=== PATIENT | female | born 1950 | race Caucasian/White ===

== ENCOUNTER 2021-08-07 15:07 | Inpatient (IN) | payer MEDICARE ==
[2021-08-07 21:17] LABS: Basophils % (A) 0 %; Eosinophils % (A) 0 %; HCT 39.4 % (34.0-46.0); HGB 13.6 gm/dL (11.4-16.0); Lymphocytes # (A) 0.8 k/uL (1.0-4.8); Lymphocytes % (A) 8 %; MCH 33.5 pg (25.0-35.0); MCHC 34.5 g/dL (31.0-37.0); MCV 97.1 fL (80.0-100.0); Mean Platelet Volume 6.8; Monocytes # (A) 0.2 k/uL (0-1.0); Monocytes % (A) 2 %; Neutrophils # (A) 8.3 k/uL (1.3-7.7); Neutrophils % (A) 88 %; Platelet Count 293 k/uL (150-450); RBC 4.06 m/uL (3.80-5.40); RDW 12.7 % (11.5-15.5); WBC 9.5 k/uL (3.8-10.6)
[2021-08-07 21:23] LABS: ALT 25 U/L (4-34); AST 34 U/L (14-36); Acetaminophen <10.0 ug/mL; African American GFR (CKD) >90 (>60 ml/min/1.73 sqM); Albumin 4.6 g/dL (3.5-5.0); Alkaline Phosphatase 99 U/L (38-126); Anion Gap 9 mmol/L; Blood Urea Nitrogen 9 mg/dL (7-17); Calcium 9.7 mg/dL (8.4-10.2); Carbon Dioxide 24 mmol/L (22-30); Chloride 95 mmol/L (98-107); Glucose 121 mg/dL (74-99); Non-African American GFR(CKD) >90 (>60 ml/min/1.73 sqM); Salicylate <1.0 mg/dL; Sodium 128 mmol/L (137-145); Total Bilirubin 1.1 mg/dL (0.2-1.3); Total Protein 7.4 g/dL (6.3-8.2)
[2021-08-07 21:33] LABS: INR 0.9 (<1.2); Partial Thromboplastin Time 24.8 sec (22.0-30.0)
--- NOTE | 2021-08-07 21:43 | CT ---
EXAMINATION TYPE: CT brain wo con DATE OF EXAM: 08/07/2021 COMPARISON: None HISTORY: Confusion, tremors, URBINA CT DLP: 1096.4 mGycm Automated exposure control for dose reduction was used. There is mild cerebral atrophy. There is mild hypodensity in the periventricular white matter. There is no mass effect nor midline shift. There is no sign of intracranial hemorrhage. Calvarium is intact . Skull base is intact. There is normal aeration of the mastoid sinuses. IMPRESSION: Mild atrophy. White matter hypodensity mainly in the frontal lobes consistent with some chronic small vessel ischemia.
--- NOTE | 2021-08-07 21:45 | XR ---
EXAMINATION TYPE: XR chest 2V DATE OF EXAM: 08/07/2021 COMPARISON: NONE HISTORY: Confusion TECHNIQUE: 2 views FINDINGS: Heart and mediastinum are normal. Lungs are clear. Diaphragm is normal. Bony thorax is inta ct. Pulmonary vascularity is normal. IMPRESSION: Normal chest
[2021-08-07 21:48] LABS: Appearance,Urine Cloudy (Clear); Bilirubin,Urine Negative (Negative); Blood,Urine Negative (Negative); Color,Urine Yellow; Glucose,Urine (UA) Negative (Negative); Ketones,Urine 2+ (Negative); Leukocyte Esterase,Urine Large (Negative); Nitrite,Urine Negative (Negative); Protein,Urine Trace (Negative); RBC,Urine 5 /hpf (0-5); Specific Gravity,Urine 1.019 (1.001-1.035); Squamous Epithelial Cell,Urine 4 /hpf (0-4); Urobilinogen,Urine <2.0 mg/dL (<2.0); WBC,Urine 25 /hpf (0-5)
[2021-08-07 21:55] LABS: Amphetamine Screen,Urine Not Detected (NotDetected); Barbiturate Screen,Urine Not Detected (NotDetected); Benzodiazepines Screen,Urine Detected (NotDetected); Cocaine Screen,Urine Not Detected (NotDetected); Methadone Screen, Urine Not Detected (NotDetected); Opiate Screen,Urine Detected (NotDetected); Oxycodone Screen, Urine Not Detected (NotDetected); Phencyclidine Screen,Urine Not Detected (NotDetected); Tricyclic Antidepressant,Urine Not Detected (NotDetected); Urn Cannabinoid Scrn Not Detected (NotDetected)
[2021-08-07] MEDS ORDERED: cefTRIAXone IN SWFI 1,000 MG/10 ML SYRINGE IVP STA (22:45)
[2021-08-07] MEDS ORDERED: VANCOMYCIN IV PER PHARMACY 1 EACH MISC MISCELLANE PRN (23:39)
--- NOTE | 2021-08-07 23:46 | ED ---
Altered Mental Status HPI - General Chief Complaint: Altered Mental Status Stated Complaint: Confusion,offbalance,shaking Time Seen by Provider: 08/07/21 19:35 Source: patient, family Mode of arrival: wheelchair Limitations: no limitations - History of Present Illness Initial Comments: 71-year-old female presents emergency Department accompanied by her daughter with report of altered mental status. The daughter provides majority of the history. States that she talked her mother yesterday around 8 PM and the patient was her normal self. The patient then showed up at her house today. Patient reported that she was having difficulties figuring out how to use the telephone and therefore drove herself over to her daughter's house. Patient had difficulty with her speech and seemed very confused. She was having difficulties with ambulation. The patient denies any recent head injuries. No known fevers. Does admit to a headache. No neck pain. No chest pain or shortness of breath. No abdominal pain. No changes in her bowel or bladder hab its. Upon evaluation in the room the patient is able to provide a complete history. Does admit that she was confused earlier this morning and agrees that that is concerning to her. Patient took Tylenol the waiting room after it was found that she had a fever. She denies any infectious symptoms. No nausea or vomiting. Denies drug use. Does admit to occasional alcohol use. No sick contacts. No other alleviating, precipitating or modifying factors - Related Data Home Medications Medication Instructions Recorded Confirmed HYDROcodone/APAP 7.5-325MG [[place] 1 tab PO Q6H PRN 08/07/21 08/07/21 7.5-325] Losartan Potassium [Cozaar] 25 mg PO DAILY 08/07/21 08/07/21 diazePAM [Valium] 5 mg PO TID PRN 08/07/21 08/07/21 hydroCHLOROthiazide [Hydrodiuril] 25 mg PO DAILY 08/07/21 08/07/21 Allergies Allergy/AdvReac Type Severity Reaction Status Date / Time No Known Allergies Allergy Verified 08/07/21 22:22 Review of Systems ROS Statement: Those systems with pertinent positive or pertinent negative responses have been documented in the HPI. ROS Other: All systems not noted in ROS Statement are negative. Past Medical History Past Medical History: Hypertension Additional Past Medical History / Comment(s): tremors History of Any Multi-Drug Resistant Organisms: None Reported Past Surgical History: Orthopedic Surgery Past Psychological History: No Psychological Hx Reported Smoking Status: Never smoker Past Alcohol Use History: Occasional Past Drug Use History: None Reported - Past Family History Mother Family Medical History: Hypertension General Exam Limitations: no limitations General appearance: alert, in no apparent distress, other (resting tremor ) Head exam: Present: atraumatic, normocephalic, normal inspection Eye exam: Present: normal appearance, PERRL, EOMI. Absent: scleral icterus, conjunctival injection, periorbital swelling ENT exam: Present: normal exam, mucous membranes moist Neck exam: Present: normal inspection. Absent: tenderness, meningismus, lymphadenopathy Respiratory exam: Present: normal lung sounds bilaterally. Absent: respiratory distress, wheezes, rales, rhonchi, stridor Cardiovascular Exam: Present: normal rhythm, tachycardia GI/Abdominal exam: Present: soft, normal bowel sounds. Absent: distended, tenderness, guarding, rebound, rigid Extremities exam: Present: normal inspection, full ROM, normal capillary refill. Absent: tenderness, pedal edema, joint swelling, calf tenderness Neurological exam: Present: alert, oriented X3, CN II-XII intact, other (finger to nose symmetric) Psychiatric exam: Present: flat affect Skin exam: Present: warm, dry, intact, normal color. Absent: rash Course Vital Signs 08/07/21 08/07/21 08/08/21 19:31 23:42 05:00 Temperature 100.4 F H 99.1 F 98.4 F Pulse Rate 111 H 107 H 98 Respiratory 20 18 15 Rate Blood Pressure 165/81 176/83 160/74 O2 Sat by Pulse 93 L 94 L 96 Oximetry 08/08/21 07:00 Temperature 98 F Pulse Rate 90 Respiratory 22 Rate Blood Pressure 156/82 O2 Sat by Pulse 98 Oximetry Medical Decision Making - Medical Decision Making On arrival patient is placed in room 30. A thorough history and physical exam was performed. Patient is able to provide a complete history at this time. Darshan arshad reports that the patient is much improved from earlier today. Laboratory studies are obtained. Sodium 128. Urinalysis demonstrates large leukocyte esterase and 25 white blood cells. Urine positive for opiates and benzos. Patient did not originally disclose that she is on these medications however later on does admit that she takes [place] and Valium when needed. Denies abuse of these medications. CT of the patient's brain demonstrates mild atrophy with white matter hypodensity mainly in the frontal lobes consistent with chronic small vessel ischemia. Chest x-ray demonstrates no acute process. Due to the patient's reported encephalopathy earlier today with fever she is given a dose of Rocephin and Vanco. Patient is refusing lumbar puncture at this time. Understands the risks of refusal - patient states she does not want to even remain hospitalized. Patient agreeable to stay overnight however with persuasion from her daughter. Dr. Courtney will be consult from neurology. Patient remained in stable condition awaiting a bed - Lab Data Result diagrams: 08/08/21 06:15 08/08/21 06:15 Lab Results 08/07/21 08/07/21 08/07/21 Range/Units 21:00 21:04 21:04 WBC 9.5 (3.8-10.6) k/uL RBC 4.06 (3.80-5.40) m/uL Hgb 13.6 (11.4-16.0) gm/dL Hct 39.4 (34.0-46.0) % MCV 97.1 (80.0-100.0) fL MCH 33.5 (25.0-35.0) pg MCHC 34.5 (31.0-37.0) g/dL RDW 12.7 (11.5-15.5) % Plt Count 293 (150-450) k/uL MPV 6.8 Neutrophils % 88 % Lymphocytes % 8 % Monocytes % 2 % Eosinophils % 0 % Basophils % 0 % Neutrophils # 8.3 H (1.3-7.7) k/uL Lymphocytes # 0.8 L (1.0-4.8) k/uL Monocytes # 0.2 (0-1.0) k/uL Eosinophils # 0.0 (0-0.7) k/uL Basophils # 0.0 (0-0.2) k/uL PT 10.0 (9.0-12.0) sec INR 0.9 (<1.2) APTT 24.8 (22.0-30.0) sec Sodium (137-145) mmol/L Potassium (3.5-5.1) mmol/L Chloride (98-107) mmol/L Carbon Dioxide (22-30) mmol/L Anion Gap mmol/L BUN (7-17) mg/dL Creatinine (0.52-1.04) mg/dL Est GFR (CKD-EPI)AfAm (>60 ml/min/1.73 sqM) Est GFR (CKD-EPI)NonAf (>60 ml/min/1.73 sqM) Glucose (74-99) mg/dL Calcium (8.4-10.2) mg/dL Total Bilirubin (0.2-1.3) mg/dL AST (14-36) U/L ALT (4-34) U/L Alkaline Phosphatase (38-126) U/L Ammonia (<30) umol/L Troponin I (0.000-0.034) ng/mL Total Protein (6.3-8.2) g/dL Albumin (3.5-5.0) g/dL TSH (0.465-4.680) mIU/L Urine Color Yellow Urine Appearance Cloudy H (Clear) Urine pH 6.0 (5.0-8.0) Ur Specific [place] 1.019 (1.001-1.035) Urine Protein Trace H (Negative) Urine Glucose (UA) Negative (Negative) Urine Ketones 2+ H (Negative) Urine Blood Negative (Negative) Urine Nitrite Negative (Negative) Urine Bilirubin Negative (Negative) Urine Urobilinogen <2.0 (<2.0) mg/dL Ur Leukocyte Esterase Large H (Negative) Urine RBC 5 (0-5) /hpf Urine WBC 25 H (0-5) /hpf Ur Squamous Epith Cells 4 (0-4) /hpf Salicylates mg/dL Urine Opiates Screen Detected H (NotDetected) Ur Oxycodone Screen Not Detected (NotDetected) Urine Methadone Screen Not Detected (NotDetected) Ur Propoxyphene Screen Not Detected (NotDetected) Acetaminophen ug/mL Ur Barbiturates Screen Not Detected (NotDetected) U Tricyclic Antidepress Not Detected (NotDetected) Ur Phencyclidine Scrn Not Detected (NotDetected) Ur Amphetamines Screen Not Detected (NotDetected) U Methamphetamines Scrn Not Detected (NotDetected) U Benzodiazepines Scrn Detected H (NotDetected) Urine Cocaine Screen Not Detected (NotDetected) U Marijuana (THC) Screen Not Detected (NotDetected) Coronavirus (PCR) (Not Detectd) 08/07/21 08/07/21 08/07/21 Range/Units 21:04 21:04 21:04 WBC (3.8-10.6) k/uL RBC (3.80-5.40) m/uL Hgb (11.4-16.0) gm/dL Hct (34.0-46.0) % MCV (80.0-100.0) fL MCH (25.0-35.0) pg MCHC (31.0-37.0) g/dL RDW (11.5-15.5) % Plt Count (150-450) k/uL MPV Neutrophils % % Lymphocytes % % Monocytes % % Eosinophils % % Basophils % % Neutrophils # (1.3-7.7) k/uL Lymphocytes # (1.0-4.8) k/uL Monocytes # (0-1.0) k/uL Eosinophils # (0-0.7) k/uL Basophils # (0-0.2) k/uL PT (9.0-12.0) sec INR (<1.2) APTT (22.0-30.0) sec Sodium 128 L (137-145) mmol/L Potassium 4.0 (3.5-5.1) mmol/L Chloride 95 L (98-107) mmol/L Carbon Dioxide 24 (22-30) mmol/L Anion Gap 9 mmol/L BUN 9 (7-17) mg/dL Creatinine 0.45 L (0.52-1.04) mg/dL Est GFR (CKD-EPI)AfAm >90 (>60 ml/min/1.73 sqM) Est GFR (CKD-EPI)NonAf >90 (>60 ml/min/1.73 sqM) Glucose 121 H (74-99) mg/dL Calcium 9.7 (8.4-10.2) mg/dL Total Bilirubin 1.1 (0.2-1.3) mg/dL AST 34 (14-36) U/L ALT 25 (4-34) U/L Alkaline Phosphatase 99 (38-126) U/L Ammonia (<30) umol/L Troponin I <0.012 (0.000-0.034) ng/mL Total Protein 7.4 (6.3-8.2) g/dL Albumin 4.6 (3.5-5.0) g/dL TSH 0.532 (0.465-4.680) mIU/L Urine Color Urine Appearance (Clear) Urine pH (5.0-8.0) Ur Specific [place] (1.001-1.035) Urine Protein (Negative) Urine Glucose (UA) (Negative) Urine Ketones (Negative) Urine Blood (Negative) Urine Nitrite (Negative) Urine Bilirubin (Negative) Urine Urobilinogen (<2.0) mg/dL Ur Leukocyte Esterase (Negative) Urine RBC (0-5) /hpf Urine WBC (0-5) /hpf Ur Squamous Epith Cells (0-4) /hpf Salicylates <1.0 mg/dL Urine Opiates Screen (NotDetected) Ur Oxycodone Screen (NotDetected) Urine Methadone Screen (NotDetected) Ur Propoxyphene Screen (NotDetected) Acetaminophen <10.0 ug/mL Ur Barbiturates Screen (NotDetected) U Tricyclic Antidepress (NotDetected) Ur Phencyclidine Scrn (NotDetected) Ur Amphetamines Screen (NotDetected) U Methamphetamines Scrn (NotDetected) U Benzodiazepines Scrn (NotDetected) Urine Cocaine Screen (NotDetected) U Marijuana (THC) Screen (NotDetected) Coronavirus (PCR) Not Detected (Not Detectd) 08/07/21 Range/Units 22:04 WBC (3.8-10.6) k/uL RBC (3.80-5.40) m/uL Hgb (11.4-16.0) gm/dL Hct (34.0-46.0) % MCV (80.0-100.0) fL MCH (25.0-35.0) pg MCHC (31.0-37.0) g/dL RDW (11.5-15.5) % Plt Count (150-450) k/uL MPV Neutrophils % % Lymphocytes % % Monocytes % % Eosinophils % % Basophils % % Neutrophils # (1.3-7.7) k/uL Lymphocytes # (1.0-4.8) k/uL Monocytes # (0-1.0) k/uL Eosinophils # (0-0.7) k/uL Basophils # (0-0.2) k/uL PT (9.0-12.0) sec INR (<1.2) APTT (22.0-30.0) sec Sodium (137-145) mmol/L Potassium (3.5-5.1) mmol/L Chloride (98-107) mmol/L Carbon Dioxide (22-30) mmol/L Anion Gap mmol/L BUN (7-17) mg/dL Creatinine (0.52-1.04) mg/dL Est GFR (CKD-EPI)AfAm (>60 ml/min/1.73 sqM) Est GFR (CKD-EPI)NonAf (>60 ml/min/1.73 sqM) Glucose (74-99) mg/dL Calcium (8.4-10.2) mg/dL Total Bilirubin (0.2-1.3) mg/dL AST (14-36) U/L ALT (4-34) U/L Alkaline Phosphatase (38-126) U/L Ammonia <9 (<30) umol/L Troponin I (0.000-0.034) ng/mL Total Protein (6.3-8.2) g/dL Albumin (3.5-5.0) g/dL TSH (0.465-4.680) mIU/L Urine Color Urine Appearance (Clear) Urine pH (5.0-8.0) Ur Specific [place] (1.001-1.035) Urine Protein (Negative) Urine Glucose (UA) (Negative) Urine Ketones (Negative) Urine Blood (Negative) Urine Nitrite (Negative) Urine Bilirubin (Negative) Urine Urobilinogen (<2.0) mg/dL Ur Leukocyte Esterase (Negative) Urine RBC (0-5) /hpf Urine WBC (0-5) /hpf Ur Squamous Epith Cells (0-4) /hpf Salicylates mg/dL Urine Opiates Screen (NotDetected) Ur Oxycodone Screen (NotDetected) Urine Methadone Screen (NotDetected) Ur Propoxyphene Screen (NotDetected) Acetaminophen ug/mL Ur Barbiturates Screen (NotDetected) U Tricyclic Antidepress (NotDetected) Ur Phencyclidine Scrn (NotDetected) Ur Amphetamines Screen (NotDetected) U Methamphetamines Scrn (NotDetected) U Benzodiazepines Scrn (NotDetected) Urine Cocaine Screen (NotDetected) U Marijuana (THC) Screen (NotDetected) Coronavirus (PCR) (Not Detectd) - EKG Data EKG Comments: EKG demonstrates sinus tachycardia with a ventricular rate of 101. NH interval 136. QRS 78. QTC of 448. No acute ST segment elevations or depressions concerning for ischemic changes Disposition Clinical Impression: Acute encephalopathy, Pyrexia Disposition: ADMITTED IP TO THIS HOSP Condition: Undetermined Is patient prescribed a controlled substance at d/c from ED?: No Decision to Admit Reason: Admit from EC Decision Date: 08/07/21 Decision Time: 23:56
[2021-08-07] MEDS ORDERED: ACETAMINOPHEN TAB 325 MG TAB PO PRN (23:56)
[2021-08-07] MEDS ORDERED: NALOXONE 0.4 MG/ML 1 ML VIAL IV PRN (23:56)
[2021-08-07] MEDS ORDERED: IBUPROFEN 400 MG TAB PO PRN (23:56)
[2021-08-07] MEDS ORDERED: KETOROLAC 30 MG/ML 1 ML VIAL IVP STA (23:57)
[2021-08-08] MEDS ORDERED: SODIUM CHLORIDE 0.9% 1,000 ML IV ONE (00:07)
[2021-08-08] MEDS ORDERED: VANCOMYCIN 1,000 MG in SODIUM CHLORIDE 0.9% 250 ML IVPB ONE (00:30)
--- NOTE | 2021-08-08 02:58 | P.HPIM ---
History of Present Illness H&P Date: 08/08/21 The patient is a 71-year-old female with a PMH of hypertension, essential tremor, and alcohol abuse who was brought to the emergency room by her daughter for confusion and slurred speech. The patient reports that this morning she tried to go into town as per usual but found herself having difficulty using her cell phone to contact her daughter. She then decided to drive to her daughter's house and upon arrival, the patient's daughter noted that she was slurring her words and appeared to be confused brought her to the emergency room. The patient reports having a headache throughout the day but denied neck pain, visual disturbances, fevers. Denied focal weakness, numbness, tingling. The p atient endorsed drinking 6-10 beers daily for the past several decades but notes no history of alcohol withdrawal or having been hospitalized due to her drinking. The patient further denied urinary complaints, abdominal pain, nausea, vomiting, diarrhea, cough, chest pain, shortness of breath. Denied rashes, sick contacts, recent travel. The daughter at the bedside at the time of interview reports that her mother appears almost be back to baseline but still not quite herself. The patient had a temperature in the emergency room with T-max of 100.4F. CT brain revealed chronic small vessel ischemia but no additional abnormalities. EKG revealed sinus tachycardia at 101 beats per minute with T-wave inversion in leads V1 and V2. Chest x-ray was unremarkable. Laboratory evaluation was remarkable for sodium of 128, UA with WBC count 25, large leukocyte esterase, and 2+ ketones with urine toxicology positive for opiates and benzodiazepines. Review of systems: Pertinent positives and negatives as discussed in HPI, a complete review of systems was performed and all other systems are negative. Physical examination: General: non toxic, no distress, appears at stated age, normal weight Derm: no unusual rashes/lesions no unusual ecchymoses, warm, dry Head: atraumatic, normocephalic, symmetric Eyes: EOMI, no lid lag, anicteric sclera, pupils equal round reactive to light ENT: Nose and ears atraumatic, no thrush, no pharyngeal erythema Neck: No thyromegaly, no cervical lymphadenopathy, trachea midline, supple Mouth: no lip lesion, mucus membranes moist Cardiovascular: S1S2 reg, no murmur, positive posterior tibial pulse bilateral, no edema, capillary refill less than 2 seconds Lungs: CTA bilateral, no rhonchi, no rales , no accessory muscle use Abdominal: soft, nontender to palpation, no guarding, no appreciable organomegaly, normal bowel sounds Ext: no gross muscle atrophy, muscle strength 5 out of 5 in all 4 extremities grossly, no contractures, Neuro: CN II-XI grossly intact, light touch intact all 4 extremities, finger to nose within normal limits, mild head and bilateral hand resting tremor noted, no cogwheel rigidity, no nuchal rigidity with Kernig's and Brudzinski's negative Psych: Alert, oriented, appropriate affect Assessment/plan Sepsis secondary to UTI -Continue with ceftriaxone -Follow up cultures -IV fluids Altered mental status, possibly secondary to UTI, unable to rule out stroke vs meningitis/encephalitis vs medication side effect (Valium and [place]) -Neuro checks -Neurology consulted -Monitor for alcohol withdrawal -Patient vehemently refused LP Hyponatremia, may be due to alcohol abuse -IV fluids -Monitor for now -Hold home HCTZ dose DVT prophylaxis -Heparin subcu The patient is admitted with an anticipated greater than 2 midnight stay for evaluation of AMS CODE STATUS: Full Code Discussed with: patient, daughter Anticipated discharge date: 2-[address]: Home Past Medical History Past Medical History: Hypertension Additional Past Medical History / Comment(s): tremors History of Any Multi-Drug Resistant Organisms: None Reported Past Surgical History: Orthopedic Surgery Past Psychological History: No Psychological Hx Reported Smoking Status: Never smoker Past Alcohol Use History: Occasional Past Drug Use History: None Reported - Past Family History Mother Family Medical History: Hypertension Medications and Allergies Home Medications Medication Instructions Recorded Confirmed Type HYDROcodone/APAP 7.5-325MG [[place] 1 tab PO Q6H PRN 08/07/21 08/07/21 History 7.5-325] Losartan Potassium [Cozaar] 25 mg PO DAILY 08/07/21 08/07/21 History diazePAM [Valium] 5 mg PO TID PRN 08/07/21 08/07/21 History hydroCHLOROthiazide [Hydrodiuril] 25 mg PO DAILY 08/07/21 08/07/21 History Allergies Allergy/AdvReac Type Severity Reaction Status Date / Time No Known Allergies Allergy Verified 08/07/21 22:22 Physical Exam Vitals: Vital Signs Temp Pulse Resp BP Pulse Ox 08/07/21 23:42 99.1 F 107 H 18 176/83 94 L 08/07/21 19:31 100.4 F H 111 H 20 165/81 93 L Intake and Output 08/07/21 08/07/21 08/08/21 14:59 22:59 06:59 Other: Weight 54.431 kg Results CBC & Chem 7: 08/07/21 21:04 08/07/21 21:04 Labs: Abnormal Lab Results - Last 24 Hours (Table) 08/07/21 08/07/21 08/07/21 Range/Units 21:00 21:04 21:04 Neutrophils # 8.3 H (1.3-7.7) k/uL Lymphocytes # 0.8 L (1.0-4.8) k/uL Sodium 128 L (137-145) mmol/L Chloride 95 L (98-107) mmol/L Creatinine 0.45 L (0.52-1.04) mg/dL Glucose 121 H (74-99) mg/dL Urine Appearance Cloudy H (Clear) Urine Protein Trace H (Negative) Urine Ketones 2+ H (Negative) Ur Leukocyte Esterase Large H (Negative) Urine WBC 25 H (0-5) /hpf Urine Opiates Screen Detected H (NotDetected) U Benzodiazepines Scrn Detected H (NotDetected)
[2021-08-08] MEDS ORDERED: SODIUM CHLORIDE 0.9% 1,000 ML IV SCH (03:00)
[2021-08-08 06:37] LABS: Basophils % (A) 0 %; Eosinophils % (A) 0 %; HCT 37.4 % (34.0-46.0); HGB 12.8 gm/dL (11.4-16.0); Lymphocytes # (A) 1.4 k/uL (1.0-4.8); Lymphocytes % (A) 16 %; MCH 33.9 pg (25.0-35.0); MCHC 34.1 g/dL (31.0-37.0); MCV 99.4 fL (80.0-100.0); Mean Platelet Volume 7.1; Monocytes # (A) 0.6 k/uL (0-1.0); Monocytes % (A) 7 %; Neutrophils # (A) 6.6 k/uL (1.3-7.7); Neutrophils % (A) 74 %; Platelet Count 256 k/uL (150-450); RBC 3.76 m/uL (3.80-5.40); WBC 8.9 k/uL (3.8-10.6)
[2021-08-08 06:58] LABS: African American GFR (CKD) >90 (>60 ml/min/1.73 sqM); Blood Urea Nitrogen 7 mg/dL (7-17); Carbon Dioxide 23 mmol/L (22-30); Chloride 104 mmol/L (98-107); Non-African American GFR(CKD) >90 (>60 ml/min/1.73 sqM)
[2021-08-08 06:59] LABS: Anion Gap 7 mmol/L; Calcium 9.5 mg/dL (8.4-10.2); Glucose 117 mg/dL (74-99); Potassium 3.9 mmol/L (3.5-5.1); Sodium 134 mmol/L (137-145)
[2021-08-08 07:20] VITALS: BP 156/82; PULSE 90; RESP 22; TEMP 98
[2021-08-08] MEDS ORDERED: HEPARIN SODIUM,PORCINE/PF 5,000 UNIT/0.5 ML SYRINGE SQ SCH (08:00)
[2021-08-08] MEDS ORDERED: hydroCHLOROthiazide 25 MG TAB PO SCH (09:00)
[2021-08-08] MEDS ORDERED: LOSARTAN 25 MG TAB PO SCH (09:00)
--- NOTE | 2021-08-08 10:03 | P.CNNES ---
History of Present Illness Consult date: 08/08/21 Requesting physician: Stephanie Carpio Reason for Consult: acute encephalopathy History of Present Illness: This is a 71-year-old woman with medical history of hypertension, essential tremor, remote history of migraine, alcohol use who presented to the emergency department on 08/07/2021 by her daughter for confusion and word finding difficulty. Some of the history is obtained patient's daughter who is at bedside. She stated that yesterday she was having word finding difficulties and the episode lasted for 6 hours to 8 hours. Associated with that the she noticed that she was having a headache and she's not sure of started before or after was bilateral frontal region was aching she denies any photophobia or photophobia. The headache was 10 over 10 and she felt like lasted the entire day yesterday. She denies any visual disturbance or neck pain. He said the the day prior to yesterday she noticed that she had the brief episode of left hand numbness that resolved as well as left. Orbital numbness. Denied of any focal weakness, any difficulty swallowing, any numbness or tingling yesterday. Patient is not on any home antiplatelets or any statins. Patient feels her word finding difficulties has resolved and she is back to her baseline and the daughter agrees that she is back to her baseline. Regarding her headaches and the patient is stated that that there is a drastic improvement. Ration drinks is 6-8 at cans of beer daily. She was told that she has essential tremor by her primary care doctor and that she's not on any medications for it. She said that sometimes she has left hand tremor at rest but mostly the tremor is exacerbated with movement. She said that alcohol subsides her tremor at. Her mother had history of tremors. Some of the workup in the hospital consisted of: Initial vital signs is 100.4 Fahrenheit oral, blood pressure of 165/81, heart rate of 111, respiratory of 20, pulse ox of 93 L at room air. Patient repeated the temperatures were normal. White blood cell was done twice is 9.5K and 8.9K. Sodium initially was 128 and the repeat was 134. Initial serum glucose was 121. Calcium is 9.7, AST of 34, ALTs of 25, ammonia is less than 9, TSH is 0.532. Urinalysis that urine leukocyte esterase was large, urine white blood cells 25 urine ketones 2 positive. Urine drug screen is positive for opiates as well as benzoyl. Rest are nondetected that. Also notes is less than 1.0, acetaminophen is less than 10. [place] virus PCR was not detected. CT of the head is reported as mild atrophy. White matter hypodensity mainly in the frontal lobe consistent with some chronic small vessel ischemia. Also reviewed the CT of the head and there is no acute or subacute ischemia that was appreciable. There is no interpretable hemorrhage. Review of Systems Review of system: The 12 point system was reviewed and apparent positive and negative per HPI. Past Medical History Past Medical History: Hypertension Additional Past Medical History / Comment(s): tremors History of Any Multi-Drug Resistant Organisms: None Reported Past Surgical History: Orthopedic Surgery Past Psychological History: No Psychological Hx Reported Smoking Status: Never smoker Past Alcohol Use History: Occasional Past Drug Use History: None Reported - Past Family History Mother Family Medical History: Hypertension Medications and Allergies Home Medications Medication Instructions Recorded Confirmed Type HYDROcodone/APAP 7.5-325MG [[place] 1 tab PO Q6H PRN 08/07/21 08/07/21 History 7.5-325] Losartan Potassium [Cozaar] 25 mg PO DAILY 08/07/21 08/07/21 History diazePAM [Valium] 5 mg PO TID PRN 08/07/21 08/07/21 History hydroCHLOROthiazide [Hydrodiuril] 25 mg PO DAILY 08/07/21 08/07/21 History Allergies Allergy/AdvReac Type Severity Reaction Status Date / Time No Known Allergies Allergy Verified 08/07/21 22:22 Physical Examination - Vital Signs Vital Signs: Vital Signs Temp Pulse Resp BP Pulse Ox 08/08/21 07:00 98 F 90 22 156/82 98 08/08/21 05:00 98.4 F 98 15 160/74 96 08/07/21 23:42 99.1 F 107 H 18 176/83 94 L 08/07/21 19:31 100.4 F H 111 H 20 165/81 93 L Intake and Output 08/07/21 08/08/21 08/08/21 22:59 06:59 14:59 Other: Weight 54.431 kg GENERAL: The patient is lying in bed and is not in acute distress. HENT: Supple neck. Has head tremor. CHEST: The heart rate is regular rate rhythm. No murmurs to auscultation. No carotid bruit bilaterally. LUNG: Clear to auscultation bilaterally no wheezing noted throughout. Not labored breathing. ABDOMEN/GI: Bowel sounds present in all 4 quadrants. No tenderness to palpation throughout. NEUROLOGICAL: Higher mental function: The patient is awake, alert, oriented to self, place and time. Is able to identify objects correctly (pen, watch). Patient is following simple commands. No aphasia and no neglect. Good repetition. Cranial nerves: The pupils are round, equal and reactive to light and accommodation. Visual noble are full to confrontation throughout. Extraocular movement is intact no nystagmus is noted. Facial sensation is normal to touch throughout. The facial strength is normal throughout. Hearing is mildly to moderately decreased bilaterally to hand rub. Tongue is midline and moved [id number] without any difficulty. No dysarthria is noted. Shoulder shrug is normal bilaterally. Motor: Gait is deferred. The strength is 5 over 5 throughout. Normal tone and bulk. Has tremor of head and some tremor of left hand/forearm at rest. Cerebellum: Normal finger to nose heel to gill bilaterally. Sensation: Sensation is normal to touch throughout. Reflexes (right/left): 2+ throughout except ankles are 1+ bilaterally. Plantars are downgoing bilaterally. Results - Laboratory Findings CBC and BMP: 08/08/21 06:15 08/08/21 06:15 Abnormal Lab Findings: Abnormal Labs 08/07/21 08/07/21 08/07/21 21:00 21:04 21:04 RBC Neutrophils # 8.3 H Lymphocytes # 0.8 L Sodium 128 L Chloride 95 L Creatinine 0.45 L Glucose 121 H Urine Appearance Cloudy H Urine Protein Trace H Urine Ketones 2+ H Ur Leukocyte Esterase Large H Urine WBC 25 H Urine Opiates Screen Detected H U Benzodiazepines Scrn Detected H 08/08/21 08/08/21 06:15 06:15 RBC 3.76 L Neutrophils # Lymphocytes # Sodium 134 L Chloride Creatinine 0.50 L Glucose 117 H Urine Appearance Urine Protein Urine Ketones Ur Leukocyte Esterase Urine WBC Urine Opiates Screen U Benzodiazepines Scrn Assessment and Plan Assessment: Transient episode of Word finding difficult on 08/07/2021 and transient episode of left hand numbness on 08/06/21: Seems probable of Transient ischemic attack. Cannot rule out not due underlying infection especially (low grade fever and headache). Encephalopathy of unknown of origin at this time. Possible component of underlying infectino (from UTI) and metabolic encephalopathy. Mild hyponatremia (on presentation 128 -->134) Hypertension and on presentation blood pressure was normal Tremor (was notified it was essential) Alcohol use (of 6-8 drinks daily) Plan: I ordered MRI of the brain with and without but patient refused since not sure if she will have any residual payment from work-up. She also refuses any furt her imaging workup or blood workup because of insurance coverage. The nurse notified her that she needs to contact her insurance to find out her coverage. Patient refused lumbar puncture to the primary team. Recommend ASA 81mg daily and Lipitor 10mg qhs for secondary stroke prophylaxis but patient not enthustasic on being on medications. Recommend further work-up for her tremor as outpatient (consider Rula scan as outpatient to differentiate whether truly essential tremor or Parkinson's). Continue neuro checks Patient was counseled on alcohol cessation. We'll defer the rest of the medical management to the primary team The plan is discussed with the patient, her daughter (Nga) who is at bedside and her nurse. There is no further work-up since patient is refusing and recommend patient to follow-up with a neurologist within 1-2 weeks. Thank for the consultation. Vasile Courtney MD Neuro-Hospitalist Time with Patient: Greater than 30
[2021-08-08] MEDS ORDERED: VANCOMYCIN 1,000 MG in SODIUM CHLORIDE 0.9% 250 ML IVPB SCH (14:00)
--- NOTE | 2021-08-08 15:35 | P.DS ---
Providers Date of admission: 08/07/21 23:56 Expected date of discharge: 08/08/21 Attending physician: Leah Evangelista MD Consults: 08/07/21 23:57 Consult Physician Urgent Consulting Provider: Vasile Courtney Consult Reason/Comments: acute encephalopathy Do you want consulting provider notified?: Yes Primary care physician: Stated None Hospital Course: Patient had refused MRI, EEG multiple times, and then decided that she would actually want these tests. Unfortunately due to delay in testing, patient requested to leave against medical advice because she did not want to remain in the hospital due to concerns over payment. I counseled patient on importance of these tests, and she reflected understanding, but opted to leave AMA regardless. Patient Condition at Discharge: Undetermined Plan - Discharge Summary New Discharge Prescriptions: No Action HYDROcodone/APAP 7.5-325MG [[place] 7.5-325] 1 tab PO Q6H PRN PRN Reason: Pain diazePAM [Valium] 5 mg PO TID PRN PRN Reason: Anxiety Losartan Potassium [Cozaar] 25 mg PO DAILY hydroCHLOROthiazide [Hydrodiuril] 25 mg PO DAILY Discharge Medication List HYDROcodone/APAP 7.5-325MG [[place] 7.5-325] 1 tab PO Q6H PRN 08/07/21 [History] Losartan Potassium [Cozaar] 25 mg PO DAILY 08/07/21 [History] diazePAM [Valium] 5 mg PO TID PRN 08/07/21 [History] hydroCHLOROthiazide [Hydrodiuril] 25 mg PO DAILY 08/07/21 [History] Follow up Appointment(s)/Referral(s): None,Stated [Primary Care Provider] - 1-2 days Discharge Disposition: Left Against Medical Advice
== END 2021-08-08 10:57 | disposition left against medical advice (07) | DRG 872 ==
LOC: EC 15:07 → 5NMEDONC 23:56
PROVIDERS: ADMIT Internal Medicine; ATTEND Internal Medicine
DX: A41.9 Sepsis, unspecified organism (principal); G45.9 Transient cerebral ischemic attack, unspecified; E87.1 Hypo-osmolality and hyponatremia; N39.0 Urinary tract infection, site not specified; Z20.822 Contact with and (suspected) exposure to COVID-19; I10 Essential (primary) hypertension; R47.81 Slurred speech; F10.10 Alcohol abuse, uncomplicated; R51.9 Headache, unspecified; G25.0 Essential tremor; Z79.899 Other long term (current) drug therapy; Z82.49 Family history of ischemic heart disease and other diseases of the circulatory system; Z71.41 Alcohol abuse counseling and surveillance of alcoholic
CPT/HCPCS: 36415; 70450; 71046; 80048; 80053; 80143; 80179; 80306; 81001; 82140; 84443; 84484; 85025; 85610; 85730; 87040; 87086; 87635; 93005; 99285

== ENCOUNTER 2024-11-03 20:46 | Inpatient (IN) | payer MEDICARE ==
--- NOTE | 2024-11-03 20:53 | ED ---
Chest Pain HPI - General Source: patient, EMS, RN notes reviewed Mode of arrival: EMS Limitations: no limitations <Evelyn Dinh - Last Filed: 11/03/24 20:52> - General Source: patient, EMS, RN notes reviewed, old records reviewed Mode of arrival: EMS Limitations: no limitations - History of Present Illness MD Complaint: chest pain -: hour(s) Onset: during rest, awoke with symptoms Pain Location: substernal Pain Radiation: back Severity: moderate Severity scale (1-10): 7 Quality: tightness, heaviness Consistency: constant Improves With: nothing Worsens With: nothing Anginal Symptoms: dyspnea Other Symptoms: palpitations Treatments Prior to Arrival: none <Danny Milligan - Last Filed: 11/10/24 15:33> - General Chief Complaint: Chest Pain Stated Complaint: Chest Pain Time Seen by Provider: 11/03/24 20:52 - History of Present Illness Initial Comments: Quick note: 74-year-old female presented to the ER for evaluation of chest pressure that has been going on for the past couple of days. She does report radiation to her back. No shortness of breath out of the norm. (Evelyn Dinh) This is a 74-year-old female to the ER today for evaluation of chest pain. No history of heart disease does have strong family history of heart disease in herself with high blood pressure. Pain is anterior chest wall heaviness with radiation to her back no shortness of breath, patient usually relates her chest pain to reflux symptoms worse when she lays down but this pain began this morning and lingered throughout the day causing her to call EMS and present to the ER today, patient still has chest pain here in the ER heaviness (Danny Milligan) - Related Data Home Medications Medication Instructions Recorded Confirmed HYDROcodone/APAP 7.5-325MG [[place] 1 tab PO QID 08/07/21 11/04/24 7.5-325] Albuterol Sulfate [Albuterol 2 puff INHALATION RT-Q6H PRN 11/04/24 11/04/24 Sulfate Hfa] Losartan [Cozaar] 50 mg PO BID 11/04/24 11/04/24 Allergies Allergy/AdvReac Type Severity Reaction Status Date / Time No Known Allergies Allergy Verified 11/04/24 08:11 Review of Systems ROS Other: All systems not noted in ROS Statement are negative. <JasniteshEvelyn - Last Filed: 11/03/24 20:52> ROS Other: All systems not noted in ROS Statement are negative. <Danny Milligan - Last Filed: 11/10/24 15:33> ROS Statement: Those systems with pertinent positive or pertinent negative responses have been documented in the HPI. EKG Findings - EKG Comments: EKG Findings:: EKG is sinus 71 KS 193 QRS 95 QTc 415 - EKG Results: EKG: interpreted by ERMD <Danny Milligan - Last Filed: 11/10/24 15:33> Past Medical History Past Medical History: Hypertension Additional Past Medical History / Comment(s): tremors History of Any Multi-Drug Resistant Organisms: None Reported Past Surgical History: Orthopedic Surgery Past Psychological History: No Psychological Hx Reported Smoking Status: Never smoker Past Alcohol Use History: Occasional Past Drug Use History: None Reported - Past Family History Mother Family Medical History: Hypertension <JasniteshEvelyn - Last Filed: 11/03/24 20:52> General Exam Limitations: no limitations <Evelyn Dinh - Last Filed: 11/03/24 20:52> General appearance: alert, anxious, in distress Head exam: Present: atraumatic, normocephalic, normal inspection Eye exam: Present: normal appearance, PERRL, EOMI. Absent: scleral icterus, conjunctival injection, periorbital swelling ENT exam: Present: normal exam, mucous membranes moist Neck exam: Present: normal inspection. Absent: tenderness, meningismus, lymphadenopathy Respiratory exam: Present: normal lung sounds bilaterally. Absent: respiratory distress, wheezes, rales, rhonchi, stridor Cardiovascular Exam: Present: regular rate, normal rhythm, normal heart sounds. Absent: systolic murmur, diastolic murmur, rubs, gallop, clicks GI/Abdominal exam: Present: soft, normal bowel sounds. Absent: distended, tenderness, guarding, rebound, rigid Extremities exam: Present: normal inspection, full ROM, normal capillary refill. Absent: tenderness, pedal edema, joint swelling, calf tenderness Back exam: Present: normal inspection Neurological exam: Present: alert, oriented X3, CN II-XII intact Psychiatric exam: Present: normal affect, normal mood Skin exam: Present: warm, dry, intact, normal color. Absent: rash <Danny Milligan - Last Filed: 11/10/24 15:33> - General Exam Comments Initial Comments: Visual Physical Exam Vital signs reviewed General: Well-appearing, nontoxic, no acute distress. Head: Normocephalic, atraumatic Eyes: PERRLA, EOMI ENT: Airway patent Chest: Nonlabored breathing Skin: No visual rash, normal skin tone Neuro: Alert and oriented 3 Musculoskeletal: No gross abnormalities (Evelyn Dinh) Course <Danny Milligan - Last Filed: 11/10/24 15:33> Vital Signs 11/03/24 11/04/24 11/04/24 20:47 00:29 04:47 Temperature 97.8 F Pulse Rate 76 72 78 Respiratory 16 16 Rate Blood Pressure 182/74 174/73 134/66 O2 Sat by Pulse 98 Oximetry 11/04/24 11/04/24 11/04/24 06:38 08:14 12:48 Temperature 97.9 F Pulse Rate 84 85 Respiratory 18 18 18 Rate Blood Pressure 159/87 166/136 O2 Sat by Pulse 94 L 98 Oximetry - Reevaluation(s) Reevaluation #1: 11/03/24 23:10 Medical records reviewed (Danny Milligan) Reevaluation #2: 11/03/24 23:10 Patient is still with chest pain here in the emergency department (Danny Milligan) Reevaluation #3: 11/03/24 23:10 Patient informed of results and questions answered (Danny Milligan) Reevaluation #4: Was pt. sent in by a medical professional or institution (, PA, PARK INTERPRETIVE SPECIALIST, urgent care, hospital, or usp...) When possible be specific @ -no Did you speak to anyone other than the patient for history (EMS, parent, family, police, friend...)? What history was obtained from this source @ -no Did you review nursing and triage notes (agree or disagree)? Why? @ -agree Are old charts reviewed (outside hosp., previous admission, EMS record, old EKG, old radiological studies, urgent care reports/EKG's, usp records)? Rep ort findings @ -yes Differential Diagnosis (chest pain, altered mental status, abdominal pain women, abdominal pain men, vaginal bleeding, weakness, fever, dyspnea, syncope, headache, dizziness, GI bleed, back pain, seizure, CVA, palpatations, mental health, musculoskeletal)? @ -prior EKG interpreted by me (3pts min.). @ -yes X-rays interpreted by me (1pt min.). @ -yes negative for acute disease CT interpreted by me (1pt min.). @ -no U/S interpreted by me (1pt. min.). @ -no What testing was considered but not performed or refused? (CT, X-rays, U/S, labs)? Why? @ -none What meds were considered but not given or refused? Why? @ -none Did you discuss the management of the patient with other professionals (professionals i.e. , PA, PARK INTERPRETIVE SPECIALIST, lab, RT, psych nurse, social media intern, machinery rigger, t eacher, guest services officer, rn case manager)? Give summary @ -no Was smoking cessation discussed for >3mins.? @ -no Was critical care preformed (if so, how long)? @ -yes31 Were there social determinants of health that impacted care today? How? (Homelessness, low income, unemployed, alcoholism, drug addiction, transportation, low edu. Level, literacy, decrease access to med. care, fpc, rehab)? @ -none Was there de-escalation of care discussed even if they declined (Discuss DNR or withdrawal of care, Hospice)? DNR status @ -no What co-morbidities impacted this encounter? (DM, HTN, Smoking, COPD, CAD, Cancer, CVA, ARF, Chemo, Hep., AIDS, mental health diagnosis, sleep apnea, morbid obesity)? @ -none Was patient admitted / discharged? Hospital course, mention meds given and route, prescriptions, significant lab abnormalities, going to OR and other pertinent info. @ - 74 female to the ER for evaluation of chest pain, patient has history of hypertension, will admit as a chest pain observation, elevated troponin non- STEMI ACS Admitted Undiagnosed new problem with uncertain prognosis? @ -no Drug Therapy requiring intensive monitoring for toxicity (Heparin, Nitro, Insulin, Cardizem)? @ -no Were any procedures done? @ -no Diagnosis/symptom? @ -chest pain, CAD, ACS non-STEMI Acute, or Chronic, or Acute on Chronic? @ -Acute Uncomplicated (without systemic symptoms) or Complicated (systemic symptoms)? @ -Complicated Side effects of treatment? @ -no Exacerbation, Progression, or Severe Exacerbation? @ -exacerbation Poses a threat to life or bodily function? How? (Chest pain, [place], [place], pneumonia, PE, COPD, DKA, ARF, appy, cholecystitis, CVA, Diverticulitis, Homicidal, Suicidal, threat to staff... and all critical care pts) @ -yes acute ACS (Danny Milligan) Reevaluation #5: Differential Chest Pain: Stable Angina, Unstable Angina, STEMI, NSTEMI Aortic Dissection, Pneumothorax, Musculoskeletal, Esophageal Spasm GERD, Cholecystitis, Pancreatitis, Zoster, this is not meant to be an all-inclusive list. (Danny Milligan) - Consultations Consultation #1: Spoke with sound who agrees to admit this patient (Danny Milligan) Chest Pain MDM <Evelyn Dinh - Last Filed: 11/03/24 20:52> <Danny Milligan - Last Filed: 11/10/24 15:33> - MDM I performed the quick note portion of this chart. Electronically signed by Evelyn Dinh PA-C (Evelyn Dinh) 74 female to the ER for evaluation of chest pain, patient has history of hypertension, will admit as a chest pain observation, elevated troponin non- STEMI ACS (Danny Milligan) Critical Care Time Critical Care Time: Yes Total Critical Care Time: 31 <Danny Milligan - Last Filed: 11/10/24 15:33> Disposition <Evelyn Dinh - Last Filed: 11/03/24 20:52> Is patient prescribed a controlled substance at d/c from ED?: No Time of Disposition: 23:10 <Danny Milligan - Last Filed: 11/10/24 15:33> Clinical Impression: Chest pain, Acute non-ST elevation myocardial infarction (NSTEMI), ACS (acute coronary syndrome), Elevated troponin Disposition: ADMITTED IP TO THIS HOSP Condition: Serious
[2024-11-03 21:11] LABS: Basophils % (A) 0 %; Eosinophils # (A) 0.1 k/uL (0-0.7); Eosinophils % (A) 1 %; HCT 34.3 % (34.0-46.0); HGB 11.4 gm/dL (11.4-16.0); Lymphocytes # (A) 1.2 k/uL (1.0-4.8); Lymphocytes % (A) 16 %; MCH 31.4 pg (25.0-35.0); MCHC 33.2 g/dL (31.0-37.0); MCV 94.6 fL (80.0-100.0); Mean Platelet Volume 7.3; Monocytes # (A) 0.2 k/uL (0-1.0); Monocytes % (A) 3 %; Neutrophils # (A) 5.7 k/uL (1.3-7.7); Neutrophils % (A) 78 %; Platelet Count 294 k/uL (150-450); RBC 3.63 m/uL (3.80-5.40); RDW 12.7 % (11.5-15.5); WBC 7.3 k/uL (3.8-10.6)
[2024-11-03 21:20] LABS: Partial Thromboplastin Time 23.7 sec (22.0-30.0)
--- NOTE | 2024-11-03 21:25 | XR ---
EXAMINATION TYPE: XR chest 2V DATE OF EXAM: 11/03/2024 9:12 COMPARISON: Chest radiographs from 08/07/2021 CLINICAL INDICATION: Female, 74 years old with history of Chest Pain; [facility] TECHNIQUE: XR chest 2V Frontal and lateral views of the chest. FINDINGS: Lungs/Pleura: There is flattening of the diaphragm with increased lucency of the lungs. No evidence o f pneumothorax, pleural effusion or focal consolidation. Pulmonary vascularity: Unremarkable. Heart/mediastinum: Cardiomediastinal silhouette is unremarkable. Musculoskeletal: No acute osseous pathology. Other findings: None Lines/Tubes: IMPRESSION: 1. No acute cardiopulmonary disease process. 2. COPD changes. [facility], , 11/03/2024 9:22 PM
[2024-11-03 21:48] LABS: ALT 15 U/L (4-34); AST 26 U/L (14-36); African American GFR (CKD) >90 (>60 ml/min/1.73 sqM); Albumin 4.5 g/dL (3.5-5.0); Alkaline Phosphatase 69 U/L (38-126); Anion Gap 9 mmol/L; Blood Urea Nitrogen 8 mg/dL (7-17); Calcium 9.5 mg/dL (8.4-10.2); Carbon Dioxide 25 mmol/L (22-30); Chloride 100 mmol/L (98-107); Glucose 117 mg/dL (74-99); Magnesium 2.2 mg/dL (1.6-2.3); Non-African American GFR(CKD) >90 (>60 ml/min/1.73 sqM); Potassium 3.8 mmol/L (3.5-5.1); Sodium 134 mmol/L (137-145); Total Protein 6.9 g/dL (6.3-8.2)
[2024-11-04] MEDS: ASPIRIN 81 MG PO STA (00:02)
[2024-11-04] MEDS: HEPARIN SODIUM 1,000 UN/ML (10ML VL) IV ONE (00:04)
[2024-11-04] MEDS: HEPARIN SOD,PORK IN 0.45% NACL 25,000 UNIT in 0.45% NACL 1 250ML.BAG IV SCH ×2 (00:05→16:18)
[2024-11-04] MEDS ORDERED: LORazepam 1 MG TAB PO PRN (03:14)
[2024-11-04] MEDS ORDERED: LORazepam 2 MG/ML INJ IV PRN ×2 (03:14)
[2024-11-04 06:21] LABS: Basophils # (A) 0.1 k/uL (0-0.2); Basophils % (A) 1 %; Eosinophils # (A) 0.1 k/uL (0-0.7); Eosinophils % (A) 2 %; HCT 34.3 % (34.0-46.0); HGB 11.5 gm/dL (11.4-16.0); Lymphocytes # (A) 1.8 k/uL (1.0-4.8); Lymphocytes % (A) 29 %; MCH 32.2 pg (25.0-35.0); MCHC 33.4 g/dL (31.0-37.0); MCV 96.2 fL (80.0-100.0); Mean Platelet Volume 7.2; Monocytes # (A) 0.4 k/uL (0-1.0); Monocytes % (A) 7 %; Neutrophils # (A) 3.8 k/uL (1.3-7.7); Neutrophils % (A) 60 %; Platelet Count 282 k/uL (150-450); RBC 3.57 m/uL (3.80-5.40); RDW 12.3 % (11.5-15.5); WBC 6.3 k/uL (3.8-10.6)
[2024-11-04 06:26] LABS: Platelet Count 283 k/uL (150-450)
[2024-11-04] MEDS: ACETAMINOPHEN TAB 325 MG TAB PO PRN (06:47)
[2024-11-04 06:48] LABS: African American GFR (CKD) >90 (>60 ml/min/1.73 sqM); Anion Gap 7 mmol/L; Blood Urea Nitrogen 6 mg/dL (7-17); Calcium 9.7 mg/dL (8.4-10.2); Carbon Dioxide 27 mmol/L (22-30); Chloride 102 mmol/L (98-107); Glucose 102 mg/dL (74-99); Magnesium 2.2 mg/dL (1.6-2.3); Non-African American GFR(CKD) >90 (>60 ml/min/1.73 sqM); Potassium 3.6 mmol/L (3.5-5.1); Sodium 136 mmol/L (137-145)
--- NOTE | 2024-11-04 07:00 | P.HPIM ---
History of Present Illness H&P Date: 11/04/24 Patient is a 74-year-old female with past medical history significant for hypertension, essential tremor, and asthma presents to the emergency department for chest pain that worsened today. She states that she has had chest pain for the last few weeks and just thought it was heartburn as it occurred mostly at night or while laying down. She does state that it woke her up from sleep couple of times over the last few weeks. However today she had increasing chest pain with exertion, relieved by rest. She notes that it is a pressure-like pain that radiates towards her back, lower jaw, and bilateral posterior arms. She rates this pain a 10/10 but notes that it does go away with rest. She denies any nausea/vomiting, diaphoresis, dyspnea, palpitations. She denies a cardiac history. Initial vitals: BP 182/74, [place] 76 bpm, 98% on room air, 97.8 F Initial labs: WBC 7.3, hemoglobin 11.4, platelets 294, sodium 134, potassium 3.8, chloride 100, BUN 8, creatinine 0.56, glucose 117, troponin x 3 0.068, 0.124, 0.17 Initial EKG: Sinus rhythm with ventricular rate 71 bpm, QTc 415 ms, no ST-T segment changes ED documentation reviewed. Given aspirin 324 mg p.o. x 1, heparin bolus x 1, started on heparin GTT 12 units/kg/h Review of Systems Pertinent positives and negatives as discussed in HPI, a complete review of systems was performed and all other systems are negative. Past Medical History Past Medical History: Hypertension Additional Past Medical History / Comment(s): tremors History of Any Multi-Drug Resistant Organisms: None Reported Past Surgical History: Orthopedic Surgery Past Psychological History: No Psychological Hx Reported Smoking Status: Never smoker Past Alcohol Use History: Daily Past Drug Use History: None Reported - Past Family History Mother Family Medical History: Hypertension Medications and Allergies Home Medications Medication Instructions Recorded Confirmed Type HYDROcodone/APAP 7.5-325MG [[place] 1 tab PO Q6H PRN 08/07/21 08/07/21 History 7.5-325] Losartan Potassium [Cozaar] 25 mg PO DAILY 08/07/21 08/07/21 History diazePAM [Valium] 5 mg PO TID PRN 08/07/21 08/07/21 History hydroCHLOROthiazide [Hydrodiuril] 25 mg PO DAILY 08/07/21 08/07/21 History Allergies Allergy/AdvReac Type Severity Reaction Status Date / Time No Known Allergies Allergy Verified 11/03/24 20:49 Physical Exam Vitals: Vital Signs Temp Pulse Resp BP Pulse Ox 11/04/24 00:29 72 16 174/73 11/03/24 20:47 97.8 F 76 16 182/74 98 Intake and Output 11/03/24 11/03/24 11/04/24 14:59 22:59 06:59 Other: Weight 53.524 kg Vital signs reviewed General: Nontoxic, no distress, appears stated age, well-appearing Derm: Warm, dry, intact, no cyanosis Head: Atraumatic, normocephalic, symmetric Eyes: EOMI, anicteric sclera, PERRL Ears: Normal appearing, no external lesions, hearing intact Nose: Normal appearing, no external lesions Mouth: No lip lesion, mucus membranes moist, no tonsilar hypertrophy or exudate Neck: Supple, without lesions, trachea midline Cardiovascular: S1-S2 regular, no murmur, trace pitting edema bilateral feet Lungs: CTA bilateral, no wheezes, no rhonchi, no rales, no accessory muscle use Abdominal: Soft, non-tender to palpation, bowel sounds present Extremities: Muscle strength 5/5 in all extremities, radial pulses 2+ bilateral, posterior tibial pulses 2+ bilateral, essential tremor in upper extremities and head Neuro: Alert, oriented x 4, gross neurological examination did not reveal any focal deficits. Cranial nerves II to XII grossly intact. Psych: Appropriate affect and mood Results CBC & Chem 7: 11/04/24 06:07 11/04/24 06:06 Labs: Abnormal Lab Results - Last 24 Hours (Table) 11/03/24 11/03/24 11/03/24 Range/Units 20:59 20:59 20:59 RBC 3.63 L (3.80-5.40) m/uL Sodium 134 L (137-145) mmol/L Glucose 117 H (74-99) mg/dL Troponin I 0.060 H* (0.000-0.034) ng/mL 11/03/24 Range/Units 23:33 RBC (3.80-5.40) m/uL Sodium (137-145) mmol/L Glucose (74-99) mg/dL Troponin I 0.124 H* (0.000-0.034) ng/mL Thrombosis Risk Factor Assmnt - DVT/VTE Prophylaxis DVT/VTE Prophylaxis: Pharmacologic Prophylaxis ordered - Choose All That Apply Each Factor Represents 1 point: Swollen legs (current) Each Risk Factor Represents 2 Points: Age 61-74 years Thrombosis Risk Factor Assessment Total Risk Factor Score: 3 Thrombosis Risk Factor Assessment Level: Moderate Risk Assessment and Plan Assessment: Patient is a 74-year-old female with past medical history significant for hypertension admitted for NSTEMI. Plan: #. NSTEMI Troponin x 3 0.060, 0.124, 0.17 EKG: No ST segment changes Continue heparin GTT 12 units/kg/h Monitor vital signs Monitor CBC, PTT Continue telemetry monitoring Serial troponin Obtain echo Obtain lipid panel Resume home medicine once confirmed Cardiology consulted Aspirin 81 mg p.o. daily Started on Lipitor 80 mg p.o. daily #. Hyperglycemia Obtain HbA1c Chronic #. Hypertension #. Essential tremor #. Alcohol use disorder Resume home medications once confirmed [facility] protocol initiated DVT prophylaxis: Heparin GTT GI prophylaxis: Protonix 40 mg p.o. daily The patient is admitted with an anticipated less than 2 midnight stay for evaluation of NSTEMI. CODE STATUS: Full code Anticipated discharge place: Home I have seen and evaluated the patient today. I Discussed the case with the resident and agree with the resident's findings I edited the assessment and plan as necessary as documented in the resident's note.
[2024-11-04] MEDS: cloNIDine HCL 0.2 MG TAB PO STA (07:12)
[2024-11-04] MEDS: HEPARIN SODIUM 1,000 UN/ML (10ML VL) IV PRN (07:13)
[2024-11-04] MEDS: FOLIC ACID 1 MG TAB PO SCH (08:36)
[2024-11-04] MEDS: ASPIRIN 81 MG PO SCH (08:36)
[2024-11-04] MEDS: ATORVASTATIN 80 MG TAB PO SCH (08:36)
[2024-11-04] MEDS: LOSARTAN 25 MG TAB PO SCH (08:37)
[2024-11-04] MEDS: METOPROLOL TARTRATE 25 MG TAB PO SCH (08:37)
[2024-11-04] MEDS ORDERED: hydroCHLOROthiazide 25 MG TAB PO SCH (09:00)
[2024-11-04] MEDS ORDERED: ASPIRIN 325 MG TAB PO SCH (09:00)
[2024-11-04] MEDS ORDERED: NITROGLYCERIN SL TABS 0.4 MG TAB SUBLINGUAL PRN (09:31)
[2024-11-04] MEDS: LOSARTAN 50 MG TAB PO SCH (09:40)
[2024-11-04] MEDS: ASPIRIN 325 MG TAB PO STA (09:40)
[2024-11-04] MEDS: ATORVASTATIN 80 MG TAB PO STA (09:41)
[2024-11-04] MEDS: LORazepam 2 MG/ML INJ IV PRN (09:47)
[2024-11-04] MEDS: NITROGLYCERIN OINT 1 INCH/GM PACKET TOPICAL SCH (09:58)
--- NOTE | 2024-11-04 10:40 | P.CRDCN ---
History of Present Illness History of present illness: HISTORY OF PRESENT ILLNESS: This is a 74-year-old female with a past medical history significant for frequent alcohol use, hypertension and anxiety. 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 We have been asked to see the patient in consultation for chest pain. Patient examined at the bedside in the emergency room. Patient states over the past 1 to 2 weeks she has been having chest discomfort. She states the pain has been occurring at night when she lays down. She states that she initially thought it was heartburn. She states the pain starts in the middle of her chest and then radiates into her back and then into the back of her arms. She states the pain will last for about 10 to 15 minutes and is resolved when she sits up on the side of the bed. She does report that yesterday the pain was worse with exertion during the day. She is a non-smoker. She does report dri nking 2-3 beers a day which she states helps with her essential tremors. DIAGNOSTICS: - EKG reveals sinus mechanism with no signs of acute ischemia. - Chest xray negative for acute process. COPD changes.. - Laboratory data: WBC 6.3. Hemoglobin 11.5. Platelet count 283. Sodium 136. Potassium 3.6. BUN 6. Creatinine 0.49. Troponin 0.060. 0.124. 0.170. - Current home cardiac medication list not updated at the time of examination. -No previous echocardiogram, stress test, or cardiac catheterization available in EMR for review REVIEW OF SYSTEMS: At the time of my exam: CONSTITUTIONAL: Denies fever or chills. HEENT: Denies blurred vision, vision changes, or eye pain. Denies hemoptysis CARDIOVASCULAR: Denies chest pain. Denies orthopnea. Denies PND. Denies palpitations RESPIRATORY: Denies shortness of breath. GASTROINTESTINAL: Denies abdominal pain. Denies nausea or vomiting. HEMATOLOGIC: Denies bleeding disorders. GENITOURINARY: Denies any blood in urine. SKIN: Denies pruitis. Denies rash. PHYSICAL EXAM: VITAL SIGNS: Reviewed. GENERAL: Well-developed in no acute distress. HEENT: Head is normocephalic. Pupils are equal, round. Sclerae anicteric. Mucous membranes of the mouth are moist. Neck supple. No JVD or thyromegaly LUNGS: Respirations even and unlabored. Lungs essentially clear to auscultation bilaterally. HEART: Regular rate and rhythm. S1 and S2 heard. ABDOMEN: Soft. Nondistended. Nontender. EXTREMITIES: Normal range of motion. No clubbing or cyanosis. Peripheral pulses intact. No lower extremity edema NEUROLOGIC: Awake and alert. Oriented x 3. ASSESSMENT: Non-STEMI Hypertension Frequent alcohol use, patient reports drinking 2-3 beers per day Anxiety History of essential tremors PLAN: Change 2D echo to assess cardiac structure and function Continue IV heparin Patient has been started on aspirin 81 mg and atorvastatin 80 mg daily Continue losartan and metoprolol And Nitropaste Abstinence from alcohol recommended Patient to undergo cardiac catheterization today with Dr. Lenz Further recommendations pending patient course Nurse practitioner note has been reviewed by physician. Signing provider agrees with the documented findings, assessment, and plan of care documented by POCKET FLAP CREASING MACHINE OPERATOR as a scribe. Past Medical History Past Medical History: Hypertension Additional Past Medical History / Comment(s): tremors History of Any Multi-Drug Resistant Organisms: None Reported Past Surgical History: Orthopedic Surgery Past Psychological History: No Psychological Hx Reported Smoking Status: Never smoker Past Alcohol Use History: Daily Past Drug Use History: None Reported - Past Family History Mother Family Medical History: Hypertension Medications and Allergies Home Medications Medication Instructions Recorded Confirmed Type HYDROcodone/APAP 7.5-325MG [[place] 1 tab PO QID 08/07/21 11/04/24 History 7.5-325] Albuterol Sulfate [Albuterol 2 puff INHALATION RT-Q6H PRN 11/04/24 11/04/24 History Sulfate Hfa] Losartan [Cozaar] 50 mg PO BID 11/04/24 11/04/24 History Allergies Allergy/AdvReac Type Severity Reaction Status Date / Time No Known Allergies Allergy Verified 11/04/24 08:11 Physical Exam Vitals: Vital Signs Temp Pulse Resp BP Pulse Ox 11/04/24 06:38 97.9 F 84 18 159/87 94 L 11/04/24 04:47 78 134/66 11/04/24 00:29 72 16 174/73 11/03/24 20:47 97.8 F 76 16 182/74 98 Intake and Output 11/03/24 11/04/24 11/04/24 22:59 06:59 14:59 Intake Total 44.961 Balance 44.961 Intake: Intake, IV Titration 44.961 Amount Heparin Sod,Pork in 0.45% 44.961 NaCl 25,000 unit In 0.45 % NaCl 1 250ml.bag @ 12 UNITS/KG/HR 6.423 mls/hr IV .Q24H [facility] Rx#: [id number] Other: Weight 53.524 kg Results 11/04/24 06:07 11/04/24 06:06 Cardiac Enzymes 11/03/24 11/03/24 11/03/24 Range/Units 20:59 20:59 23:33 AST 26 (14-36) U/L Troponin I 0.060 H* 0.124 H* (0.000-0.034) ng/mL 11/04/24 Range/Units 02:05 AST (14-36) U/L Troponin I 0.170 H* (0.000-0.034) ng/mL Coagulation 11/03/24 11/03/24 11/04/24 Range/Units 20:59 23:33 06:07 PT 11.0 (10.0-12.5) sec APTT 23.7 23.4 34.3 H (22.0-30.0) sec CBC 11/03/24 11/04/24 11/04/24 Range/Units 20:59 06:06 06:07 WBC 7.3 6.3 (3.8-10.6) k/uL RBC 3.63 L 3.57 L (3.80-5.40) m/uL Hgb 11.4 11.5 (11.4-16.0) gm/dL Hct 34.3 34.3 (34.0-46.0) % Plt Count 294 282 283 (150-450) k/uL Comprehensive Metabolic Panel 11/03/24 11/04/24 Range/Units 20:59 06:06 Sodium 134 L 136 L (137-145) mmol/L Potassium 3.8 3.6 (3.5-5.1) mmol/L Chloride 100 102 (98-107) mmol/L Carbon Dioxide 25 27 (22-30) mmol/L BUN 8 6 L (7-17) mg/dL Creatinine 0.56 0.49 L (0.52-1.04) mg/dL Glucose 117 H 102 H (74-99) mg/dL Calcium 9.5 9.7 (8.4-10.2) mg/dL AST 26 (14-36) U/L ALT 15 (4-34) U/L Alkaline Phosphatase 69 (38-126) U/L Total Protein 6.9 (6.3-8.2) g/dL Albumin 4.5 (3.5-5.0) g/dL Current Medications Generic Name Dose Route Start Last Admin Trade Name Freq PRN Reason Stop Dose Admin Acetaminophen 650 mg 11/04/24 04:39 11/04/24 06:47 Acetaminophen Tab 325 Mg Tab PO 650 mg Q6HR PRN Administration Fever and/ or Pain Aspirin 81 mg 11/04/24 09:00 Aspirin 81 Mg PO DAILY [facility] Atorvastatin Calcium 80 mg 11/04/24 09:00 Atorvastatin 80 Mg Tab PO DAILY [facility] Folic Acid 1 mg 11/04/24 09:00 Folic Acid 1 Mg Tab PO DAILY [facility] Heparin Sodium (Porcine) 0 unit 11/04/24 07:07 11/04/24 07:13 Heparin Sodium 1,000 Un/Ml (10ml Vl) IV 1,388 unit PER PROTOCOL PRN Administration Low PTT Protocol Hydrochlorothiazide 25 mg 11/04/24 09:00 Hydrochlorothiazide 25 Mg Tab PO DAILY [facility] Heparin Sodium/Sodium Chloride 250 mls @ 6.423 mls/hr 11/03/24 23:15 11/04/24 07:05 25,000 unit/ Sodium Chloride IV 14 units/kg/hr .Q24H [facility] 7.493 mls/hr Administration Protocol 12 UNITS/KG/HR Lorazepam 1 mg 11/04/24 03:14 Lorazepam 2 Mg/Ml Inj IV Q1HR PRN CIWA 10 to 15 Lorazepam 1 mg 11/04/24 03:14 Lorazepam 2 Mg/Ml Inj IV Q2HR PRN CIWA 8 or 9 Lorazepam 2 mg 11/04/24 03:14 Lorazepam 2 Mg/Ml Inj IV 11/06/24 03:16 Q10M PRN CIWA 16 or higher Lorazepam 1 mg 11/04/24 03:14 Lorazepam 1 Mg Tab PO Q1HR PRN Alcohol Withdrawal Losartan Potassium 25 mg 11/04/24 09:00 Losartan 25 Mg Tab PO DAILY [facility] Metoprolol Tartrate 25 mg 11/04/24 09:00 Metoprolol Tartrate 25 Mg Tab PO BID [facility] Morphine Sulfate 4 mg 11/03/24 23:07 Morphine Sulfate 4 Mg/Ml Syringe IV Q4HR PRN Chest Pain Nitroglycerin 0.4 mg 11/03/24 23:07 Nitroglycerin Sl Tabs 0.4 Mg Tab SUBLINGUAL Q5M PRN Chest Pain Thiamine HCl 100 mg 11/05/24 09:00 Thiamine 100 Mg Tab PO DAILY [facility] Intake and Output 11/03/24 11/04/24 11/04/24 22:59 06:59 14:59 Intake Total 44.961 Balance 44.961 Intake: Intake, IV Titration 44.961 Amount Heparin Sod,Pork in 0.45% 44.961 NaCl 25,000 unit In 0.45 % NaCl 1 250ml.bag @ 12 UNITS/KG/HR 6.423 mls/hr IV .Q24H [facility] Rx#: [id number] Other: Weight 53.524 kg 11/04/24 06:07 11/04/24 06:06
[2024-11-04 11:23] LABS: Chol/HDL Ratio 2.89 Ratio; LDL Cholesterol,Calculated 116.3 mg/dL (0.0-131.0); VLDL Calculation 13.22 mg/dL (5.00-40.00)
[2024-11-04] MEDS: IV FLUID CONTINUATION 900 ML IV ONE (13:04)
--- NOTE | 2024-11-04 13:21 | CA ---
Transthoracic Echo Report Name: [facility] Age: 74 Gender: F : 1950 Exam Date: 11/04/2024 11:10 Exam Location: [facility] Ht (in): 62 Wt (lb): 118 Ordering Physician: Danny Milligan DO Attending/Referring Phys: [id number], Srini Plant Sprayer Tayla Pena RDCS Procedure CPT: Indications: CP Cardiac Hx: Technical Quality: Good Contrast 1: Total Dose (mL): Contrast 2: Total Dose (mL): MEASUREMENTS (Male / Female) Normal Values 2D ECHO LV Diastolic Diameter PLAX 3.9 cm 4.2 - 5.9 / 3.9 - 5.3 cm LV Systolic Diameter PLAX 3.0 cm IVS Diastolic Thickness 1.3 cm 0.6 - 1.0 / 0.6 - 0.9 cm LVPW Diastolic Thickness 1.2 cm 0.6 - 1.0 / 0.6 - 0.9 cm LV Relative Wall Thickness 0.6 RV Internal Dim ED PLAX 2.6 cm LA Systolic Diameter LX 3.1 cm 3.0 - 4.0 / 2.7 - 3.8 cm LV Diastolic Volume MOD 4C 67.8 cm??? LV Systolic Volume MOD 4C 27.8 cm??? LV Ejection Fraction MOD 4C 58.9 % LV Cardiac Index MOD 4C 2551.2 cm???/min???m??? LV Diastolic Length 4C 7.0 cm LV Systolic Length 4C 5.9 cm LV Diastolic Volume MOD 2C 49.8 cm??? LV Systolic Volume MOD 2C 24.5 cm??? LV Ejection Fraction MOD 2C 50.7 % LV Cardiac Index MOD 2C 1615.6 cm???/min???m??? LV Diastolic Length 2C 7.7 cm LV Systolic Length 2C 6.2 cm LA Volume 41.7 cm??? 18 - 58 / 22 - 52 cm??? LA Volume Index 27.2 cm???/m??? 16 - 28 cm???/m??? M-MODE Aortic Root Diameter MM 3.0 cm DOPPLER AV Peak Velocity 159.4 cm/s AV Peak Gradient 10.2 mmHg MV Area PHT 2.6 cm??? Mitral E Point Velocity 76.1 cm/s Mitral A Point Velocity 99.9 cm/s Mitral E to A Ratio 0.8 MV Deceleration Time 293.1 ms TR Peak Velocity 257.8 cm/s TR Peak Gradient 26.6 mmHg Right Ventricular Systolic Press 31.6 mmHg FINDINGS Left Ventricle Left ventricular ejection fraction is estimated at 55-60 %. Left ventricular cavity size normal. No obvious regional wall motion abnormalities. Moderately increased septal wall thickness. Mildly increased posterior wall thickness. Right Ventricle Normal right ventricular size. Right ventricular systolic pressure within normal limits. Right Atrium Normal right atrial size. No right atrial thrombus or mass seen. Left Atrium Normal left atrial size. No left atrial thrombus or mass present. Mitral Valve Structurally normal mitral valve. Trace mitral regurgitation. Aortic Valve Trileaflet aortic valve. No aortic valve stenosis or regurgitation. Tricuspid Valve Structurally normal tricuspid valve. Mild tricuspid regurgitation. Pulmonic Valve Structurally normal pulmonic valve. No pulmonic regurgitation. Pericardium No pericardial effusion. Aorta Normal size aortic root and proximal ascending aorta. CONCLUSIONS Normal biventricular systolic function Normal pulmonary artery systolic pressure No significant valvular abnormalities noted No pericardial effusion Previewed by: Dr. Shahram Moy MD (Electronically Signed) Final Date: 04 November 2024 13:19
[2024-11-04] MEDS: fentaNYL (PF) 50 MCG/ML 2 ML AMP IVP ONE (13:29)
[2024-11-04] MEDS: LIDOCAINE 1% INJ 10MG/ML (20 ML MDV) SQ ONE (13:30)
[2024-11-04] MEDS: HEPARIN SODIUM 1,000 UN/ML (10ML VL) IVP ONE (13:35)
[2024-11-04] MEDS: MIDAZOLAM 2 MG/2 ML VIAL IVP ONE (13:35)
[2024-11-04] MEDS: IOPAMIDOL-370 100ML BTL INJ ONE (13:47)
[2024-11-04] MEDS: HEPARIN SODIUM,PORCINE 10,000 UNIT in SODIUM CHLORIDE 0.9% 1,000 ML IRRIGATION ONE (13:47)
[2024-11-04] MEDS: HEPARIN SODIUM,PORCINE (1 ML) 2,500 UNIT in SODIUM CHLORIDE 0.9% 250 ML IRRIGATION ONE (13:48)
[2024-11-04] MEDS ORDERED: HEPARIN SODIUM 1,000 UN/ML (10ML VL) IV PRN (14:03)
--- NOTE | 2024-11-04 14:11 | P.CARDCATH ---
Date of Procedure: 11/04/24 Description of Procedure: Cardiac Catheterization: The patient is a 74-year-old female with history of hypertension who presented with symptoms of recurrent chest discomfort and had mild troponin elevation. Recommendations were made regarding cardiac catheterization, the risks and the complications were discussed with the patient who is in full understanding and agreement. Procedure Description: Patient was brought to labor crew supervisor in fasting semi-sedated state after receiving Fentanyl and Benadryl achieiving moderate conscious sedated state. Using Xylocaine Anesthesia and modified Seldinger technique, a 6-Indian sheath was introduced in the right radial artery . Subsequently, selective coronary angiography was performed using a 5-Indian 3.5 bend Matthew catheter. Multiple views of the coronary artery including hemiaxial views were obtained. The 5 Indian pigtail catheter was used to cross the aortic valve and LVEDP was calculated. Following that, catheter and sheath were removed. Hemostasis was obtained with deployment of vascular band . There was no immediate complication. Patient was returned to room in stable condition. Of note, the patient received a total of 3000 units of intravenous heparin as well as intra-arterial verapamil. Findings: Fluoroscopy: Severe calcifications of all the coronary arteries was noted with severe calcification at the ostium of the RCA Left main: This is a short size vessel, bifurcating into LAD and left circumflex, left main has no high-grade stenosis LAD: This is a large size vessel, giving rise to a proximal diagonal branch. The proximal LAD has a 99% stenosis the rest of the vessel has slow flow but no high-grade stenosis the diagonal branch is moderate in size and has a 80% stenosis proximally Left circumflex: This is a large nondominant vessel giving rise to 2 large obtuse marginal branch prior to the bifurcation of the obtuse marginal branch has an eccentric 60% plaque, the rest of the vessel has no high-grade stenosis RCA: This is a large dominant vessel, bifurcating distally to PDA and PLV in the proximal RCA is a 99% stenosis the mid RCA has a 50 to 60% plaque. The PDA and PLV have no evidence of high-grade stenosis Left Ventriculogram: Not performed Hemodynamics: There was no gradient across the aortic valve, LVEDP was 5-10 mmHg Conclusion: 1. Heavily calcified coronary arteries 2. Critical stenosis involving the proximal LAD and RCA 3. Moderate disease in the left circumflex 4. Low LVEDP Recommendations: I have recommended to obtain a surgical opinion in view of the anatomy and the calcifications, the patient will be high risk for any percutaneous revascularization. I discussed the risk findings with the patient and her family, she will be started back on heparin awaiting the surgical decision. The findings and the recommendations were discussed with the patient and the family and they were in full understanding and agreement. Duration of sedation is 17 minutes.
--- NOTE | 2024-11-04 15:47 | P.PN ---
Subjective Progress Note Date: 11/04/24 Hospital Course: Patient is a 74-year-old female with past medical history significant for hype rtension, essential tremor, alcoholism, and asthma presents to the emergency department for chest pain that worsened today. She states that she has had chest pain for the last few weeks and just thought it was heartburn as it occurred mostly at night or while laying down. She does state that it woke her up from sleep couple of times over the last few weeks. However today she had increasing chest pain with exertion, relieved by rest. She notes that it is a pressure-like pain that radiates towards her back, lower jaw, and bilateral posterior arms. She rates this pain a 10/10 but notes that it does go away with rest. She denies any nausea/vomiting, diaphoresis, dyspnea, palpitations. She denies a cardiac history., troponin x 3 0.068, 0.124, 0.17 Initial EKG: Sinus rhythm with ventricular rate 71 bpm, QTc 415 ms, no ST-T segment changes ED documentation reviewed. Given aspirin 324 mg p.o. x 1, heparin bolus x 1, started on heparin GTT 12 units/kg/h. Patient was admitted for further evaluation of chest pain, cardiology consulted, recommended continue losartan metoprolol, added Nitropaste, recommended abstinence from alcohol, TTE ordered. Patient was taken to [facility] on 11/04, showed heavily calcified coronary arteries, critical stenosis LAD and RCA, low LVEDP, patient was started back on heparin, awaiting surgical decision regarding CABG. Patient earlier shared that her mother had CABG at age of 60 and at age of 74. Subjective: Patient's pain resolved, feels anxious, she was seen before [facility] Pertinent positives and negatives as discussed above, a complete review of systems was performed and all other systems are negative. Vitals Signs Reviewed. General: [nontoxic], [no distress], [appears at stated age], tremors present Derm: [warm], [dry] Head: [atraumatic], [normocephalic], [symmetric] Eyes: [EOMI], [no lid lag], [anicteric sclera] Mouth: [no lip lesion], [mucus membranes moist] Cardiovascular: [S1S2 reg], [no murmur] Lungs: [CTA bilateral], [no rhonchi, no rales] , [no accessory muscle use] Abdominal: [soft], [ nontender to palpation], [no guarding], [no appreciable organomegaly] Ext: [no gross muscle atrophy], [no edema], [no contractures] Neuro: [ CN II-XI grossly intact], [no focal neuro deficits] Psych: [Alert], [oriented], [appropriate affect] Data Reviewed Today: Pertinent Labs: Normal CBC, sodium 136, creatinine 0.49, lipid panel showed LDL of 116 Assessment and Plan: 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 Hyperlipidemia Hypertension -Cardiology following, CT surgery consulted for CABG -Continue heparin drip -GI prophylaxis with Protonix 48 oral daily -Continue with aspirin 81 daily, high intensity statin atorvastatin 80 daily, continue losartan 50 twice daily, metoprolol 25 twice daily, Nitropaste Prediabetes: A1c 5.9, needs to follow-up with PCP, prediabetes classes after discharge Alcohol use disorder: Continue multivitamins, CIWA with Ativan, social work [ DVT ppx: Heparin drip Code status: Full code Anticipated discharge place: TBD Anticipated discharge time: TBD Objective - Vital Signs Vital signs: Vital Signs Temp 97.9 F 11/04/24 06:38 Pulse 85 11/04/24 08:14 Resp 18 11/04/24 12:48 BP 166/136 11/04/24 08:14 Pulse Ox 98 11/04/24 08:14 FiO2 Intake & Output 11/03/24 11/04/24 11/04/24 18:59 06:59 18:59 Intake Total 94.961 Balance 94.961 Weight 53.524 kg Intake: IV 50 Intake, IV Titration 44.961 Amount Heparin Sod,Pork in 0.45% 44.961 NaCl 25,000 unit In 0.45 % NaCl 1 250ml.bag @ 12 UNITS/KG/HR 6.423 mls/hr IV .Q24H [facility] Rx#: [id number] - Labs CBC & Chem 7: 11/04/24 06:07 11/04/24 06:06 Labs: Abnormal Lab Results - Last 24 Hours (Table) 11/03/24 11/03/24 11/03/24 Range/Units 20:59 20:59 20:59 RBC 3.63 L (3.80-5.40) m/uL APTT (22.0-30.0) sec Sodium 134 L (137-145) mmol/L BUN (7-17) mg/dL Creatinine (0.52-1.04) mg/dL Glucose 117 H (74-99) mg/dL Troponin I 0.060 H* (0.000-0.034) ng/mL HDL Cholesterol (40.00-60.00) mg/dL 11/03/24 11/04/24 11/04/24 Range/Units 23:33 02:05 06:06 RBC (3.80-5.40) m/uL APTT (22.0-30.0) sec Sodium 136 L (137-145) mmol/L BUN 6 L (7-17) mg/dL Creatinine 0.49 L (0.52-1.04) mg/dL Glucose 102 H (74-99) mg/dL Troponin I 0.124 H* 0.170 H* (0.000-0.034) ng/mL HDL Cholesterol 68.50 H (40.00-60.00) mg/dL 11/04/24 11/04/24 11/04/24 Range/Units 06:06 06:07 11:26 RBC 3.57 L (3.80-5.40) m/uL APTT 34.3 H 61.0 H (22.0-30.0) sec Sodium (137-145) mmol/L BUN (7-17) mg/dL Creatinine (0.52-1.04) mg/dL Glucose (74-99) mg/dL Troponin I (0.000-0.034) ng/mL HDL Cholesterol (40.00-60.00) mg/dL
[2024-11-04] MEDS: SODIUM CHLORIDE 0.9% 1,000 ML in EMPTY BAG 1 BAG IV SCH (16:18)
--- NOTE | 2024-11-04 17:34 | P.GSCN ---
History of Present Illness Consult date: 11/04/24 Reason for Consult: Coronary artery disease, non-ST elevated myocardial infarction this admission, evaluate for myocardial revascularization surgery. Requesting physician: Stella Lenz History of present illness: This is a 74-year-old female patient who follows on an outpatient basis with Dr. Jermaine Justni for her primary care. She has a past medical history significant for hypertension, essential tremor, a family history of premature coronary artery disease with her mother having a three-vessel coronary artery bypass grafting surgery at age 60 and an uncle having coronary artery bypass grafting surgery in his 30s, asthma, daily EtOH use, drinking beer, anxiety, osteoarthritis, remote history of nicotine dependence, quit smoking over 40 years ago and peripheral neuropathy. She presented to the emergency department here at [facility] via EMS on November 03, 2024 with complaints of chest pain, radiating to her back and down her bilateral upper extremities. She denies any complaints of shortness of breath, palpitations, fever, chills, nausea, vomiting, constipation, diarrhea, presyncope or syncope. The patient states she mostly had the chest pain at night when laying down and resolved when she got up. She associated the pain to heartburn and was taking Mylanta and omeprazole without relief. Due to having no relief from the heartburn to treatment she decided to call EMS, as her daughter recommended. In the emergency department a chest x-ray was completed which showed no acute cardiopulmonary disease process and COPD changes. A twelve-lead EKG was completed which showed normal sinus rhythm with no signs of acute ischemia, with a heart rate of 71 bpm. Initial laboratory results showed a WBC count 7.3, hemoglobin 11.4, hematocrit 34.3, platelets 294, PT 11.0, INR 1.0, PTT 23.7, sodium 134, potassium 3.8, chloride 100, BUN 8, creatinine 0.56, glucose 117, calcium 9.5, magnesium 2.2, AST 26, ALT 15, and serial troponins were elevated 0.060, 0.124, and 0.170. Subsequently due to the patient's presenting symptoms and elevated troponins, cardiology was consulted and the patient underwent a transthoracic 2D echocardiogram. The transthoracic 2D echocardiogram showed a left ventricular ejection fraction estimated at 55 to 60%, left ventricular cavity size normal, no obvious regional wall motion abnormalities, moderately increased septal wall thickness, mildly increased posterior wall thickness, trace mitral valve regurgitation, mild tricuspid valve regurgitation, and no pericardial effusion. For further evaluation the patient was recommended to undergo a cardiac catheterization which was completed today by Dr. Lenz. The cardiac catheterization results showed a 99% stenosis to her proximal left anterior descending coronary artery, and 80% stenosis to her proximal diagonal coronary artery, a 60% stenosis to her obtuse marginal coronary artery, and a 99% stenosis to her proximal right coronary artery and a 50 to 60% stenosis to her mid right coronary artery. Due to the findings on the cardiac catheterization, her elevated troponins and her presenting symptoms a consult was placed to Dr. Jonathan Villarreal from cardiothoracic surgery for further evalu ation and treatment recommendations including myocardial vascularization surgery. Review of Systems A review of systems was completed was negative except as mentioned in the HPI. Past Medical History Past Medical History: Asthma, Hypertension, Osteoarthritis (OA) Additional Past Medical History / Comment(s): tremors, peripheral neuropathy History of Any Multi-Drug Resistant Organisms: None Reported Past Surgical History: Orthopedic Surgery (Left knee surgery), Tonsillectomy Additional Past Surgical History / Comment(s): Cataract surgery to both eyes Past Anesthesia/Blood Transfusion Reactions: No Reported Reaction Past Psychological History: Anxiety Smoking Status: Former smoker (Quit smoking about 40 years ago, smoked about 1 pack of cigarettes per day) Past Alcohol Use History: Daily Past Drug Use History: None Reported - Past Family History Mother Family Medical History: Coronary Artery Disease (CAD), Hypertension Additional Family Medical History / Comment(s): Mother had myocardial vascularization surgery at age 60. The patient's uncle also had myocardial vascularization surgery in his 30s. Medications and Allergies Home Medications Medication Instructions Recorded Confirmed Type HYDROcodone/APAP 7.5-325MG [[place] 1 tab PO QID 08/07/21 11/04/24 History 7.5-325] Albuterol Sulfate [Albuterol 2 puff INHALATION RT-Q6H PRN 11/04/24 11/04/24 History Sulfate Hfa] Losartan [Cozaar] 50 mg PO BID 11/04/24 11/04/24 History Allergies Allergy/AdvReac Type Severity Reaction Status Date / Time No Known Allergies Allergy Verified 11/04/24 08:11 Surgical - Exam Vital Signs Temp Pulse Resp BP Pulse Ox 97.8 F 76 16 182/74 98 11/03/24 20:47 11/03/24 20:47 11/03/24 20:47 11/03/24 20:47 11/03/24 20:47 - General well developed, well nourished, no distress, no pain - Eyes PERRL, normal ocular movement, no pale, no icteric - ENT normal pinna, normal nares, normal mucosa, no hearing loss, no congestion - Neck Neck is supple, no lymphadenopathy. no masses, no bruits, trachea midline, no venous distension - Respiratory Lung sounds essentially clear throughout. Respirations are symmetrical and nonlabored. No wheezes, rhonchi or crackles. - Cardiovascular S1 and S2 present, negative for S3, gallop or murmur. Regular rhythm and rate. - Abdomen Abdomen is soft, nontender and nondistended. Active bowel sounds present all 4 abdominal quadrants. No guarding or rigidity. No organomegaly appreciated. - Genitourinary Deferred - Rectum Deferred - Integumentary Skin is warm and dry. No clubbing or cyanosis is present. no rash, no growths, no abnormal pigmentation - Neurologic No focal deficits. Chronic tremors. normal coordination - Musculoskeletal Moves all 4 extremities with equal strength bilateral. normal gait, normal posture - Psychiatric oriented to time, oriented to person, oriented to place, speech is normal, memory intact Results - Labs 11/04/24 06:07 11/04/24 06:06 Abnormal Lab Results - Last 24 Hours (Table) 11/03/24 11/03/24 11/03/24 Range/Units 20:59 20:59 20:59 RBC 3.63 L (3.80-5.40) m/uL APTT (22.0-30.0) sec Sodium 134 L (137-145) mmol/L BUN (7-17) mg/dL Creatinine (0.52-1.04) mg/dL Glucose 117 H (74-99) mg/dL Troponin I 0.060 H* (0.000-0.034) ng/mL HDL Cholesterol (40.00-60.00) mg/dL 11/03/24 11/04/24 11/04/24 Range/Units 23:33 02:05 06:06 RBC (3.80-5.40) m/uL APTT (22.0-30.0) sec Sodium 136 L (137-145) mmol/L BUN 6 L (7-17) mg/dL Creatinine 0.49 L (0.52-1.04) mg/dL Glucose 102 H (74-99) mg/dL Troponin I 0.124 H* 0.170 H* (0.000-0.034) ng/mL HDL Cholesterol 68.50 H (40.00-60.00) mg/dL 11/04/24 11/04/24 11/04/24 Range/Units 06:06 06:07 11:26 RBC 3.57 L (3.80-5.40) m/uL APTT 34.3 H 61.0 H (22.0-30.0) sec Sodium (137-145) mmol/L BUN (7-17) mg/dL Creatinine (0.52-1.04) mg/dL Glucose (74-99) mg/dL Troponin I (0.000-0.034) ng/mL HDL Cholesterol (40.00-60.00) mg/dL Diabetes panel 11/03/24 11/04/24 11/04/24 Range/Units 20:59 06:06 06:07 Sodium 134 L 136 L (137-145) mmol/L Potassium 3.8 3.6 (3.5-5.1) mmol/L Chloride 100 102 (98-107) mmol/L Carbon Dioxide 25 27 (22-30) mmol/L BUN 8 6 L (7-17) mg/dL Creatinine 0.56 0.49 L (0.52-1.04) mg/dL Glucose 117 H 102 H (74-99) mg/dL Hemoglobin A1c 5.9 (<=6.0) % Calcium 9.5 9.7 (8.4-10.2) mg/dL AST 26 (14-36) U/L ALT 15 (4-34) U/L Alkaline Phosphatase 69 (38-126) U/L Total Protein 6.9 (6.3-8.2) g/dL Albumin 4.5 (3.5-5.0) g/dL Triglycerides 66.10 (0.00-149.00) mg/dL HDL Cholesterol 68.50 H (40.00-60.00) mg/dL Calcium panel 11/03/24 11/04/24 Range/Units 20:59 06:06 Calcium 9.5 9.7 (8.4-10.2) mg/dL Albumin 4.5 (3.5-5.0) g/dL Pituitary panel 11/03/24 11/04/24 Range/Units 20:59 06:06 Sodium 134 L 136 L (137-145) mmol/L Potassium 3.8 3.6 (3.5-5.1) mmol/L Chloride 100 102 (98-107) mmol/L Carbon Dioxide 25 27 (22-30) mmol/L BUN 8 6 L (7-17) mg/dL Creatinine 0.56 0.49 L (0.52-1.04) mg/dL Glucose 117 H 102 H (74-99) mg/dL Calcium 9.5 9.7 (8.4-10.2) mg/dL Adrenal panel 11/03/24 11/04/24 Range/Units 20:59 06:06 Sodium 134 L 136 L (137-145) mmol/L Potassium 3.8 3.6 (3.5-5.1) mmol/L Chloride 100 102 (98-107) mmol/L Carbon Dioxide 25 27 (22-30) mmol/L BUN 8 6 L (7-17) mg/dL Creatinine 0.56 0.49 L (0.52-1.04) mg/dL Glucose 117 H 102 H (74-99) mg/dL Calcium 9.5 9.7 (8.4-10.2) mg/dL Total Bilirubin 1.0 (0.2-1.3) mg/dL AST 26 (14-36) U/L ALT 15 (4-34) U/L Alkaline Phosphatase 69 (38-126) U/L Total Protein 6.9 (6.3-8.2) g/dL Albumin 4.5 (3.5-5.0) g/dL - Imaging Chest x-ray: report reviewed, image reviewed EKG: image reviewed Additional studies: Cardiac catheterization films reviewed by Dr. Jonathan Villarreal. Transthoracic 2D echocardiogram results reviewed by Dr. Villarreal. Assessment and Plan Assessment: Multivessel coronary artery disease Non-ST elevated myocardial infarction this admission Hypertension Asthma Family history of early onset coronary artery disease with her mother having a t hree-vessel coronary artery bypass grafting surgery at age 60 and an uncle having surgery in his 30s Anxiety Osteoarthritis Peripheral neuropathy Daily EtOH use, drinks beer Remote history of nicotine dependence, quit smoking 40 years ago Plan: The patient was seen and examined at her bedside on the third floor cardiac stepdown unit in conjunction with Dr. Jonathan Villarreal. The patient's sister and daughter are present at her bedside. Dr. Villarreal reviewed the findings on the cardiac catheterization films with the patient and her family members present at her bedside. The usual course for myocardial vascularization surgery was discussed with the patient, risks and benefits were discussed. The patient's clinical frailty score was calculated equals 3. Preoperative teaching and preoperative testing has been initiated. We will obtain an ultrasound of her liver due to her daily EtOH use. The importance of cessation of alcohol was discussed with the patient. The patient has been started on the CIWA protocol, including folic acid and thiamine. Once the patient's preoperative testing has been obtained more recommendations to follow in regards to myocardial vas cularization surgery. Also once her preoperative testing has been completed and obtained and STS risk or will be calculated and discussed with the patient. Medical management other comorbidities per primary care and cardiology service. Continue to maximize medical management with aspirin, statin, and beta-clover. Heparin drip management recommendations per cardiology. More recommendations to follow based on patient's clinical course. Thank you Dr. Lenz for this consult and will look forward to working with you in the care of this patient. I have personally seen and examined the patient, performed the documentation and the assessment and plan as written. Number of minutes spent on the visit: 30. ANKIT Jones
--- NOTE | 2024-11-04 20:16 | US ---
EXAMINATION TYPE: US vein mapping BILAT DATE OF EXAM: 11/04/2024 7:21 PM COMPARISON: NONE CLINICAL INDICATION: Female, 74 years old with history of PreOp Cardiac Surgery; open heartCardiac Lopez rgery TECHNIQUE: Grayscale and color Doppler imaging of the lower extremity venous system. SIDE PERFORMED: Bilateral FINDINGS: DUPLEX FINDINGS: Greater Saphenous: Color flow seen difficult to follow vein, multiple probes used Measurements in mm: Right Greater Saphenous: Groin: 4 x 5mm High Thigh: 3 x 3mm Mid Thigh: 2 x 3mm Above Knee: 1 x 2mm Knee: 2 x 2mm Below Knee: 1 x 1mm Mid Calf: 2 x 2mm At Ankle: 2 x 2mm Left Greater Saphenous: Groin: 2 x 4mm High Thigh: 3 x 2mm Mid Thigh: 3 x 3mm Above Knee: 2 x 2mm Knee: 2 x 2mm Below Knee: 2 x 2mm Mid Calf: 1 x 2mm At Ankle: 2 x 2mm IMPRESSION: 1. No evidence for occlusion. 2. GSV measurements listed above. 3. Performing surgeon to determine viability as conduit. [facility], , 11/04/2024 8:14 PM
--- NOTE | 2024-11-04 20:16 | US ---
EXAMINATION TYPE: Pre-Operative Non-Invasive Evaluation of the hand for Potential Radial Artery Laverne grover, Measurements only DATE OF EXAM: 11/04/2024 7:21 PM CLINICAL INDICATION: Female, 74 years old with history of Pre-Op Cardiac Surgery; open heartCardiac S urgery TECHNIQUE:Grayscale and color Doppler imaging of the radial artery(s) SIDE PERFORMED: Left FINDINGS: Duplex Findings: Radial Artery: Color flow seen Measurements in mm, transverse view: Left Radial: Proximal: 4 x 4mm Mid: 2 x 3mm Distal: 3 x 3mm IMPRESSION: 1. No evidence for vascular occlusion. 2. Measurements as described above. [facility], , 11/04/2024 8:13 PM
--- NOTE | 2024-11-04 20:18 | US ---
EXAMINATION TYPE: US carotid duplex BILAT DATE OF EXAM: 11/04/2024 COMPARISON: NONE CLINICAL INDICATION: Female, 74 years old with history of Pre-Op Cardiac Surgery; open heart Additional History: .... TECHNIQUE: Grayscale, color Doppler and spectral Doppler evaluation of the bilateral carotid systems and vertebral arteries. Indirect Doppler criteria was utilized. FINDINGS: EXAM MEASUREMENTS: RIGHT: Peak Systolic Velocity (PSV) cm/sec ----- Right CCA: 98.2 ----- Right ICA: 112.8 ----- Right ECA: 120.5 ICA/CCA ratio: 1.1 RIGHT: End Diastole cm/sec ----- Right CCA: 12.5 ----- Right ICA: 19.8 ----- Right ECA: 0.0 LEFT: Peak Systolic Velocity (PSV) cm/sec ----- Left CCA: 90.1 ----- Left ICA: 198.2 ----- Left ECA: 111.7 ICA/CCA ratio: 2.2 LEFT: End Diastole cm/sec ----- Left CCA: 12.2 ----- Left ICA: 38.6 ----- Left ECA: 111.7 VERTEBRALS (direction of flow): Right Vertebral: Antegrade Left Vertebral: Antegrade Rhythm: Normal CONSTRUCTION STONEMASON NOTES: limited due to snoring, moving neck, and high right side bifurcation plaque see n bilaterally. Elevated velocity seen within the left prox ICA. Color Doppler imaging shows patency with blood flow throughout the carotid artery. Spectral waveforms are within normal limits. IMPRESSION: 1. Atheromatous plaquing within the carotid bifurcations. On the left this appears moderate between 5 0 and 69%. On the right this appears mild less than 50%. Criteria for Assigning % of Stenosis / Diameter reduction (Estimation based on the indirect measurements of the internal carotid artery velocities (ICA PSV). 1. Normal (no stenosis)=ICA PSV < 125 cm/s: ratio < 2.0: ICA EDV<40 cm/s. 2. Less than 50% stenosis=ICA PSV < 125 cm/s: ratio < 2.0: ICA EDV<40 cm/s. 3. 50 to 69% stenosis=ICA PSV of 125 to 230 cm/s: ration 2.0 ? 4.0: ICA EDV 40-100 cm/s. 4. Greater than 70% stenosis to near occlusion= ICA PSV > 230 cm/s: ratio > 4.0: ICA EDV > 100 cm/s. 5. Near occlusion= ICA PSV velocities may be low or undetectable: variable ratio and ICA EDV. 6. Total occlusion=unable to detect flow. [facility], , 11/04/2024 8:16 PM
[2024-11-04] MEDS: MUPIROCIN 2% OINT 22 GM TUBE NASAL SCH (20:22)
--- NOTE | 2024-11-04 21:15 | CT ---
EXAMINATION TYPE: CT chest wo con DATE OF EXAM: 11/04/2024 6:29 PM COMPARISON: None. CLINICAL INDICATION: Female, 74 years old with history of Evaluate aorta preoperative myocardial vasc ularize, Evaluate aorta preoperative myocardial vascularize. TECHNIQUE: Axial images were obtained at 5 mm thick sections. Reconstructed images are reviewed on [employer] computer in the coronal plane. Contrast used: mL of , (none if empty) Oral contrast used: (none if empty) CT DLP: 282.2 mGycm, Automated exposure control for dose reduction was used. FINDINGS: Portion of the thyroid visualized is normal. No suspicious lung nodules or focal infiltrates are present. There is a three-vessel arch. Vascular calcification is predominantly within the descending colon. Th ere is calcification present within the ascending thoracic aorta and some within the aortic arch The ascending thoracic aorta at the level of main pulmonary artery is 3.2 cm. Main pulmonary artery the b ifurcation is 2.4 cm. Dense coronary artery calcification is present. No pericardial effusion is evid ent. Lung noble are clear. Limited CT sections are obtained through the upper abdomen. Nonobstructing renal stones. Be present. IMPRESSION: 1. Some vascular calcification within the ascending thoracic aorta. No aneurysmal dilatation is evide nt. [facility], , 11/04/2024 9:12 PM
--- NOTE | 2024-11-04 21:17 | US ---
EXAMINATION TYPE: US arterial LE single level DATE OF EXAM: 11/04/2024 9:08 PM COMPARISONS: None. CLINICAL INDICATION: Female, 74 years old with history of Ankle Brachial Index (FRANCISCO) ; open heart, AB I. patient states left foot pain at rest. right radial approach TECHNIQUE: Systolic pressures were taken of the upper and lower extremity arteries with ankle-brachia l indices and toe brachial indices calculated bilaterally. History of: Smoker: Yes Hypertension: Takes medication Diabetic: No Hyperlipidemia: No TIA/CVA: No Previous Vascular Surgery: No CAD: No WV: No Vascular Ulcers: No Claudication: No Gangrene: No FINDINGS: Doppler Waveforms: Right: Left: Brachial Artery systolic pressure: Right: deferred due to right radial approach Left: 120 Posterior Tibial artery systolic pressure: Right: 138 Left: 143 Dorsalis Pedis artery systolic pressure: Right: 124 Left: 129 Toe artery systolic pressure: Right: CNO Left: CNO Ankle-Brachial Indices: Right: 1.15 Left: 1.19 Toe Brachial Indices: Right: CNO Left: CNO (Normal > 0.6; Mild 0.35 - 0.59, Moderate 0.12 - 0.34, Severe <0.12) IMPRESSION: No suspicious area for stenosis. [facility], , 11/04/2024 9:15 PM
[2024-11-05 00:25] LABS: Appearance,Urine Cloudy (Clear); Bacteria,Urine Rare /hpf; Bilirubin,Urine Negative (Negative); Blood,Urine Negative (Negative); Color,Urine Colorless; Glucose,Urine (UA) Negative (Negative); Ketones,Urine Trace (Negative); Leukocyte Esterase,Urine Moderate (Negative); Mucus,Urine Rare /hpf; Nitrite,Urine Negative (Negative); PH, Urine 6.5 (5.0-8.0); Protein,Urine Negative (Negative); RBC,Urine 2 /hpf (0-5); Specific Gravity,Urine 1.018 (1.001-1.035); Squamous Epithelial Cell,Urine 5 /hpf (0-4); Urobilinogen,Urine <2.0 mg/dL (<2.0); WBC,Urine 5 /hpf (0-5)
[2024-11-05] MEDS: NITROGLYCERIN SL TABS 0.4 MG TAB SUBLINGUAL PRN (01:50)
[2024-11-05 03:53] LABS: Hepatitis A Antibody IgM Nonreactive (Nonreactive); Hepatitis B Core IgM Nonreactive (Nonreactive); Hepatitis B Surface Antigen Nonreactive (Nonreactive); Hepatitis C IgG Antibody Nonreactive (Nonreactive)
[2024-11-05 06:21] LABS: Basophils % (A) 1 %; Eosinophils # (A) 0.1 k/uL (0-0.7); Eosinophils % (A) 1 %; HCT 33.2 % (34.0-46.0); HGB 10.8 gm/dL (11.4-16.0); Lymphocytes % (A) 28 %; MCH 31.8 pg (25.0-35.0); MCHC 32.7 g/dL (31.0-37.0); MCV 97.5 fL (80.0-100.0); Mean Platelet Volume 7.2; Monocytes # (A) 0.4 k/uL (0-1.0); Monocytes % (A) 5 %; Neutrophils # (A) 4.7 k/uL (1.3-7.7); Neutrophils % (A) 63 %; Platelet Count 285 k/uL (150-450); RDW 12.4 % (11.5-15.5); WBC 7.3 k/uL (3.8-10.6)
[2024-11-05 06:36] LABS: Partial Thromboplastin Time 45.8 sec (22.0-30.0); Prothrombin Time 10.9 sec (10.0-12.5)
[2024-11-05 06:53] LABS: African American GFR (CKD) >90 (>60 ml/min/1.73 sqM); Anion Gap 11 mmol/L; Blood Urea Nitrogen 5 mg/dL (7-17); Calcium 9.3 mg/dL (8.4-10.2); Carbon Dioxide 22 mmol/L (22-30); Chloride 103 mmol/L (98-107); Glucose 83 mg/dL (74-99); Non-African American GFR(CKD) >90 (>60 ml/min/1.73 sqM); Sodium 136 mmol/L (137-145)
[2024-11-05] MEDS ORDERED: HEPARIN SODIUM,PORCINE (1 ML) 2,500 UNIT in SODIUM CHLORIDE 0.9% 250 ML IRRIGATION PRN (07:00)
[2024-11-05] MEDS ORDERED: HEPARIN SODIUM,PORCINE 10,000 UNIT in SODIUM CHLORIDE 0.9% 1,000 ML IRRIGATION PRN (07:00)
--- NOTE | 2024-11-05 08:50 | US ---
EXAMINATION TYPE: US liver DATE OF EXAM: 11/05/2024 Exam done portable COMPARISON: NONE CLINICAL INDICATION: Female, 74 years old with history of History of EtOH; TECHNIQUE: Grayscale and color Doppler imaging of the right upper quadrant was performed. FINDINGS: EXAM MEASUREMENTS: Liver Length: 14.7 cm Gallbladder Wall: 0.2 cm CBD: 0.6 cm Right Kidney: 9.1 x 4.4 x 4.5 cm Pancreas: visualized portions wnl, limited by overlying midline bowel gas Liver: course echotexture Gallbladder: wnl Evidence for sonographic Hernández's sign: no CBD: borderline dilated Right Kidney: visualized portions wnl, inferior pole limited by overlying bowel gas IMPRESSION: 1. Unremarkable right upper quadrant ultrasound [facility], , 11/05/2024 8:47 AM
[2024-11-05] MEDS: THIAMINE 100 MG TAB PO SCH (09:08)
--- NOTE | 2024-11-05 09:36 | P.PN ---
Subjective Progress Note Date: 11/05/24 Principal diagnosis: Multivessel coronary artery disease, non-STEMI this admission. History of hypertension, peripheral neuropathy with essential tremors, asthma, daily EtOH use, previous tobacco dependence, and family history of premature coronary artery disease The patient was seen and examined sitting up in bed on the cardiac stepdown unit in no acute distress. She denies any chest pain or shortness of breath currently, however states she did have some chest pain during the night. Remains in sinus rhythm, a bit hypertensive although she does states she is very nervous. Currently on room air with oxygen saturation in the high 90s. The patient was seen by Dr. Villarreal yesterday, will be seen today by Dr. Duenas to discuss surgical plan. Preoperative testing has been completed except bedside spirometry. Objective - Vital Signs Vital signs: Vital Signs Temp 97.7 F 11/05/24 09:15 Pulse 97 11/05/24 09:15 Resp 17 11/05/24 09:15 BP 163/86 11/05/24 09:15 Pulse Ox 98 11/05/24 09:15 FiO2 Intake & Output 11/04/24 11/05/24 11/05/24 18:59 06:59 18:59 Intake Total 94.961 936 Output Total 600 Balance 94.961 336 Weight 53.524 kg 53.3 kg Intake: IV 50 936 Heparin Sod,Pork in 0.45% 36 NaCl 25,000 unit In 0.45 % NaCl 1 250ml.bag @ 12 UNITS/KG/HR 6.423 mls/hr IV .Q24H CARINA Rx#: [id number] Sodium Chloride 0.9% 1, 900 000 ml In Empty Bag 1 bag @ 1 ML/KG/HR 53.524 mls/ hr IV .[id number] CARINA Rx#: [id number] Intake, IV Titration 44.961 Amount Heparin Sod,Pork in 0.45% 44.961 NaCl 25,000 unit In 0.45 % NaCl 1 250ml.bag @ 12 UNITS/KG/HR 6.423 mls/hr IV .Q24H CARINA Rx#: [id number] Output: Urine 600 - Exam CONSTITUTIONAL: Appears comfortable, cooperative, no acute distress RESPIRATORY: Lungs sounds clear bilaterally. Respirations even, nonlabored. Currently on room air with oxygen saturation 98%. Strong cough. CARDIOVASCULAR: S1, S2 present. Regular rate and rhythm, sinus rhythm on telemetry. Palpable peripheral pulses bilaterally. No edema present. No calf pain or tenderness noted GASTROINTESTINAL: Abdomen soft, nontender, nondistended. Active bowel sounds present 4 quadrants. GENITOURINARY: Continues to void INTEGUMENTARY: Skin is warm and dry NEUROLOGIC: Cranial nerves II through XII intact; essential tremors present MUSKULOSKELETAL: Able to move all extremities, strength equal bilaterally, gait normal PSYCHIATRIC: Alert and oriented to person place and time, appropriate affect, intact judgment and insight - Allied health notes Allied health notes reviewed: nursing - Labs CBC & Chem 7: 11/05/24 05:15 11/05/24 05:15 Labs: Abnormal Lab Results - Last 24 Hours (Table) 11/04/24 11/04/24 11/04/24 Range/Units 06:06 11:26 22:22 RBC (3.80-5.40) m/uL Hgb (11.4-16.0) gm/dL Hct (34.0-46.0) % APTT 61.0 H 50.6 H (22.0-30.0) sec Sodium (137-145) mmol/L BUN (7-17) mg/dL HDL Cholesterol 68.50 H (40.00-60.00) mg/dL Urine Appearance (Clear) Urine Ketones (Negative) Ur Leukocyte Esterase (Negative) Ur Squamous Epith Cells (0-4) /hpf Urine Bacteria (None) /hpf Urine Mucus (None) /hpf 11/04/24 11/05/24 11/05/24 Range/Units 23:30 05:15 05:15 RBC 3.40 L (3.80-5.40) m/uL Hgb 10.8 L (11.4-16.0) gm/dL Hct 33.2 L (34.0-46.0) % APTT 45.8 H (22.0-30.0) sec Sodium (137-145) mmol/L BUN (7-17) mg/dL HDL Cholesterol (40.00-60.00) mg/dL Urine Appearance Cloudy H (Clear) Urine Ketones Trace H (Negative) Ur Leukocyte Esterase Moderate H (Negative) Ur Squamous Epith Cells 5 H (0-4) /hpf Urine Bacteria Rare H (None) /hpf Urine Mucus Rare H (None) /hpf 11/05/24 Range/Units 05:15 RBC (3.80-5.40) m/uL Hgb (11.4-16.0) gm/dL Hct (34.0-46.0) % APTT (22.0-30.0) sec Sodium 136 L (137-145) mmol/L BUN 5 L (7-17) mg/dL HDL Cholesterol (40.00-60.00) mg/dL Urine Appearance (Clear) Urine Ketones (Negative) Ur Leukocyte Esterase (Negative) Ur Squamous Epith Cells (0-4) /hpf Urine Bacteria (None) /hpf Urine Mucus (None) /hpf Assessment and Plan Assessment: Multivessel coronary artery disease, non-STEMI this admission Chest pain, secondary to above History of hypertension Peripheral neuropathy with essential tremors Asthma Daily EtOH use, daughter reports multiple beers per day, patient reports down to the 2-3 beers daily Previous tobacco dependence Family history of premature coronary artery disease Plan: Continue to maximize medical therapy with aspirin, statin, beta-clover Await bedside spirometry Continue CIWA protocol Increase activity as tolerated Dr. Duenas will meet with patient today to discuss surgery More recommendations to follow
--- NOTE | 2024-11-05 11:24 | P.PN ---
Subjective HISTORY OF PRESENT ILLNESS: This is a 74-year-old female with a past medical history significant for frequent alcohol use, hypertension and anxiety. 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 We have been asked to see the patient in consultation for chest pain. Patient examined at the bedside in the emergency room. Patient states over the past 1 to 2 weeks she has been having chest discomfort. She states the pain has been occurring at night when she lays down. She states that she initially thought it was heartburn. She states the pain starts in the middle of her chest and then radiates into her back and then into the back of her arms. She states the pain will last for about 10 to 15 minutes and is resolved when she sits up on the side of the bed. She does report that yesterday the pain was worse with exertion during the day. She is a non-smoker. She does report drinking 2-3 beers a day which she states helps with her essential tremors. DIAGNOSTICS: - EKG reveals sinus mechanism with no signs of acute ischemia. - Chest xray negative for acute process. COPD changes.. - Laboratory data: WBC 6.3. Hemoglobin 11.5. Platelet count 283. Sodium 136. Potassium 3.6. BUN 6. Creatinine 0.49. Troponin 0.060. 0.124. 0.170. - Current home cardiac medication list not updated at the time of examination. -No previous echocardiogram, stress test, or cardiac catheterization available in EMR for review 11/05/2024 Patient underwent cardiac catheterization yesterday revealing heavily calcified coronary arteries, critical stenosis involving proximal LAD and RCA and moderate disease of the left circumflex. Consultation was placed to CT surgery for possible CABG. Patient examined this morning the bedside. Patient denies any chest pain or pressure. She denies any shortness of breath. Vital signs are stable. Blood pressure 163/86. Echocardiogram completed revealing ejection fraction 55 to 60%, no significant valvular abnormalities noted, and no pericardial effusion noted. PHYSICAL EXAM: VITAL SIGNS: Reviewed. GENERAL: Well-developed in no acute distress. HEENT: Head is normocephalic. Pupils are equal, round. Sclerae anicteric. Mucous membranes of the mouth are moist. Neck supple. No JVD or thyromegaly LUNGS: Respirations even and unlabored. Lungs essentially clear to auscultation bilaterally. HEART: Regular rate and rhythm. S1 and S2 heard. Systolic murmur noted. ABDOMEN: Soft. Nondistended. Nontender. EXTREMITIES: Normal range of motion. No clubbing or cyanosis. Peripheral pulses intact. No lower extremity edema NEUROLOGIC: Awake and alert. Oriented x 3. ASSESSMENT: Non-STEMI, status post cardiac cath revealing multivessel CAD Hypertension Frequent alcohol use, patient reports drinking 2-3 beers per day Anxiety History of essential tremors PLAN: Continue current cardiac medications Increase metoprolol to 50mg BID Continue IV Heparin Abstinence from alcohol recommended CT surgery consulted. Await final recommendations. Further recommendations pending patient course Nurse practitioner note has been reviewed by physician. Signing provider agrees with the documented findings, assessment, and plan of care documented by STAFF ANESTHETIST as a scribe. Objective - Vital Signs Vital signs: Vital Signs Temp 97.7 F 11/05/24 09:15 Pulse 97 11/05/24 09:15 Resp 17 11/05/24 09:15 BP 163/86 11/05/24 09:15 Pulse Ox 98 11/05/24 09:15 FiO2 Intake & Output 11/04/24 11/05/24 11/05/24 18:59 06:59 18:59 Intake Total 94.961 936 Output Total 600 Balance 94.961 336 Weight 53.524 kg 53.3 kg Intake: IV 50 936 Heparin Sod,Pork in 0.45% 36 NaCl 25,000 unit In 0.45 % NaCl 1 250ml.bag @ 12 UNITS/KG/HR 6.423 mls/hr IV .Q24H [facility] Rx#: [id number] Sodium Chloride 0.9% 1, 900 000 ml In Empty Bag 1 bag @ 1 ML/KG/HR 53.524 mls/ hr IV .[id number] [facility] Rx#: [id number] Intake, IV Titration 44.961 Amount Heparin Sod,Pork in 0.45% 44.961 NaCl 25,000 unit In 0.45 % NaCl 1 250ml.bag @ 12 UNITS/KG/HR 6.423 mls/hr IV .Q24H [facility] Rx#: [id number] Output: Urine 600 - Labs CBC & Chem 7: 11/05/24 05:15 11/05/24 05:15 Labs: Abnormal Lab Results - Last 24 Hours (Table) 11/04/24 11/04/24 11/04/24 Range/Units 06:06 11:26 22:22 RBC (3.80-5.40) m/uL Hgb (11.4-16.0) gm/dL Hct (34.0-46.0) % APTT 61.0 H 50.6 H (22.0-30.0) sec Sodium (137-145) mmol/L BUN (7-17) mg/dL HDL Cholesterol 68.50 H (40.00-60.00) mg/dL Urine Appearance (Clear) Urine Ketones (Negative) Ur Leukocyte Esterase (Negative) Ur Squamous Epith Cells (0-4) /hpf Urine Bacteria (None) /hpf Urine Mucus (None) /hpf 11/04/24 11/05/24 11/05/24 Range/Units 23:30 05:15 05:15 RBC 3.40 L (3.80-5.40) m/uL Hgb 10.8 L (11.4-16.0) gm/dL Hct 33.2 L (34.0-46.0) % APTT 45.8 H (22.0-30.0) sec Sodium (137-145) mmol/L BUN (7-17) mg/dL HDL Cholesterol (40.00-60.00) mg/dL Urine Appearance Cloudy H (Clear) Urine Ketones Trace H (Negative) Ur Leukocyte Esterase Moderate H (Negative) Ur Squamous Epith Cells 5 H (0-4) /hpf Urine Bacteria Rare H (None) /hpf Urine Mucus Rare H (None) /hpf 11/05/24 Range/Units 05:15 RBC (3.80-5.40) m/uL Hgb (11.4-16.0) gm/dL Hct (34.0-46.0) % APTT (22.0-30.0) sec Sodium 136 L (137-145) mmol/L BUN 5 L (7-17) mg/dL HDL Cholesterol (40.00-60.00) mg/dL Urine Appearance (Clear) Urine Ketones (Negative) Ur Leukocyte Esterase (Negative) Ur Squamous Epith Cells (0-4) /hpf Urine Bacteria (None) /hpf Urine Mucus (None) /hpf
--- NOTE | 2024-11-05 13:57 | P.PN ---
Subjective Progress Note Date: 11/05/24 Hospital Course: Patient is a 74-year-old female with past medical history significant for hype rtension, essential tremor, alcoholism, and asthma presents to the emergency department for chest pain that worsened today. She states that she has had chest pain for the last few weeks and just thought it was heartburn as it occurred mostly at night or while laying down. She does state that it woke her up from sleep couple of times over the last few weeks. However today she had increasing chest pain with exertion, relieved by rest. She notes that it is a pressure-like pain that radiates towards her back, lower jaw, and bilateral posterior arms. She rates this pain a 10/10 but notes that it does go away with rest. She denies any nausea/vomiting, diaphoresis, dyspnea, palpitations. She denies a cardiac history., troponin x 3 0.068, 0.124, 0.17 Initial EKG: Sinus rhythm with ventricular rate 71 bpm, QTc 415 ms, no ST-T segment changes ED documentation reviewed. Given aspirin 324 mg p.o. x 1, heparin bolus x 1, started on heparin GTT 12 units/kg/h. Patient was admitted for further evaluation of chest pain, cardiology consulted, recommended continue losartan metoprolol, added Nitropaste, recommended abstinence from alcohol, TTE ordered. Patient was taken to [facility] on 11/04, showed heavily calcified coronary arteries, critical stenosis LAD and RCA, low LVEDP, patient was started back on heparin, awaiting surgical decision regarding CABG. Patient earlier shared that her mother had CABG at age of 60 and at age of 74. CABG workup: Carotid ultrasound showed atheromatous plaquing within the carotid bifurcation, left side moderate between 50 and 69%, right side less than 50%. CT chest showed vascular calcification within the ascending thoracic aorta, no aneurysm. No suspicious lung nodules, Liver ultrasound showed no abnormalities. Subjective: Patient feels anxious about the surgery, denies chest pain or shortness of breath, abdominal pain, dysuria Pertinent positives and negatives as discussed above, a complete review of systems was performed and all other systems are negative. Vitals Signs Reviewed. General: [nontoxic], [no distress], [appears at stated age], tremors present Derm: [warm], [dry] Head: [atraumatic], [normocephalic], [symmetric] Eyes: [EOMI], [no lid lag], [anicteric sclera] Mouth: [no lip lesion], [mucus membranes moist] Cardiovascular: [S1S2 reg], [no murmur] Lungs: [CTA bilateral], [no rhonchi, no rales] , [no accessory muscle use] Abdominal: [soft], [ nontender to palpation], [no guarding], [no appreciable organomegaly] Ext: [no gross muscle atrophy], [no edema], [no contractures] Neuro: [ CN II-XI grossly intact], [no focal neuro deficits] Psych: [Alert], [oriented], [appropriate affect] Data Reviewed Today: Pertinent Labs: Hemoglobin 10.8, no leukocytosis, platelet count normal, sodium stable 136, normal potassium, creatinine 0.5, urinalysis showed cloudy urine with normal WBC count, Assessment and Plan: 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 Hyperlipidemia Hypertension -Cardiology following, CT surgery consulted for CABG -TTE with EF of 55 to 60% with no significant valvular abnormalities or pericardial effusion noted -Continue heparin drip -GI prophylaxis with Protonix 48 oral daily -Continue with aspirin 81 daily, high intensity statin atorvastatin 80 daily, continue losartan 50 twice daily, metoprolol increased to 50 twice daily, Nitropaste Prediabetes: A1c 5.9, needs to followup with PCP, prediabetes classes after discharge Alcohol use disorder: Continue multivitamins, CIWA with Ativan, social work [ DVT ppx: Heparin drip Code status: Full code Anticipated discharge place: TBD Anticipated discharge time: TBD Objective - Vital Signs Vital signs: Vital Signs Temp 97.7 F 11/05/24 09:15 Pulse 97 11/05/24 09:15 Resp 17 11/05/24 09:15 BP 163/86 11/05/24 09:15 Pulse Ox 98 11/05/24 09:15 FiO2 Intake & Output 11/04/24 11/05/24 11/05/24 18:59 06:59 18:59 Intake Total 94.961 936 Output Total 600 Balance 94.961 336 Weight 53.524 kg 53.3 kg Intake: IV 50 936 Heparin Sod,Pork in 0.45% 36 NaCl 25,000 unit In 0.45 % NaCl 1 250ml.bag @ 12 UNITS/KG/HR 6.423 mls/hr IV .Q24H [facility] Rx#: [id number] Sodium Chloride 0.9% 1, 900 000 ml In Empty Bag 1 bag @ 1 ML/KG/HR 53.524 mls/ hr IV .[id number] [facility] Rx#: [id number] Intake, IV Titration 44.961 Amount Heparin Sod,Pork in 0.45% 44.961 NaCl 25,000 unit In 0.45 % NaCl 1 250ml.bag @ 12 UNITS/KG/HR 6.423 mls/hr IV .Q24H [facility] Rx#: [id number] Output: Urine 600 - Labs CBC & Chem 7: 11/05/24 05:15 11/05/24 05:15 Labs: Abnormal Lab Results - Last 24 Hours (Table) 11/04/24 11/04/24 11/05/24 Range/Units 22:22 23:30 05:15 RBC 3.40 L (3.80-5.40) m/uL Hgb 10.8 L (11.4-16.0) gm/dL Hct 33.2 L (34.0-46.0) % APTT 50.6 H (22.0-30.0) sec Sodium (137-145) mmol/L BUN (7-17) mg/dL Urine Appearance Cloudy H (Clear) Urine Ketones Trace H (Negative) Ur Leukocyte Esterase Moderate H (Negative) Ur Squamous Epith Cells 5 H (0-4) /hpf Urine Bacteria Rare H (None) /hpf Urine Mucus Rare H (None) /hpf 11/05/24 11/05/24 Range/Units 05:15 05:15 RBC (3.80-5.40) m/uL Hgb (11.4-16.0) gm/dL Hct (34.0-46.0) % APTT 45.8 H (22.0-30.0) sec Sodium 136 L (137-145) mmol/L BUN 5 L (7-17) mg/dL Urine Appearance (Clear) Urine Ketones (Negative) Ur Leukocyte Esterase (Negative) Ur Squamous Epith Cells (0-4) /hpf Urine Bacteria (None) /hpf Urine Mucus (None) /hpf
[2024-11-05] MEDS: METOPROLOL TARTRATE 50 MG TAB PO SCH (20:02)
[2024-11-06] MEDS: MORPHINE SULFATE 4 MG/ML SYRINGE IV PRN (00:18)
[2024-11-06] MEDS ORDERED: ALBUTEROL NEBULIZED 2.5 MG/3 ML INHALATION PRN (02:26)
--- NOTE | 2024-11-06 02:32 | P.CNPUL ---
History of Present Illness Consult date: 11/06/24 Requesting physician: Joseline Ortiz Reason for consult: other (preoperative CABG clearance) Chief complaint: Chest pain History of present illness: Patient is a 74-year-old female with past medical history significant for hypertension, daily alcohol use, resting tremor, anxiety, mild intermittent asthma. Presented to emergency department back on 11/03/2024 with a chief complaint of chest pain. Diagnosed with non-ST elevation [place]. Taken to the Regional Project Manager on 11/04/2024 which showed multivessel coronary artery disease with critical stenosis involving the proximal LAD and RCA and moderate disease of the left circumflex. Patient was referred to cardiothoracic surgery. Patient is currently undergoing extensive preoperative workup. We are asked to see this patient for preoperative pulmonary clearance. Patient is being seen on the cardiac stepdown floor. Currently on IV heparin protocol. Is reporting some substernal chest pain with radiation to her back. States it is reoccurring at n ighttime. The nurses are putting Nitropaste on. EKG is going to be repeated. She has history of mild intermittent asthma, does have an as needed albuterol rescue inhaler at home, but does not usually require it unless sick. History of tobacco smoking over 40 years ago. No recent URI, pneumonias, pulmonary complaints. Respiratory therapist did a bedside spirometry, FEV1 was reported at 0.91 L or 46% of predicted. CT of the chest does not show any acute parenchymal abnormalities. No suspicious lung nodules or focal infiltrates. Vascular calcification of thoracic aorta. Patient currently resting comfortably on room air oxygen. Her chest pain is subsided. No nausea or vomiting or diap horesis. Denies shortness of breath. She has a severe resting tremor. She states she feels anxious about being on the ventilator. No prior major surgeries or issue with general anesthesia. Incentive spirometer is at bedside. Most recent labs from yesterday including a WBC count of 7.3, hemoglobin 10.8, platelets 285. Effort appears therapeutic based on APTT. CMP: Sodium 136, potassium 4, chloride 103, serum bicarb 22, BUN 5, creatinine 0.52, glucose 83. Previously troponins were elevated at 0.06, 0.124, and 0.17. Echocardiogram showing normal biventricular systolic function, no significant valvular abnormalities. Current vital signs: Temperature 98.2 F, heart rate 95 bpm, blood pressure 160/80 mmHg, nontachypneic, SpO2 is 100% on room air. Review of Systems Constitutional: Denies chills, Denies chronic pain, Denies fatigue, Denies fever, Denies weight gain, Denies weight loss Past Medical History Past Medical History: Asthma, Chest Pain / Angina, Hypertension, Osteoarthritis (OA) Additional Past Medical History / Comment(s): tremors, peripheral neuropathy History of Any Multi-Drug Resistant Organisms: None Reported Past Surgical History: Heart Catheterization, Orthopedic Surgery, Tonsillectomy Additional Past Surgical History / Comment(s): Cataract surgery to both eyes Past Anesthesia/Blood Transfusion Reactions: No Reported Reaction Past Psychological History: Anxiety Smoking Status: Former smoker Past Alcohol Use History: Daily Past Drug Use History: None Reported - Past Family History Mother Family Medical History: Coronary Artery Disease (CAD), Hypertension Additional Family Medical History / Comment(s): Mother had myocardial vascularization surgery at age 60. The patient's uncle also had myocardial vascularization surgery in his 30s. Medications and Allergies Home Medications Medication Instructions Recorded Confirmed Type HYDROcodone/APAP 7.5-325MG [[place] 1 tab PO QID 08/07/21 11/04/24 History 7.5-325] Albuterol Sulfate [Albuterol 2 puff INHALATION RT-Q6H PRN 11/04/24 11/04/24 History Sulfate Hfa] Losartan [Cozaar] 50 mg PO BID 11/04/24 11/04/24 History Allergies Allergy/AdvReac Type Severity Reaction Status Date / Time No Known Allergies Allergy Verified 11/04/24 08:11 Physical Exam Vitals: Vital Signs Temp Pulse Resp BP Pulse Ox 11/06/24 00:00 98.2 F 95 20 160/80 100 11/05/24 20:00 98.1 F 75 16 172/70 98 11/05/24 16:20 97.9 F 71 18 124/64 95 11/05/24 14:00 71 18 11/05/24 11:45 98.5 F 77 17 120/86 98 11/05/24 09:15 97.7 F 97 17 163/86 98 11/05/24 08:00 97 17 11/05/24 03:29 147/69 Intake and Output 11/05/24 11/05/24 11/06/24 14:59 22:59 06:59 Intake Total 480 170.317 Output Total 400 600 800 Balance 80 -429.683 -800 Intake: Intake, IV Titration 170.317 Amount Heparin Sod,Pork in 0.45% 170.317 NaCl 25,000 unit In 0.45 % NaCl 1 250ml.bag @ 12 UNITS/KG/HR 6.423 mls/hr IV .Q24H [facility] Rx#: [id number] Oral 480 Output: Urine 400 600 800 Results - Laboratory Findings CBC and BMP: 11/06/24 05:08 11/06/24 05:08 PT/INR, D-dimer PT 10.9 sec (10.0-12.5) 11/05/24 05:15 INR 1.0 (<1.2) 11/05/24 05:15 Abnormal lab findings: Abnormal Labs 11/03/24 11/03/24 11/03/24 20:59 20:59 20:59 RBC 3.63 L Hgb Hct APTT Sodium 134 L BUN Creatinine Glucose 117 H Troponin I 0.060 H* HDL Cholesterol Urine Appearance Urine Ketones Ur Leukocyte Esterase Ur Squamous Epith Cells Urine Bacteria Urine Mucus 11/03/24 11/04/24 11/04/24 23:33 02:05 06:06 RBC Hgb Hct APTT Sodium 136 L BUN 6 L Creatinine 0.49 L Glucose 102 H Troponin I 0.124 H* 0.170 H* HDL Cholesterol 68.50 H Urine Appearance Urine Ketones Ur Leukocyte Esterase Ur Squamous Epith Cells Urine Bacteria Urine Mucus 11/04/24 11/04/24 11/04/24 06:06 06:07 11:26 RBC 3.57 L Hgb Hct APTT 34.3 H 61.0 H Sodium BUN Creatinine Glucose Troponin I HDL Cholesterol Urine Appearance Urine Ketones Ur Leukocyte Esterase Ur Squamous Epith Cells Urine Bacteria Urine Mucus 11/04/24 11/04/24 11/05/24 22:22 23:30 05:15 RBC 3.40 L Hgb 10.8 L Hct 33.2 L APTT 50.6 H Sodium BUN Creatinine Glucose Troponin I HDL Cholesterol Urine Appearance Cloudy H Urine Ketones Trace H Ur Leukocyte Esterase Moderate H Ur Squamous Epith Cells 5 H Urine Bacteria Rare H Urine Mucus Rare H 11/05/24 11/05/24 11/05/24 05:15 05:15 18:10 RBC Hgb Hct APTT 45.8 H 34.7 H Sodium 136 L BUN 5 L Creatinine Glucose Troponin I HDL Cholesterol Urine Appearance Urine Ketones Ur Leukocyte Esterase Ur Squamous Epith Cells Urine Bacteria Urine Mucus 11/06/24 00:40 RBC Hgb Hct APTT 42.5 H Sodium BUN Creatinine Glucose Troponin I HDL Cholesterol Urine Appearance Urine Ketones Ur Leukocyte Esterase Ur Squamous Epith Cells Urine Bacteria Urine Mucus Assessment and Plan Assessment: Multivessel coronary artery disease, see cardiac catheterization report Acute Non-ST elevation [place] Hypertension History of mild intermittent asthma, inactive Remote history of tobacco use, over 40 years ago Daily alcohol use Peripheral neuropathy Resting tremor Anxiety Plan: Patient is currently undergoing preoperative workup for surgical revascularization Consult was placed for preoperative pulmonary clearance Currently on room air Bedside spirometry with an FEV1 0.91 L or 46% of predicted Asthma is inactive Continue to encourage incentive spirometer while awake No absolute pulmonary contraindications to surgery STS score is being calculated Continues on IV heparin infusion Nitropaste on initiated on beta-clover, losartan, and statin. Monitor for signs/symptoms of alcohol withdrawal Pulmonary will continue to follow This is a joint evaluation that was done along with the nurse practitioner. This evaluation was done and 31 minutes. The patient is being seen for a preoperative pulm evaluation as the patient is scheduled to undergo coronary artery bypass surgery. The patient is a former smoker. She states that she has asthma. Nevertheless, her spirometry shows a severe obstructive airway limitation with an FEV1 of 46% predicted. She is using incentive spirometer, pulling approximately 1500. She is known to have multivessel coronary artery disease with disease involving proximal LAD and RCA and moderate disease involving the circumflex and the patient is currently on IV heparin. CAT scan of the chest was reviewed. No significant abnormalities noted and there is some vascular calcification involving the ascending aorta. Labs were all reviewed. Hemoglobin 10.7, renal function is normal. Electrolytes are normal. UA is negative. Will continue to follow. Will put the patient on DuoNeb treatments [id number]. Will collaborate with the cardiothoracic team regarding postoperative care. Time with Patient: Greater than 30
[2024-11-06 07:29] LABS: HCT 32.8 % (34.0-46.0); HGB 10.7 gm/dL (11.4-16.0); MCH 31.5 pg (25.0-35.0); MCHC 32.8 g/dL (31.0-37.0); MCV 96.1 fL (80.0-100.0); Mean Platelet Volume 7.9; Platelet Count 285 k/uL (150-450); RBC 3.41 m/uL (3.80-5.40); RDW 12.3 % (11.5-15.5); WBC 9.1 k/uL (3.8-10.6)
[2024-11-06 07:48] LABS: African American GFR (CKD) >90 (>60 ml/min/1.73 sqM); Anion Gap 8 mmol/L; Blood Urea Nitrogen 5 mg/dL (7-17); Calcium 9.4 mg/dL (8.4-10.2); Carbon Dioxide 26 mmol/L (22-30); Chloride 102 mmol/L (98-107); Glucose 92 mg/dL (74-99); Non-African American GFR(CKD) >90 (>60 ml/min/1.73 sqM); Potassium 3.6 mmol/L (3.5-5.1); Sodium 136 mmol/L (137-145)
[2024-11-06] MEDS: METOPROLOL TARTRATE 50 MG TAB PO SCH (09:05)
--- NOTE | 2024-11-06 10:00 | P.PN ---
Subjective HISTORY OF PRESENT ILLNESS: This is a 74-year-old female with a past medical history significant for frequent alcohol use, hypertension and anxiety. 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 We have been asked to see the patient in consultation for chest pain. Patient examined at the bedside in the emergency room. Patient states over the past 1 to 2 weeks she has been having chest discomfort. She states the pain has been occurring at night when she lays down. She states that she initially thought it was heartburn. She states the pain starts in the middle of her chest and then radiates into her back and then into the back of her arms. She states the pain will last for about 10 to 15 minutes and is resolved when she sits up on the side of the bed. She does report that yesterday the pain was worse with exertion during the day. She is a non-smoker. She does report drinking 2-3 beers a day which she states helps with her essential tremors. DIAGNOSTICS: - EKG reveals sinus mechanism with no signs of acute ischemia. - Chest xray negative for acute process. COPD changes.. - Laboratory data: WBC 6.3. Hemoglobin 11.5. Platelet count 283. Sodium 136. Potassium 3.6. BUN 6. Creatinine 0.49. Troponin 0.060. 0.124. 0.170. - Current home cardiac medication list not updated at the time of examination. -No previous echocardiogram, stress test, or cardiac catheterization available in EMR for review 11/05/2024 Patient underwent cardiac catheterization yesterday revealing heavily calcified coronary arteries, critical stenosis involving proximal LAD and RCA and moderate disease of the left circumflex. Consultation was placed to CT surgery for possible CABG. Patient examined this morning the bedside. Patient denies any chest pain or pressure. She denies any shortness of breath. Vital signs are stable. Blood pressure 163/86. Echocardiogram completed revealing ejection fraction 55 to 60%, no significant valvular abnormalities noted, and no pericardial effusion noted. 11/06/2024 Patient examined this morning at the bedside. Patient is sitting up in the chair. Patient's family is present. Patient reports having an episode of chest pain yesterday that lasted for about 15 to 20 minutes. She denies any chest pain at the time of examination. She denies any shortness of breath or cough. She remains on IV heparin. She states that she is scheduled for CABG on Saturday. PHYSICAL EXAM: VITAL SIGNS: Reviewed. GENERAL: Well-developed in no acute distress. HEENT: Head is normocephalic. Pupils are equal, round. Sclerae anicteric. Mucous membranes of the mouth are moist. Neck supple. No JVD or thyromegaly LUNGS: Respirations even and unlabored. Lungs essentially clear to auscultation bilaterally. HEART: Regular rate and rhythm. S1 and S2 heard. Systolic murmur noted. ABDOMEN: Soft. Nondistended. Nontender. EXTREMITIES: Normal range of motion. No clubbing or cyanosis. Peripheral pulses intact. No lower extremity edema NEUROLOGIC: Awake and alert. Oriented x 3. ASSESSMENT: Non-STEMI, status post cardiac cath revealing multivessel CAD Hypertension Frequent alcohol use, patient reports drinking 2-3 beers per day Anxiety History of essential tremors PLAN: Continue current cardiac medications Increase metoprolol to 50mg 3 times daily Continue IV Heparin Continue Nitropaste Abstinence from alcohol recommended CT surgery consulted. Reports she is tentatively scheduled for CABG on 11/09/2024 Further recommendations pending patient course Nurse practitioner note has been reviewed by physician. Signing provider agrees with the documented findings, assessment, and plan of care documented by IRON GUARDRAIL INSTALLER as a scribe. Objective - Vital Signs Vital signs: Vital Signs Temp 98.6 F 11/06/24 08:10 Pulse 80 11/06/24 08:10 Resp 18 11/06/24 08:10 BP 173/90 11/06/24 08:10 Pulse Ox 95 11/06/24 08:10 FiO2 Intake & Output 11/05/24 11/06/24 11/06/24 18:59 06:59 18:59 Intake Total 650.317 67.687 Output Total 400 1400 Balance 250.317 -1332.313 Weight 52.5 kg Intake: Intake, IV Titration 170.317 67.687 Amount Heparin Sod,Pork in 0.45% 170.317 67.687 NaCl 25,000 unit In 0.45 % NaCl 1 250ml.bag @ 12 UNITS/KG/HR 6.423 mls/hr IV .Q24H [facility] Rx#: [id number] Oral 480 Output: Urine 400 1400 - Labs CBC & Chem 7: 11/06/24 05:08 11/06/24 05:08 Labs: Abnormal Lab Results - Last 24 Hours (Table) 11/05/24 11/06/24 11/06/24 Range/Units 18:10 00:40 05:08 RBC 3.41 L (3.80-5.40) m/uL Hgb 10.7 L (11.4-16.0) gm/dL Hct 32.8 L (34.0-46.0) % APTT 34.7 H 42.5 H (22.0-30.0) sec Sodium (137-145) mmol/L BUN (7-17) mg/dL 11/06/24 11/06/24 Range/Units 05:08 05:08 RBC (3.80-5.40) m/uL Hgb (11.4-16.0) gm/dL Hct (34.0-46.0) % APTT 47.1 H (22.0-30.0) sec Sodium 136 L (137-145) mmol/L BUN 5 L (7-17) mg/dL
--- NOTE | 2024-11-06 14:29 | P.PN ---
Subjective Progress Note Date: 11/06/24 Principal diagnosis: Multivessel coronary artery disease, non-STEMI this admission. History of hypertension, peripheral neuropathy with essential tremors, asthma, daily EtOH use, previous tobacco dependence, and family history of premature coronary artery disease. The patient was seen and examined in follow-up today November 06, 2024 at her bedside on the third floor cardiac stepdown unit. She is currently laying in bed, is awake, alert, oriented x 3 and is in no acute apparent distress. States she had an episode of chest discomfort throughout the night and was started on nitroglycerin paste, and reports that she has had no further episodes since the nitroglycerin has been placed. She denies any complaints of shortness of breath. She reports she is very nervous with undergoing surgery which she is scheduled for myocardial vascularization surgery with left internal mammary artery, possible left radial artery harvest endoscopically, endoscopic greater saphenous vein harvest, exclusion left atrial appendage and intraoperative transesophageal echocardiogram to be completed by Dr. Philippe Duenas on Saturday,November 09, 1999 and . A 5 m walk test was completed with the patient by cardiac rehab yesterday November 05, 2024 with time 1: 7.10 seconds, time 2: 6.93 seconds, and time 3: 5.61 seconds. The patient tolerated the walk test well, although there is some reports of slight loss of balance during the test. Laboratory results reviewed. Objective - Vital Signs Vital signs: Vital Signs Temp 98.6 F 11/06/24 08:10 Pulse 80 11/06/24 08:10 Resp 18 11/06/24 08:10 BP 173/90 11/06/24 08:10 Pulse Ox 95 11/06/24 08:10 FiO2 Intake & Output 11/05/24 11/06/24 11/06/24 18:59 06:59 18:59 Intake Total 650.317 67.687 Output Total 400 1400 800 Balance 250.317 -1332.313 -800 Weight 52.5 kg Intake: Intake, IV Titration 170.317 67.687 Amount Heparin Sod,Pork in 0.45% 170.317 67.687 NaCl 25,000 unit In 0.45 % NaCl 1 250ml.bag @ 12 UNITS/KG/HR 6.423 mls/hr IV .Q24H [facility] Rx#: [id number] Oral 480 Output: Urine 400 1400 800 - Exam CONSTITUTIONAL: Appears comfortable, cooperative, no acute distress RESPIRATORY: Lungs sounds clear bilaterally. Respirations symmetrical, nonlabored. Currently on room air with oxygen saturation 95%. Strong cough. Achieving 2000 mL on her incentive spirometry with encouragement. CARDIOVASCULAR: S1, S2 present. Regular rate and rhythm, sinus rhythm on telemetry. Palpable peripheral pulses bilaterally. No edema present. No calf pain or tenderness noted GASTROINTESTINAL: Abdomen soft, nontender, nondistended. Active bowel sounds present 4 quadrants. GENITOURINARY: Continues to void INTEGUMENTARY: Skin is warm and dry NEUROLOGIC: Cranial nerves II through XII intact; essential tremors present MUSKULOSKELETAL: Able to move all extremities, strength equal bilaterally, gait normal PSYCHIATRIC: Alert and oriented to person place and time, appropriate affect, intact judgment and insight - Allied health notes Allied health notes reviewed: nursing - Labs CBC & Chem 7: 11/06/24 05:08 11/06/24 05:08 Labs: Abnormal Lab Results - Last 24 Hours (Table) 11/05/24 11/06/24 11/06/24 Range/Units 18:10 00:40 05:08 RBC 3.41 L (3.80-5.40) m/uL Hgb 10.7 L (11.4-16.0) gm/dL Hct 32.8 L (34.0-46.0) % APTT 34.7 H 42.5 H (22.0-30.0) sec Sodium (137-145) mmol/L BUN (7-17) mg/dL 11/06/24 11/06/24 Range/Units 05:08 05:08 RBC (3.80-5.40) m/uL Hgb (11.4-16.0) gm/dL Hct (34.0-46.0) % APTT 47.1 H (22.0-30.0) sec Sodium 136 L (137-145) mmol/L BUN 5 L (7-17) mg/dL Microbiology - Last 24 Hours (Table) 11/04/24 20:18 Nasal Screen MRSA/MSSA - Final Nasal Swab Assessment and Plan Assessment: Multivessel coronary artery disease, non-STEMI this admission Chest pain, secondary to above History of hypertension Peripheral neuropathy with essential tremors Asthma Daily EtOH use, daughter reports multiple beers per day, patient reports down to the 2-3 beers daily Previous tobacco dependence Anxiety Family history of premature coronary artery disease Plan: Continue to maximize medical therapy with aspirin, statin, beta-clover Risk score has been calculated and discussed with the patient by Dr. Philippe Duenas. Continue CIWA protocol. Increase activity as tolerated. Dr. Duenas met with the patient and her family, treatment options discussed including myocardial vascularization surgery. Risks and benefits of surgery including the STS risk or were discussed and knowing and understanding the risks the patient wishes to proceed with the surgical option. She is scheduled for myocardial vascularization surgery off-pump, with left endoscopic radial artery harvest, endoscopic greater saphenous vein harvest, exclusion left atrial appendage and intraoperative transesophageal echocardiogram to be completed by Dr. Philippe Duenas on November 09, 2024. More recommendations to follow based on patient's clinical course. Time with Patient: Greater than 30
[2024-11-06] MEDS: IPRATROPIUM-ALBUTEROL 3 ML NEB INHALATION SCH (16:24)
--- NOTE | 2024-11-06 18:08 | P.PN ---
Subjective Progress Note Date: 11/06/24 Hospital Course: Patient is a 74-year-old female with past medical history significant for hype rtension, essential tremor, alcoholism, and asthma presents to the emergency department for chest pain that worsened today. She states that she has had chest pain for the last few weeks and just thought it was heartburn as it occurred mostly at night or while laying down. She does state that it woke her up from sleep couple of times over the last few weeks. However today she had increasing chest pain with exertion, relieved by rest. She notes that it is a pressure-like pain that radiates towards her back, lower jaw, and bilateral posterior arms. She rates this pain a 10/10 but notes that it does go away with rest. She denies any nausea/vomiting, diaphoresis, dyspnea, palpitations. She denies a cardiac history., troponin x 3 0.068, 0.124, 0.17 Initial EKG: Sinus rhythm with ventricular rate 71 bpm, QTc 415 ms, no ST-T segment changes ED documentation reviewed. Given aspirin 324 mg p.o. x 1, heparin bolus x 1, started on heparin GTT 12 units/kg/h. Patient was admitted for further evaluation of chest pain, cardiology consulted, recommended continue losartan metoprolol, added Nitropaste, recommended abstinence from alcohol, TTE ordered. Patient was taken to [facility] on 11/04, showed heavily calcified coronary arteries, critical stenosis LAD and RCA, low LVEDP, patient was started back on heparin, awaiting surgical decision regarding CABG. Patient earlier shared that her mother had CABG at age of 60 and at age of 73. CABG workup: Carotid ultrasound showed atheromatous plaquing within the carotid bifurcation, left side moderate between 50 and 69%, right side less than 50%. CT chest showed vascular calcification within the ascending thoracic aorta, no aneurysm. No suspicious lung nodules, Liver ultrasound showed no abnormalities. Subjective: Patient feels anxious about the surgery, had another episode of chest pain last night, resolved with nitropatch. Pertinent positives and negatives as discussed above, a complete review of systems was performed and all other systems are negative. Vitals Signs Reviewed. Gen: In NAD, non-toxic HEENT: normocephalic, atraumatic, hearing acuity is intant, mucous membranes moist CVS: perfusing all extremities well, no pitting edema, Respiratory: symmetric chest expansion, no accessory muscle use, GI: soft, NTTP, ND, : no suprapubic tenderness, no CVA tenderness MSK/Derm: no rashes, cyanosis Neuro: CN II-XII intact, no motor weakness, Psych: cooperative, anxious mood, judgment and insight is intact Assessment and Plan: 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 Hyperlipidemia Hypertension -Cardiology following, CT surgery consulted for CABG -TTE with EF of 55 to 60% with no significant valvular abnormalities or pericardial effusion noted -Continue heparin drip -GI prophylaxis with Protonix 40 oral daily -Continue with aspirin 81 daily, high intensity statin atorvastatin 80 daily, continue losartan 50 twice daily, metoprolol increased to 50 twice daily, Nitropaste Prediabetes: A1c 5.9, needs to followup with PCP, prediabetes classes after discharge Alcohol use disorder: Continue multivitamins, CIWA with Ativan, social work [ DVT ppx: Heparin drip Code status: Full code Anticipated discharge place: TBD Anticipated discharge time: TBD Objective - Vital Signs Vital signs: Vital Signs Temp 97.8 F 11/06/24 15:49 Pulse 77 11/06/24 16:35 Resp 17 11/06/24 15:49 BP 124/75 11/06/24 15:49 Pulse Ox 94 L 11/06/24 15:49 FiO2 Intake & Output 11/05/24 11/06/24 11/06/24 18:59 06:59 18:59 Intake Total 650.317 67.687 240 Output Total 400 1400 1300 Balance 250.317 -1332.313 -1060 Weight 52.5 kg Intake: Intake, IV Titration 170.317 67.687 Amount Heparin Sod,Pork in 0.45% 170.317 67.687 NaCl 25,000 unit In 0.45 % NaCl 1 250ml.bag @ 12 UNITS/KG/HR 6.423 mls/hr IV .Q24H [facility] Rx#: [id number] Oral 480 240 Output: Urine 400 1400 1300 Other: # Voids 2 # Bowel Movements 1 - Labs CBC & Chem 7: 11/06/24 05:08 11/06/24 05:08 Labs: Abnormal Lab Results - Last 24 Hours (Table) 11/05/24 11/06/24 11/06/24 Range/Units 18:10 00:40 05:08 RBC 3.41 L (3.80-5.40) m/uL Hgb 10.7 L (11.4-16.0) gm/dL Hct 32.8 L (34.0-46.0) % APTT 34.7 H 42.5 H (22.0-30.0) sec Sodium (137-145) mmol/L BUN (7-17) mg/dL 11/06/24 11/06/24 Range/Units 05:08 05:08 RBC (3.80-5.40) m/uL Hgb (11.4-16.0) gm/dL Hct (34.0-46.0) % APTT 47.1 H (22.0-30.0) sec Sodium 136 L (137-145) mmol/L BUN 5 L (7-17) mg/dL Microbiology - Last 24 Hours (Table) 11/04/24 20:18 Nasal Screen MRSA/MSSA - Final Nasal Swab
[2024-11-07] MEDS: ALPRAZolam 0.25 MG TAB PO PRN (02:50)
[2024-11-07 07:25] LABS: HCT 33.7 % (34.0-46.0); HGB 11.2 gm/dL (11.4-16.0); MCH 31.8 pg (25.0-35.0); MCHC 33.3 g/dL (31.0-37.0); MCV 95.5 fL (80.0-100.0); Mean Platelet Volume 7.5; Platelet Count 280 k/uL (150-450); RBC 3.53 m/uL (3.80-5.40); RDW 12.4 % (11.5-15.5); WBC 7.3 k/uL (3.8-10.6)
[2024-11-07 07:41] LABS: African American GFR (CKD) >90 (>60 ml/min/1.73 sqM); Anion Gap 9 mmol/L; Blood Urea Nitrogen 4 mg/dL (7-17); Calcium 9.5 mg/dL (8.4-10.2); Carbon Dioxide 26 mmol/L (22-30); Chloride 104 mmol/L (98-107); Glucose 100 mg/dL (74-99); Non-African American GFR(CKD) >90 (>60 ml/min/1.73 sqM); Potassium 3.4 mmol/L (3.5-5.1); Sodium 139 mmol/L (137-145)
[2024-11-07] MEDS ORDERED: Potassium Replacement Protocol 1 EACH MISC MISCELLANE PRN (10:09)
--- NOTE | 2024-11-07 10:12 | P.PN ---
Subjective Progress Note Date: 11/07/24 Principal diagnosis: Multivessel coronary artery disease, non-STEMI this admission. History of hypertension, peripheral neuropathy with essential tremors, asthma, daily EtOH use, previous tobacco dependence, and family history of premature coronary artery disease. The patient was seen and examined in follow-up today November 07, 2024 at her bedside on the third floor cardiac stepdown unit. She is currently up ambulating in her room, she is awake, alert, oriented x 3 and is in no acute apparent distress. States she denies any further complaints of chest discomfort and reports that she has had no further episodes since the nitroglycerin has been placed. She denies any complaints of shortness of breath. She reports she is very nervous with undergoing surgery which she is scheduled for myocardial vascularization surgery with left internal mammary artery, endoscopic left radial artery harvest, endoscopic greater saphenous vein harvest, exclusion left atrial appendage and intraoperative transesophageal echocardiogram to be completed by Dr. Philippe Duenas on Saturday,November 09, 2024. She reports due to her nervousness she was given a Xanax last evening which helped. A 5 m walk test was completed with the patient by cardiac rehab on November 05, 2024 with time 1: 7.10 seconds, time 2: 6.93 seconds, and time 3: 5.61 seconds. The patient tolerated the walk test well, although there is some reports of slight loss of balance during the test. Laboratory results reviewed. Hemoglobin is 11.2 today, stool for occult is pending. Objective - Vital Signs Vital signs: Vital Signs Temp 98.1 F 11/07/24 09:00 Pulse 74 11/07/24 09:00 Resp 16 11/07/24 09:00 BP 175/76 11/07/24 09:00 Pulse Ox 97 11/07/24 09:00 FiO2 Intake & Output 11/06/24 11/07/24 11/07/24 18:59 06:59 18:59 Intake Total 240 Output Total 1300 1575 Balance -1060 -1575 Weight 52.4 kg Intake: Oral 240 Output: Urine 1300 1575 Other: # Voids 2 # Bowel Movements 1 - Exam CONSTITUTIONAL: Appears comfortable, cooperative, no acute distress RESPIRATORY: Lungs sounds clear bilaterally. Respirations symmetrical, nonlabored. Currently on room air with oxygen saturation 97%. Strong cough. Achieving 2000 mL on her incentive spirometry with encouragement. CARDIOVASCULAR: S1, S2 present. Regular rate and rhythm, sinus rhythm on telemetry. Palpable peripheral pulses bilaterally. No edema present. No calf pain or tenderness noted GASTROINTESTINAL: Abdomen soft, nontender, nondistended. Active bowel sounds present 4 quadrants. Bowel movement yesterday November 06, 2024. GENITOURINARY: Continues to void. INTEGUMENTARY: Skin is warm and dry. No clubbing or cyanosis present. NEUROLOGIC: Cranial nerves II through XII intact; essential tremors present MUSKULOSKELETAL: Able to move all extremities, strength equal bilaterally, gait normal PSYCHIATRIC: Alert and oriented to person place and time, appropriate affect, intact judgment and insight - Allied health notes Allied health notes reviewed: nursing - Labs CBC & Chem 7: 11/07/24 06:39 11/07/24 06:39 Labs: Abnormal Lab Results - Last 24 Hours (Table) 11/07/24 11/07/24 11/07/24 Range/Units 06:39 06:39 06:39 RBC 3.53 L (3.80-5.40) m/uL Hgb 11.2 L (11.4-16.0) gm/dL Hct 33.7 L (34.0-46.0) % APTT 47.8 H (22.0-30.0) sec Potassium 3.4 L (3.5-5.1) mmol/L BUN 4 L (7-17) mg/dL Creatinine 0.49 L (0.52-1.04) mg/dL Glucose 100 H (74-99) mg/dL Microbiology - Last 24 Hours (Table) 11/04/24 20:18 Nasal Screen MRSA/MSSA - Final Nasal Swab Assessment and Plan Assessment: Multivessel coronary artery disease, non-STEMI this admission Chest pain, secondary to above Anemia, hemoglobin 11.2 today November 07, 2024 History of hypertension Peripheral neuropathy with essential tremors Asthma Daily EtOH use, daughter reports multiple beers per day, patient reports down to the 2-3 beers daily Previous tobacco dependence Anxiety Family history of premature coronary artery disease Plan: Continue to maximize medical therapy with aspirin, statin, and beta-clover. Risk score has been calculated and discussed with the patient by Dr. Philippe Duenas. Continue CIWA protocol. Increase activity as tolerated. Hemoglobin 11.2 today, stool for occult remains pending. Ferric gluconatesucrose 125 mg IV piggyback x 1 now. We will start ferrous sulfate 325 mg p.o. daily with lunch and vitamin C [address] Dueans met with the patient and her family, treatment options discussed including myocardial vascularization surgery. Risks and benefits of surgery including the STS risk or were discussed and knowing and understanding the risks the patient wishes to proceed with the surgical option. She is scheduled for myocardial vascularization surgery off-pump, with left endoscopic radial artery harvest, endoscopic greater saphenous vein harvest, exclusion left atrial appendage and intraoperative transesophageal echocardiogram to be completed by Dr. Philippe Duenas on November 09, 2024. Preoperative teaching has been reinforced with the patient and her family p resent at her bedside. Encourage use of incentive spirometry 10 times every hour while awake. More recommendations to follow based on patient's clinical course. Time with Patient: Greater than 30
[2024-11-07] MEDS: ASCORBIC ACID 500 MG TAB PO SCH (11:25)
[2024-11-07] MEDS: SODIUM FERRIC GLUCONAT-SUCROSE 125 MG in SODIUM CHLORIDE 0.9% 100 ML IVPB ONE (11:26)
[2024-11-07] MEDS: POTASSIUM CHLORIDE ER 20 MEQ TAB.ER PO SCH (11:29)
[2024-11-07] MEDS: ALBUTEROL NEBULIZED 2.5 MG/3 ML INHALATION SCH (12:48)
--- NOTE | 2024-11-07 12:48 | P.PN ---
Subjective HISTORY OF PRESENT ILLNESS: This is a 74-year-old female with a past medical history significant for frequent alcohol use, hypertension and anxiety. 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 We have been asked to see the patient in consultation for chest pain. Patient examined at the bedside in the emergency room. Patient states over the past 1 to 2 weeks she has been having chest discomfort. She states the pain has been occurring at night when she lays down. She states that she initially thought it was heartburn. She states the pain starts in the middle of her chest and then radiates into her back and then into the back of her arms. She states the pain will last for about 10 to 15 minutes and is resolved when she sits up on the side of the bed. She does report that yesterday the pain was worse with exertion during the day. She is a non-smoker. She does report drinking 2-3 beers a day which she states helps with her essential tremors. DIAGNOSTICS: - EKG reveals sinus mechanism with no signs of acute ischemia. - Chest xray negative for acute process. COPD changes.. - Laboratory data: WBC 6.3. Hemoglobin 11.5. Platelet count 283. Sodium 136. Potassium 3.6. BUN 6. Creatinine 0.49. Troponin 0.060. 0.124. 0.170. - Current home cardiac medication list not updated at the time of examination. -No previous echocardiogram, stress test, or cardiac catheterization available in EMR for review 11/05/2024 Patient underwent cardiac catheterization yesterday revealing heavily calcified coronary arteries, critical stenosis involving proximal LAD and RCA and moderate disease of the left circumflex. Consultation was placed to CT surgery for possible CABG. Patient examined this morning the bedside. Patient denies any chest pain or pressure. She denies any shortness of breath. Vital signs are stable. Blood pressure 163/86. Echocardiogram completed revealing ejection fraction 55 to 60%, no significant valvular abnormalities noted, and no pericardial effusion noted. 11/06/2024 Patient examined this morning at the bedside. Patient is sitting up in the chair. Patient's family is present. Patient reports having an episode of chest pain yesterday that lasted for about 15 to 20 minutes. She denies any chest pain at the time of examination. She denies any shortness of breath or cough. She remains on IV heparin. She states that she is scheduled for CABG on Saturday. 11/07/2024 Patient examined this morning at the bedside. Patient is sitting up in the chair. Patient denies any chest pain or pressure. She denies shortness of breath. She remains on IV heparin. Blood pressure elevated this morning with a systolic between [id number]. PHYSICAL EXAM: VITAL SIGNS: Reviewed. GENERAL: Well-developed in no acute distress. HEENT: Head is normocephalic. Pupils are equal, round. Sclerae anicteric. Mucous membranes of the mouth are moist. Neck supple. No JVD or thyromegaly LUNGS: Respirations even and unlabored. Lungs essentially clear to auscultation bilaterally. HEART: Regular rate and rhythm. S1 and S2 heard. Systolic murmur noted. ABDOMEN: Soft. Nondistended. Nontender. EXTREMITIES: Normal range of motion. No clubbing or cyanosis. Peripheral pulses intact. No lower extremity edema NEUROLOGIC: Awake and alert. Oriented x 3. ASSESSMENT: Non-STEMI, status post cardiac cath revealing multivessel CAD Hypertension Frequent alcohol use, patient reports drinking 2-3 beers per day Anxiety History of essential tremors PLAN: Continue current cardiac medications Continue current dose of metoprolol CT surgery requesting discontinuation of losartan in preparation for CABG. Will discontinue losartan and begin hydralazine 50 mg 3 times daily. Continue IV Heparin Continue Nitropaste Abstinence from alcohol recommended CT surgery consulted. Patient is scheduled for CABG on 11/09/2024 Further recommendations pending patient course Nurse practitioner note has been reviewed by physician. Signing provider agrees with the documented findings, assessment, and plan of care documented by TELETYPE CLERK as a scribe. Objective - Vital Signs Vital signs: Vital Signs Temp 98.1 F 11/07/24 09:00 Pulse 59 L 11/07/24 11:13 Resp 16 11/07/24 11:13 BP 135/75 11/07/24 11:13 Pulse Ox 95 11/07/24 11:13 FiO2 Intake & Output 11/06/24 11/07/24 11/07/24 18:59 06:59 18:59 Intake Total 240 238.277 Output Total 1300 1575 300 Balance -7983 -7997 -61.723 Weight 52.4 kg Intake: Intake, IV Titration 238.277 Amount Heparin Sod,Pork in 0.45% 238.277 NaCl 25,000 unit In 0.45 % NaCl 1 250ml.bag @ 12 UNITS/KG/HR 6.423 mls/hr IV .Q24H [facility] Rx#: [id number] Oral 240 Output: Urine 1300 1575 300 Other: # Voids 2 # Bowel Movements 1 - Labs CBC & Chem 7: 11/07/24 06:39 11/07/24 06:39 Labs: Abnormal Lab Results - Last 24 Hours (Table) 11/07/24 11/07/24 11/07/24 Range/Units 06:39 06:39 06:39 RBC 3.53 L (3.80-5.40) m/uL Hgb 11.2 L (11.4-16.0) gm/dL Hct 33.7 L (34.0-46.0) % APTT 47.8 H (22.0-30.0) sec Potassium 3.4 L (3.5-5.1) mmol/L BUN 4 L (7-17) mg/dL Creatinine 0.49 L (0.52-1.04) mg/dL Glucose 100 H (74-99) mg/dL Microbiology - Last 24 Hours (Table) 11/04/24 20:18 Nasal Screen MRSA/MSSA - Final Nasal Swab
--- NOTE | 2024-11-07 14:01 | P.PN ---
Subjective Progress Note Date: 11/07/24 Patient is a 74-year-old female with past medical history significant for hypertension, daily alcohol use, resting tremor, anxiety, mild intermittent asthma. Presented to emergency department back on 11/03/2024 with a chief complaint of chest pain. Diagnosed with non-ST elevation VA. Taken to the [facility] on 11/04/2024 which showed multivessel coronary artery disease with critical stenosis involving the proximal LAD and RCA and moderate disease of the left circumflex. Patient was referred to cardiothoracic surgery. Patient is currently undergoing extensive preoperative workup. We are asked to see this patient for preoperative pulmonary clearance. Patient is being seen on the cardiac stepdown floor. Currently on IV heparin protocol. Is reporting some substernal chest pain with radiation to her back. States it is reoccurring at nighttime. The nurses are putting Nitropaste on. EKG is going to be repeated. She has history of mild intermittent asthma, does have an as needed albuterol rescue inhaler at home, but does not usually require it unless sick. History of tobacco smoking over 40 years ago. No recent URI, pneumonias, pulmonary complaints. Respiratory therapist did a bedside spirometry, FEV1 was reported at 0.91 L or 46% of predicted. CT of the chest does not show any acute parenchymal abnormalities. No suspicious lung nodules or focal infiltrates. Vascular calcification of thoracic aorta. Patient currently resting comfortably on room air oxygen. Her chest pain is subsided. No nausea or vomiting or diaphoresis. Denies shortness of breath. She has a severe resting tremor. She states she feels anxious about being on the ventilator. No prior major surgeries or issue with general anesthesia. Incentive spirometer is at bedside. Most recent labs from yesterday including a WBC count of 7.3, hemoglobin 10.8, platelets 285. Effort appears therapeutic based on APTT. CMP: Sodium 136, potassium 4, chloride 103, serum bicarb 22, BUN 5, creatinine 0.52, glucose 83. Previously troponins were elevated at 0.06, 0.124, and 0.17. Echocardiogram showing normal biventricular systolic function, no significant valvular abnormalities. Current vital signs: Temperature 98.2 F, heart rate 95 bpm, blood pressure 160/80 mmHg, nontachypneic, SpO2 is 100% on room air. On 11/07/2024, the patient is being seen for a follow-up. She is free of any chest pain. She remains on IV heparin. In regards to her COPD, start the patient on DuoNeb updrafts and cause significant tachycardia and tremors. Based on that, the patient was unable to continue updrafts. She continues to be on IV heparin. She is using incentive spirometer. Hemoglobin is 11.2. PTT is 47. Electrolytes are all noted and the patient has a potassium level of 3.4 that is to be replaced. BUN is 4 with a creatinine of 0.49. Calcium level is at 9.5. No cardiac arrhythmias. Objective - Vital Signs Vital signs: Vital Signs Temp 98.1 F 11/07/24 09:00 Pulse 74 11/07/24 09:00 Resp 16 11/07/24 09:00 BP 175/76 11/07/24 09:00 Pulse Ox 97 11/07/24 09:00 FiO2 Intake & Output 11/06/24 11/07/24 11/07/24 18:59 06:59 18:59 Intake Total 240 Output Total 1300 1575 300 Balance -1060 -1575 -300 Weight 52.4 kg Intake: Oral 240 Output: Urine 1300 1575 300 Other: # Voids 2 # Bowel Movements 1 - Exam CONSTITUTIONAL: Appears comfortable, cooperative, no acute distress RESPIRATORY: Lungs sounds clear bilaterally. Respirations symmetrical, nonlabored. Currently on room air with oxygen saturation 97%. Strong cough. Achieving 2000 mL on her incentive spirometry with encouragement. CARDIOVASCULAR: S1, S2 present. Regular rate and rhythm, sinus rhythm on telemetry. Palpable peripheral pulses bilaterally. No edema present. No calf pain or tenderness noted GASTROINTESTINAL: Abdomen soft, nontender, nondistended. Active bowel sounds present 4 quadrants. Bowel movement yesterday November 06, 2024. GENITOURINARY: Continues to void. INTEGUMENTARY: Skin is warm and dry. No clubbing or cyanosis present. NEUROLOGIC: Cranial nerves II through XII intact; essential tremors present MUSKULOSKELETAL: Able to move all extremities, strength equal bilaterally, gait normal PSYCHIATRIC: Alert and oriented to person place and time, appropriate affect, intact judgment and insight - Labs CBC & Chem 7: 11/07/24 06:39 11/07/24 06:39 Labs: Abnormal Lab Results - Last 24 Hours (Table) 11/07/24 11/07/24 11/07/24 Range/Units 06:39 06:39 06:39 RBC 3.53 L (3.80-5.40) m/uL Hgb 11.2 L (11.4-16.0) gm/dL Hct 33.7 L (34.0-46.0) % APTT 47.8 H (22.0-30.0) sec Potassium 3.4 L (3.5-5.1) mmol/L BUN 4 L (7-17) mg/dL Creatinine 0.49 L (0.52-1.04) mg/dL Glucose 100 H (74-99) mg/dL Microbiology - Last 24 Hours (Table) 11/04/24 20:18 Nasal Screen MRSA/MSSA - Final Nasal Swab Assessment and Plan Assessment: Multivessel coronary artery disease, see cardiac catheterization report Acute Non-ST elevation VA Hypertension History of mild intermittent asthma, inactive Remote history of tobacco use, over 40 years ago Daily alcohol use Peripheral neuropathy Resting tremor Anxiety Plan Currently on room air The patient was unable to tolerate DuoNeb of chest due to tremors and tachycardia Will put the patient on Symbicort 160/4.52 puffs twice a day Albuterol HFA 4 times a day Discontinue DuoNeb [facility] Bedside spirometry with an FEV1 0.91 L or 46% of predicted Patient has a component of COPD/asthma and the patient is a former smoker Continue to encourage incentive spirometer while awake No absolute pulmonary contraindications to surgery STS score is being calculated Continues on IV heparin infusion Nitropaste on initiated on beta-clover, losartan, and statin. Monitor for signs/symptoms of alcohol withdrawal Pulmonary will continue to follow Time with Patient: Greater than 30
--- NOTE | 2024-11-07 15:09 | P.PN ---
Subjective Progress Note Date: 11/07/24 Hospital Course: Patient is a 74-year-old female with past medical history significant for hype rtension, essential tremor, alcoholism, and asthma presents to the emergency department for chest pain that worsened today. She states that she has had chest pain for the last few weeks and just thought it was heartburn as it occurred mostly at night or while laying down. She does state that it woke her up from sleep couple of times over the last few weeks. However today she had increasing chest pain with exertion, relieved by rest. She notes that it is a pressure-like pain that radiates towards her back, lower jaw, and bilateral posterior arms. She rates this pain a 10/10 but notes that it does go away with rest. She denies any nausea/vomiting, diaphoresis, dyspnea, palpitations. She denies a cardiac history., troponin x 3 0.068, 0.124, 0.17 Initial EKG: Sinus rhythm with ventricular rate 71 bpm, QTc 415 ms, no ST-T segment changes ED documentation reviewed. Given aspirin 324 mg p.o. x 1, heparin bolus x 1, started on heparin GTT 12 units/kg/h. Patient was admitted for further evaluation of chest pain, cardiology consulted, recommended continue losartan metoprolol, added Nitropaste, recommended abstinence from alcohol, TTE ordered. Patient was taken to Physician Pediatrician on 11/04, showed heavily calcified coronary arteries, critical stenosis LAD and RCA, low LVEDP, patient was started back on heparin, awaiting surgical decision regarding CABG. Patient earlier shared that her mother had CABG at age of 60 and at age of 74. CABG workup: Carotid ultrasound showed atheromatous plaquing within the carotid bifurcation, left side moderate between 50 and 69%, right side less than 50%. CT chest showed vascular calcification within the ascending thoracic aorta, no aneurysm. No suspicious lung nodules, Liver ultrasound showed no abnormalities. Subjective: Patient feels anxious about the surgery, but no further episodes of chest pain. Losartan discontinued, hydralazine started. Pertinent positives and negatives as discussed above, a complete review of systems was performed and all other systems are negative. Vitals Signs Reviewed. Gen: In NAD, non-toxic HEENT: normocephalic, atraumatic, hearing acuity is intant, mucous membranes moist CVS: perfusing all extremities well, no pitting edema, Respiratory: symmetric chest expansion, no accessory muscle use, GI: soft, NTTP, ND, : no suprapubic tenderness, no CVA tenderness MSK/Derm: no rashes, cyanosis Neuro: CN II-XII intact, no motor weakness, Psych: cooperative, anxious mood, judgment and insight is intact Assessment and Plan: 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 Hyperlipidemia Hypertension -Cardiology following, CT surgery consulted for CABG -TTE with EF of 55 to 60% with no significant valvular abnormalities or pericardial effusion noted -Continue heparin drip -GI prophylaxis with Protonix 40 oral daily -Continue with aspirin 81 daily, high intensity statin atorvastatin 80 daily, hydralazine 50mg, metoprolol 50 twice daily, Nitropaste Prediabetes: A1c 5.9, needs to followup with PCP, prediabetes classes after discharge Alcohol use disorder: Continue multivitamins, CIWA with Ativan, social work [ DVT ppx: Heparin drip Code status: Full code Anticipated discharge place: TBD Anticipated discharge time: TBD Objective - Vital Signs Vital signs: Vital Signs Temp 98.1 F 11/07/24 09:00 Pulse 59 L 11/07/24 11:13 Resp 16 11/07/24 11:13 BP 135/75 11/07/24 11:13 Pulse Ox 95 11/07/24 15:07 FiO2 21 11/07/24 15:07 Intake & Output 11/06/24 11/07/24 11/07/24 18:59 06:59 18:59 Intake Total 240 356.277 Output Total 1300 1575 300 Balance -1060 -1575 56.277 Weight 52.4 kg Intake: Intake, IV Titration 238.277 Amount Heparin Sod,Pork in 0.45% 238.277 NaCl 25,000 unit In 0.45 % NaCl 1 250ml.bag @ 12 UNITS/KG/HR 6.423 mls/hr IV .Q24H [facility] Rx#: [id number] Oral 240 118 Output: Urine 1300 1575 300 Other: # Voids 2 # Bowel Movements 1 - Labs CBC & Chem 7: 11/07/24 06:39 11/07/24 06:39 Labs: Abnormal Lab Results - Last 24 Hours (Table) 11/07/24 11/07/24 11/07/24 Range/Units 06:39 06:39 06:39 RBC 3.53 L (3.80-5.40) m/uL Hgb 11.2 L (11.4-16.0) gm/dL Hct 33.7 L (34.0-46.0) % APTT 47.8 H (22.0-30.0) sec Potassium 3.4 L (3.5-5.1) mmol/L BUN 4 L (7-17) mg/dL Creatinine 0.49 L (0.52-1.04) mg/dL Glucose 100 H (74-99) mg/dL Microbiology - Last 24 Hours (Table) 11/04/24 20:18 Nasal Screen MRSA/MSSA - Final Nasal Swab
[2024-11-07] MEDS: hydrALAZINE HCL 50 MG TAB PO SCH (15:25)
[2024-11-07] MEDS: SYMBICORT 160-4.5 MCG INHALER INHALATION SCH (20:44)
[2024-11-08] MEDS: ALPRAZolam 0.5 MG TAB PO PRN (03:43)
[2024-11-08 06:53] LABS: Basophils % (A) 1 %; Eosinophils # (A) 0.1 k/uL (0-0.7); Eosinophils % (A) 2 %; HCT 34.2 % (34.0-46.0); HGB 11.2 gm/dL (11.4-16.0); Lymphocytes # (A) 1.9 k/uL (1.0-4.8); Lymphocytes % (A) 29 %; MCH 31.3 pg (25.0-35.0); MCHC 32.8 g/dL (31.0-37.0); MCV 95.3 fL (80.0-100.0); Mean Platelet Volume 9.6; Monocytes # (A) 0.4 k/uL (0-1.0); Monocytes % (A) 7 %; Neutrophils # (A) 3.8 k/uL (1.3-7.7); Neutrophils % (A) 59 %; Platelet Count 261 k/uL (150-450); RBC 3.59 m/uL (3.80-5.40); WBC 6.4 k/uL (3.8-10.6)
[2024-11-08 07:14] LABS: ALT 39 U/L (4-34); AST 53 U/L (14-36); African American GFR (CKD) >90 (>60 ml/min/1.73 sqM); Albumin 4.4 g/dL (3.5-5.0); Alkaline Phosphatase 56 U/L (38-126); Anion Gap 12 mmol/L; Blood Urea Nitrogen 4 mg/dL (7-17); Calcium 9.8 mg/dL (8.4-10.2); Carbon Dioxide 22 mmol/L (22-30); Chloride 104 mmol/L (98-107); Glucose 94 mg/dL (74-99); Magnesium 1.7 mg/dL (1.6-2.3); Non-African American GFR(CKD) >90 (>60 ml/min/1.73 sqM); Potassium 4.3 mmol/L (3.5-5.1); Sodium 138 mmol/L (137-145); Total Bilirubin 1.2 mg/dL (0.2-1.3); Total Protein 6.8 g/dL (6.3-8.2)
[2024-11-08] MEDS ORDERED: Magnesium Replacement Protocol 1 EACH MISC MISCELLANE PRN (09:27)
--- NOTE | 2024-11-08 10:01 | P.PN ---
Subjective Progress Note Date: 11/08/24 Principal diagnosis: Multivessel coronary artery disease, non-STEMI this admission. History of hypertension, peripheral neuropathy with essential tremors, asthma, daily EtOH use, previous tobacco dependence, and family history of premature coronary artery disease. The patient was seen and examined at her bedside on the third floor cardiac stepdown unit today November 08, 2024. The patient is currently laying in bed, is awake, alert, oriented x 3 and is in no acute apparent distress. Denies any complaints of shortness of breath at this time, and denies any further compl aints of chest pain/pressure. She remains on heparin drip per protocol which will be discontinued at 4 AM on November 09, 2024. She is scheduled for myocardial revascularization surgery tomorrow November 09, 2024 to be completed by Dr. Philippe Duenas with left internal mammary artery, endoscopic left radial artery harvest, endoscopic greater saphenous vein harvest, exclusion left atrial appendage and intraoperative transesophageal echocardiogram. Oxygen saturations are 98% on room air and she is achieving 2500 mL on her incentive spirometry with encouragement. Remote telemetry is showing normal sinus rhythm heart rate 71 bpm. She reports she has been up ambulating in her room and hallway and tolerating well. Preoperative teaching has been reinforced with the patient and her family. She will be n.p.o. after midnight. Laboratory results reviewed. Objective - Vital Signs Vital signs: Vital Signs Temp 98.1 F 11/08/24 03:42 Pulse 71 11/08/24 03:42 Resp 18 11/08/24 03:42 BP 143/73 11/08/24 03:42 Pulse Ox 97 11/08/24 08:49 FiO2 21 11/08/24 08:49 Intake & Output 11/07/24 11/08/24 11/08/24 18:59 06:59 18:59 Intake Total 649.177 Output Total 300 1 Balance 349.177 -1 Weight 53.1 kg Intake: IV 174.9 Heparin Sod,Pork in 0.45% 74.9 NaCl 25,000 unit In 0.45 % NaCl 1 250ml.bag @ 12 UNITS/KG/HR 6.423 mls/hr IV .Q24H [facility] Rx#: [id number] Sodium Ferric Gluconat- 100 Sucrose 125 mg In Sodium Chloride 0.9% 100 ml @ 100 mls/hr IVPB ONCE ONE Rx#:[id number] Intake, IV Titration 238.277 Amount Heparin Sod,Pork in 0.45% 238.277 NaCl 25,000 unit In 0.45 % NaCl 1 250ml.bag @ 12 UNITS/KG/HR 6.423 mls/hr IV .Q24H [facility] Rx#: [id number] Oral 236 Output: Urine 300 1 Other: # Bowel Movements 1 - Exam CONSTITUTIONAL: Appears comfortable, cooperative, no acute distress RESPIRATORY: Lungs sounds clear bilaterally. Respirations symmetrical, nonlabored. Currently on room air with oxygen saturation 98%. Strong cough. Achieving 2500 mL on her incentive spirometry with encouragement. CARDIOVASCULAR: S1, S2 present. Regular rate and rhythm, sinus rhythm on telem etry. Palpable peripheral pulses bilaterally. No edema present. No calf pain or tenderness noted GASTROINTESTINAL: Abdomen soft, nontender, nondistended. Active bowel sounds present 4 quadrants. Bowel movement yesterday November 07, 2024. GENITOURINARY: Continues to void. INTEGUMENTARY: Skin is warm and dry. No clubbing or cyanosis present. NEUROLOGIC: Cranial nerves II through XII intact; essential tremors present MUSKULOSKELETAL: Able to move all extremities, strength equal bilaterally, gait normal PSYCHIATRIC: Alert and oriented to person place and time, appropriate affect, intact judgment and insight - Allied health notes Allied health notes reviewed: nursing - Labs CBC & Chem 7: 11/08/24 05:33 11/08/24 05:33 Labs: Abnormal Lab Results - Last 24 Hours (Table) 11/08/24 11/08/24 11/08/24 Range/Units 05:33 05:33 05:33 RBC 3.59 L (3.80-5.40) m/uL Hgb 11.2 L (11.4-16.0) gm/dL APTT 62.5 H (22.0-30.0) sec BUN 4 L (7-17) mg/dL AST 53 H (14-36) U/L ALT 39 H (4-34) U/L Assessment and Plan Assessment: Multivessel coronary artery disease, non-STEMI this admission Chest pain, secondary to above Anemia, hemoglobin 11.2 today November 08, 2024 History of hypertension Peripheral neuropathy with essential tremors Asthma Daily EtOH use, daughter reports multiple beers per day, patient reports down to the 2-3 beers daily Previous tobacco dependence Anxiety Family history of premature coronary artery disease Plan: Continue to maximize medical therapy with aspirin, statin, and beta-clover. STS Risk score has been calculated and discussed with the patient by Dr. Philippe Duenas. Continue CIWA protocol. Increase activity as tolerated. Hemoglobin 11.2 today, stool for occult negative. Continue ferrous sulfate 325 mg p.o. daily with lunch and vitamin C [address] Duenas as met with the patient and her family, treatment options discussed including myocardial vascularization surgery. Risks and benefits of surgery including the STS risk or were discussed and knowing and understanding the risks the patient wishes to proceed with the surgical option. She is scheduled for myocardial vascularization surgery off-pump, with left endoscopic radial artery harvest, endoscopic greater saphenous vein harvest, exclusion left atrial append age and intraoperative transesophageal echocardiogram to be completed by Dr. Philippe Duenas tomorrow November 09, 2024. Preoperative teaching has been reinforced with the patient and her family present at her bedside. Encourage use of incentive spirometry 10 times every hour while awake. N.p.o. after midnight. Shower this evening and in the morning prior to surgery. Discontinue heparin drip at 4 AM. More recommendations to follow based on patient's clinical course. Time with Patient: Greater than 30
[2024-11-08] MEDS: MAGNESIUM SULFATE-D5W PMX 1 GM in DEXTROSE/WATER 1 100ML.BAG IVPB ONE (10:15)
[2024-11-08] MEDS: LIDOCAINE 4% PATCH TOPICAL SCH (11:23)
[2024-11-08] MEDS: FERROUS SULFATE 325 MG TAB PO SCH (11:23)
--- NOTE | 2024-11-08 12:06 | P.PN ---
Subjective HISTORY OF PRESENT ILLNESS: This is a 74-year-old female with a past medical history significant for frequent alcohol use, hypertension and anxiety. 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 We have been asked to see the patient in consultation for chest pain. Patient examined at the bedside in the emergency room. Patient states over the past 1 to 2 weeks she has been having chest discomfort. She states the pain has been occurring at night when she lays down. She states that she initially thought it was heartburn. She states the pain starts in the middle of her chest and then radiates into her back and then into the back of her arms. She states the pain will last for about 10 to 15 minutes and is resolved when she sits up on the side of the bed. She does report that yesterday the pain was worse with exertion during the day. She is a non-smoker. She does report drinking 2-3 beers a day which she states helps with her essential tremors. DIAGNOSTICS: - EKG reveals sinus mechanism with no signs of acute ischemia. - Chest xray negative for acute process. COPD changes.. - Laboratory data: WBC 6.3. Hemoglobin 11.5. Platelet count 283. Sodium 136. Potassium 3.6. BUN 6. Creatinine 0.49. Troponin 0.060. 0.124. 0.170. - Current home cardiac medication list not updated at the time of examination. -No previous echocardiogram, stress test, or cardiac catheterization available in EMR for review 11/05/2024 Patient underwent cardiac catheterization yesterday revealing heavily calcified coronary arteries, critical stenosis involving proximal LAD and RCA and moderate disease of the left circumflex. Consultation was placed to CT surgery for possible CABG. Patient examined this morning the bedside. Patient denies any chest pain or pressure. She denies any shortness of breath. Vital signs are stable. Blood pressure 163/86. Echocardiogram completed revealing ejection fraction 55 to 60%, no significant valvular abnormalities noted, and no pericardial effusion noted. 11/06/2024 Patient examined this morning at the bedside. Patient is sitting up in the chair. Patient's family is present. Patient reports having an episode of chest pain yesterday that lasted for about 15 to 20 minutes. She denies any chest pain at the time of examination. She denies any shortness of breath or cough. She remains on IV heparin. She states that she is scheduled for CABG on Saturday. 11/07/2024 Patient examined this morning at the bedside. Patient is sitting up in the chair. Patient denies any chest pain or pressure. She denies shortness of breath. She remains on IV heparin. Blood pressure elevated this morning with a systolic between [id number]. 11/08/2024 Patient examined this morning at the bedside. Patient currently denies chest pain or pressure. She denies shortness of breath. She remains on IV heparin. She reports back pain this morning and states it is worse when she is lying in the hospital bed. Vital signs are stable. PHYSICAL EXAM: VITAL SIGNS: Reviewed. GENERAL: Well-developed in no acute distress. HEENT: Head is normocephalic. Pupils are equal, round. Sclerae anicteric. Mucous membranes of the mouth are moist. Neck supple. No JVD or thyromegaly LUNGS: Respirations even and unlabored. Lungs essentially clear to auscultation bilaterally. HEART: Regular rate and rhythm. S1 and S2 heard. Systolic murmur noted. ABDOMEN: Soft. Nondistended. Nontender. EXTREMITIES: Normal range of motion. No clubbing or cyanosis. Peripheral pulses intact. No lower extremity edema NEUROLOGIC: Awake and alert. Oriented x 3. ASSESSMENT: Non-STEMI, status post cardiac cath revealing multivessel CAD Hypertension Frequent alcohol use, patient reports drinking 2-3 beers per day Anxiety History of essential tremors PLAN: Continue current cardiac medications Continue current dose of metoprolol CT surgery requesting discontinuation of losartan in preparation for CABG. losartan discontinued yesterday and hydralazine 50 mg 3 times daily added. Continue IV Heparin Continue Nitropaste Abstinence from alcohol recommended CT surgery consulted. Patient is scheduled for CABG on 11/09/2024 Further recommendations pending patient course Nurse practitioner note has been reviewed by physician. Signing provider agrees with the documented findings, assessment, and plan of care documented by [employer] MA[employer]GER as a scribe. Objective - Vital Signs Vital signs: Vital Signs Temp 97.5 F L 11/08/24 08:00 Pulse 73 11/08/24 11:54 Resp 16 11/08/24 11:54 BP 107/54 11/08/24 11:54 Pulse Ox 94 L 11/08/24 11:54 FiO2 21 11/08/24 08:49 Intake & Output 11/07/24 11/08/24 11/08/24 18:59 06:59 18:59 Intake Total 649.177 717.834 Output Total 300 1 Balance 349.177 -1 717.834 Weight 53.1 kg Intake: IV 174.9 Heparin Sod,Pork in 0.45% 74.9 NaCl 25,000 unit In 0.45 % NaCl 1 250ml.bag @ 12 UNITS/KG/HR 6.423 mls/hr IV .Q24H [facility] Rx#: [id number] Sodium Ferric Gluconat- 100 Sucrose 125 mg In Sodium Chloride 0.9% 100 ml @ 100 mls/hr IVPB ONCE ONE Rx#:[id number] Intake, IV Titration 238.277 177.834 Amount Heparin Sod,Pork in 0.45% 238.277 177.834 NaCl 25,000 unit In 0.45 % NaCl 1 250ml.bag @ 12 UNITS/KG/HR 6.423 mls/hr IV .Q24H [facility] Rx#: [id number] Oral 236 540 Output: Urine 300 1 Other: # Voids 1 # Bowel Movements 1 - Labs CBC & Chem 7: 11/08/24 05:33 11/08/24 05:33 Labs: Abnormal Lab Results - Last 24 Hours (Table) 11/08/24 11/08/24 11/08/24 Range/Units 05:33 05:33 05:33 RBC 3.59 L (3.80-5.40) m/uL Hgb 11.2 L (11.4-16.0) gm/dL APTT 62.5 H (22.0-30.0) sec BUN 4 L (7-17) mg/dL AST 53 H (14-36) U/L ALT 39 H (4-34) U/L
[2024-11-08] MEDS: CALCIUM CARBONATE 500 MG CHEWABLE PO PRN (13:18)
--- NOTE | 2024-11-08 13:20 | P.PN ---
Subjective Progress Note Date: 11/08/24 Hospital Course: Patient is a 74-year-old female with past medical history significant for hype rtension, essential tremor, alcoholism, and asthma presents to the emergency department for chest pain that worsened today. She states that she has had chest pain for the last few weeks and just thought it was heartburn as it occurred mostly at night or while laying down. She does state that it woke her up from sleep couple of times over the last few weeks. However today she had increasing chest pain with exertion, relieved by rest. She notes that it is a pressure-like pain that radiates towards her back, lower jaw, and bilateral posterior arms. She rates this pain a 10/10 but notes that it does go away with rest. She denies any nausea/vomiting, diaphoresis, dyspnea, palpitations. She denies a cardiac history., troponin x 3 0.068, 0.124, 0.17 Initial EKG: Sinus rhythm with ventricular rate 71 bpm, QTc 415 ms, no ST-T segment changes ED documentation reviewed. Given aspirin 324 mg p.o. x 1, heparin bolus x 1, started on heparin GTT 12 units/kg/h. Patient was admitted for further evaluation of chest pain, cardiology consulted, recommended continue losartan metoprolol, added Nitropaste, recommended abstinence from alcohol, TTE ordered. Patient was taken to [facility] on 11/04, showed heavily calcified coronary arteries, critical stenosis LAD and RCA, low LVEDP, patient was started back on heparin, awaiting surgical decision regarding CABG. Patient earlier shared that her mother had CABG at age of 60 and at age of 74. CABG workup: Carotid ultrasound showed atheromatous plaquing within the carotid bifurcation, left side moderate between 50 and 69%, right side less than 50%. CT chest showed vascular calcification within the ascending thoracic aorta, no aneurysm. No suspicious lung nodules, Liver ultrasound showed no abnormalities. Subjective: Patient feels anxious about the surgery, but no further episodes of chest pain. Losartan discontinued, hydralazine started. Pertinent positives and negatives as discussed above, a complete review of systems was performed and all other systems are negative. Vitals Signs Reviewed. Gen: In NAD, non-toxic HEENT: normocephalic, atraumatic, hearing acuity is intant, mucous membranes moist CVS: perfusing all extremities well, no pitting edema, Respiratory: symmetric chest expansion, no accessory muscle use, GI: soft, NTTP, ND, : no suprapubic tenderness, no CVA tenderness MSK/Derm: no rashes, cyanosis Neuro: CN II-XII intact, no motor weakness, Psych: cooperative, anxious mood, judgment and insight is intact Assessment and Plan: 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 Hyperlipidemia Hypertension -Cardiology following, CT surgery consulted for CABG -TTE with EF of 55 to 60% with no significant valvular abnormalities or pericardial effusion noted -Continue heparin drip -GI prophylaxis with Protonix 40 oral daily -Continue with aspirin 81 daily, high intensity statin atorvastatin 80 daily, hydralazine 50mg, metoprolol 50 twice daily, Nitropaste Prediabetes: A1c 5.9, needs to followup with PCP, prediabetes classes after discharge Alcohol use disorder: Continue multivitamins, CIWA with Ativan, social work [ DVT ppx: Heparin drip Code status: Full code Anticipated discharge place: TBD Anticipated discharge time: TBD Objective - Vital Signs Vital signs: Vital Signs Temp 97.5 F L 11/08/24 08:00 Pulse 73 11/08/24 11:54 Resp 16 11/08/24 11:54 BP 107/54 11/08/24 11:54 Pulse Ox 94 L 11/08/24 11:54 FiO2 21 11/08/24 08:49 Intake & Output 11/07/24 11/08/24 11/08/24 18:59 06:59 18:59 Intake Total 649.177 953.834 Output Total 300 1 Balance 349.177 -1 953.834 Weight 53.1 kg Intake: IV 174.9 Heparin Sod,Pork in 0.45% 74.9 NaCl 25,000 unit In 0.45 % NaCl 1 250ml.bag @ 12 UNITS/KG/HR 6.423 mls/hr IV .Q24H [facility] Rx#: [id number] Sodium Ferric Gluconat- 100 Sucrose 125 mg In Sodium Chloride 0.9% 100 ml @ 100 mls/hr IVPB ONCE ONE Rx#:[id number] Intake, IV Titration 238.277 177.834 Amount Heparin Sod,Pork in 0.45% 238.277 177.834 NaCl 25,000 unit In 0.45 % NaCl 1 250ml.bag @ 12 UNITS/KG/HR 6.423 mls/hr IV .Q24H [facility] Rx#: [id number] Oral 236 776 Output: Urine 300 1 Other: # Voids 1 # Bowel Movements 1 - Labs CBC & Chem 7: 11/08/24 05:33 11/08/24 05:33 Labs: Abnormal Lab Results - Last 24 Hours (Table) 11/08/24 11/08/24 11/08/24 Range/Units 05:33 05:33 05:33 RBC 3.59 L (3.80-5.40) m/uL Hgb 11.2 L (11.4-16.0) gm/dL APTT 62.5 H (22.0-30.0) sec BUN 4 L (7-17) mg/dL AST 53 H (14-36) U/L ALT 39 H (4-34) U/L
--- NOTE | 2024-11-08 13:28 | P.PN ---
Subjective Progress Note Date: 11/08/24 Patient is a 74-year-old female with past medical history significant for hypertension, daily alcohol use, resting tremor, anxiety, mild intermittent asthma. Presented to emergency department back on 11/03/2024 with a chief complaint of chest pain. Diagnosed with non-ST elevation MD. Taken to the [facility] on 11/04/2024 which showed multivessel coronary artery disease with critical stenosis involving the proximal LAD and RCA and moderate disease of the left circumflex. Patient was referred to cardiothoracic surgery. Patient is currently undergoing extensive preoperative workup. We are asked to see this patient for preoperative pulmonary clearance. Patient is being seen on the cardiac stepdown floor. Currently on IV heparin protocol. Is reporting some substernal chest pain with radiation to her back. States it is reoccurring at nighttime. The nurses are putting Nitropaste on. EKG is going to be repeated. She has history of mild intermittent asthma, does have an as needed albuterol rescue inhaler at home, but does not usually require it unless sick. History of tobacco smoking over 40 years ago. No recent URI, pneumonias, pulmonary complaints. Respiratory therapist did a bedside spirometry, FEV1 was reported at 0.91 L or 46% of predicted. CT of the chest does not show any acute parenchymal abnormalities. No suspicious lung nodules or focal infiltrates. Vascular calcification of thoracic aorta. Patient currently resting comfortably on room air oxygen. Her chest pain is subsided. No nausea or vomiting or diaphoresis. Denies shortness of breath. She has a severe resting tremor. She states she feels anxious about being on the ventilator. No prior major surgeries or issue with general anesthesia. Incentive spirometer is at bedside. Most recent labs from yesterday including a WBC count of 7.3, hemoglobin 10.8, platelets 285. Effort appears therapeutic based on APTT. CMP: Sodium 136, potassium 4, chloride 103, serum bicarb 22, BUN 5, creatinine 0.52, glucose 83. Previously troponins were elevated at 0.06, 0.124, and 0.17. Echocardiogram showing normal biventricular systolic function, no significant valvular abnormalities. Current vital signs: Temperature 98.2 F, heart rate 95 bpm, blood pressure 160/80 mmHg, nontachypneic, SpO2 is 100% on room air. On 11/07/2024, the patient is being seen for a follow-up. She is free of any chest pain. She remains on IV heparin. In regards to her COPD, start the patient on DuoNeb updrafts and cause significant tachycardia and tremors. Based on that, the patient was unable to continue updrafts. She continues to be on IV heparin. She is using incentive spirometer. Hemoglobin is 11.2. PTT is 47. Electrolytes are all noted and the patient has a potassium level of 3.4 that is to be replaced. BUN is 4 with a creatinine of 0.49. Calcium level is at 9.5. No cardiac arrhythmias. On 11/08/2024, the patient remains on IV heparin. She is free of any chest pain. She has COPD and she was started on Symbicort and albuterol HFA 4 times a day. DuoNeb updrafts have been discontinued because of increased tremors and tachycardia. She is able to tolerate inhalers reasonably well. The plan is to undergo bypass surgery scheduled to be done in the morning. Hemoglobin stable at 11.2, white cell count is 6.4. BUN is at 4 with a creatinine of 0.5 and a sodium levels at 138. Potassium level is at 4.3. Using incentive spirometer. Pulling approximately 1500. Pulse ox is 94% on room air oxygen. Objective - Vital Signs Vital signs: Vital Signs Temp 98.1 F 11/08/24 03:42 Pulse 71 11/08/24 03:42 Resp 18 11/08/24 03:42 BP 143/73 11/08/24 03:42 Pulse Ox 97 11/08/24 08:49 FiO2 21 11/08/24 08:49 Intake & Output 11/07/24 11/08/24 11/08/24 18:59 06:59 18:59 Intake Total 649.177 540 Output Total 300 1 Balance 349.177 -1 540 Weight 53.1 kg Intake: IV 174.9 Heparin Sod,Pork in 0.45% 74.9 NaCl 25,000 unit In 0.45 % NaCl 1 250ml.bag @ 12 UNITS/KG/HR 6.423 mls/hr IV .Q24H [facility] Rx#: [id number] Sodium Ferric Gluconat- 100 Sucrose 125 mg In Sodium Chloride 0.9% 100 ml @ 100 mls/hr IVPB ONCE ONE Rx#:[id number] Intake, IV Titration 238.277 Amount Heparin Sod,Pork in 0.45% 238.277 NaCl 25,000 unit In 0.45 % NaCl 1 250ml.bag @ 12 UNITS/KG/HR 6.423 mls/hr IV .Q24H [facility] Rx#: [id number] Oral 236 540 Output: Urine 300 1 Other: # Voids 1 # Bowel Movements 1 - Exam CONSTITUTIONAL: Appears comfortable, cooperative, no acute distress RESPIRATORY: Lungs sounds clear bilaterally. Respirations symmetrical, nonlabored. Currently on room air with oxygen saturation 97%. Strong cough. Achieving 2000 mL on her incentive spirometry with encouragement. CARDIOVASCULAR: S1, S2 present. Regular rate and rhythm, sinus rhythm on telemetry. Palpable peripheral pulses bilaterally. No edema present. No calf pain or tenderness noted GASTROINTESTINAL: Abdomen soft, nontender, nondistended. Active bowel sounds present 4 quadrants. Bowel movement yesterday November 06, 2024. GENITOURINARY: Continues to void. INTEGUMENTARY: Skin is warm and dry. No clubbing or cyanosis present. NEUROLOGIC: Cranial nerves II through XII intact; essential tremors present MUSKULOSKELETAL: Able to move all extremities, strength equal bilaterally, gait normal PSYCHIATRIC: Alert and oriented to person place and time, appropriate affect, intact judgment and insight - Labs CBC & Chem 7: 11/08/24 05:33 11/08/24 05:33 Labs: Abnormal Lab Results - Last 24 Hours (Table) 11/08/24 11/08/24 11/08/24 Range/Units 05:33 05:33 05:33 RBC 3.59 L (3.80-5.40) m/uL Hgb 11.2 L (11.4-16.0) gm/dL APTT 62.5 H (22.0-30.0) sec BUN 4 L (7-17) mg/dL AST 53 H (14-36) U/L ALT 39 H (4-34) U/L Assessment and Plan Assessment: Multivessel coronary artery disease, see cardiac catheterization report, awaiting coronary bypass surgery, scheduled to be done on 11/09/2024 Acute Non-ST elevation MD Hypertension COPD with a component of asthma, started on Symbicort and albuterol HFA 4 times a day. Unable to tolerate DuoNeb updrafts because of increased tremors as the patient also has some resting tremors. Continues to use incentive spirometer. Pulse ox 94% room air oxygen. Remote history of tobacco use, over 40 years ago Daily alcohol use Peripheral neuropathy Resting tremor Anxiety Plan Currently on room air The patient was unable to tolerate DuoNeb of chest due to tremors and tachycardia Continue Symbicort 160/4.52 puffs twice a day Albuterol HFA 4 times a day Bedside spirometry with an FEV1 0.91 L or 46% of predicted Patient has a component of COPD/asthma and the patient is a former smoker Continue to encourage incentive spirometer while awake No absolute pulmonary contraindications to surgery STS score is being calculated Continues on IV heparin infusion Nitropaste initiated on beta-clover, losartan, and statin. Monitor for signs/symptoms of alcohol withdrawal Pulmonary will continue to follow Time with Patient: Greater than 30
[2024-11-09 04:50] LABS: Glucose,Whole Blood 117 mg/dL (70-110)
[2024-11-09] MEDS ORDERED: NOREPINEPHRINE 4 MG in SODIUM CHLORIDE 0.9% 250 ML IV SCH (05:00)
[2024-11-09] MEDS ORDERED: INSULIN REGULAR 100 UNIT in SODIUM CHLORIDE 0.9% 100 ML IV SCH (05:00)
[2024-11-09] MEDS: METOPROLOL TARTRATE 12.5 MG TAB PO ONE (05:27)
[2024-11-09] MEDS: ATORVASTATIN 10 MG TAB PO ONE (05:27)
[2024-11-09] MEDS: ASPIRIN 81 MG PO ONE (05:27)
[2024-11-09 05:53] LABS: HCT 34.2 % (34.0-46.0); HGB 11.3 gm/dL (11.4-16.0); MCH 31.6 pg (25.0-35.0); MCHC 33.1 g/dL (31.0-37.0); MCV 95.3 fL (80.0-100.0); Mean Platelet Volume 7.6; Platelet Count 248 k/uL (150-450); RBC 3.58 m/uL (3.80-5.40); RDW 13.3 % (11.5-15.5); WBC 6.5 k/uL (3.8-10.6)
[2024-11-09 06:07] LABS: ALT 53 U/L (4-34); AST 62 U/L (14-36); African American GFR (CKD) >90 (>60 ml/min/1.73 sqM); Albumin 4.5 g/dL (3.5-5.0); Alkaline Phosphatase 60 U/L (38-126); Anion Gap 10 mmol/L; Blood Urea Nitrogen 4 mg/dL (7-17); Calcium 9.9 mg/dL (8.4-10.2); Carbon Dioxide 25 mmol/L (22-30); Chloride 101 mmol/L (98-107); Glucose 108 mg/dL (74-99); Magnesium 1.7 mg/dL (1.6-2.3); Non-African American GFR(CKD) >90 (>60 ml/min/1.73 sqM); Potassium 3.9 mmol/L (3.5-5.1); Sodium 136 mmol/L (137-145); Total Bilirubin 0.9 mg/dL (0.2-1.3); Total Protein 6.8 g/dL (6.3-8.2)
[2024-11-09] MEDS: LACTATED RINGERS 1,000 ML IV ONE ×2 (06:25→07:07)
[2024-11-09] MEDS: LACTATED RINGERS 1,000 ML BAG IV STA (06:33)
[2024-11-09 06:36] LABS: Glucose,Whole Blood 104 mg/dL (70-110)
[2024-11-09] MEDS ORDERED: CALCIUM CHLORIDE 100 MG/ML 10 ML SYRINGE ONE (07:55)
[2024-11-09] MEDS ORDERED: PROPOFOL 10 MG/ML 20 ML VIAL IV ONE (07:55)
[2024-11-09] MEDS ORDERED: fentaNYL (PF) 50 MCG/ML 50 ML VIAL ONE (07:55)
[2024-11-09] MEDS ORDERED: PHENYLEPHRINE-0.9% NACL SYG 1,000 MCG/10 ML SYRINGE ONE (07:55)
[2024-11-09] MEDS ORDERED: PROTAMINE SULFATE 10 MG/ML 25 ML VIAL IV ONE (07:55)
[2024-11-09] MEDS ORDERED: VECURONIUM 10 MG VIAL IV ONE (07:55)
[2024-11-09] MEDS ORDERED: MIDAZOLAM HCL 10 MG/10 ML VIAL ONE (07:55)
[2024-11-09] MEDS ORDERED: ALBUMIN HUMAN 5% (25gm) 500 ML VIAL IVPB ONE (07:55)
[2024-11-09] MEDS ORDERED: HEPARIN SODIUM,PORCINE 5,000 UNIT/ML 1 ML VIAL ONE (07:55)
[2024-11-09 08:47] LABS: ABG Base Excess 0.5 mmol/L; ABG Glucose Whole Blood 106 mg/dL (75-99); ABG HCO3 25 mmol/L (21-25); ABG Hematocrit 29 % (34.0-46.0); ABG Lactic Acid Whole Blood 0.6 mmol/L (0.5-1.6); ABG Oxygen Saturation 99.1 % (94-97); ABG PCO2 41 mmHg (35-45); ABG PO2 279 mmHg (83-108); ABG Potassium Whole Blood 3.5 mmol/L (3.4-4.5); ABG Sodium Whole Blood 140 mmol/L (135-146); ABG TCO2 24 mmol/L (19-24)
[2024-11-09] MEDS: SODIUM CHLORIDE 0.9% 500 ML 500 ML with HEPARIN SODIUM,PORCINE (1 ML) 5,000 UNIT IV ONE (09:29)
[2024-11-09] MEDS: ceFAZolin 1,000 MG in SODIUM CHLORIDE 0.9% 1,000 ML IRRIGATION ONE (09:30)
[2024-11-09] MEDS: PAPAVERINE 360 MG in SODIUM CHLORIDE 0.9% 90 ML IV ONE (09:30)
[2024-11-09] MEDS: DILTIAZEM 125 MG in SODIUM CHLORIDE 0.9% 100 ML IV SCH (09:30)
[2024-11-09] MEDS ORDERED: CARDIOPLEGIC SOLN (K+ 16 MEQ/L 1,000 ML with SOD BICARB SYR 8.4% (1 MEQ/ML) 20 ML, LIDO... PERFUSION NR (10:15)
[2024-11-09 10:27] LABS: ABG Base Excess -1.2 mmol/L; ABG Glucose Whole Blood 125 mg/dL (75-99); ABG HCO3 23 mmol/L (21-25); ABG Ionized Calcium 4.6 mg/dL (4.5-5.3); ABG Lactic Acid Whole Blood 0.5 mmol/L (0.5-1.6); ABG Oxygen Saturation >99.4 % (94-97); ABG PCO2 34 mmHg (35-45); ABG PH 7.43 (7.35-7.45); ABG PO2 287 mmHg (83-108); ABG Potassium Whole Blood 3.9 mmol/L (3.4-4.5); ABG Sodium Whole Blood 139 mmol/L (135-146)
[2024-11-09 10:55] LABS: ABG Hematocrit 24 % (34.0-46.0); Allen Test Performed? No
[2024-11-09 10:55] LABS: Allen Test Performed? No
[2024-11-09 11:07] LABS: ABG Base Excess -3.5 mmol/L; ABG Glucose Whole Blood 125 mg/dL (75-99); ABG HCO3 22 mmol/L (21-25); ABG Ionized Calcium 4.6 mg/dL (4.5-5.3); ABG Lactic Acid Whole Blood 0.6 mmol/L (0.5-1.6); ABG Oxygen Saturation 99.2 % (94-97); ABG PCO2 37 mmHg (35-45); ABG PH 7.37 (7.35-7.45); ABG PO2 284 mmHg (83-108); ABG Potassium Whole Blood 3.6 mmol/L (3.4-4.5); ABG Sodium Whole Blood 140 mmol/L (135-146); ABG TCO2 21 mmol/L (19-24); Allen Test Performed? Yes
[2024-11-09 11:31] LABS: ABG Base Excess -3.3 mmol/L; ABG Glucose Whole Blood 128 mg/dL (75-99); ABG HCO3 22 mmol/L (21-25); ABG Ionized Calcium 4.5 mg/dL (4.5-5.3); ABG Lactic Acid Whole Blood 0.5 mmol/L (0.5-1.6); ABG Oxygen Saturation 99.3 % (94-97); ABG PCO2 37 mmHg (35-45); ABG PH 7.38 (7.35-7.45); ABG PO2 301 mmHg (83-108); ABG Potassium Whole Blood 3.5 mmol/L (3.4-4.5); ABG Sodium Whole Blood 139 mmol/L (135-146); ABG TCO2 21 mmol/L (19-24)
[2024-11-09 11:56] LABS: ABG Base Excess -4.2 mmol/L; ABG Glucose Whole Blood 133 mg/dL (75-99); ABG HCO3 21 mmol/L (21-25); ABG Ionized Calcium 4.5 mg/dL (4.5-5.3); ABG Lactic Acid Whole Blood 0.7 mmol/L (0.5-1.6); ABG Oxygen Saturation 99.2 % (94-97); ABG PCO2 37 mmHg (35-45); ABG PH 7.36 (7.35-7.45); ABG PO2 285 mmHg (83-108); ABG Sodium Whole Blood 139 mmol/L (135-146); ABG TCO2 20 mmol/L (19-24); Allen Test Performed? Yes
--- NOTE | 2024-11-09 11:56 | P.PN ---
Progress Note - Text Progress Note Date: 11/09/24 Pt not seen today due to being in surgery, will re-evaluate in the afternoon or tomorrow
--- NOTE | 2024-11-09 12:37 | P.ANPRN ---
Procedure Note - Anesthesia - Invasive Line Right Central Line Time Out Performed: Yes Date of Procedure: 11/09/24 Time of Procedure: 07:48 Location of Patient: PreOp Preparation: Sterile Prep, Sterile Dressing Central Line Location: Internal Jugular Ultrasound Used: No Purpose - Visualization and Identification of Vasculature: No Image Stored and Saved: No Narrative: Invasive line placement per sterile protocol utilized.
--- NOTE | 2024-11-09 12:37 | P.ANPRN ---
Procedure Note - Anesthesia - Invasive Line Right [place] Time Out Performed: Yes Date of Procedure: 11/09/24 Time of Procedure: 07:54 Location of Patient: PreOp Preparation: Sterile Prep, Sterile Dressing Central Line Location: Internal Jugular [place] Line Location: Internal Jugular Ultrasound Used: No Purpose - Visualization and Identification of Vasculature: No Image Stored and Saved: No Narrative: Invasive line placement per sterile protocol utilized.
[2024-11-09 12:40] LABS: ABG Glucose Whole Blood 129 mg/dL (75-99); ABG HCO3 22 mmol/L (21-25); ABG Lactic Acid Whole Blood 0.6 mmol/L (0.5-1.6); ABG PCO2 41 mmHg (35-45); ABG PH 7.33 (7.35-7.45); ABG PO2 269 mmHg (83-108); ABG Sodium Whole Blood 139 mmol/L (135-146); ABG TCO2 21 mmol/L (19-24)
[2024-11-09] MEDS ORDERED: Potassium Replacement Protocol 1 EACH MISC MISCELLANE PRN (12:47)
[2024-11-09] MEDS ORDERED: Phosphorus Replacement Protoco 1 EACH MISC MISCELLANE PRN (12:47)
[2024-11-09] MEDS ORDERED: BENZOCAINE/MENTHOL LOZENG 1 EACH LOZENGE MUCOUS MEM PRN (12:47)
[2024-11-09] MEDS ORDERED: CALCIUM GLUCONATE IN NACL 2 GM in SALINE 1 100ML.BAG IVPB PRN (12:47)
[2024-11-09] MEDS ORDERED: hydrALAZINE HCL 20 MG/ML 1 ML VIAL IVP PRN (12:47)
[2024-11-09] MEDS ORDERED: IPRATROPIUM-ALBUTEROL 3 ML NEB INHALATION PRN (12:47)
[2024-11-09] MEDS ORDERED: Magnesium Replacement Protocol 1 EACH MISC MISCELLANE PRN (12:47)
[2024-11-09] MEDS ORDERED: DEXTROSE 50% SYRINGE 50 ML IVP PRN ×2 (12:47)
[2024-11-09] MEDS ORDERED: ONDANSETRON 4 MG/2 ML VIAL IVP PRN (12:47)
[2024-11-09 12:48] LABS: ABG Hematocrit 24 % (34.0-46.0)
[2024-11-09 12:48] LABS: ABG Hematocrit 23 % (34.0-46.0)
[2024-11-09 12:51] LABS: ABG Hematocrit 22 % (34.0-46.0)
[2024-11-09 12:51] LABS: ABG Hematocrit 22 % (34.0-46.0)
[2024-11-09] MEDS: NITROGLYCERIN-D5W PMX 50 MG in DEXTROSE/WATER 1 250ML.BAG IV SCH (13:30)
[2024-11-09] MEDS: SODIUM CHLORIDE 0.9% 1,000 ML IV SCH (13:30)
--- NOTE | 2024-11-09 13:34 | P.OP ---
Date of Procedure: 11/09/24 Preoperative Diagnosis: Unstable angina, three-vessel coronary artery disease Postoperative Diagnosis: Same Procedure(s) Performed: Off-pump CABG x 3 with AGUILAR to LAD, left radial artery graft to obtuse marginal, saphenous vein graft to right coronary artery, endovascular vein and left radial artery harvest, occlusion of left atrial appendage with 40 mm AtriCure clip, LUIS ANTONIO by anesthesia. Implants: 40 mm AtriCure clip Anesthesia: AILEEN Surgeon: Philippe Duenas Manager Clinical Pharmacy #1: Nghia Johnson Manager Clinical Pharmacy #2: Duarte Rothman Estimated Blood Loss (ml): 500 IV fluids (ml): 2,000 Urine output (ml): 300 Pathology: none sent Condition: stable Disposition: ICU Indications for Procedure: 74-year-old female presented with unstable angina and was found to have three-ve ssel coronary artery disease. She was stabilized medically and scheduled for surgery at the next available elective time slot. Operative Findings: LUIS ANTONIO demonstrated normal ventricular function without any valvular abnormalities. The LAD was intramyocardial and emerged near the apex. We explored proximally but were unable to locate the vessel more proximally. Description of Procedure: Patient was brought to the operating room, placed supine on the operating table, anesthetized and intubated. LUIS ANTONIO probe was placed. LUIS ANTONIO was performed by Dr. Thai morris. The anterior torso bilateral lower extremities and left upper extremity were sterilely prepped and draped. Left greater saphenous vein was harvested by endovascular technique from the knee to the groin. This was of reasonable quality on the small side. The left radial artery was also harvested by endovascular technique. It was also a good quality conduit of relatively small diameter. Midline sternotomy was performed the left hemisternum was retracted upwards and the left internal mammary artery harvested on a vascularized pedicle, left intact on its origin from the subclavian and divided distally. It was good size proximally but relatively small distally. The left pleural space was drained with a 32 [place] chest tube. Standard sternal retractor was placed. The pericardium was opened in the midline. The heart was exposed with pericardial sutures. The patient was systemically heparinized and ACT's were maintained greater than 250 during grafting. We began by placing a 40 mm AtriCure clip across the base of the left atrial appendage, confirming complete closure of the appendage on LUIS ANTONIO. Next we began to explore for the AGUILAR proximally. Unfortunately we could not identify the LAD proximal to its surfacing on the distal third of the left ventricle. The LAD was stabilized where it was visible exiting from the myocardium. It was opened here and blood flow controlled with a 1.5 mm flow-through. It was 1.5 to 1.75 mm vessel of good quality. The AGUILAR was divided fairly distally and prepared and the anastomosis constructed with running 8-0 Prolene suture. On completion of the anastomosis, the flow through was removed effectively probing the proximal and distal portion of the anastomosis. Suture was tied with good resultant hemostasis. Inflow was opened. The DELIA pedicle was tacked surrounding epicardium with 6-0 silk sutures. Next the inferior wall of the heart was exposed. The right coronary artery was opened about chcf between the acute margin and the takeoff of the PDA. There was a 2 mm vessel of good quality. Blood flow was controlled with a 2 mm flow-through. End-to-side anastomosis between the RCA and the saphenous vein was performed with running 7-0 Prolene suture. On completion of the anastomosis the flow through was removed effectively probing the proximal and distal portion of the anastomosis. Suture was tied with good resultant hemostasis. Good backbleeding was noted into the vein graft to the first valve. The heart was lowered in anatomic position. The vein was cut to appropriate length. Heartstring device was deployed in the mid ascending aorta in the midline. Proximal anastomosis was constructed with running 5-0 Prolene suture. On completion of the proximal anastomosis the heartstring device was removed. Suture was tied with good resultant hemostasis. Vein graft was de-aired with needle holes and the inflow open. The graft lay well with no bleeding from the distal anastomosis. Next the lateral wall of the heart was exposed. The first obtuse marginal was stabilized. It was a 1.75 mm vessel. It was opened fairly proximally. Blood flow was controlled with a 1.5 mm flow-through. Anastomosis the radial artery to the obtuse marginal was performed with running 7-0 Prolene suture. On completion of the anastomosis the flow through was removed effectively probing the proximal and distal portion of the anastomosis. Suture was tied with good resultant hemostasis. Good backbleeding was noted into the radial artery controlled with a bulldog clamp. Heart was lowered in anatomic position. Radial artery was cut to appropriate length. Second heartstring device was deployed in the mid ascending aorta to the left of midline. Proximal anastomosis was constructed with running 5-0 Prolene suture. On completion of the proximal anastomosis heartstring device was removed. It was de-aired by backbleeding. Suture was tied with good resultant hemostasis. Inflow was opened. Graft lay well with good length. There was no bleeding at the distal anastomotic site. Heparin was reversed with protamine. Good hemostasis was obtained throughout. The proximal LAD exploration site required some repair sutures in order to obtain good hemostasis. Once that had been accomplished the chest was irrigated with antibiotic solution. The mediastinum was drained with a 36 [place] chest tube. Sternum was closed with 6 Mersilene bands. Fascia was closed with 0 Ethibond. Subcutaneous and subcuticular layers and the leg chest and arm were closed with layers of Vicryl suture. Skin glue and dry sterile dressings were applied. Patient was transferred to the ICU in stable hemodynamic condition on no inotropic support having received no blood products transfusions.
[2024-11-09 13:49] LABS: Glucose,Whole Blood 137 mg/dL (70-110)
[2024-11-09 13:51] LABS: ABG Base Excess -1.3 mmol/L; ABG HCO3 23 mmol/L (21-25); ABG Oxygen Saturation >100.0 % (94-97); ABG PCO2 37 mmHg (35-45); ABG PH 7.41 (7.35-7.45); ABG PO2 224 mmHg (83-108); ABG TCO2 24 mmol/L (19-24)
[2024-11-09 13:55] LABS: Allen Test Performed? no
[2024-11-09 13:55] LABS: HCT 25.6 % (34.0-46.0); MCH 31.1 pg (25.0-35.0); MCHC 32.2 g/dL (31.0-37.0); MCV 96.5 fL (80.0-100.0); Mean Platelet Volume 7.9; Platelet Count 135 k/uL (150-450); RBC 2.66 m/uL (3.80-5.40); RDW 13.3 % (11.5-15.5); WBC 9.4 k/uL (3.8-10.6)
--- NOTE | 2024-11-09 14:07 | XR ---
EXAMINATION TYPE: XR chest 1V portable DATE OF EXAM: 11/09/2024 CLINICAL HISTORY: Postopen cardiac surgery TECHNIQUE: Single AP portable supine view of the chest is obtained. COMPARISON: Chest CT from 5 days earlier FINDINGS: There is new orogastric tube projecting below diaphragm. There is new endotracheal tube te rminating at the aortic knob level approximately 3 to 4 cm above the jason. There is new right inter nal jugular [place]-Yony catheter terminating in right sided outflow tract. Overlying Mediastinal clips and left atrial appendage clip are now seen. There is new Mediastinal drainage catheter and left-avtar ed chest tube. No left-sided pneumothorax. Left-sided subcutaneous emphysema extends into the left upper extremity. There is mild to moderate left midlung linear atelectasis and mild right lower lung linear atelectasi s. Cardiac silhouette size is stable and within normal limits. Osseous structures are intact. IMPRESSION: 1. Tubes and lines are satisfactory in position as detailed above. 2. No left-sided pneumothorax with left-sided chest tube in place. Subcutaneous emphysema is present. There is mild to moderate left midlung linear atelectasis and mild right basilar linear atelectasis noted. [facility], , 11/09/2024 2:05 PM
[2024-11-09 14:08] LABS: Ionized Calcium 4.7 mg/dL (4.5-5.3)
[2024-11-09 14:10] LABS: INR 1.4 (<1.2); Partial Thromboplastin Time 35.5 sec (22.0-30.0)
[2024-11-09] MEDS: AMIODARONE 360 MG in DEXTROSE 5% IN WATER 200 ML IV ONE (14:13)
[2024-11-09 14:15] LABS: HGB 8.3 gm/dL (11.4-16.0)
[2024-11-09 14:18] LABS: ALT 26 U/L (4-34); AST 36 U/L (14-36); African American GFR (CKD) >90 (>60 ml/min/1.73 sqM); Albumin 3.5 g/dL (3.5-5.0); Alkaline Phosphatase 28 U/L (38-126); Anion Gap 7 mmol/L; Blood Urea Nitrogen 3 mg/dL (7-17); Calcium 8.5 mg/dL (8.4-10.2); Carbon Dioxide 23 mmol/L (22-30); Chloride 107 mmol/L (98-107); Glucose 119 mg/dL (74-99); Magnesium 1.4 mg/dL (1.6-2.3); Non-African American GFR(CKD) >90 (>60 ml/min/1.73 sqM); Potassium 3.8 mmol/L (3.5-5.1); Sodium 137 mmol/L (137-145); Total Bilirubin 0.8 mg/dL (0.2-1.3)
[2024-11-09] MEDS: CLEVIDIPINE BUTYRATE 25 MG in EMPTY BAG 1 BAG IV SCH (14:20)
[2024-11-09 14:36] LABS: Glucose,Whole Blood 134 mg/dL (70-110)
[2024-11-09] MEDS: INSULIN REGULAR 100 UNIT in SODIUM CHLORIDE 0.9% 100 ML IV SCH (14:40)
[2024-11-09 14:49] LABS: Band Neutrophils % 3 %; Eosinophils # (M) 0.19 k/uL (0-0.7); Lymphocytes # (M) 1.32 k/uL (1.0-4.8); Monocytes # (M) 0.38 k/uL (0-1.0); Neutrophils % (M) 77 %; Nucleated Red Blood Cells 0 /100 WBC (0-0); Total Cells Counted 100
[2024-11-09] MEDS: POTASSIUM CHLORIDE 10 MEQ in WATER FOR INJECTION 1 100ML.BAG IVPB SCH (15:10)
[2024-11-09 15:26] LABS: Glucose,Whole Blood 137 mg/dL (70-110)
[2024-11-09] MEDS: HEPARIN SODIUM,PORCINE 5,000 UNIT/ML 1 ML VIAL SQ SCH (15:47)
[2024-11-09] MEDS: MAGNESIUM SULFATE-D5W PMX 1 GM in DEXTROSE/WATER 1 100ML.BAG IVPB SCH (15:58)
[2024-11-09 16:26] LABS: Glucose,Whole Blood 172 mg/dL (70-110)
[2024-11-09 16:58] LABS: Basophils % (A) 0 %; Eosinophils % (A) 0 %; HCT 28.2 % (34.0-46.0); HGB 9.2 gm/dL (11.4-16.0); Lymphocytes # (A) 1.5 k/uL (1.0-4.8); Lymphocytes % (A) 14 %; MCHC 32.5 g/dL (31.0-37.0); MCV 95.3 fL (80.0-100.0); Mean Platelet Volume 8.1; Monocytes # (A) 0.7 k/uL (0-1.0); Monocytes % (A) 6 %; Neutrophils # (A) 8.3 k/uL (1.3-7.7); Neutrophils % (A) 78 %; Platelet Count 189 k/uL (150-450); RBC 2.96 m/uL (3.80-5.40); RDW 13.4 % (11.5-15.5); WBC 10.7 k/uL (3.8-10.6)
[2024-11-09] MEDS: DEXMEDETOMIDINE/0.9% NACL(PMX) 400 MCG in EMPTY BAG 1 BAG IV SCH (16:59)
--- NOTE | 2024-11-09 17:01 | P.PN ---
Subjective Progress Note Date: 11/09/24 Principal diagnosis: Multivessel coronary artery disease, status post Off-pump CABG x 3 with AGUILAR to LAD, left radial artery graft to obtuse marginal, saphenous vein graft to right coronary artery, endovascular vein and left radial artery harvest, occlusion of left atrial appendage with 40 mm AtriCure clip, LUIS ANTONIO by anesthesia., Postoperative day #0 Patient is a 74-year-old female with past medical history significant for hypertension, daily alcohol use, resting tremor, anxiety, mild intermittent asthma. Presented to emergency department back on 11/03/2024 with a chief co mplaint of chest pain. Diagnosed with non-ST elevation NH. Taken to the [facility] on 11/04/2024 which showed multivessel coronary artery disease with critical stenosis involving the proximal LAD and RCA and moderate disease of the left circumflex. Patient was referred to cardiothoracic surgery. Patient is currently undergoing extensive preoperative workup. We are asked to see this patient for preoperative pulmonary clearance. Patient is being seen on the cardiac stepdown floor. Currently on IV heparin protocol. Is reporting some substernal chest pain with radiation to her back. States it is reoccurring at nighttime. The nurses are putting Nitropaste on. EKG is going to be repeated. She has history of mild intermittent asthma, does have an as needed albuterol rescue inhaler at home, but does not usually require it unless sick. History of tobacco smoking over 40 years ago. No recent URI, pneumonias, pulmonary complaints. Respiratory therapist did a bedside spirometry, FEV1 was reported at 0.91 L or 46% of predicted. CT of the chest does not show any acute parenchymal abnormalities. No suspicious lung nodules or focal infiltrates. Vascular calcification of thoracic aorta. Patient currently resting comfortably on room air oxygen. Her chest pain is subsided. No nausea or vomiting or diaphoresis. Denies shortness of breath. She has a severe resting tremor. She states she feels anxious about being on the ventilator. No prior major surgeries or issue with general anesthesia. Incentive spirometer is at bedside. Most recent labs from yesterday including a WBC count of 7.3, hemoglobin 10.8, platelets 285. Effort appears therapeutic based on APTT. CMP: Sodium 136, potassium 4, chloride 103, serum bicarb 22, BUN 5, creatinine 0.52, glucose 83. Previously troponins were elevated at 0.06, 0.124, and 0.17. Echocardiogram showing normal biventricular systolic function, no significant valvular abnormalities. Current vital signs: Temperature 98.2 F, heart rate 95 bpm, blood pressure 160/80 mmHg, nontachypneic, SpO2 is 100% on room air. On 11/07/2024, the patient is being seen for a follow-up. She is free of any chest pain. She remains on IV heparin. In regards to her COPD, start the patient on DuoNeb updrafts and cause significant tachycardia and tremors. Based on that, the patient was unable to continue updrafts. She continues to be on IV heparin. She is using incentive spirometer. Hemoglobin is 11.2. PTT is 47. Electrolytes are all noted and the patient has a potassium level of 3.4 that is to be replaced. BUN is 4 with a creatinine of 0.49. Calcium level is at 9.5. No cardiac arrhythmias. On 11/08/2024, the patient remains on IV heparin. She is free of any chest pain. She has COPD and she was started on Symbicort and albuterol HFA 4 times a day. DuoNeb updrafts have been discontinued because of increased tremors and tachyca rdia. She is able to tolerate inhalers reasonably well. The plan is to undergo bypass surgery scheduled to be done in the morning. Hemoglobin stable at 11.2, white cell count is 6.4. BUN is at 4 with a creatinine of 0.5 and a sodium levels at 138. Potassium level is at 4.3. Using incentive spirometer. Pulling approximately 1500. Pulse ox is 94% on room air oxygen. Patient was seen today on 11/05/2024, patient is status post Off-pump CABG x 3 with AGUILAR to LAD, left radial artery graft to obtuse marginal, saphenous vein graft to right coronary artery, endovascular vein and left radial artery harvest, occlusion of left atrial appendage with 40 mm AtriCure clip, LUIS ANTONIO by anesthesia., Patient was admitted to the ICU intubated and mechanically ventilated, she is now on assist-control rate of 16 tidal volume 400 FiO2 40% and PEEP of 5 ABG showed a pO2 of 224 pCO2 37 pH of 7.41 cardiac output is 5.3 cardiac index of 3.5 patient is on multiple drips including propofol at 20 mcg/kg/min, amiodarone at 1 mg/min, nitroglycerin at 5 mcg/min, insulin at 1 unit/h patient is also on Cleviprex at 4 mg/h. Patient is sedated, however she seems to be arousable with deep painful stimuli. Does not seem to be in distress, patient again is intubated and mechanically ventilated and on multiple drips as noted above chest x-ray no evidence of active disease, postoperative changes were noted. All labs from today were reviewed, her ventilator settings were adjusted accordingly. Objective - Vital Signs Vital signs: Vital Signs Temp 96.1 F L 11/09/24 15:15 Pulse 73 11/09/24 16:00 Resp 21 11/09/24 16:00 BP 154/86 11/09/24 06:29 Pulse Ox 98 11/09/24 16:00 FiO2 400 11/09/24 16:00 Intake & Output 11/08/24 11/09/24 11/09/24 18:59 06:59 18:59 Intake Total 1611.834 125.758 620.495 Output Total 1525 Balance 1611.834 125.758 -904.505 Weight 52.6 kg Intake: IV 281 .9NS Cardiac Output 60 .9NS Pressure Bag 27 Sodium Chloride 0.9% 1, 90 000 ml @ 50 mls/hr IV . Q20H [facility] Rx#:[id number] Intake, IV Titration 177.834 125.758 339.495 Amount Clevidipine Butyrate 25 0.900 mg In Empty Bag 1 bag @ 1 MG/HR 2 mls/hr IV .Q24H [facility] Rx#:[id number] Heparin Sod,Pork in 0.45% 177.834 125.758 NaCl 25,000 unit In 0.45 % NaCl 1 250ml.bag @ 12 UNITS/KG/HR 6.423 mls/hr IV .Q24H [facility] Rx#: [id number] Insulin Regular 100 unit 1.801 In Sodium Chloride 0.9% 100 ml @ Per Protocol IV .Q0M [facility] Rx#:[id number] Magnesium Sulfate-D5w Pmx 100 1 gm In Dextrose/Water 1 100ml.bag @ 100 mls/hr IVPB Q1H [facility] Rx#: [id number] Potassium Chloride 10 meq 200 In Water For Injection 1 100ml.bag @ 100 mls/hr IVPB Q1H [facility] Rx#: [id number] propofoL 1,000 mg In 36.794 Empty Bag 1 bag @ Titrate IV .Q0M [facility] Rx#: [id number] Oral 1434 Output: Chest Tube Drainage 200 Left Pleural Chest Tube 120 Mediastinal Chest Tube 80 Urine 825 Estimated Blood Loss 500 Other: Voiding Method Indwelling Catheter # Voids 2 1 ABP, PAP, CO, CI - Last Documented Arterial Blood Pressure 129/44 Pulmonary Artery Pressure 28/14 Cardiac Output 5.3 Cardiac Index 3.5 - Exam CONSTITUTIONAL: Revealed 73-year-old, in no distress intubated and mechanically ventilated Head: Atraumatic normocephalic HEENT: PERRLA, EOMI, nonicteric, orogastric tube and endotracheal tube are intact RESPIRATORY: Good breath sound bilaterally no rhonchi no wheezes CARDIOVASCULAR: S1, S2 present. Regular rate and rhythm, sinus rhythm on telemetry. Positive pericardial rub GASTROINTESTINAL: Abdomen soft, nontender, nondistended. Active bowel sounds present 4 quadrants. Bowel movement yesterday November 06, 2024. INTEGUMENTARY: Skin is warm and dry. No clubbing or cyanosis present. NEUROLOGIC: Cannot fully assess, patient is intubated and mechanically ventila nupur MUSKULOSKELETAL: No evidence of deformities PSYCHIATRIC: Could not fully assess patient is intubated sedated on propofol. - Labs CBC & Chem 7: 11/09/24 13:41 11/09/24 13:41 Labs: Abnormal Lab Results - Last 24 Hours (Table) 11/09/24 11/09/24 11/09/24 Range/Units 04:49 05:28 05:28 RBC (3.80-5.40) m/uL Hgb (11.4-16.0) gm/dL Hct (34.0-46.0) % Plt Count (150-450) k/uL PT (10.0-12.5) sec INR (<1.2) APTT 30.5 H (22.0-30.0) sec ABG pH (7.35-7.45) ABG pCO2 (35-45) mmHg ABG pO2 (83-108) mmHg ABG O2 Saturation (94-97) % ABG Hematocrit (34.0-46.0) % ABG Glucose (75-99) mg/dL Hemoglobin (11.4-16.0) gm/dL Sodium 136 L (137-145) mmol/L BUN 4 L (7-17) mg/dL Creatinine (0.52-1.04) mg/dL Glucose 108 H (74-99) mg/dL POC Glucose (mg/dL) 117 H (70-110) mg/dL Magnesium (1.6-2.3) mg/dL AST 62 H (14-36) U/L ALT 53 H (4-34) U/L Alkaline Phosphatase (38-126) U/L Total Protein (6.3-8.2) g/dL Arterial Blood Glucose (75-99) mg/dL Crossmatch 11/09/24 11/09/24 11/09/24 Range/Units 05:28 06:28 08:49 RBC 3.58 L (3.80-5.40) m/uL Hgb 11.3 L (11.4-16.0) gm/dL Hct (34.0-46.0) % Plt Count (150-450) k/uL PT (10.0-12.5) sec INR (<1.2) APTT (22.0-30.0) sec ABG pH (7.35-7.45) ABG pCO2 (35-45) mmHg ABG pO2 279 H (83-108) mmHg ABG O2 Saturation 99.1 H (94-97) % ABG Hematocrit 29 L (34.0-46.0) % ABG Glucose 106 H (75-99) mg/dL Hemoglobin 9.3 L (11.4-16.0) gm/dL Sodium (137-145) mmol/L BUN (7-17) mg/dL Creatinine (0.52-1.04) mg/dL Glucose (74-99) mg/dL POC Glucose (mg/dL) (70-110) mg/dL Magnesium (1.6-2.3) mg/dL AST (14-36) U/L ALT (4-34) U/L Alkaline Phosphatase (38-126) U/L Total Protein (6.3-8.2) g/dL Arterial Blood Glucose 106 H (75-99) mg/dL Crossmatch See Detail 11/09/24 11/09/24 11/09/24 Range/Units 10:30 11:09 11:34 RBC (3.80-5.40) m/uL Hgb (11.4-16.0) gm/dL Hct (34.0-46.0) % Plt Count (150-450) k/uL PT (10.0-12.5) sec INR (<1.2) APTT (22.0-30.0) sec ABG pH (7.35-7.45) ABG pCO2 34 L (35-45) mmHg ABG pO2 287 H 284 H 301 H (83-108) mmHg ABG O2 Saturation >99.4 H 99.2 H 99.3 H (94-97) % ABG Hematocrit 24 L 24 L 23 L (34.0-46.0) % ABG Glucose 125 H 125 H 128 H (75-99) mg/dL Hemoglobin 7.9 L 7.8 L 7.4 L (11.4-16.0) gm/dL Sodium (137-145) mmol/L BUN (7-17) mg/dL Creatinine (0.52-1.04) mg/dL Glucose (74-99) mg/dL POC Glucose (mg/dL) (70-110) mg/dL Magnesium (1.6-2.3) mg/dL AST (14-36) U/L ALT (4-34) U/L Alkaline Phosphatase (38-126) U/L Total Protein (6.3-8.2) g/dL Arterial Blood Glucose 125 H 125 H 128 H (75-99) mg/dL Crossmatch 11/09/24 11/09/24 11/09/24 Range/Units 11:58 12:42 13:41 RBC 2.66 L (3.80-5.40) m/uL Hgb 8.3 L D (11.4-16.0) gm/dL Hct 25.6 L (34.0-46.0) % Plt Count 135 L (150-450) k/uL PT (10.0-12.5) sec INR (<1.2) APTT (22.0-30.0) sec ABG pH 7.33 L (7.35-7.45) ABG pCO2 (35-45) mmHg ABG pO2 285 H 269 H (83-108) mmHg ABG O2 Saturation 99.2 H 99.0 H (94-97) % ABG Hematocrit 22 L 22 L (34.0-46.0) % ABG Glucose 133 H 129 H (75-99) mg/dL Hemoglobin 7.2 L 7.1 L (11.4-16.0) gm/dL Sodium (137-145) mmol/L BUN (7-17) mg/dL Creatinine (0.52-1.04) mg/dL Glucose (74-99) mg/dL POC Glucose (mg/dL) (70-110) mg/dL Magnesium (1.6-2.3) mg/dL AST (14-36) U/L ALT (4-34) U/L Alkaline Phosphatase (38-126) U/L Total Protein (6.3-8.2) g/dL Arterial Blood Glucose 133 H 129 H (75-99) mg/dL Crossmatch 11/09/24 11/09/24 11/09/24 Range/Units 13:41 13:41 13:44 RBC (3.80-5.40) m/uL Hgb (11.4-16.0) gm/dL Hct (34.0-46.0) % Plt Count (150-450) k/uL PT 15.0 H (10.0-12.5) sec INR 1.4 H (<1.2) APTT 35.5 H (22.0-30.0) sec ABG pH (7.35-7.45) ABG pCO2 (35-45) mmHg ABG pO2 (83-108) mmHg ABG O2 Saturation (94-97) % ABG Hematocrit (34.0-46.0) % ABG Glucose (75-99) mg/dL Hemoglobin (11.4-16.0) gm/dL Sodium (137-145) mmol/L BUN 3 L (7-17) mg/dL Creatinine 0.42 L (0.52-1.04) mg/dL Glucose 119 H (74-99) mg/dL POC Glucose (mg/dL) 137 H (70-110) mg/dL Magnesium 1.4 L (1.6-2.3) mg/dL AST (14-36) U/L ALT (4-34) U/L Alkaline Phosphatase 28 L (38-126) U/L Total Protein 5.0 L (6.3-8.2) g/dL Arterial Blood Glucose (75-99) mg/dL Crossmatch 11/09/24 11/09/24 11/09/24 Range/Units 13:49 14:34 15:24 RBC (3.80-5.40) m/uL Hgb (11.4-16.0) gm/dL Hct (34.0-46.0) % Plt Count (150-450) k/uL PT (10.0-12.5) sec INR (<1.2) APTT (22.0-30.0) sec ABG pH (7.35-7.45) ABG pCO2 (35-45) mmHg ABG pO2 224 H (83-108) mmHg ABG O2 Saturation >100.0 H (94-97) % ABG Hematocrit (34.0-46.0) % ABG Glucose (75-99) mg/dL Hemoglobin 8.2 L (11.4-16.0) gm/dL Sodium (137-145) mmol/L BUN (7-17) mg/dL Creatinine (0.52-1.04) mg/dL Glucose (74-99) mg/dL POC Glucose (mg/dL) 134 H 137 H (70-110) mg/dL Magnesium (1.6-2.3) mg/dL AST (14-36) U/L ALT (4-34) U/L Alkaline Phosphatase (38-126) U/L Total Protein (6.3-8.2) g/dL Arterial Blood Glucose (75-99) mg/dL Crossmatch 11/09/24 Range/Units 16:24 RBC (3.80-5.40) m/uL Hgb (11.4-16.0) gm/dL Hct (34.0-46.0) % Plt Count (150-450) k/uL PT (10.0-12.5) sec INR (<1.2) APTT (22.0-30.0) sec ABG pH (7.35-7.45) ABG pCO2 (35-45) mmHg ABG pO2 (83-108) mmHg ABG O2 Saturation (94-97) % ABG Hematocrit (34.0-46.0) % ABG Glucose (75-99) mg/dL Hemoglobin (11.4-16.0) gm/dL Sodium (137-145) mmol/L BUN (7-17) mg/dL Creatinine (0.52-1.04) mg/dL Glucose (74-99) mg/dL POC Glucose (mg/dL) 172 H (70-110) mg/dL Magnesium (1.6-2.3) mg/dL AST (14-36) U/L ALT (4-34) U/L Alkaline Phosphatase (38-126) U/L Total Protein (6.3-8.2) g/dL Arterial Blood Glucose (75-99) mg/dL Crossmatch Assessment and Plan Assessment: Impression:Off-pump CABG x 3 with AGUILAR to LAD, left radial artery graft to obtuse marginal, saphenous vein graft to right coronary artery, endovascular vein and left radial artery harvest, occlusion of left atrial appendage with 40 mm AtriCure clip, LUIS ANTONIO by anesthesia. Postoperative day #0 Multivessel coronary artery disease noted on recent cardiac catheterization Acute Non-ST elevation NH Hypertension COPD with a component of asthma, started on Symbicort and albuterol HFA 4 times a day. Remote history of tobacco use, over 40 years ago Daily alcohol use Peripheral neuropathy Resting tremor Anxiety recommendation: Continue ventilatory support Continue present drips as noted earlier Continue nitroglycerin and continue Cleviprex. Continue bronchodilators patient has a baseline spirometry with FEV1 of 46% Continue nitroglycerin Chest x-ray was reviewed ABG was reviewed, no changes were made in vent settings Continue GI and DVT prophylaxis Patient is considered critically ill considering she just came out of surgery Will address weaning and possibly extubation later this evening. Will continue to follow. Critical care time is over 30 minutes Time with Patient: Greater than 30
[2024-11-09 17:07] LABS: Glucose,Whole Blood 161 mg/dL (70-110)
[2024-11-09] MEDS: IPRATROPIUM-ALBUTEROL 3 ML NEB INHALATION SCH ×2 (17:07→20:49)
[2024-11-09 17:43] LABS: ABG Base Excess -0.8 mmol/L; ABG HCO3 24 mmol/L (21-25); ABG Oxygen Saturation 99.1 % (94-97); ABG PCO2 37 mmHg (35-45); ABG PH 7.41 (7.35-7.45); ABG PO2 112 mmHg (83-108); ABG TCO2 25 mmol/L (19-24)
[2024-11-09 17:46] LABS: Allen Test Performed? no
[2024-11-09] MEDS: ACETAMINOPHEN IV (For NPO) 1,000 MG in EMPTY BAG 1 BAG IVPB SCH (18:03)
[2024-11-09 18:09] LABS: Glucose,Whole Blood 152 mg/dL (70-110)
[2024-11-09 19:00] LABS: Glucose,Whole Blood 140 mg/dL (70-110)
[2024-11-09 19:28] LABS: Glucose,Whole Blood 158 mg/dL (70-110)
[2024-11-09 19:51] LABS: Basophils % (A) 0 %; Eosinophils % (A) 0 %; HCT 28.2 % (34.0-46.0); HGB 9.3 gm/dL (11.4-16.0); Lymphocytes # (A) 0.5 k/uL (1.0-4.8); Lymphocytes % (A) 5 %; MCH 31.9 pg (25.0-35.0); MCHC 33.1 g/dL (31.0-37.0); MCV 96.3 fL (80.0-100.0); Mean Platelet Volume 7.6; Monocytes # (A) 0.6 k/uL (0-1.0); Monocytes % (A) 6 %; Neutrophils # (A) 8.9 k/uL (1.3-7.7); Neutrophils % (A) 88 %; Platelet Count 180 k/uL (150-450); RBC 2.93 m/uL (3.80-5.40); RDW 12.9 % (11.5-15.5); WBC 10.1 k/uL (3.8-10.6)
[2024-11-09] MEDS: AMIODARONE 450 MG in DEXTROSE 5% IN WATER 250 ML IV SCH (20:01)
[2024-11-09] MEDS: ALBUMIN HUMAN 5% 250 ML in EMPTY BAG 1 BAG IVPB PRN (20:36)
[2024-11-09 21:25] LABS: Glucose,Whole Blood 114 mg/dL (70-110)
[2024-11-09 22:10] LABS: Glucose,Whole Blood 111 mg/dL (70-110)
[2024-11-09 23:18] LABS: Glucose,Whole Blood 126 mg/dL (70-110)
[2024-11-10 02:28] LABS: Glucose,Whole Blood 116 mg/dL (70-110)
[2024-11-10 03:47] LABS: Glucose,Whole Blood 119 mg/dL (70-110)
[2024-11-10 04:32] LABS: Glucose,Whole Blood 123 mg/dL (70-110)
[2024-11-10 04:56] LABS: Basophils % (A) 0 %; Eosinophils % (A) 0 %; HCT 26.6 % (34.0-46.0); HGB 8.4 gm/dL (11.4-16.0); Lymphocytes # (A) 1.1 k/uL (1.0-4.8); Lymphocytes % (A) 12 %; MCH 30.5 pg (25.0-35.0); MCHC 31.6 g/dL (31.0-37.0); MCV 96.4 fL (80.0-100.0); Monocytes # (A) 0.7 k/uL (0-1.0); Monocytes % (A) 7 %; Neutrophils # (A) 7.2 k/uL (1.3-7.7); Neutrophils % (A) 79 %; Platelet Count 166 k/uL (150-450); RBC 2.76 m/uL (3.80-5.40); RDW 13.5 % (11.5-15.5); WBC 9.2 k/uL (3.8-10.6)
[2024-11-10 05:48] LABS: ALT 26 U/L (4-34); AST 39 U/L (14-36); African American GFR (CKD) >90 (>60 ml/min/1.73 sqM); Albumin 3.5 g/dL (3.5-5.0); Alkaline Phosphatase 27 U/L (38-126); Anion Gap 11 mmol/L; Blood Urea Nitrogen 4 mg/dL (7-17); Calcium 8.8 mg/dL (8.4-10.2); Carbon Dioxide 21 mmol/L (22-30); Chloride 100 mmol/L (98-107); Glucose 111 mg/dL (74-99); Magnesium 1.8 mg/dL (1.6-2.3); Non-African American GFR(CKD) >90 (>60 ml/min/1.73 sqM); Potassium 3.5 mmol/L (3.5-5.1); Sodium 132 mmol/L (137-145); Total Bilirubin 1.1 mg/dL (0.2-1.3)
[2024-11-10] MEDS ORDERED: Magnesium Replacement Protocol 1 EACH MISC MISCELLANE PRN (06:06)
--- NOTE | 2024-11-10 06:18 | XR ---
EXAMINATION TYPE: XR chest 1V portable DATE OF EXAM: 11/10/2024 CLINICAL HISTORY: Postoperative cardiac surgery. TECHNIQUE: Single AP portable upright view of the chest is obtained. COMPARISON: Chest x-ray from one day earlier FINDINGS: Interval extubation with removal of endotracheal and orogastric tubes. Stable right commercial intern al jugular [place] catheter along with mediastinal drainage catheter and left-sided chest tube. Ov erlying Mediastinal clips and left atrial appendage clip are redemonstrated. No left-sided pneumothorax. Left-sided subcutaneous emphysema redemonstrated but improved. There is i ncreasing right lower lung opacity and stable mild right lower lung linear atelectasis. Mild cardiome pardeep now present. Osseous structures are intact. IMPRESSION: 1. Improving subcutaneous emphysema noted. There is worsening left lower lung acute infiltrate and/or atelectasis. [facility] Margarita Perdomo, , 11/10/2024 6:16 AM
[2024-11-10] MEDS: POTASSIUM CHLORIDE 10 MEQ in WATER FOR INJECTION 1 100ML.BAG IVPB SCH (06:21)
[2024-11-10] MEDS: METOCLOPRAMIDE 5 MG/ML 2 ML VIAL IVP PRN (06:26)
[2024-11-10] MEDS: MAGNESIUM SULFATE-D5W PMX 1 GM in DEXTROSE/WATER 1 100ML.BAG IVPB ONE (06:26)
[2024-11-10 06:47] LABS: Ionized Calcium 4.8 mg/dL (4.5-5.3)
[2024-11-10 07:03] LABS: Glucose,Whole Blood 138 mg/dL (70-110)
[2024-11-10 08:13] LABS: Glucose,Whole Blood 141 mg/dL (70-110)
[2024-11-10] MEDS: ATORVASTATIN 40 MG TAB PO SCH (08:55)
[2024-11-10] MEDS: PANTOPRAZOLE 40 MG/10 ML VIAL IVP SCH (08:56)
[2024-11-10] MEDS: ASPIRIN 325 MG TAB PO SCH (08:56)
[2024-11-10] MEDS: CLOPIDOGREL 75 MG TAB PO SCH (08:56)
[2024-11-10] MEDS: METOPROLOL TARTRATE 12.5 MG TAB PO SCH (08:56)
[2024-11-10] MEDS ORDERED: bisacodyL 10 MG SUPP RECTAL PRN (09:00)
[2024-11-10] MEDS: AMIODARONE 200 MG TAB PO SCH (09:12)
[2024-11-10] MEDS: KETOROLAC 15 MG/ML 1 ML VIAL IVP SCH (09:12)
--- NOTE | 2024-11-10 09:14 | P.PN ---
Subjective Progress Note Date: 11/10/24 Principal diagnosis: Multivessel coronary artery disease, non-STEMI this admission. History of hypertension, peripheral neuropathy with essential tremors, asthma, daily EtOH use, previous tobacco dependence, and family history of premature coronary artery disease. POD #1 Off-pump CABG x 3 with AGUILAR to LAD, left radial artery graft to obtuse marginal, saphenous vein graft to right coronary artery, endovascular vein and left radial artery harvest, occlusion of left atrial appendage with 40 mm AtriCure clip, LUIS ANTONIO by anesthesia. Postoperative acute blood loss anemia, likely secondary to hemodilution and her history of preoperative anemia. The patient was seen and examined in follow-up today November 10, 2024 at her bedside in the intensive care unit. She was successfully extubated at 5:53 PM yesterday November 09, 2024, she is currently sitting up to the bedside chair, is awake, alert, oriented x 3 and is in no acute apparent distress. She denies any complaints of shortness of breath at this time, although was complaining of some surgical type pain to her left chest tube insertion site, currently rating her pain 6 out of 10 on the pain scale. The patient does report her current pain medication regimen is keeping her pain under control. Oxygen saturations a re 94% on 2 L nasal cannula and she is achieving 1000 mL on her incentive spirometry with encouragement. Bedside telemetry is showing normal sinus rhythm heart rate 87 bpm. Right IJ cordis and Raiford-Yony catheter remain in place with current hemodynamic showing a cardiac output of 5.6, cardiac index 3.7, PA pressures 29/10, CVP 9 mmHg and SVR 1000. She remains on amiodarone drip at 0.5 mg/min for atrial fibrillation prophylaxis and is on nitroglycerin 5 mcg/min. Mediastinal and left pleural chest tubes remain in place to low continuous wall suction -20 cm H2O. No airleak is present. Draining thin serosanguineous drainage with her mediastinal chest tube draining 180 mL output in the last 8 hours and 400 mL since surgery. Left pleural chest tube draining thin serosanguineous drainage with 180 mL output in the last 8 hours and 520 mL output since surgery. Chest x-ray and laboratory results were reviewed. Objective - Vital Signs Vital signs: Vital Signs Temp 99.5 F 11/10/24 04:00 Pulse 87 11/10/24 07:00 Resp 15 11/10/24 07:00 BP 118/56 11/10/24 07:00 Pulse Ox 96 11/10/24 07:40 FiO2 40 11/09/24 17:44 Intake & Output 11/09/24 11/10/24 11/10/24 18:59 06:59 18:59 Intake Total 322.169 5175.492 80.094 Output Total 1965 1465 55 Balance -974.364 -376.508 25.094 Weight 52.1 kg Intake: IV 519 1059 79 .9NS Cardiac Output 80 160 20 .9NS Pressure Bag 45 99 9 ACETAMINOPHEN IV (For NPO 100 200 ) 1,000 mg In Empty Bag 1 bag @ 400 mls/hr IVPB Q6HR [facility] Rx#:[id number] Sodium Chloride 0.9% 1, 190 600 50 000 ml @ 50 mls/hr IV . Q20H [facility] Rx#:[id number] Intake, IV Titration 471.636 29.492 1.094 Amount Clevidipine Butyrate 25 25.067 19.4 mg In Empty Bag 1 bag @ 1 MG/HR 2 mls/hr IV .Q24H [facility] Rx#:[id number] Dexmedetomidine/0.9% NaCl 3.113 (Pmx) 400 mcg In Empty Bag 1 bag @ Titrate IV . Q0M [facility] Rx#:[id number] Insulin Regular 100 unit 6.136 10.092 1.094 In Sodium Chloride 0.9% 100 ml @ Per Protocol IV .Q0M [facility] Rx#:[id number] Magnesium Sulfate-D5w Pmx 200 1 gm In Dextrose/Water 1 100ml.bag @ 100 mls/hr IVPB Q1H [facility] Rx#: [id number] Potassium Chloride 10 meq 200 In Water For Injection 1 100ml.bag @ 100 mls/hr IVPB Q1H [facility] Rx#: [id number] propofoL 1,000 mg In 37.320 Empty Bag 1 bag @ Titrate IV .Q0M [facility] Rx#: [id number] Output: Chest Tube Drainage 320 560 20 Left Pleural Chest Tube 210 290 10 Mediastinal Chest Tube 110 270 10 Drainage 20 10 Left Arm 20 10 Urine 1125 895 35 Estimated Blood Loss 500 Other: Voiding Method Indwelling Catheter Indwelling Catheter ABP, PAP, CO, CI - Last Documented Arterial Blood Pressure 103/43 Pulmonary Artery Pressure 21/6 Cardiac Output 5.6 Cardiac Index 3.7 - Exam CONSTITUTIONAL: Sitting up to the bedside chair in the intensive care unit, a ppears comfortable, cooperative, no apparent acute distress. HEENT: Neck is supple, no JVD, no lymphadenopathy. Right IJ Cordis and Raiford- Yony catheter in place and functioning. RESPIRATORY: Lungs sounds essentially clear throughout, diminished to her bilateral bases. Respirations are symmetrical and nonlabored. Currently on 2 L nasal cannula with oxygen saturations 94%. Able to achieve 1000 mL on her incentive spirometry. Strong cough. CARDIOVASCULAR: Regular rhythm and rate. S1 and S2 present, negative for S3, gallop or murmur. Bedside telemetry showing normal sinus rhythm. Sternum is stable. Palpable peripheral pulses bilaterally, no edema to her bilateral lower extremities. No calf pain or tenderness noted. Heart hugger in place with patient demonstrating appropriate use. Knee-high ALEJA hose and sequential compression devices in place to her bilateral lower extremities. GASTROINTESTINAL: Abdomen soft, nontender, nondistended. Hypoactive bowel sounds present 4 quadrants. Tolerating clear liquid diet. Passing flatus. No guarding or rigidity. GENITOURINARY: Garcia present draining clear, yellow urine. Urine output 480 mL in the last 8 hours. Left INTEGUMENTARY: Skin is warm and dry with no evidence of clubbing or cyanosis. Midline sternal incision clean dry and well approximated, covered with dry intact dressing. Left lower extremity EVH sites well approximated without redness or drainage. Left arm radial artery harvest sites clean, dry and approximated. No drainage or redness is present. NEUROLOGIC: Cranial nerves II through XII intact. No focal deficits. MUSKULOSKELETAL: Able to move all extremities, strength equal bilaterally, generalized weakness. PSYCHIATRIC: Alert and oriented to person place and time, appropriate affect, intact judgment and insight. INVASIVE LINES AND TUBES: Mediastinal/left pleural chest tubes present and connected to low continuous wall suction, no air leaks present. Mediastinal tube with 180 mL of thin serosanguineous drainage overnight, 400 mL output in the last 24 hours. Left pleural chest tube with 180 mL of thin serosanguineous drainage overnight, 520 mL output in the last 24 hours. Right internal jugular Raiford/Cordis, right radial arterial line present. Last CO 5.6, CI 3.7, PA 29/10, SVR 1000 and CVP 9 mmHg. Left arm VLAD drain in place with scant thin serosanguineous drainage, 10 mL output in the last 8 hours. - Allied health notes Allied health notes reviewed: nursing - Labs CBC & Chem 7: 11/10/24 04:30 11/10/24 04:30 Labs: Abnormal Lab Results - Last 24 Hours (Table) 11/09/24 11/09/24 11/09/24 Range/Units 06:28 08:49 10:30 WBC (3.8-10.6) k/uL RBC (3.80-5.40) m/uL Hgb (11.4-16.0) gm/dL Hct (34.0-46.0) % Plt Count (150-450) k/uL Neutrophils # (1.3-7.7) k/uL Lymphocytes # (1.0-4.8) k/uL PT (10.0-12.5) sec INR (<1.2) APTT (22.0-30.0) sec ABG pH (7.35-7.45) ABG pCO2 34 L (35-45) mmHg ABG pO2 279 H 287 H (83-108) mmHg ABG Total CO2 (19-24) mmol/L ABG O2 Saturation 99.1 H >99.4 H (94-97) % ABG Hematocrit 29 L 24 L (34.0-46.0) % ABG Glucose 106 H 125 H (75-99) mg/dL Hemoglobin 9.3 L 7.9 L (11.4-16.0) gm/dL Sodium (137-145) mmol/L Carbon Dioxide (22-30) mmol/L BUN (7-17) mg/dL Creatinine (0.52-1.04) mg/dL Glucose (74-99) mg/dL POC Glucose (mg/dL) (70-110) mg/dL Magnesium (1.6-2.3) mg/dL AST (14-36) U/L Alkaline Phosphatase (38-126) U/L Total Protein (6.3-8.2) g/dL Arterial Blood Glucose 106 H 125 H (75-99) mg/dL Crossmatch See Detail 11/09/24 11/09/24 11/09/24 Range/Units 11:09 11:34 11:58 WBC (3.8-10.6) k/uL RBC (3.80-5.40) m/uL Hgb (11.4-16.0) gm/dL Hct (34.0-46.0) % Plt Count (150-450) k/uL Neutrophils # (1.3-7.7) k/uL Lymphocytes # (1.0-4.8) k/uL PT (10.0-12.5) sec INR (<1.2) APTT (22.0-30.0) sec ABG pH (7.35-7.45) ABG pCO2 (35-45) mmHg ABG pO2 284 H 301 H 285 H (83-108) mmHg ABG Total CO2 (19-24) mmol/L ABG O2 Saturation 99.2 H 99.3 H 99.2 H (94-97) % ABG Hematocrit 24 L 23 L 22 L (34.0-46.0) % ABG Glucose 125 H 128 H 133 H (75-99) mg/dL Hemoglobin 7.8 L 7.4 L 7.2 L (11.4-16.0) gm/dL Sodium (137-145) mmol/L Carbon Dioxide (22-30) mmol/L BUN (7-17) mg/dL Creatinine (0.52-1.04) mg/dL Glucose (74-99) mg/dL POC Glucose (mg/dL) (70-110) mg/dL Magnesium (1.6-2.3) mg/dL AST (14-36) U/L Alkaline Phosphatase (38-126) U/L Total Protein (6.3-8.2) g/dL Arterial Blood Glucose 125 H 128 H 133 H (75-99) mg/dL Crossmatch 11/09/24 11/09/24 11/09/24 Range/Units 12:42 13:41 13:41 WBC (3.8-10.6) k/uL RBC 2.66 L (3.80-5.40) m/uL Hgb 8.3 L D (11.4-16.0) gm/dL Hct 25.6 L (34.0-46.0) % Plt Count 135 L (150-450) k/uL Neutrophils # (1.3-7.7) k/uL Lymphocytes # (1.0-4.8) k/uL PT 15.0 H (10.0-12.5) sec INR 1.4 H (<1.2) APTT 35.5 H (22.0-30.0) sec ABG pH 7.33 L (7.35-7.45) ABG pCO2 (35-45) mmHg ABG pO2 269 H (83-108) mmHg ABG Total CO2 (19-24) mmol/L ABG O2 Saturation 99.0 H (94-97) % ABG Hematocrit 22 L (34.0-46.0) % ABG Glucose 129 H (75-99) mg/dL Hemoglobin 7.1 L (11.4-16.0) gm/dL Sodium (137-145) mmol/L Carbon Dioxide (22-30) mmol/L BUN (7-17) mg/dL Creatinine (0.52-1.04) mg/dL Glucose (74-99) mg/dL POC Glucose (mg/dL) (70-110) mg/dL Magnesium (1.6-2.3) mg/dL AST (14-36) U/L Alkaline Phosphatase (38-126) U/L Total Protein (6.3-8.2) g/dL Arterial Blood Glucose 129 H (75-99) mg/dL Crossmatch 11/09/24 11/09/24 11/09/24 Range/Units 13:41 13:44 13:49 WBC (3.8-10.6) k/uL RBC (3.80-5.40) m/uL Hgb (11.4-16.0) gm/dL Hct (34.0-46.0) % Plt Count (150-450) k/uL Neutrophils # (1.3-7.7) k/uL Lymphocytes # (1.0-4.8) k/uL PT (10.0-12.5) sec INR (<1.2) APTT (22.0-30.0) sec ABG pH (7.35-7.45) ABG pCO2 (35-45) mmHg ABG pO2 224 H (83-108) mmHg ABG Total CO2 (19-24) mmol/L ABG O2 Saturation >100.0 H (94-97) % ABG Hematocrit (34.0-46.0) % ABG Glucose (75-99) mg/dL Hemoglobin 8.2 L (11.4-16.0) gm/dL Sodium (137-145) mmol/L Carbon Dioxide (22-30) mmol/L BUN 3 L (7-17) mg/dL Creatinine 0.42 L (0.52-1.04) mg/dL Glucose 119 H (74-99) mg/dL POC Glucose (mg/dL) 137 H (70-110) mg/dL Magnesium 1.4 L (1.6-2.3) mg/dL AST (14-36) U/L Alkaline Phosphatase 28 L (38-126) U/L Total Protein 5.0 L (6.3-8.2) g/dL Arterial Blood Glucose (75-99) mg/dL Crossmatch 11/09/24 11/09/24 11/09/24 Range/Units 14:34 15:24 15:34 WBC 10.7 H (3.8-10.6) k/uL RBC 2.96 L (3.80-5.40) m/uL Hgb 9.2 L (11.4-16.0) gm/dL Hct 28.2 L (34.0-46.0) % Plt Count (150-450) k/uL Neutrophils # 8.3 H (1.3-7.7) k/uL Lymphocytes # (1.0-4.8) k/uL PT (10.0-12.5) sec INR (<1.2) APTT (22.0-30.0) sec ABG pH (7.35-7.45) ABG pCO2 (35-45) mmHg ABG pO2 (83-108) mmHg ABG Total CO2 (19-24) mmol/L ABG O2 Saturation (94-97) % ABG Hematocrit (34.0-46.0) % ABG Glucose (75-99) mg/dL Hemoglobin (11.4-16.0) gm/dL Sodium (137-145) mmol/L Carbon Dioxide (22-30) mmol/L BUN (7-17) mg/dL Creatinine (0.52-1.04) mg/dL Glucose (74-99) mg/dL POC Glucose (mg/dL) 134 H 137 H (70-110) mg/dL Magnesium (1.6-2.3) mg/dL AST (14-36) U/L Alkaline Phosphatase (38-126) U/L Total Protein (6.3-8.2) g/dL Arterial Blood Glucose (75-99) mg/dL Crossmatch 11/09/24 11/09/24 11/09/24 Range/Units 16:24 17:05 17:41 WBC (3.8-10.6) k/uL RBC (3.80-5.40) m/uL Hgb (11.4-16.0) gm/dL Hct (34.0-46.0) % Plt Count (150-450) k/uL Neutrophils # (1.3-7.7) k/uL Lymphocytes # (1.0-4.8) k/uL PT (10.0-12.5) sec INR (<1.2) APTT (22.0-30.0) sec ABG pH (7.35-7.45) ABG pCO2 (35-45) mmHg ABG pO2 112 H (83-108) mmHg ABG Total CO2 25 H (19-24) mmol/L ABG O2 Saturation 99.1 H (94-97) % ABG Hematocrit (34.0-46.0) % ABG Glucose (75-99) mg/dL Hemoglobin 8.9 L (11.4-16.0) gm/dL Sodium (137-145) mmol/L Carbon Dioxide (22-30) mmol/L BUN (7-17) mg/dL Creatinine (0.52-1.04) mg/dL Glucose (74-99) mg/dL POC Glucose (mg/dL) 172 H 161 H (70-110) mg/dL Magnesium (1.6-2.3) mg/dL AST (14-36) U/L Alkaline Phosphatase (38-126) U/L Total Protein (6.3-8.2) g/dL Arterial Blood Glucose (75-99) mg/dL Crossmatch 11/09/24 11/09/24 11/09/24 Range/Units 18:08 18:34 18:57 WBC (3.8-10.6) k/uL RBC 2.93 L (3.80-5.40) m/uL Hgb 9.3 L (11.4-16.0) gm/dL Hct 28.2 L (34.0-46.0) % Plt Count (150-450) k/uL Neutrophils # 8.9 H (1.3-7.7) k/uL Lymphocytes # 0.5 L (1.0-4.8) k/uL PT (10.0-12.5) sec INR (<1.2) APTT (22.0-30.0) sec ABG pH (7.35-7.45) ABG pCO2 (35-45) mmHg ABG pO2 (83-108) mmHg ABG Total CO2 (19-24) mmol/L ABG O2 Saturation (94-97) % ABG Hematocrit (34.0-46.0) % ABG Glucose (75-99) mg/dL Hemoglobin (11.4-16.0) gm/dL Sodium (137-145) mmol/L Carbon Dioxide (22-30) mmol/L BUN (7-17) mg/dL Creatinine (0.52-1.04) mg/dL Glucose (74-99) mg/dL POC Glucose (mg/dL) 152 H 140 H (70-110) mg/dL Magnesium (1.6-2.3) mg/dL AST (14-36) U/L Alkaline Phosphatase (38-126) U/L Total Protein (6.3-8.2) g/dL Arterial Blood Glucose (75-99) mg/dL Crossmatch 11/09/24 11/09/24 11/09/24 Range/Units 19:26 21:24 22:07 WBC (3.8-10.6) k/uL RBC (3.80-5.40) m/uL Hgb (11.4-16.0) gm/dL Hct (34.0-46.0) % Plt Count (150-450) k/uL Neutrophils # (1.3-7.7) k/uL Lymphocytes # (1.0-4.8) k/uL PT (10.0-12.5) sec INR (<1.2) APTT (22.0-30.0) sec ABG pH (7.35-7.45) ABG pCO2 (35-45) mmHg ABG pO2 (83-108) mmHg ABG Total CO2 (19-24) mmol/L ABG O2 Saturation (94-97) % ABG Hematocrit (34.0-46.0) % ABG Glucose (75-99) mg/dL Hemoglobin (11.4-16.0) gm/dL Sodium (137-145) mmol/L Carbon Dioxide (22-30) mmol/L BUN (7-17) mg/dL Creatinine (0.52-1.04) mg/dL Glucose (74-99) mg/dL POC Glucose (mg/dL) 158 H 114 H 111 H (70-110) mg/dL Magnesium (1.6-2.3) mg/dL AST (14-36) U/L Alkaline Phosphatase (38-126) U/L Total Protein (6.3-8.2) g/dL Arterial Blood Glucose (75-99) mg/dL Crossmatch 11/09/24 11/10/24 11/10/24 Range/Units 23:17 02:27 03:42 WBC (3.8-10.6) k/uL RBC (3.80-5.40) m/uL Hgb (11.4-16.0) gm/dL Hct (34.0-46.0) % Plt Count (150-450) k/uL Neutrophils # (1.3-7.7) k/uL Lymphocytes # (1.0-4.8) k/uL PT (10.0-12.5) sec INR (<1.2) APTT (22.0-30.0) sec ABG pH (7.35-7.45) ABG pCO2 (35-45) mmHg ABG pO2 (83-108) mmHg ABG Total CO2 (19-24) mmol/L ABG O2 Saturation (94-97) % ABG Hematocrit (34.0-46.0) % ABG Glucose (75-99) mg/dL Hemoglobin (11.4-16.0) gm/dL Sodium (137-145) mmol/L Carbon Dioxide (22-30) mmol/L BUN (7-17) mg/dL Creatinine (0.52-1.04) mg/dL Glucose (74-99) mg/dL POC Glucose (mg/dL) 126 H 116 H 119 H (70-110) mg/dL Magnesium (1.6-2.3) mg/dL AST (14-36) U/L Alkaline Phosphatase (38-126) U/L Total Protein (6.3-8.2) g/dL Arterial Blood Glucose (75-99) mg/dL Crossmatch 11/10/24 11/10/24 11/10/24 Range/Units 04:30 04:30 04:30 WBC (3.8-10.6) k/uL RBC 2.76 L (3.80-5.40) m/uL Hgb 8.4 L (11.4-16.0) gm/dL Hct 26.6 L (34.0-46.0) % Plt Count (150-450) k/uL Neutrophils # (1.3-7.7) k/uL Lymphocytes # (1.0-4.8) k/uL PT (10.0-12.5) sec INR (<1.2) APTT (22.0-30.0) sec ABG pH (7.35-7.45) ABG pCO2 (35-45) mmHg ABG pO2 (83-108) mmHg ABG Total CO2 (19-24) mmol/L ABG O2 Saturation (94-97) % ABG Hematocrit (34.0-46.0) % ABG Glucose (75-99) mg/dL Hemoglobin (11.4-16.0) gm/dL Sodium 132 L (137-145) mmol/L Carbon Dioxide 21 L (22-30) mmol/L BUN 4 L (7-17) mg/dL Creatinine 0.49 L (0.52-1.04) mg/dL Glucose 111 H (74-99) mg/dL POC Glucose (mg/dL) 123 H (70-110) mg/dL Magnesium (1.6-2.3) mg/dL AST 39 H (14-36) U/L Alkaline Phosphatase 27 L (38-126) U/L Total Protein 5.0 L (6.3-8.2) g/dL Arterial Blood Glucose (75-99) mg/dL Crossmatch 11/10/24 11/10/24 Range/Units 07:02 08:11 WBC (3.8-10.6) k/uL RBC (3.80-5.40) m/uL Hgb (11.4-16.0) gm/dL Hct (34.0-46.0) % Plt Count (150-450) k/uL Neutrophils # (1.3-7.7) k/uL Lymphocytes # (1.0-4.8) k/uL PT (10.0-12.5) sec INR (<1.2) APTT (22.0-30.0) sec ABG pH (7.35-7.45) ABG pCO2 (35-45) mmHg ABG pO2 (83-108) mmHg ABG Total CO2 (19-24) mmol/L ABG O2 Saturation (94-97) % ABG Hematocrit (34.0-46.0) % ABG Glucose (75-99) mg/dL Hemoglobin (11.4-16.0) gm/dL Sodium (137-145) mmol/L Carbon Dioxide (22-30) mmol/L BUN (7-17) mg/dL Creatinine (0.52-1.04) mg/dL Glucose (74-99) mg/dL POC Glucose (mg/dL) 138 H 141 H (70-110) mg/dL Magnesium (1.6-2.3) mg/dL AST (14-36) U/L Alkaline Phosphatase (38-126) U/L Total Protein (6.3-8.2) g/dL Arterial Blood Glucose (75-99) mg/dL Crossmatch - Imaging and Cardiology Chest x-ray: report reviewed, image reviewed Assessment and Plan Assessment: Multivessel coronary artery disease, non-STEMI this admission, status post three-vessel off-pump coronary artery bypass grafting surgery Chest pain, secondary to above Anemia, occult stool negative Postoperative acute blood loss anemia, expected given hemodilution and her preoperative history of anemia History of hypertension Peripheral neuropathy with essential tremors Asthma Daily EtOH use, daughter reports multiple beers per day, patient reports down to the 2-3 beers daily Previous tobacco dependence Anxiety Family history of premature coronary artery disease Plan: Continue to maximize medical therapy with aspirin, statin, Plavix, and beta- clover. Will increase metoprolol tartrate as tolerated. Will start oral Norvasc 2.5 mg p.o. daily with hold parameters for radial artery spasm prophylaxis, discontinue nitroglycerin drip. Amiodarone 400 mg p.o. twice daily initiated for atrial fibrillation prophylaxis, no atrial fibrillation has been reported. Continue amiodarone drip until initial amiodarone IV protocol is finished. Wean O2 as tolerated. Encourage incentive spirometry use 10 times every hour while awake. Bronchodilators per pulmonology. Increase activity, ambulate as tolerated. PT/OT/cardiac rehab consulted. Will monitor daily labs and chest x-rays. Electrolyte replacement per protocol. GI/DVT prophylaxis. Pain control per current medication regimen. Toradol added. Insulin management per internal medicine. Patient is not diabetic, hemoglobin A1c 5.9%. Should remain on continuous IV insulin for 48 hours, then may transit ion to subcutaneous per protocol. Remove right IJ Raiford-Yony catheter, keep right IJ cordis in place with continuous CVP monitoring. Discontinue left arm VLAD drain. Continue chest tubes for another 24 hours, monitor and record output. Continue Garcia catheter for another 24 hours. Continue to monitor record strict accurate intake and output. Will give IV Reglan for large gastric bubble. More recommendations to follow based on patient's progress Time with Patient: Greater than 30
[2024-11-10 09:22] LABS: Glucose,Whole Blood 129 mg/dL (70-110)
[2024-11-10 09:36] LABS: Glucose,Whole Blood 114 mg/dL (70-110)
[2024-11-10 09:36] LABS: Glucose,Whole Blood 124 mg/dL (70-110)
[2024-11-10] MEDS: amLODIPine 2.5 MG TAB PO SCH (10:08)
[2024-11-10 10:22] LABS: Glucose,Whole Blood 111 mg/dL (70-110)
--- NOTE | 2024-11-10 10:22 | P.PN ---
Subjective Progress Note Date: 11/10/24 Hospital Course: Patient is a 74-year-old female with past medical history significant for hype rtension, essential tremor, alcoholism, and asthma presents to the emergency department for chest pain that worsened today. She states that she has had chest pain for the last few weeks and just thought it was heartburn as it occurred mostly at night or while laying down. She does state that it woke her up from sleep couple of times over the last few weeks. However today she had increasing chest pain with exertion, relieved by rest. She notes that it is a pressure-like pain that radiates towards her back, lower jaw, and bilateral posterior arms. She rates this pain a 10/10 but notes that it does go away with rest. She denies any nausea/vomiting, diaphoresis, dyspnea, palpitations. She denies a cardiac history., troponin x 3 0.068, 0.124, 0.17 Initial EKG: Sinus rhythm with ventricular rate 71 bpm, QTc 415 ms, no ST-T segment changes ED documentation reviewed. Given aspirin 324 mg p.o. x 1, heparin bolus x 1, started on heparin GTT 12 units/kg/h. Patient was admitted for further evaluation of chest pain, cardiology consulted, recommended continue losartan metoprolol, added Nitropaste, recommended abstinence from alcohol, TTE ordered. Patient was taken to [facility] on 11/04, showed heavily calcified coronary arteries, critical stenosis LAD and RCA, low LVEDP, patient was started back on heparin, awaiting surgical decision regarding CABG. Patient earlier shared that her mother had CABG at age of 60 and at age of 74. CABG workup: Carotid ultrasound showed atheromatous plaquing within the carotid bifurcation, left side moderate between 50 and 69%, right side less than 50%. CT chest showed vascular calcification within the ascending thoracic aorta, no aneurysm. No suspicious lung nodules, Liver ultrasound showed no abnormalities. Subjective: Pt is doing well post op day 1. C/o pain, but is HDS. Sugars are controlled Pertinent positives and negatives as discussed above, a complete review of systems was performed and all other systems are negative. Vitals Signs Reviewed. Gen: In NAD, non-toxic HEENT: normocephalic, atraumatic, hearing acuity is intant, mucous membranes moist CVS: perfusing all extremities well, no pitting edema, Respiratory: symmetric chest expansion, no accessory muscle use, GI: soft, NTTP, ND, : no suprapubic tenderness, no CVA tenderness MSK/Derm: no rashes, cyanosis Neuro: CN II-XII intact, no motor weakness, Psych: cooperative, anxious mood, judgment and insight is intact Assessment and Plan: 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 Hyperlipidemia Hypertension -Cardiology following, CT surgery consulted for CABG, pt is POD #1 -TTE with EF of 55 to 60% with no significant valvular abnormalities or pericardial effusion noted -GI prophylaxis with Protonix 40 oral daily -Continue with cardiac medications per CT surgery and cardiology Prediabetes: A1c 5.9, needs to followup with PCP, prediabetes classes after discharge -insulin gtt PRN --> SQ insulin vs monitoring for target CBG 100-180. Alcohol use disorder: Continue multivitamins, CIWA with Ativan, social work [ DVT ppx: Heparin SQ TID Code status: Full code Anticipated discharge place: TBD Anticipated discharge time: TBD Objective - Vital Signs Vital signs: Vital Signs Temp 99.5 F 11/10/24 04:00 Pulse 85 11/10/24 09:00 Resp 18 11/10/24 09:00 BP 110/99 11/10/24 09:00 Pulse Ox 96 11/10/24 09:00 FiO2 40 11/09/24 17:44 Intake & Output 11/09/24 11/10/24 11/10/24 18:59 06:59 18:59 Intake Total 456.053 2779.492 439.733 Output Total 1965 1465 110 Balance -974.364 -376.508 329.733 Weight 52.1 kg 52.1 kg Intake: IV 519 1059 408 .9NS Cardiac Output 80 160 40 .9NS Pressure Bag 45 99 18 ACETAMINOPHEN IV (For NPO 100 200 ) 1,000 mg In Empty Bag 1 bag @ 400 mls/hr IVPB Q6HR [facility] Rx#:[id number] Albumin Human 5% 250 ml 250 In Empty Bag 1 bag @ 250 mls/hr IVPB Q1HR PRN Rx#: [id number] Sodium Chloride 0.9% 1, 190 600 100 000 ml @ 50 mls/hr IV . Q20H [facility] Rx#:[id number] Intake, IV Titration 471.636 29.492 31.733 Amount Clevidipine Butyrate 25 25.067 19.4 mg In Empty Bag 1 bag @ 1 MG/HR 2 mls/hr IV .Q24H [facility] Rx#:[id number] Dexmedetomidine/0.9% NaCl 3.113 (Pmx) 400 mcg In Empty Bag 1 bag @ Titrate IV . Q0M [facility] Rx#:[id number] Insulin Regular 100 unit 6.136 10.092 2.533 In Sodium Chloride 0.9% 100 ml @ Per Protocol IV .Q0M [facility] Rx#:[id number] Magnesium Sulfate-D5w Pmx 200 1 gm In Dextrose/Water 1 100ml.bag @ 100 mls/hr IVPB Q1H [facility] Rx#: [id number] Nitroglycerin-D5w Pmx 50 29.2 mg In Dextrose/Water 1 250ml.bag @ 5 MCG/MIN 1.5 mls/hr IV .Q24H [facility] Rx#: [id number] Potassium Chloride 10 meq 200 In Water For Injection 1 100ml.bag @ 100 mls/hr IVPB Q1H [facility] Rx#: [id number] propofoL 1,000 mg In 37.320 Empty Bag 1 bag @ Titrate IV .Q0M [facility] Rx#: [id number] Output: Chest Tube Drainage 320 560 40 Left Pleural Chest Tube 210 290 20 Mediastinal Chest Tube 110 270 20 Drainage 20 10 Left Arm 20 10 Urine 1125 895 70 Estimated Blood Loss 500 Other: Voiding Method Indwelling Catheter Indwelling Catheter ABP, PAP, CO, CI - Last Documented Arterial Blood Pressure 145/39 Pulmonary Artery Pressure 21/6 Cardiac Output 4.9 Cardiac Index 3.2 - Labs CBC & Chem 7: 11/10/24 04:30 11/10/24 04:30 Labs: Abnormal Lab Results - Last 24 Hours (Table) 11/09/24 11/09/24 11/09/24 Range/Units 06:28 08:49 10:30 WBC (3.8-10.6) k/uL RBC (3.80-5.40) m/uL Hgb (11.4-16.0) gm/dL Hct (34.0-46.0) % Plt Count (150-450) k/uL Neutrophils # (1.3-7.7) k/uL Lymphocytes # (1.0-4.8) k/uL PT (10.0-12.5) sec INR (<1.2) APTT (22.0-30.0) sec ABG pH (7.35-7.45) ABG pCO2 34 L (35-45) mmHg ABG pO2 279 H 287 H (83-108) mmHg ABG Total CO2 (19-24) mmol/L ABG O2 Saturation 99.1 H >99.4 H (94-97) % ABG Hematocrit 29 L 24 L (34.0-46.0) % ABG Glucose 106 H 125 H (75-99) mg/dL Hemoglobin 9.3 L 7.9 L (11.4-16.0) gm/dL Sodium (137-145) mmol/L Carbon Dioxide (22-30) mmol/L BUN (7-17) mg/dL Creatinine (0.52-1.04) mg/dL Glucose (74-99) mg/dL POC Glucose (mg/dL) (70-110) mg/dL Magnesium (1.6-2.3) mg/dL AST (14-36) U/L Alkaline Phosphatase (38-126) U/L Total Protein (6.3-8.2) g/dL Arterial Blood Glucose 106 H 125 H (75-99) mg/dL Crossmatch See Detail 11/09/24 11/09/24 11/09/24 Range/Units 11:09 11:34 11:58 WBC (3.8-10.6) k/uL RBC (3.80-5.40) m/uL Hgb (11.4-16.0) gm/dL Hct (34.0-46.0) % Plt Count (150-450) k/uL Neutrophils # (1.3-7.7) k/uL Lymphocytes # (1.0-4.8) k/uL PT (10.0-12.5) sec INR (<1.2) APTT (22.0-30.0) sec ABG pH (7.35-7.45) ABG pCO2 (35-45) mmHg ABG pO2 284 H 301 H 285 H (83-108) mmHg ABG Total CO2 (19-24) mmol/L ABG O2 Saturation 99.2 H 99.3 H 99.2 H (94-97) % ABG Hematocrit 24 L 23 L 22 L (34.0-46.0) % ABG Glucose 125 H 128 H 133 H (75-99) mg/dL Hemoglobin 7.8 L 7.4 L 7.2 L (11.4-16.0) gm/dL Sodium (137-145) mmol/L Carbon Dioxide (22-30) mmol/L BUN (7-17) mg/dL Creatinine (0.52-1.04) mg/dL Glucose (74-99) mg/dL POC Glucose (mg/dL) (70-110) mg/dL Magnesium (1.6-2.3) mg/dL AST (14-36) U/L Alkaline Phosphatase (38-126) U/L Total Protein (6.3-8.2) g/dL Arterial Blood Glucose 125 H 128 H 133 H (75-99) mg/dL Crossmatch 11/09/24 11/09/24 11/09/24 Range/Units 12:42 13:41 13:41 WBC (3.8-10.6) k/uL RBC 2.66 L (3.80-5.40) m/uL Hgb 8.3 L D (11.4-16.0) gm/dL Hct 25.6 L (34.0-46.0) % Plt Count 135 L (150-450) k/uL Neutrophils # (1.3-7.7) k/uL Lymphocytes # (1.0-4.8) k/uL PT 15.0 H (10.0-12.5) sec INR 1.4 H (<1.2) APTT 35.5 H (22.0-30.0) sec ABG pH 7.33 L (7.35-7.45) ABG pCO2 (35-45) mmHg ABG pO2 269 H (83-108) mmHg ABG Total CO2 (19-24) mmol/L ABG O2 Saturation 99.0 H (94-97) % ABG Hematocrit 22 L (34.0-46.0) % ABG Glucose 129 H (75-99) mg/dL Hemoglobin 7.1 L (11.4-16.0) gm/dL Sodium (137-145) mmol/L Carbon Dioxide (22-30) mmol/L BUN (7-17) mg/dL Creatinine (0.52-1.04) mg/dL Glucose (74-99) mg/dL POC Glucose (mg/dL) (70-110) mg/dL Magnesium (1.6-2.3) mg/dL AST (14-36) U/L Alkaline Phosphatase (38-126) U/L Total Protein (6.3-8.2) g/dL Arterial Blood Glucose 129 H (75-99) mg/dL Crossmatch 11/09/24 11/09/24 11/09/24 Range/Units 13:41 13:44 13:49 WBC (3.8-10.6) k/uL RBC (3.80-5.40) m/uL Hgb (11.4-16.0) gm/dL Hct (34.0-46.0) % Plt Count (150-450) k/uL Neutrophils # (1.3-7.7) k/uL Lymphocytes # (1.0-4.8) k/uL PT (10.0-12.5) sec INR (<1.2) APTT (22.0-30.0) sec ABG pH (7.35-7.45) ABG pCO2 (35-45) mmHg ABG pO2 224 H (83-108) mmHg ABG Total CO2 (19-24) mmol/L ABG O2 Saturation >100.0 H (94-97) % ABG Hematocrit (34.0-46.0) % ABG Glucose (75-99) mg/dL Hemoglobin 8.2 L (11.4-16.0) gm/dL Sodium (137-145) mmol/L Carbon Dioxide (22-30) mmol/L BUN 3 L (7-17) mg/dL Creatinine 0.42 L (0.52-1.04) mg/dL Glucose 119 H (74-99) mg/dL POC Glucose (mg/dL) 137 H (70-110) mg/dL Magnesium 1.4 L (1.6-2.3) mg/dL AST (14-36) U/L Alkaline Phosphatase 28 L (38-126) U/L Total Protein 5.0 L (6.3-8.2) g/dL Arterial Blood Glucose (75-99) mg/dL Crossmatch 11/09/24 11/09/24 11/09/24 Range/Units 14:34 15:24 15:34 WBC 10.7 H (3.8-10.6) k/uL RBC 2.96 L (3.80-5.40) m/uL Hgb 9.2 L (11.4-16.0) gm/dL Hct 28.2 L (34.0-46.0) % Plt Count (150-450) k/uL Neutrophils # 8.3 H (1.3-7.7) k/uL Lymphocytes # (1.0-4.8) k/uL PT (10.0-12.5) sec INR (<1.2) APTT (22.0-30.0) sec ABG pH (7.35-7.45) ABG pCO2 (35-45) mmHg ABG pO2 (83-108) mmHg ABG Total CO2 (19-24) mmol/L ABG O2 Saturation (94-97) % ABG Hematocrit (34.0-46.0) % ABG Glucose (75-99) mg/dL Hemoglobin (11.4-16.0) gm/dL Sodium (137-145) mmol/L Carbon Dioxide (22-30) mmol/L BUN (7-17) mg/dL Creatinine (0.52-1.04) mg/dL Glucose (74-99) mg/dL POC Glucose (mg/dL) 134 H 137 H (70-110) mg/dL Magnesium (1.6-2.3) mg/dL AST (14-36) U/L Alkaline Phosphatase (38-126) U/L Total Protein (6.3-8.2) g/dL Arterial Blood Glucose (75-99) mg/dL Crossmatch 11/09/24 11/09/24 11/09/24 Range/Units 16:24 17:05 17:41 WBC (3.8-10.6) k/uL RBC (3.80-5.40) m/uL Hgb (11.4-16.0) gm/dL Hct (34.0-46.0) % Plt Count (150-450) k/uL Neutrophils # (1.3-7.7) k/uL Lymphocytes # (1.0-4.8) k/uL PT (10.0-12.5) sec INR (<1.2) APTT (22.0-30.0) sec ABG pH (7.35-7.45) ABG pCO2 (35-45) mmHg ABG pO2 112 H (83-108) mmHg ABG Total CO2 25 H (19-24) mmol/L ABG O2 Saturation 99.1 H (94-97) % ABG Hematocrit (34.0-46.0) % ABG Glucose (75-99) mg/dL Hemoglobin 8.9 L (11.4-16.0) gm/dL Sodium (137-145) mmol/L Carbon Dioxide (22-30) mmol/L BUN (7-17) mg/dL Creatinine (0.52-1.04) mg/dL Glucose (74-99) mg/dL POC Glucose (mg/dL) 172 H 161 H (70-110) mg/dL Magnesium (1.6-2.3) mg/dL AST (14-36) U/L Alkaline Phosphatase (38-126) U/L Total Protein (6.3-8.2) g/dL Arterial Blood Glucose (75-99) mg/dL Crossmatch 11/09/24 11/09/24 11/09/24 Range/Units 18:08 18:34 18:57 WBC (3.8-10.6) k/uL RBC 2.93 L (3.80-5.40) m/uL Hgb 9.3 L (11.4-16.0) gm/dL Hct 28.2 L (34.0-46.0) % Plt Count (150-450) k/uL Neutrophils # 8.9 H (1.3-7.7) k/uL Lymphocytes # 0.5 L (1.0-4.8) k/uL PT (10.0-12.5) sec INR (<1.2) APTT (22.0-30.0) sec ABG pH (7.35-7.45) ABG pCO2 (35-45) mmHg ABG pO2 (83-108) mmHg ABG Total CO2 (19-24) mmol/L ABG O2 Saturation (94-97) % ABG Hematocrit (34.0-46.0) % ABG Glucose (75-99) mg/dL Hemoglobin (11.4-16.0) gm/dL Sodium (137-145) mmol/L Carbon Dioxide (22-30) mmol/L BUN (7-17) mg/dL Creatinine (0.52-1.04) mg/dL Glucose (74-99) mg/dL POC Glucose (mg/dL) 152 H 140 H (70-110) mg/dL Magnesium (1.6-2.3) mg/dL AST (14-36) U/L Alkaline Phosphatase (38-126) U/L Total Protein (6.3-8.2) g/dL Arterial Blood Glucose (75-99) mg/dL Crossmatch 11/09/24 11/09/24 11/09/24 Range/Units 19:26 21:24 22:07 WBC (3.8-10.6) k/uL RBC (3.80-5.40) m/uL Hgb (11.4-16.0) gm/dL Hct (34.0-46.0) % Plt Count (150-450) k/uL Neutrophils # (1.3-7.7) k/uL Lymphocytes # (1.0-4.8) k/uL PT (10.0-12.5) sec INR (<1.2) APTT (22.0-30.0) sec ABG pH (7.35-7.45) ABG pCO2 (35-45) mmHg ABG pO2 (83-108) mmHg ABG Total CO2 (19-24) mmol/L ABG O2 Saturation (94-97) % ABG Hematocrit (34.0-46.0) % ABG Glucose (75-99) mg/dL Hemoglobin (11.4-16.0) gm/dL Sodium (137-145) mmol/L Carbon Dioxide (22-30) mmol/L BUN (7-17) mg/dL Creatinine (0.52-1.04) mg/dL Glucose (74-99) mg/dL POC Glucose (mg/dL) 158 H 114 H 111 H (70-110) mg/dL Magnesium (1.6-2.3) mg/dL AST (14-36) U/L Alkaline Phosphatase (38-126) U/L Total Protein (6.3-8.2) g/dL Arterial Blood Glucose (75-99) mg/dL Crossmatch 11/09/24 11/10/24 11/10/24 Range/Units 23:17 00:13 01:00 WBC (3.8-10.6) k/uL RBC (3.80-5.40) m/uL Hgb (11.4-16.0) gm/dL Hct (34.0-46.0) % Plt Count (150-450) k/uL Neutrophils # (1.3-7.7) k/uL Lymphocytes # (1.0-4.8) k/uL PT (10.0-12.5) sec INR (<1.2) APTT (22.0-30.0) sec ABG pH (7.35-7.45) ABG pCO2 (35-45) mmHg ABG pO2 (83-108) mmHg ABG Total CO2 (19-24) mmol/L ABG O2 Saturation (94-97) % ABG Hematocrit (34.0-46.0) % ABG Glucose (75-99) mg/dL Hemoglobin (11.4-16.0) gm/dL Sodium (137-145) mmol/L Carbon Dioxide (22-30) mmol/L BUN (7-17) mg/dL Creatinine (0.52-1.04) mg/dL Glucose (74-99) mg/dL POC Glucose (mg/dL) 126 H 124 H 114 H (70-110) mg/dL Magnesium (1.6-2.3) mg/dL AST (14-36) U/L Alkaline Phosphatase (38-126) U/L Total Protein (6.3-8.2) g/dL Arterial Blood Glucose (75-99) mg/dL Crossmatch 11/10/24 11/10/24 11/10/24 Range/Units 02:27 03:42 04:30 WBC (3.8-10.6) k/uL RBC 2.76 L (3.80-5.40) m/uL Hgb 8.4 L (11.4-16.0) gm/dL Hct 26.6 L (34.0-46.0) % Plt Count (150-450) k/uL Neutrophils # (1.3-7.7) k/uL Lymphocytes # (1.0-4.8) k/uL PT (10.0-12.5) sec INR (<1.2) APTT (22.0-30.0) sec ABG pH (7.35-7.45) ABG pCO2 (35-45) mmHg ABG pO2 (83-108) mmHg ABG Total CO2 (19-24) mmol/L ABG O2 Saturation (94-97) % ABG Hematocrit (34.0-46.0) % ABG Glucose (75-99) mg/dL Hemoglobin (11.4-16.0) gm/dL Sodium (137-145) mmol/L Carbon Dioxide (22-30) mmol/L BUN (7-17) mg/dL Creatinine (0.52-1.04) mg/dL Glucose (74-99) mg/dL POC Glucose (mg/dL) 116 H 119 H (70-110) mg/dL Magnesium (1.6-2.3) mg/dL AST (14-36) U/L Alkaline Phosphatase (38-126) U/L Total Protein (6.3-8.2) g/dL Arterial Blood Glucose (75-99) mg/dL Crossmatch 11/10/24 11/10/24 11/10/24 Range/Units 04:30 04:30 07:02 WBC (3.8-10.6) k/uL RBC (3.80-5.40) m/uL Hgb (11.4-16.0) gm/dL Hct (34.0-46.0) % Plt Count (150-450) k/uL Neutrophils # (1.3-7.7) k/uL Lymphocytes # (1.0-4.8) k/uL PT (10.0-12.5) sec INR (<1.2) APTT (22.0-30.0) sec ABG pH (7.35-7.45) ABG pCO2 (35-45) mmHg ABG pO2 (83-108) mmHg ABG Total CO2 (19-24) mmol/L ABG O2 Saturation (94-97) % ABG Hematocrit (34.0-46.0) % ABG Glucose (75-99) mg/dL Hemoglobin (11.4-16.0) gm/dL Sodium 132 L (137-145) mmol/L Carbon Dioxide 21 L (22-30) mmol/L BUN 4 L (7-17) mg/dL Creatinine 0.49 L (0.52-1.04) mg/dL Glucose 111 H (74-99) mg/dL POC Glucose (mg/dL) 123 H 138 H (70-110) mg/dL Magnesium (1.6-2.3) mg/dL AST 39 H (14-36) U/L Alkaline Phosphatase 27 L (38-126) U/L Total Protein 5.0 L (6.3-8.2) g/dL Arterial Blood Glucose (75-99) mg/dL Crossmatch 11/10/24 11/10/24 Range/Units 08:11 09:21 WBC (3.8-10.6) k/uL RBC (3.80-5.40) m/uL Hgb (11.4-16.0) gm/dL Hct (34.0-46.0) % Plt Count (150-450) k/uL Neutrophils # (1.3-7.7) k/uL Lymphocytes # (1.0-4.8) k/uL PT (10.0-12.5) sec INR (<1.2) APTT (22.0-30.0) sec ABG pH (7.35-7.45) ABG pCO2 (35-45) mmHg ABG pO2 (83-108) mmHg ABG Total CO2 (19-24) mmol/L ABG O2 Saturation (94-97) % ABG Hematocrit (34.0-46.0) % ABG Glucose (75-99) mg/dL Hemoglobin (11.4-16.0) gm/dL Sodium (137-145) mmol/L Carbon Dioxide (22-30) mmol/L BUN (7-17) mg/dL Creatinine (0.52-1.04) mg/dL Glucose (74-99) mg/dL POC Glucose (mg/dL) 141 H 129 H (70-110) mg/dL Magnesium (1.6-2.3) mg/dL AST (14-36) U/L Alkaline Phosphatase (38-126) U/L Total Protein (6.3-8.2) g/dL Arterial Blood Glucose (75-99) mg/dL Crossmatch
[2024-11-10 12:00] LABS: Glucose,Whole Blood 132 mg/dL (70-110)
[2024-11-10 13:12] LABS: Glucose,Whole Blood 266 mg/dL (70-110)
[2024-11-10 14:08] LABS: Glucose,Whole Blood 189 mg/dL (70-110)
--- NOTE | 2024-11-10 14:09 | P.PN ---
Subjective Progress Note Date: 11/10/24 Principal diagnosis: Multivessel coronary artery disease, status post Off-pump CABG x 3 with AGUILAR to LAD, left radial artery graft to obtuse marginal, saphenous vein graft to right coronary artery, endovascular vein and left radial artery harvest, occlusion of left atrial appendage with 40 mm AtriCure clip, LUIS ANTONIO by anesthesia., Postoperative day #1 Patient is a 74-year-old female with past medical history significant for hypertension, daily alcohol use, resting tremor, anxiety, mild intermittent asthma. Presented to emergency department back on 11/03/2024 with a chief co mplaint of chest pain. Diagnosed with non-ST elevation IA. Taken to the [facility] on 11/04/2024 which showed multivessel coronary artery disease with critical stenosis involving the proximal LAD and RCA and moderate disease of the left circumflex. Patient was referred to cardiothoracic surgery. Patient is currently undergoing extensive preoperative workup. We are asked to see this patient for preoperative pulmonary clearance. Patient is being seen on the cardiac stepdown floor. Currently on IV heparin protocol. Is reporting some substernal chest pain with radiation to her back. States it is reoccurring at nighttime. The nurses are putting Nitropaste on. EKG is going to be repeated. She has history of mild intermittent asthma, does have an as needed albuterol rescue inhaler at home, but does not usually require it unless sick. History of tobacco smoking over 40 years ago. No recent URI, pneumonias, pulmonary complaints. Respiratory therapist did a bedside spirometry, FEV1 was reported at 0.91 L or 46% of predicted. CT of the chest does not show any acute parenchymal abnormalities. No suspicious lung nodules or focal infiltrates. Vascular calcification of thoracic aorta. Patient currently resting comfortably on room air oxygen. Her chest pain is subsided. No nausea or vomiting or diaphoresis. Denies shortness of breath. She has a severe resting tremor. She states she feels anxious about being on the ventilator. No prior major surgeries or issue with general anesthesia. Incentive spirometer is at bedside. Most recent labs from yesterday including a WBC count of 7.3, hemoglobin 10.8, platelets 285. Effort appears therapeutic based on APTT. CMP: Sodium 136, potassium 4, chloride 103, serum bicarb 22, BUN 5, creatinine 0.52, glucose 83. Previously troponins were elevated at 0.06, 0.124, and 0.17. Echocardiogram showing normal biventricular systolic function, no significant valvular abnormalities. Current vital signs: Temperature 98.2 F, heart rate 95 bpm, blood pressure 160/80 mmHg, nontachypneic, SpO2 is 100% on room air. On 11/07/2024, the patient is being seen for a follow-up. She is free of any chest pain. She remains on IV heparin. In regards to her COPD, start the patient on DuoNeb updrafts and cause significant tachycardia and tremors. Based on that, the patient was unable to continue updrafts. She continues to be on IV heparin. She is using incentive spirometer. Hemoglobin is 11.2. PTT is 47. Electrolytes are all noted and the patient has a potassium level of 3.4 that is to be replaced. BUN is 4 with a creatinine of 0.49. Calcium level is at 9.5. No cardiac arrhythmias. On 11/08/2024, the patient remains on IV heparin. She is free of any chest pain. She has COPD and she was started on Symbicort and albuterol HFA 4 times a day. DuoNeb updrafts have been discontinued because of increased tremors and tachyca rdia. She is able to tolerate inhalers reasonably well. The plan is to undergo bypass surgery scheduled to be done in the morning. Hemoglobin stable at 11.2, white cell count is 6.4. BUN is at 4 with a creatinine of 0.5 and a sodium levels at 138. Potassium level is at 4.3. Using incentive spirometer. Pulling approximately 1500. Pulse ox is 94% on room air oxygen. Patient was seen today on 11/09/2024, patient is status post Off-pump CABG x 3 with AGUILAR to LAD, left radial artery graft to obtuse marginal, saphenous vein graft to right coronary artery, endovascular vein and left radial artery harvest, occlusion of left atrial appendage with 40 mm AtriCure clip, LUIS ANTONIO by anesthesia., Patient was admitted to the ICU intubated and mechanically ventilated, she is now on assist-control rate of 16 tidal volume 400 FiO2 40% and PEEP of 5 ABG showed a pO2 of 224 pCO2 37 pH of 7.41 cardiac output is 5.3 cardiac index of 3.5 patient is on multiple drips including propofol at 20 mcg/kg/min, amiodarone at 1 mg/min, nitroglycerin at 5 mcg/min, insulin at 1 unit/h patient is also on Cleviprex at 4 mg/h. Patient is sedated, however she seems to be arousable with deep painful stimuli. Does not seem to be in distress, patient again is intubated and mechanically ventilated and on multiple drips as noted above chest x-ray no evidence of active disease, postoperative changes were noted. All labs from today were reviewed, her ventilator settings were adjusted accordingly. Patient was seen today on 11/10/2024, POD #1 Off-pump CABG x 3 with AGUILAR to LAD, left radial artery graft to obtuse marginal, saphenous vein graft to right coronary artery, endovascular vein and left radial artery harvest, occlusion of left atrial appendage with 40 mm AtriCure clip, LUIS ANTONIO by anesthesia. Patient was extubated last night at 5:53 PM, she was extubated successfully, tolerated the extubation well. Today the patient is on nasal cannula, 2 L/min, achieving 1000 mL on her incentive spirometry patient is in sinus rhythm, receiving amiodarone prophylactically, continues to have right IJ cordis and Milmay-Yony catheter in place, her cardiac output is 5.6 cardiac index is 3.7 PA pressure 29/10 CVP is 9 patient is on amiodarone at 0.5 mg/min, she is also on nitroglycerin 5 mcg/min. Her mediastinal and left-sided chest tubes remain in place connected to Pleur- evac, no airleak is noted, chest x-ray showed no evidence of pneumothorax, minimal basilar atelectasis noted. WBC count is 9.2 hemoglobin is 8.4, basic metabolic profile is normal renal profile is normal Objective - Vital Signs Vital signs: Vital Signs Temp 98.4 F 11/10/24 12:00 Pulse 82 11/10/24 13:00 Resp 16 11/10/24 13:00 BP 101/45 11/10/24 13:00 Pulse Ox 92 L 11/10/24 13:00 FiO2 40 11/09/24 17:44 Intake & Output 11/09/24 11/10/24 11/10/24 18:59 06:59 18:59 Intake Total 690.185 9448.492 1331.290 Output Total 1965 1465 400 Balance -974.364 -376.508 931.290 Weight 52.1 kg 52.1 kg Intake: IV 519 1059 838 .9NS Cardiac Output 80 160 40 .9NS Pressure Bag 45 99 48 ACETAMINOPHEN IV (For NPO 100 200 100 ) 1,000 mg In Empty Bag 1 bag @ 400 mls/hr IVPB Q6HR [facility] Rx#:[id number] Albumin Human 5% 250 ml 250 In Empty Bag 1 bag @ 250 mls/hr IVPB Q1HR PRN Rx#: [id number] Potassium Chloride 10 meq 100 In Water For Injection 1 100ml.bag @ 100 mls/hr IVPB Q1H [facility] Rx#: [id number] Sodium Chloride 0.9% 1, 190 600 250 000 ml @ 20 mls/hr IV . Q24H [facility] Rx#:[id number] ceFAZolin 2 gm In Sodium 50 Chloride 0.9% 50 ml @ 100 mls/hr IVPB ONCE ONE Rx# :[id number] Intake, IV Titration 471.636 29.492 33.290 Amount Clevidipine Butyrate 25 25.067 19.4 mg In Empty Bag 1 bag @ 1 MG/HR 2 mls/hr IV .Q24H [facility] Rx#:[id number] Dexmedetomidine/0.9% NaCl 3.113 (Pmx) 400 mcg In Empty Bag 1 bag @ Titrate IV . Q0M [facility] Rx#:[id number] Insulin Regular 100 unit 6.136 10.092 4.090 In Sodium Chloride 0.9% 100 ml @ Per Protocol IV .Q0M [facility] Rx#:[id number] Magnesium Sulfate-D5w Pmx 200 1 gm In Dextrose/Water 1 100ml.bag @ 100 mls/hr IVPB Q1H [facility] Rx#: [id number] Nitroglycerin-D5w Pmx 50 29.2 mg In Dextrose/Water 1 250ml.bag @ 5 MCG/MIN 1.5 mls/hr IV .Q24H [facility] Rx#: [id number] Potassium Chloride 10 meq 200 In Water For Injection 1 100ml.bag @ 100 mls/hr IVPB Q1H [facility] Rx#: [id number] propofoL 1,000 mg In 37.320 Empty Bag 1 bag @ Titrate IV .Q0M [facility] Rx#: [id number] Oral 460 Output: Chest Tube Drainage 320 560 140 Left Pleural Chest Tube 210 290 80 Mediastinal Chest Tube 110 270 60 Drainage 20 10 Left Arm 20 10 Urine 1125 895 260 Estimated Blood Loss 500 Other: Voiding Method Indwelling Catheter Indwelling Catheter Indwelling Catheter ABP, PAP, CO, CI - Last Documented Arterial Blood Pressure 131/35 Pulmonary Artery Pressure 21/6 Cardiac Output 4.9 Cardiac Index 3.2 - Exam CONSTITUTIONAL: Revealed 73-year-old, in no distress on 2 L nasal cannula, sitting at the bedside chair, Head: Atraumatic normocephalic HEENT: PERRLA, EOMI, nonicteric RESPIRATORY: Good breath sound bilaterally no rhonchi no wheezes CARDIOVASCULAR: S1, S2 present. Regular rate and rhythm, sinus rhythm on telemetry. Positive pericardial rub GASTROINTESTINAL: Abdomen soft, nontender, nondistended. Active bowel sounds present 4 quadrants. INTEGUMENTARY: Skin is warm and dry. No clubbing or cyanosis present. NEUROLOGIC: Alert oriented x 3 no gross focal deficit MUSKULOSKELETAL: No evidence of deformities, no limitation of range of motion PSYCHIATRIC: Normal mood affect and normal mental status examination - Labs CBC & Chem 7: 11/10/24 04:30 11/10/24 04:30 Labs: Abnormal Lab Results - Last 24 Hours (Table) 11/09/24 11/09/24 11/09/24 Range/Units 06:28 13:41 13:41 WBC (3.8-10.6) k/uL RBC 2.66 L (3.80-5.40) m/uL Hgb 8.3 L D (11.4-16.0) gm/dL Hct 25.6 L (34.0-46.0) % Plt Count 135 L (150-450) k/uL Neutrophils # (1.3-7.7) k/uL Lymphocytes # (1.0-4.8) k/uL PT 15.0 H (10.0-12.5) sec INR 1.4 H (<1.2) APTT 35.5 H (22.0-30.0) sec ABG pO2 (83-108) mmHg ABG Total CO2 (19-24) mmol/L ABG O2 Saturation (94-97) % Hemoglobin (11.4-16.0) gm/dL Sodium (137-145) mmol/L Carbon Dioxide (22-30) mmol/L BUN (7-17) mg/dL Creatinine (0.52-1.04) mg/dL Glucose (74-99) mg/dL POC Glucose (mg/dL) (70-110) mg/dL Magnesium (1.6-2.3) mg/dL AST (14-36) U/L Alkaline Phosphatase (38-126) U/L Total Protein (6.3-8.2) g/dL Crossmatch See Detail 11/09/24 11/09/24 11/09/24 Range/Units 13:41 14:34 15:24 WBC (3.8-10.6) k/uL RBC (3.80-5.40) m/uL Hgb (11.4-16.0) gm/dL Hct (34.0-46.0) % Plt Count (150-450) k/uL Neutrophils # (1.3-7.7) k/uL Lymphocytes # (1.0-4.8) k/uL PT (10.0-12.5) sec INR (<1.2) APTT (22.0-30.0) sec ABG pO2 (83-108) mmHg ABG Total CO2 (19-24) mmol/L ABG O2 Saturation (94-97) % Hemoglobin (11.4-16.0) gm/dL Sodium (137-145) mmol/L Carbon Dioxide (22-30) mmol/L BUN 3 L (7-17) mg/dL Creatinine 0.42 L (0.52-1.04) mg/dL Glucose 119 H (74-99) mg/dL POC Glucose (mg/dL) 134 H 137 H (70-110) mg/dL Magnesium 1.4 L (1.6-2.3) mg/dL AST (14-36) U/L Alkaline Phosphatase 28 L (38-126) U/L Total Protein 5.0 L (6.3-8.2) g/dL Crossmatch 11/09/24 11/09/24 11/09/24 Range/Units 15:34 16:24 17:05 WBC 10.7 H (3.8-10.6) k/uL RBC 2.96 L (3.80-5.40) m/uL Hgb 9.2 L (11.4-16.0) gm/dL Hct 28.2 L (34.0-46.0) % Plt Count (150-450) k/uL Neutrophils # 8.3 H (1.3-7.7) k/uL Lymphocytes # (1.0-4.8) k/uL PT (10.0-12.5) sec INR (<1.2) APTT (22.0-30.0) sec ABG pO2 (83-108) mmHg ABG Total CO2 (19-24) mmol/L ABG O2 Saturation (94-97) % Hemoglobin (11.4-16.0) gm/dL Sodium (137-145) mmol/L Carbon Dioxide (22-30) mmol/L BUN (7-17) mg/dL Creatinine (0.52-1.04) mg/dL Glucose (74-99) mg/dL POC Glucose (mg/dL) 172 H 161 H (70-110) mg/dL Magnesium (1.6-2.3) mg/dL AST (14-36) U/L Alkaline Phosphatase (38-126) U/L Total Protein (6.3-8.2) g/dL Crossmatch 11/09/24 11/09/24 11/09/24 Range/Units 17:41 18:08 18:34 WBC (3.8-10.6) k/uL RBC 2.93 L (3.80-5.40) m/uL Hgb 9.3 L (11.4-16.0) gm/dL Hct 28.2 L (34.0-46.0) % Plt Count (150-450) k/uL Neutrophils # 8.9 H (1.3-7.7) k/uL Lymphocytes # 0.5 L (1.0-4.8) k/uL PT (10.0-12.5) sec INR (<1.2) APTT (22.0-30.0) sec ABG pO2 112 H (83-108) mmHg ABG Total CO2 25 H (19-24) mmol/L ABG O2 Saturation 99.1 H (94-97) % Hemoglobin 8.9 L (11.4-16.0) gm/dL Sodium (137-145) mmol/L Carbon Dioxide (22-30) mmol/L BUN (7-17) mg/dL Creatinine (0.52-1.04) mg/dL Glucose (74-99) mg/dL POC Glucose (mg/dL) 152 H (70-110) mg/dL Magnesium (1.6-2.3) mg/dL AST (14-36) U/L Alkaline Phosphatase (38-126) U/L Total Protein (6.3-8.2) g/dL Crossmatch 11/09/24 11/09/24 11/09/24 Range/Units 18:57 19:26 21:24 WBC (3.8-10.6) k/uL RBC (3.80-5.40) m/uL Hgb (11.4-16.0) gm/dL Hct (34.0-46.0) % Plt Count (150-450) k/uL Neutrophils # (1.3-7.7) k/uL Lymphocytes # (1.0-4.8) k/uL PT (10.0-12.5) sec INR (<1.2) APTT (22.0-30.0) sec ABG pO2 (83-108) mmHg ABG Total CO2 (19-24) mmol/L ABG O2 Saturation (94-97) % Hemoglobin (11.4-16.0) gm/dL Sodium (137-145) mmol/L Carbon Dioxide (22-30) mmol/L BUN (7-17) mg/dL Creatinine (0.52-1.04) mg/dL Glucose (74-99) mg/dL POC Glucose (mg/dL) 140 H 158 H 114 H (70-110) mg/dL Magnesium (1.6-2.3) mg/dL AST (14-36) U/L Alkaline Phosphatase (38-126) U/L Total Protein (6.3-8.2) g/dL Crossmatch 11/09/24 11/09/24 11/10/24 Range/Units 22:07 23:17 00:13 WBC (3.8-10.6) k/uL RBC (3.80-5.40) m/uL Hgb (11.4-16.0) gm/dL Hct (34.0-46.0) % Plt Count (150-450) k/uL Neutrophils # (1.3-7.7) k/uL Lymphocytes # (1.0-4.8) k/uL PT (10.0-12.5) sec INR (<1.2) APTT (22.0-30.0) sec ABG pO2 (83-108) mmHg ABG Total CO2 (19-24) mmol/L ABG O2 Saturation (94-97) % Hemoglobin (11.4-16.0) gm/dL Sodium (137-145) mmol/L Carbon Dioxide (22-30) mmol/L BUN (7-17) mg/dL Creatinine (0.52-1.04) mg/dL Glucose (74-99) mg/dL POC Glucose (mg/dL) 111 H 126 H 124 H (70-110) mg/dL Magnesium (1.6-2.3) mg/dL AST (14-36) U/L Alkaline Phosphatase (38-126) U/L Total Protein (6.3-8.2) g/dL Crossmatch 11/10/24 11/10/24 11/10/24 Range/Units 01:00 02:27 03:42 WBC (3.8-10.6) k/uL RBC (3.80-5.40) m/uL Hgb (11.4-16.0) gm/dL Hct (34.0-46.0) % Plt Count (150-450) k/uL Neutrophils # (1.3-7.7) k/uL Lymphocytes # (1.0-4.8) k/uL PT (10.0-12.5) sec INR (<1.2) APTT (22.0-30.0) sec ABG pO2 (83-108) mmHg ABG Total CO2 (19-24) mmol/L ABG O2 Saturation (94-97) % Hemoglobin (11.4-16.0) gm/dL Sodium (137-145) mmol/L Carbon Dioxide (22-30) mmol/L BUN (7-17) mg/dL Creatinine (0.52-1.04) mg/dL Glucose (74-99) mg/dL POC Glucose (mg/dL) 114 H 116 H 119 H (70-110) mg/dL Magnesium (1.6-2.3) mg/dL AST (14-36) U/L Alkaline Phosphatase (38-126) U/L Total Protein (6.3-8.2) g/dL Crossmatch 11/10/24 11/10/24 11/10/24 Range/Units 04:30 04:30 04:30 WBC (3.8-10.6) k/uL RBC 2.76 L (3.80-5.40) m/uL Hgb 8.4 L (11.4-16.0) gm/dL Hct 26.6 L (34.0-46.0) % Plt Count (150-450) k/uL Neutrophils # (1.3-7.7) k/uL Lymphocytes # (1.0-4.8) k/uL PT (10.0-12.5) sec INR (<1.2) APTT (22.0-30.0) sec ABG pO2 (83-108) mmHg ABG Total CO2 (19-24) mmol/L ABG O2 Saturation (94-97) % Hemoglobin (11.4-16.0) gm/dL Sodium 132 L (137-145) mmol/L Carbon Dioxide 21 L (22-30) mmol/L BUN 4 L (7-17) mg/dL Creatinine 0.49 L (0.52-1.04) mg/dL Glucose 111 H (74-99) mg/dL POC Glucose (mg/dL) 123 H (70-110) mg/dL Magnesium (1.6-2.3) mg/dL AST 39 H (14-36) U/L Alkaline Phosphatase 27 L (38-126) U/L Total Protein 5.0 L (6.3-8.2) g/dL Crossmatch 11/10/24 11/10/24 11/10/24 Range/Units 07:02 08:11 09:21 WBC (3.8-10.6) k/uL RBC (3.80-5.40) m/uL Hgb (11.4-16.0) gm/dL Hct (34.0-46.0) % Plt Count (150-450) k/uL Neutrophils # (1.3-7.7) k/uL Lymphocytes # (1.0-4.8) k/uL PT (10.0-12.5) sec INR (<1.2) APTT (22.0-30.0) sec ABG pO2 (83-108) mmHg ABG Total CO2 (19-24) mmol/L ABG O2 Saturation (94-97) % Hemoglobin (11.4-16.0) gm/dL Sodium (137-145) mmol/L Carbon Dioxide (22-30) mmol/L BUN (7-17) mg/dL Creatinine (0.52-1.04) mg/dL Glucose (74-99) mg/dL POC Glucose (mg/dL) 138 H 141 H 129 H (70-110) mg/dL Magnesium (1.6-2.3) mg/dL AST (14-36) U/L Alkaline Phosphatase (38-126) U/L Total Protein (6.3-8.2) g/dL Crossmatch 11/10/24 11/10/24 11/10/24 Range/Units 10:21 11:58 13:11 WBC (3.8-10.6) k/uL RBC (3.80-5.40) m/uL Hgb (11.4-16.0) gm/dL Hct (34.0-46.0) % Plt Count (150-450) k/uL Neutrophils # (1.3-7.7) k/uL Lymphocytes # (1.0-4.8) k/uL PT (10.0-12.5) sec INR (<1.2) APTT (22.0-30.0) sec ABG pO2 (83-108) mmHg ABG Total CO2 (19-24) mmol/L ABG O2 Saturation (94-97) % Hemoglobin (11.4-16.0) gm/dL Sodium (137-145) mmol/L Carbon Dioxide (22-30) mmol/L BUN (7-17) mg/dL Creatinine (0.52-1.04) mg/dL Glucose (74-99) mg/dL POC Glucose (mg/dL) 111 H 132 H 266 H (70-110) mg/dL Magnesium (1.6-2.3) mg/dL AST (14-36) U/L Alkaline Phosphatase (38-126) U/L Total Protein (6.3-8.2) g/dL Crossmatch Assessment and Plan Assessment: Impression:Off-pump CABG x 3 with AGUILRA to LAD, left radial artery graft to obtuse marginal, saphenous vein graft to right coronary artery, endovascular vein and left radial artery harvest, occlusion of left atrial appendage with 40 mm AtriCure clip, LUIS ANTONIO by anesthesia. Postoperative day #1 Multivessel coronary artery disease noted on recent cardiac catheterization Acute Non-ST elevation IA Hypertension COPD with a component of asthma, started on Symbicort and albuterol HFA 4 times a day. Remote history of tobacco use, over 40 years ago Daily alcohol use Peripheral neuropathy Resting tremor Anxiety recommendation: Continue maximal medical therapy, Plavix beta-blockers aspirin and statin Continue present drips including amiodarone and nitroglycerin Continue bronchodilators patient has a baseline spirometry with FEV1 of 46% Chest x-ray was reviewed, mostly postoperative changes no acute processes noted Continue insulin and monitor blood sugars closely. Continue GI and DVT prophylaxis Continue to monitor in the ICU for the next 24 hours Will continue to follow. Time with Patient: Less than 30
[2024-11-10 15:03] LABS: Glucose,Whole Blood 128 mg/dL (70-110)
--- NOTE | 2024-11-10 15:26 | P.PN ---
Subjective HISTORY OF PRESENT ILLNESS: This is a 74-year-old female with a past medical history significant for frequent alcohol use, hypertension and anxiety. Patient does not follow with a hypnotherapist. We have been asked to see the patient in consultation for chest pain. Patient examined at the bedside in the emergency room. Patient states over the past 1 to 2 weeks she has been having chest discomfort. She states the pain has been occurring at night when she lays down. She states that she initially thought it was heartburn. She states the pain starts in the middle of her chest and then radiates into her back and then into the back of her arms. She states the pain will last for about 10 to 15 minutes and is resolved when she sits up on the side of the bed. She does report that yesterday the pain was worse with exertion during the day. She is a non-smoker. She does report drinking 2-3 beers a day which she states helps with her essential tremors. DIAGNOSTICS: - EKG reveals sinus mechanism with no signs of acute ischemia. - Chest xray negative for acute process. COPD changes.. - Laboratory data: WBC 6.3. Hemoglobin 11.5. Platelet count 283. Sodium 136. Potassium 3.6. BUN 6. Creatinine 0.49. Troponin 0.060. 0.124. 0.170. - Current home cardiac medication list not updated at the time of examination. -No previous echocardiogram, stress test, or cardiac catheterization available in EMR for review 11/05/2024 Patient underwent cardiac catheterization yesterday revealing heavily calcified coronary arteries, critical stenosis involving proximal LAD and RCA and moderate disease of the left circumflex. Consultation was placed to CT surgery for possible CABG. Patient examined this morning the bedside. Patient denies any chest pain or pressure. She denies any shortness of breath. Vital signs are stable. Blood pressure 163/86. Echocardiogram completed revealing ejection fraction 55 to 60%, no significant valvular abnormalities noted, and no pericardial effusion noted. 11/06/2024 Patient examined this morning at the bedside. Patient is sitting up in the chair. Patient's family is present. Patient reports having an episode of chest pain yesterday that lasted for about 15 to 20 minutes. She denies any chest pain at the time of examination. She denies any shortness of breath or cough. She remains on IV heparin. She states that she is scheduled for CABG on Saturday. 11/07/2024 Patient examined this morning at the bedside. Patient is sitting up in the chair. Patient denies any chest pain or pressure. She denies shortness of breath. She remains on IV heparin. Blood pressure elevated this morning with a systolic between [id number]. 11/08/2024 Patient examined this morning at the bedside. Patient currently denies chest pain or pressure. She denies shortness of breath. She remains on IV heparin. She reports back pain this morning and states it is worse when she is lying in the hospital bed. Vital signs are stable. 11/10 Patient seen and examined. Patient underwent off-pump CABG x 3 with AGUILAR to LAD, left radial to OM, SVG to RCA with a left atrial appendage closure 11/05/2024. She denies any significant shortness of breath. She is complaining of some chest pain around her incision site however no other chest pain. She was extubated and currently on 2 L nasal cannula. Her cardiac output has been 5.6 with a cardiac index of 3.7. CVP of 9. She has been on amiodarone drip and maintaining normal sinus rhythm. PHYSICAL EXAM: VITAL SIGNS: Reviewed. GENERAL: Well-developed in no acute distress. HEENT: Head is normocephalic. Pupils are equal, round. Sclerae anicteric. Mucous membranes of the mouth are moist. Neck supple. No JVD or thyromegaly LUNGS: Respirations even and unlabored. Lungs essentially clear to auscultation bilaterally. HEART: Regular rate and rhythm. S1 and S2 heard. Systolic murmur noted. ABDOMEN: Soft. Nondistended. Nontender. EXTREMITIES: Normal range of motion. No clubbing or cyanosis. Peripheral pulses intact. No lower extremity edema NEUROLOGIC: Awake and alert. Oriented x 3. ASSESSMENT: Non-STEMI, status post cardiac cath revealing multivessel CAD CAD s/p CABG x 3 11/09/24 Hypertension Frequent alcohol use, patient reports drinking 2-3 beers per day Anxiety History of essential tremors PLAN: Continue aspirin and Plavix Continue metoprolol Continue amlodipine for radial artery spasm Continue amiodarone twice a day. Monitor outputs, urine output Further recommendations to follow Objective - Vital Signs Vital signs: Vital Signs Temp 98.4 F 11/10/24 12:00 Pulse 81 11/10/24 15:00 Resp 18 11/10/24 15:00 BP 109/49 11/10/24 15:00 Pulse Ox 93 L 11/10/24 15:00 FiO2 40 11/09/24 17:44 Intake & Output 11/09/24 11/10/24 11/10/24 18:59 06:59 18:59 Intake Total 409.917 1095.492 1411.126 Output Total 1965 1465 510 Balance -974.364 -376.508 901.126 Weight 52.1 kg 52.1 kg Intake: IV 519 1059 910 .9NS Cardiac Output 80 160 40 .9NS Pressure Bag 45 99 60 ACETAMINOPHEN IV (For NPO 100 200 100 ) 1,000 mg In Empty Bag 1 bag @ 400 mls/hr IVPB Q6HR [facility] Rx#:[id number] Albumin Human 5% 250 ml 250 In Empty Bag 1 bag @ 250 mls/hr IVPB Q1HR [facility] Rx#: [id number] Potassium Chloride 10 meq 100 In Water For Injection 1 100ml.bag @ 100 mls/hr IVPB Q1H [facility] Rx#: [id number] Sodium Chloride 0.9% 1, 190 600 310 000 ml @ 20 mls/hr IV . Q24H [facility] Rx#:[id number] ceFAZolin 2 gm In Sodium 50 Chloride 0.9% 50 ml @ 100 mls/hr IVPB ONCE ONE Rx# :[id number] Intake, IV Titration 471.636 29.492 41.126 Amount Clevidipine Butyrate 25 25.067 19.4 mg In Empty Bag 1 bag @ 1 MG/HR 2 mls/hr IV .Q24H [facility] Rx#:[id number] Dexmedetomidine/0.9% NaCl 3.113 (Pmx) 400 mcg In Empty Bag 1 bag @ Titrate IV . Q0M [facility] Rx#:[id number] Insulin Regular 100 unit 6.136 10.092 11.926 In Sodium Chloride 0.9% 100 ml @ Per Protocol IV .Q0M [facility] Rx#:[id number] Magnesium Sulfate-D5w Pmx 200 1 gm In Dextrose/Water 1 100ml.bag @ 100 mls/hr IVPB Q1H [facility] Rx#: [id number] Nitroglycerin-D5w Pmx 50 29.2 mg In Dextrose/Water 1 250ml.bag @ 5 MCG/MIN 1.5 mls/hr IV .Q24H [facility] Rx#: [id number] Potassium Chloride 10 meq 200 In Water For Injection 1 100ml.bag @ 100 mls/hr IVPB Q1H [facility] Rx#: [id number] propofoL 1,000 mg In 37.320 Empty Bag 1 bag @ Titrate IV .Q0M [facility] Rx#: [id number] Oral 460 Output: Chest Tube Drainage 320 560 190 Left Pleural Chest Tube 210 290 120 Mediastinal Chest Tube 110 270 70 Drainage 20 10 Left Arm 20 10 Urine 1125 895 320 Estimated Blood Loss 500 Other: Voiding Method Indwelling Catheter Indwelling Catheter Indwelling Catheter ABP, PAP, CO, CI - Last Documented Arterial Blood Pressure 102/32 Pulmonary Artery Pressure 21/6 Cardiac Output 4.9 Cardiac Index 3.2 - Labs CBC & Chem 7: 11/10/24 04:30 11/10/24 04:30 Labs: Abnormal Lab Results - Last 24 Hours (Table) 11/09/24 11/09/24 11/09/24 Range/Units 06:28 15:24 15:34 WBC 10.7 H (3.8-10.6) k/uL RBC 2.96 L (3.80-5.40) m/uL Hgb 9.2 L (11.4-16.0) gm/dL Hct 28.2 L (34.0-46.0) % Neutrophils # 8.3 H (1.3-7.7) k/uL Lymphocytes # (1.0-4.8) k/uL ABG pO2 (83-108) mmHg ABG Total CO2 (19-24) mmol/L ABG O2 Saturation (94-97) % Hemoglobin (11.4-16.0) gm/dL Sodium (137-145) mmol/L Carbon Dioxide (22-30) mmol/L BUN (7-17) mg/dL Creatinine (0.52-1.04) mg/dL Glucose (74-99) mg/dL POC Glucose (mg/dL) 137 H (70-110) mg/dL AST (14-36) U/L Alkaline Phosphatase (38-126) U/L Total Protein (6.3-8.2) g/dL Crossmatch See Detail 11/09/24 11/09/24 11/09/24 Range/Units 16:24 17:05 17:41 WBC (3.8-10.6) k/uL RBC (3.80-5.40) m/uL Hgb (11.4-16.0) gm/dL Hct (34.0-46.0) % Neutrophils # (1.3-7.7) k/uL Lymphocytes # (1.0-4.8) k/uL ABG pO2 112 H (83-108) mmHg ABG Total CO2 25 H (19-24) mmol/L ABG O2 Saturation 99.1 H (94-97) % Hemoglobin 8.9 L (11.4-16.0) gm/dL Sodium (137-145) mmol/L Carbon Dioxide (22-30) mmol/L BUN (7-17) mg/dL Creatinine (0.52-1.04) mg/dL Glucose (74-99) mg/dL POC Glucose (mg/dL) 172 H 161 H (70-110) mg/dL AST (14-36) U/L Alkaline Phosphatase (38-126) U/L Total Protein (6.3-8.2) g/dL Crossmatch 11/09/24 11/09/24 11/09/24 Range/Units 18:08 18:34 18:57 WBC (3.8-10.6) k/uL RBC 2.93 L (3.80-5.40) m/uL Hgb 9.3 L (11.4-16.0) gm/dL Hct 28.2 L (34.0-46.0) % Neutrophils # 8.9 H (1.3-7.7) k/uL Lymphocytes # 0.5 L (1.0-4.8) k/uL ABG pO2 (83-108) mmHg ABG Total CO2 (19-24) mmol/L ABG O2 Saturation (94-97) % Hemoglobin (11.4-16.0) gm/dL Sodium (137-145) mmol/L Carbon Dioxide (22-30) mmol/L BUN (7-17) mg/dL Creatinine (0.52-1.04) mg/dL Glucose (74-99) mg/dL POC Glucose (mg/dL) 152 H 140 H (70-110) mg/dL AST (14-36) U/L Alkaline Phosphatase (38-126) U/L Total Protein (6.3-8.2) g/dL Crossmatch 11/09/24 11/09/24 11/09/24 Range/Units 19:26 21:24 22:07 WBC (3.8-10.6) k/uL RBC (3.80-5.40) m/uL Hgb (11.4-16.0) gm/dL Hct (34.0-46.0) % Neutrophils # (1.3-7.7) k/uL Lymphocytes # (1.0-4.8) k/uL ABG pO2 (83-108) mmHg ABG Total CO2 (19-24) mmol/L ABG O2 Saturation (94-97) % Hemoglobin (11.4-16.0) gm/dL Sodium (137-145) mmol/L Carbon Dioxide (22-30) mmol/L BUN (7-17) mg/dL Creatinine (0.52-1.04) mg/dL Glucose (74-99) mg/dL POC Glucose (mg/dL) 158 H 114 H 111 H (70-110) mg/dL AST (14-36) U/L Alkaline Phosphatase (38-126) U/L Total Protein (6.3-8.2) g/dL Crossmatch 11/09/24 11/10/24 11/10/24 Range/Units 23:17 00:13 01:00 WBC (3.8-10.6) k/uL RBC (3.80-5.40) m/uL Hgb (11.4-16.0) gm/dL Hct (34.0-46.0) % Neutrophils # (1.3-7.7) k/uL Lymphocytes # (1.0-4.8) k/uL ABG pO2 (83-108) mmHg ABG Total CO2 (19-24) mmol/L ABG O2 Saturation (94-97) % Hemoglobin (11.4-16.0) gm/dL Sodium (137-145) mmol/L Carbon Dioxide (22-30) mmol/L BUN (7-17) mg/dL Creatinine (0.52-1.04) mg/dL Glucose (74-99) mg/dL POC Glucose (mg/dL) 126 H 124 H 114 H (70-110) mg/dL AST (14-36) U/L Alkaline Phosphatase (38-126) U/L Total Protein (6.3-8.2) g/dL Crossmatch 11/10/24 11/10/24 11/10/24 Range/Units 02:27 03:42 04:30 WBC (3.8-10.6) k/uL RBC 2.76 L (3.80-5.40) m/uL Hgb 8.4 L (11.4-16.0) gm/dL Hct 26.6 L (34.0-46.0) % Neutrophils # (1.3-7.7) k/uL Lymphocytes # (1.0-4.8) k/uL ABG pO2 (83-108) mmHg ABG Total CO2 (19-24) mmol/L ABG O2 Saturation (94-97) % Hemoglobin (11.4-16.0) gm/dL Sodium (137-145) mmol/L Carbon Dioxide (22-30) mmol/L BUN (7-17) mg/dL Creatinine (0.52-1.04) mg/dL Glucose (74-99) mg/dL POC Glucose (mg/dL) 116 H 119 H (70-110) mg/dL AST (14-36) U/L Alkaline Phosphatase (38-126) U/L Total Protein (6.3-8.2) g/dL Crossmatch 11/10/24 11/10/24 11/10/24 Range/Units 04:30 04:30 07:02 WBC (3.8-10.6) k/uL RBC (3.80-5.40) m/uL Hgb (11.4-16.0) gm/dL Hct (34.0-46.0) % Neutrophils # (1.3-7.7) k/uL Lymphocytes # (1.0-4.8) k/uL ABG pO2 (83-108) mmHg ABG Total CO2 (19-24) mmol/L ABG O2 Saturation (94-97) % Hemoglobin (11.4-16.0) gm/dL Sodium 132 L (137-145) mmol/L Carbon Dioxide 21 L (22-30) mmol/L BUN 4 L (7-17) mg/dL Creatinine 0.49 L (0.52-1.04) mg/dL Glucose 111 H (74-99) mg/dL POC Glucose (mg/dL) 123 H 138 H (70-110) mg/dL AST 39 H (14-36) U/L Alkaline Phosphatase 27 L (38-126) U/L Total Protein 5.0 L (6.3-8.2) g/dL Crossmatch 11/10/24 11/10/24 11/10/24 Range/Units 08:11 09:21 10:21 WBC (3.8-10.6) k/uL RBC (3.80-5.40) m/uL Hgb (11.4-16.0) gm/dL Hct (34.0-46.0) % Neutrophils # (1.3-7.7) k/uL Lymphocytes # (1.0-4.8) k/uL ABG pO2 (83-108) mmHg ABG Total CO2 (19-24) mmol/L ABG O2 Saturation (94-97) % Hemoglobin (11.4-16.0) gm/dL Sodium (137-145) mmol/L Carbon Dioxide (22-30) mmol/L BUN (7-17) mg/dL Creatinine (0.52-1.04) mg/dL Glucose (74-99) mg/dL POC Glucose (mg/dL) 141 H 129 H 111 H (70-110) mg/dL AST (14-36) U/L Alkaline Phosphatase (38-126) U/L Total Protein (6.3-8.2) g/dL Crossmatch 11/10/24 11/10/24 11/10/24 Range/Units 11:58 13:11 14:06 WBC (3.8-10.6) k/uL RBC (3.80-5.40) m/uL Hgb (11.4-16.0) gm/dL Hct (34.0-46.0) % Neutrophils # (1.3-7.7) k/uL Lymphocytes # (1.0-4.8) k/uL ABG pO2 (83-108) mmHg ABG Total CO2 (19-24) mmol/L ABG O2 Saturation (94-97) % Hemoglobin (11.4-16.0) gm/dL Sodium (137-145) mmol/L Carbon Dioxide (22-30) mmol/L BUN (7-17) mg/dL Creatinine (0.52-1.04) mg/dL Glucose (74-99) mg/dL POC Glucose (mg/dL) 132 H 266 H 189 H (70-110) mg/dL AST (14-36) U/L Alkaline Phosphatase (38-126) U/L Total Protein (6.3-8.2) g/dL Crossmatch 11/10/24 Range/Units 15:02 WBC (3.8-10.6) k/uL RBC (3.80-5.40) m/uL Hgb (11.4-16.0) gm/dL Hct (34.0-46.0) % Neutrophils # (1.3-7.7) k/uL Lymphocytes # (1.0-4.8) k/uL ABG pO2 (83-108) mmHg ABG Total CO2 (19-24) mmol/L ABG O2 Saturation (94-97) % Hemoglobin (11.4-16.0) gm/dL Sodium (137-145) mmol/L Carbon Dioxide (22-30) mmol/L BUN (7-17) mg/dL Creatinine (0.52-1.04) mg/dL Glucose (74-99) mg/dL POC Glucose (mg/dL) 128 H (70-110) mg/dL AST (14-36) U/L Alkaline Phosphatase (38-126) U/L Total Protein (6.3-8.2) g/dL Crossmatch
[2024-11-10 16:21] LABS: Glucose,Whole Blood 107 mg/dL (70-110)
[2024-11-10 17:25] LABS: Glucose,Whole Blood 96 mg/dL (70-110)
[2024-11-10 17:56] LABS: Glucose,Whole Blood 121 mg/dL (70-110)
[2024-11-10] MEDS ORDERED: ACETAMINOPHEN TAB 500 MG TAB PO PRN (18:00)
[2024-11-10 19:14] LABS: Glucose,Whole Blood 139 mg/dL (70-110)
[2024-11-10 20:12] LABS: Glucose,Whole Blood 147 mg/dL (70-110)
[2024-11-10] MEDS: SENNOSIDES-DOCUSATE SODIUM 1 EACH TAB PO SCH (20:32)
[2024-11-10 21:29] LABS: Glucose,Whole Blood 136 mg/dL (70-110)
[2024-11-10 22:33] LABS: Glucose,Whole Blood 129 mg/dL (70-110)
[2024-11-10 23:35] LABS: Glucose,Whole Blood 129 mg/dL (70-110)
[2024-11-11 00:38] LABS: Glucose,Whole Blood 129 mg/dL (70-110)
[2024-11-11 02:02] LABS: Glucose,Whole Blood 129 mg/dL (70-110)
[2024-11-11 04:22] LABS: Glucose,Whole Blood 127 mg/dL (70-110)
[2024-11-11 04:52] LABS: Basophils % (A) 0 %; Eosinophils % (A) 0 %; HCT 24.2 % (34.0-46.0); HGB 7.8 gm/dL (11.4-16.0); Lymphocytes # (A) 1.1 k/uL (1.0-4.8); Lymphocytes % (A) 9 %; MCH 31.3 pg (25.0-35.0); MCHC 32.3 g/dL (31.0-37.0); MCV 96.8 fL (80.0-100.0); Mean Platelet Volume 8.1; Monocytes # (A) 0.8 k/uL (0-1.0); Monocytes % (A) 7 %; Neutrophils # (A) 9.3 k/uL (1.3-7.7); Neutrophils % (A) 82 %; Platelet Count 157 k/uL (150-450); RDW 13.7 % (11.5-15.5); WBC 11.4 k/uL (3.8-10.6)
[2024-11-11 05:09] LABS: ALT 17 U/L (4-34); AST 32 U/L (14-36); African American GFR (CKD) >90 (>60 ml/min/1.73 sqM); Albumin 3.1 g/dL (3.5-5.0); Alkaline Phosphatase 39 U/L (38-126); Anion Gap 7 mmol/L; Blood Urea Nitrogen 7 mg/dL (7-17); Calcium 8.7 mg/dL (8.4-10.2); Carbon Dioxide 21 mmol/L (22-30); Chloride 101 mmol/L (98-107); Glucose 108 mg/dL (74-99); Non-African American GFR(CKD) >90 (>60 ml/min/1.73 sqM); Potassium 3.8 mmol/L (3.5-5.1); Sodium 129 mmol/L (137-145); Total Bilirubin 1.6 mg/dL (0.2-1.3); Total Protein 4.7 g/dL (6.3-8.2)
--- NOTE | 2024-11-11 06:16 | XR ---
EXAMINATION TYPE: XR chest 1V portable DATE OF EXAM: 11/11/2024 CLINICAL HISTORY: Postoperative cardiac surgery progress study. TECHNIQUE: Single AP portable semiupright view of the chest is obtained. COMPARISON: Chest x-ray from one day earlier and older studies. FINDINGS: Interval removal of the right internal jugular [place]-Yony catheter with Cordis sheath now p resent. Stable mediastinal drainage catheter and left-sided chest tube. Overlying Mediastinal clips and left atrial appendage clip are redemonstrated. No left-sided pneumothorax. Left-sided subcutaneous emphysema has resolved. There is improved aeratio n in the right lower lung. Persistent left mid to lower lung increased opacity. Stable mild cardiomeg liz. Osseous structures are intact. IMPRESSION: 1. Persistent cardiomegaly with left lower lung acute infiltrate and/or atelectasis. No left-sided pn eumothorax with chest tube in place. [facility], , 11/11/2024 6:13 AM
[2024-11-11 06:33] LABS: Glucose,Whole Blood 135 mg/dL (70-110)
[2024-11-11] MEDS: PANTOPRAZOLE 40 MG TABLET PO SCH (06:56)
--- NOTE | 2024-11-11 08:10 | P.PN ---
Subjective Progress Note Date: 11/11/24 Principal diagnosis: Multivessel coronary artery disease, non-STEMI this admission. History of hypertension, peripheral neuropathy with essential tremors, asthma, daily EtOH use, previous tobacco dependence, and family history of premature coronary artery disease POD #2 Off-pump CABG x 3 with AGUILAR to LAD, left radial artery graft to obtuse marginal, saphenous vein graft to right coronary artery, endovascular vein and left radial artery harvest, occlusion of left atrial appendage with 40 mm AtriCure clip, LUIS ANTONIO by anesthesia. Postoperative acute blood loss anemia, likely secondary to hemodilution and history of preoperative anemia. The patient was seen and examined sitting up in a recliner in the intensive care unit in no acute distress. States expected postsurgical pain mostly controlled on current medication regimen, denies shortness of breath. Currently in sinus rhythm with heart rate in the 80s to 90s, hemodynamically stable. Remains on room air with oxygen saturation in the mid 90s, able to achieve 1500 mL on her incentive spirometry this morning. Patient has been ambulatory in the hallway with assist. Right internal jugular cordis, right radial arterial line, mediastinal/left pleural chest tubes all remain. No other new concerns. Objective - Vital Signs Vital signs: Vital Signs Temp 98.2 F 11/11/24 00:00 Pulse 88 11/11/24 07:00 Resp 26 H 11/11/24 07:00 BP 134/68 11/11/24 07:00 Pulse Ox 93 L 11/11/24 07:00 FiO2 40 11/09/24 17:44 Intake & Output 11/10/24 11/11/24 11/11/24 18:59 06:59 18:59 Intake Total 1519.783 432.648 36 Output Total 685 615 75 Balance 834.783 -182.352 -39 Weight 52.1 kg 57.1 kg Intake: IV 1018 432 36 .9NS Cardiac Output 40 .9NS Pressure Bag 78 72 6 ACETAMINOPHEN IV (For NPO 100 ) 1,000 mg In Empty Bag 1 bag @ 400 mls/hr IVPB Q6HR [facility] Rx#:[id number] Albumin Human 5% 250 ml 250 In Empty Bag 1 bag @ 250 mls/hr IVPB Q1HR [facility] Rx#: [id number] Potassium Chloride 10 meq 100 In Water For Injection 1 100ml.bag @ 100 mls/hr IVPB Q1H [facility] Rx#: [id number] Sodium Chloride 0.9% 1, 400 360 30 000 ml @ 20 mls/hr IV . Q24H [facility] Rx#:[id number] ceFAZolin 2 gm In Sodium 50 Chloride 0.9% 50 ml @ 100 mls/hr IVPB ONCE ONE Rx# :[id number] Intake, IV Titration 41.783 0.648 Amount Insulin Regular 100 unit 12.583 0.648 In Sodium Chloride 0.9% 100 ml @ Per Protocol IV .Q0M [facility] Rx#:[id number] Nitroglycerin-D5w Pmx 50 29.2 mg In Dextrose/Water 1 250ml.bag @ 5 MCG/MIN 1.5 mls/hr IV .Q24H [facility] Rx#: [id number] Oral 460 Output: Chest Tube Drainage 230 150 0 Left Pleural Chest Tube 150 90 0 Mediastinal Chest Tube 80 60 0 Urine 455 465 75 Other: Voiding Method Indwelling Catheter Indwelling Catheter ABP, PAP, CO, CI - Last Documented Arterial Blood Pressure 154/44 Pulmonary Artery Pressure 21/6 Cardiac Output 4.9 Cardiac Index 3.2 - Exam CONSTITUTIONAL: Appears comfortable, cooperative, no acute distress RESPIRATORY: Lungs sounds diminished in the bases bilaterally. Respirations even, nonlabored. Currently on room air with oxygen saturation 95%. Able to achieve 1500 mL on incentive spirometry. Strong cough. CARDIOVASCULAR: S1, S2 present. Regular rate and rhythm, sinus rhythm on telemetry. Sternum stable. Palpable peripheral pulses bilaterally. No edema present. No calf pain or tenderness noted. Heart hugger in place with patient demonstrating appropriate use. Antiembolism stockings, SCDs present. GASTROINTESTINAL: Abdomen soft, nontender, nondistended. Active bowel sounds present 4 quadrants. Tolerating diet. Positive flatus GENITOURINARY: Garcia present draining clear, yellow urine. Output overnight 30-50 mL per hour, 920 mL in the last 24 hours INTEGUMENTARY: Skin is warm and dry with evidence of good perfusion. Anterior chest incision well approximated and covered with dry intact dressing. Left lower extremity EVH site as well as left radial artery harvest site well approximated without redness or drainage. NEUROLOGIC: Cranial nerves II through XII intact MUSKULOSKELETAL: Able to move all extremities, strength equal bilaterally, gait normal PSYCHIATRIC: Alert and oriented to person place and time, appropriate affect, intact judgment and insight INVASIVE LINES AND TUBES: Mediastinal/left pleural chest tubes present and connected to wall suction, no air leak present in the mediastinal chest tube, tiny airleak present with forceful coughing in the left pleural chest tube. Mediastinal tube with 20 mL serosanguineous drainage overnight, 150 mL in the last 24 hours. Left pleural chest tube with 20 mL serosanguineous drainage overnight, 200 mL in the last 24 hours. Right internal jugular cordis, right radial arterial line present. Last CVP 4. - Allied health notes Allied health notes reviewed: nursing - Labs CBC & Chem 7: 11/11/24 04:26 11/11/24 04:26 Labs: Abnormal Lab Results - Last 24 Hours (Table) 11/09/24 11/10/24 11/10/24 Range/Units 06:28 00:13 01:00 WBC (3.8-10.6) k/uL RBC (3.80-5.40) m/uL Hgb (11.4-16.0) gm/dL Hct (34.0-46.0) % Neutrophils # (1.3-7.7) k/uL Sodium (137-145) mmol/L Carbon Dioxide (22-30) mmol/L Glucose (74-99) mg/dL POC Glucose (mg/dL) 124 H 114 H (70-110) mg/dL Total Bilirubin (0.2-1.3) mg/dL Total Protein (6.3-8.2) g/dL Albumin (3.5-5.0) g/dL Crossmatch See Detail 11/10/24 11/10/24 11/10/24 Range/Units 08:11 09:21 10:21 WBC (3.8-10.6) k/uL RBC (3.80-5.40) m/uL Hgb (11.4-16.0) gm/dL Hct (34.0-46.0) % Neutrophils # (1.3-7.7) k/uL Sodium (137-145) mmol/L Carbon Dioxide (22-30) mmol/L Glucose (74-99) mg/dL POC Glucose (mg/dL) 141 H 129 H 111 H (70-110) mg/dL Total Bilirubin (0.2-1.3) mg/dL Total Protein (6.3-8.2) g/dL Albumin (3.5-5.0) g/dL Crossmatch 11/10/24 11/10/24 11/10/24 Range/Units 11:58 13:11 14:06 WBC (3.8-10.6) k/uL RBC (3.80-5.40) m/uL Hgb (11.4-16.0) gm/dL Hct (34.0-46.0) % Neutrophils # (1.3-7.7) k/uL Sodium (137-145) mmol/L Carbon Dioxide (22-30) mmol/L Glucose (74-99) mg/dL POC Glucose (mg/dL) 132 H 266 H 189 H (70-110) mg/dL Total Bilirubin (0.2-1.3) mg/dL Total Protein (6.3-8.2) g/dL Albumin (3.5-5.0) g/dL Crossmatch 11/10/24 11/10/24 11/10/24 Range/Units 15:02 17:54 19:11 WBC (3.8-10.6) k/uL RBC (3.80-5.40) m/uL Hgb (11.4-16.0) gm/dL Hct (34.0-46.0) % Neutrophils # (1.3-7.7) k/uL Sodium (137-145) mmol/L Carbon Dioxide (22-30) mmol/L Glucose (74-99) mg/dL POC Glucose (mg/dL) 128 H 121 H 139 H (70-110) mg/dL Total Bilirubin (0.2-1.3) mg/dL Total Protein (6.3-8.2) g/dL Albumin (3.5-5.0) g/dL Crossmatch 11/10/24 11/10/24 11/10/24 Range/Units 20:10 21:28 22:32 WBC (3.8-10.6) k/uL RBC (3.80-5.40) m/uL Hgb (11.4-16.0) gm/dL Hct (34.0-46.0) % Neutrophils # (1.3-7.7) k/uL Sodium (137-145) mmol/L Carbon Dioxide (22-30) mmol/L Glucose (74-99) mg/dL POC Glucose (mg/dL) 147 H 136 H 129 H (70-110) mg/dL Total Bilirubin (0.2-1.3) mg/dL Total Protein (6.3-8.2) g/dL Albumin (3.5-5.0) g/dL Crossmatch 11/10/24 11/11/24 11/11/24 Range/Units 23:34 00:37 02:01 WBC (3.8-10.6) k/uL RBC (3.80-5.40) m/uL Hgb (11.4-16.0) gm/dL Hct (34.0-46.0) % Neutrophils # (1.3-7.7) k/uL Sodium (137-145) mmol/L Carbon Dioxide (22-30) mmol/L Glucose (74-99) mg/dL POC Glucose (mg/dL) 129 H 129 H 129 H (70-110) mg/dL Total Bilirubin (0.2-1.3) mg/dL Total Protein (6.3-8.2) g/dL Albumin (3.5-5.0) g/dL Crossmatch 11/11/24 11/11/24 11/11/24 Range/Units 04:20 04:26 04:26 WBC 11.4 H (3.8-10.6) k/uL RBC 2.50 L (3.80-5.40) m/uL Hgb 7.8 L (11.4-16.0) gm/dL Hct 24.2 L (34.0-46.0) % Neutrophils # 9.3 H (1.3-7.7) k/uL Sodium 129 L (137-145) mmol/L Carbon Dioxide 21 L (22-30) mmol/L Glucose 108 H (74-99) mg/dL POC Glucose (mg/dL) 127 H (70-110) mg/dL Total Bilirubin 1.6 H (0.2-1.3) mg/dL Total Protein 4.7 L (6.3-8.2) g/dL Albumin 3.1 L (3.5-5.0) g/dL Crossmatch 11/11/24 Range/Units 06:31 WBC (3.8-10.6) k/uL RBC (3.80-5.40) m/uL Hgb (11.4-16.0) gm/dL Hct (34.0-46.0) % Neutrophils # (1.3-7.7) k/uL Sodium (137-145) mmol/L Carbon Dioxide (22-30) mmol/L Glucose (74-99) mg/dL POC Glucose (mg/dL) 135 H (70-110) mg/dL Total Bilirubin (0.2-1.3) mg/dL Total Protein (6.3-8.2) g/dL Albumin (3.5-5.0) g/dL Crossmatch - Imaging and Cardiology Chest x-ray: report reviewed, image reviewed Assessment and Plan Assessment: Multivessel coronary artery disease, non-STEMI this admission, status post t hree-vessel off-pump CABG Chest pain, secondary to above Anemia, occult stool negative Postoperative acute blood loss anemia, expected given hemodilution and her preoperative history of anemia History of hypertension Peripheral neuropathy with essential tremors Asthma Daily EtOH use, daughter reports multiple beers per day, patient reports down to the 2-3 beers daily Previous tobacco dependence Family history of premature coronary artery disease Plan: Continue to maximize medical therapy with aspirin, statin, Plavix, and beta- clover. Will increase metoprolol tartrate as tolerated, increased to 25 mg twice daily today Continue Norvasc with hold parameters for radial artery spasm prophylaxis, increased to 5 mg daily today Amiodarone 400 mg p.o. twice daily initiated for atrial fibrillation prophylaxis, no atrial fibrillation has been reported Encourage incentive spirometry use 10 times every hour while awake. Bronchodilators per pulmonology. Increase activity, ambulate as tolerated. PT/OT/cardiac rehab consulted. Will monitor daily labs and chest x-rays. Electrolyte replacement per protocol. GI/DVT prophylaxis. Continue thiamine, folic acid. Continue to monitor for alcohol withdrawal Pain control per current medication regimen Insulin management per internal medicine. Patient is not diabetic, hemoglobin A1c 5.9% Discontinue cordis, arterial line Likely will discontinue chest tubes Discontinue Garcia catheter. May bladder scan and straight cath for greater than 300 mL residual Continue to monitor record strict accurate intake and output. Likely will place transfer orders for 3 S. cardiac stepdown unit this afternoon, may transfer when bed available More recommendations to follow based on patient's progress
[2024-11-11 08:11] LABS: Glucose,Whole Blood 210 mg/dL (70-110)
[2024-11-11 08:16] LABS: Glucose,Whole Blood 217 mg/dL (70-110)
[2024-11-11] MEDS: POTASSIUM CHLORIDE ER 20 MEQ TAB.ER PO SCH (08:57)
[2024-11-11] MEDS: METOPROLOL TARTRATE 25 MG TAB PO SCH (08:58)
[2024-11-11 09:04] LABS: Glucose,Whole Blood 224 mg/dL (70-110)
[2024-11-11 10:17] LABS: Glucose,Whole Blood 132 mg/dL (70-110)
[2024-11-11 11:49] LABS: Glucose,Whole Blood 83 mg/dL (70-110)
[2024-11-11] MEDS ORDERED: DEXTROSE 50% SYRINGE 50 ML IVP PRN ×2 (11:51)
[2024-11-11] MEDS: HYDROcodone/APAP 7.5-325MG 1 EACH TAB PO PRN (12:42)
[2024-11-11] MEDS: amLODIPine 5 MG TAB PO SCH (12:46)
[2024-11-11] MEDS: INSULIN LISPRO (HumaLOG) 100 UNIT/ML 10 mL VL SQ SCH (13:07)
--- NOTE | 2024-11-11 14:12 | P.PN ---
Subjective Progress Note Date: 11/11/24 Hospital Course: Patient is a 74-year-old female with past medical history significant for hype rtension, essential tremor, alcoholism, and asthma presents to the emergency department for chest pain that worsened today. She states that she has had chest pain for the last few weeks and just thought it was heartburn as it occurred mostly at night or while laying down. She does state that it woke her up from sleep couple of times over the last few weeks. However today she had increasing chest pain with exertion, relieved by rest. She notes that it is a pressure-like pain that radiates towards her back, lower jaw, and bilateral posterior arms. She rates this pain a 10/10 but notes that it does go away with rest. She denies any nausea/vomiting, diaphoresis, dyspnea, palpitations. She denies a cardiac history., troponin x 3 0.068, 0.124, 0.17 Initial EKG: Sinus rhythm with ventricular rate 71 bpm, QTc 415 ms, no ST-T segment changes ED documentation reviewed. Given aspirin 324 mg p.o. x 1, heparin bolus x 1, started on heparin GTT 12 units/kg/h. Patient was admitted for further evaluation of chest pain, cardiology consulted, recommended continue losartan metoprolol, added Nitropaste, recommended abstinence from alcohol, TTE ordered. Patient was taken to Publication Director on 11/04, showed heavily calcified coronary arteries, critical stenosis LAD and RCA, low LVEDP, patient was started back on heparin, awaiting surgical decision regarding CABG. Patient earlier shared that her mother had CABG at age of 60 and at age of 74. CABG workup: Carotid ultrasound showed atheromatous plaquing within the carotid bifurcation, left side moderate between 50 and 69%, right side less than 50%. CT chest showed vascular calcification within the ascending thoracic aorta, no aneurysm. No suspicious lung nodules, Liver ultrasound showed no abnormalities. CABG was performed on 11/09/2024, patient was transferred to ICU. Patient was started on amiodarone 40 mg twice daily for atrial fibrillation prophylaxis, continued on DAPT, statins, beta-blockers, Norvasc increased to 5 mg daily. Insulin drip discontinued after 48 hours, transition to subcu insulin with SSI, Accu-Cheks. Subjective: Seen and examined at bedside, patient's son present during the exam. Patient feels significantly better today, denies shortness of breath, chest pain, her postop pain is well-controlled, she was able to ambulate in the hallway, Garcia is out, patient is urinating. Pertinent positives and negatives as discussed above, a complete review of systems was performed and all other systems are negative. Vitals Signs Reviewed. 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 Alcohol use disorder: Continue multivitamins, CIWA with Ativan, social work [ DVT ppx: Heparin SQ TID Code status: Full code Anticipated discharge place: TBD Anticipated discharge time: TBD Objective - Vital Signs Vital signs: Vital Signs Temp 98.2 F 11/11/24 08:00 Pulse 86 11/11/24 13:00 Resp 15 11/11/24 13:00 BP 123/63 11/11/24 13:00 Pulse Ox 95 11/11/24 12:00 FiO2 40 11/09/24 17:44 Intake & Output 11/10/24 11/11/24 11/11/24 18:59 06:59 18:59 Intake Total 1519.783 432.648 202.145 Output Total 685 615 185 Balance 834.783 -182.352 17.145 Weight 52.1 kg 57.1 kg Intake: IV 1018 432 193 .9NS Cardiac Output 40 .9NS Pressure Bag 78 72 33 ACETAMINOPHEN IV (For NPO 100 ) 1,000 mg In Empty Bag 1 bag @ 400 mls/hr IVPB Q6HR [facility] Rx#:[id number] Albumin Human 5% 250 ml 250 In Empty Bag 1 bag @ 250 mls/hr IVPB Q1HR [facility]N Rx#: [id number] Potassium Chloride 10 meq 100 In Water For Injection 1 100ml.bag @ 100 mls/hr IVPB Q1H [facility] Rx#: [id number] Sodium Chloride 0.9% 1, 400 360 160 000 ml @ 20 mls/hr IV . Q24H [facility] Rx#:[id number] ceFAZolin 2 gm In Sodium 50 Chloride 0.9% 50 ml @ 100 mls/hr IVPB ONCE ONE Rx# :[id number] Intake, IV Titration 41.783 0.648 9.145 Amount Insulin Regular 100 unit 12.583 0.648 9.145 In Sodium Chloride 0.9% 100 ml @ Per Protocol IV .Q0M [facility] Rx#:[id number] Nitroglycerin-D5w Pmx 50 29.2 mg In Dextrose/Water 1 250ml.bag @ 5 MCG/MIN 1.5 mls/hr IV .Q24H [facility] Rx#: [id number] Oral 460 Output: Chest Tube Drainage 230 150 10 Left Pleural Chest Tube 150 90 10 Mediastinal Chest Tube 80 60 0 Urine 455 465 175 Other: Voiding Method Indwelling Catheter Indwelling Catheter Indwelling Catheter ABP, PAP, CO, CI - Last Documented Arterial Blood Pressure 154/44 Pulmonary Artery Pressure 21/6 Cardiac Output 4.9 Cardiac Index 3.2 - Labs CBC & Chem 7: 11/11/24 04:26 11/11/24 04:26 Labs: Abnormal Lab Results - Last 24 Hours (Table) 11/09/24 11/10/24 11/10/24 Range/Units 06:28 15:02 17:54 WBC (3.8-10.6) k/uL RBC (3.80-5.40) m/uL Hgb (11.4-16.0) gm/dL Hct (34.0-46.0) % Neutrophils # (1.3-7.7) k/uL Sodium (137-145) mmol/L Carbon Dioxide (22-30) mmol/L Glucose (74-99) mg/dL POC Glucose (mg/dL) 128 H 121 H (70-110) mg/dL Total Bilirubin (0.2-1.3) mg/dL Total Protein (6.3-8.2) g/dL Albumin (3.5-5.0) g/dL Crossmatch See Detail 11/10/24 11/10/24 11/10/24 Range/Units 19:11 20:10 21:28 WBC (3.8-10.6) k/uL RBC (3.80-5.40) m/uL Hgb (11.4-16.0) gm/dL Hct (34.0-46.0) % Neutrophils # (1.3-7.7) k/uL Sodium (137-145) mmol/L Carbon Dioxide (22-30) mmol/L Glucose (74-99) mg/dL POC Glucose (mg/dL) 139 H 147 H 136 H (70-110) mg/dL Total Bilirubin (0.2-1.3) mg/dL Total Protein (6.3-8.2) g/dL Albumin (3.5-5.0) g/dL Crossmatch 11/10/24 11/10/24 11/11/24 Range/Units 22:32 23:34 00:37 WBC (3.8-10.6) k/uL RBC (3.80-5.40) m/uL Hgb (11.4-16.0) gm/dL Hct (34.0-46.0) % Neutrophils # (1.3-7.7) k/uL Sodium (137-145) mmol/L Carbon Dioxide (22-30) mmol/L Glucose (74-99) mg/dL POC Glucose (mg/dL) 129 H 129 H 129 H (70-110) mg/dL Total Bilirubin (0.2-1.3) mg/dL Total Protein (6.3-8.2) g/dL Albumin (3.5-5.0) g/dL Crossmatch 11/11/24 11/11/24 11/11/24 Range/Units 02:01 04:20 04:26 WBC (3.8-10.6) k/uL RBC (3.80-5.40) m/uL Hgb (11.4-16.0) gm/dL Hct (34.0-46.0) % Neutrophils # (1.3-7.7) k/uL Sodium 129 L (137-145) mmol/L Carbon Dioxide 21 L (22-30) mmol/L Glucose 108 H (74-99) mg/dL POC Glucose (mg/dL) 129 H 127 H (70-110) mg/dL Total Bilirubin 1.6 H (0.2-1.3) mg/dL Total Protein 4.7 L (6.3-8.2) g/dL Albumin 3.1 L (3.5-5.0) g/dL Crossmatch 11/11/24 11/11/24 11/11/24 Range/Units 04:26 06:31 08:10 WBC 11.4 H (3.8-10.6) k/uL RBC 2.50 L (3.80-5.40) m/uL Hgb 7.8 L (11.4-16.0) gm/dL Hct 24.2 L (34.0-46.0) % Neutrophils # 9.3 H (1.3-7.7) k/uL Sodium (137-145) mmol/L Carbon Dioxide (22-30) mmol/L Glucose (74-99) mg/dL POC Glucose (mg/dL) 135 H 210 H (70-110) mg/dL Total Bilirubin (0.2-1.3) mg/dL Total Protein (6.3-8.2) g/dL Albumin (3.5-5.0) g/dL Crossmatch 11/11/24 11/11/24 11/11/24 Range/Units 08:14 09:02 10:15 WBC (3.8-10.6) k/uL RBC (3.80-5.40) m/uL Hgb (11.4-16.0) gm/dL Hct (34.0-46.0) % Neutrophils # (1.3-7.7) k/uL Sodium (137-145) mmol/L Carbon Dioxide (22-30) mmol/L Glucose (74-99) mg/dL POC Glucose (mg/dL) 217 H 224 H 132 H (70-110) mg/dL Total Bilirubin (0.2-1.3) mg/dL Total Protein (6.3-8.2) g/dL Albumin (3.5-5.0) g/dL Crossmatch
--- NOTE | 2024-11-11 15:31 | P.PN ---
Subjective HISTORY OF PRESENT ILLNESS: This is a 74-year-old female with a past medical history significant for frequent alcohol use, hypertension and anxiety. 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 We have been asked to see the patient in consultation for chest pain. Patient examined at the bedside in the emergency room. Patient states over the past 1 to 2 weeks she has been having chest discomfort. She states the pain has been occurring at night when she lays down. She states that she initially thought it was heartburn. She states the pain starts in the middle of her chest and then radiates into her back and then into the back of her arms. She states the pain will last for about 10 to 15 minutes and is resolved when she sits up on the side of the bed. She does report that yesterday the pain was worse with exertion during the day. She is a non-smoker. She does report drinking 2-3 beers a day which she states helps with her essential tremors. DIAGNOSTICS: - EKG reveals sinus mechanism with no signs of acute ischemia. - Chest xray negative for acute process. COPD changes.. - Laboratory data: WBC 6.3. Hemoglobin 11.5. Platelet count 283. Sodium 136. Potassium 3.6. BUN 6. Creatinine 0.49. Troponin 0.060. 0.124. 0.170. - Current home cardiac medication list not updated at the time of examination. -No previous echocardiogram, stress test, or cardiac catheterization available in EMR for review 11/05/2024 Patient underwent cardiac catheterization yesterday revealing heavily calcified coronary arteries, critical stenosis involving proximal LAD and RCA and moderate disease of the left circumflex. Consultation was placed to CT surgery for possible CABG. Patient examined this morning the bedside. Patient denies any chest pain or pressure. She denies any shortness of breath. Vital signs are stable. Blood pressure 163/86. Echocardiogram completed revealing ejection fraction 55 to 60%, no significant valvular abnormalities noted, and no pericardial effusion noted. 11/06/2024 Patient examined this morning at the bedside. Patient is sitting up in the chair. Patient's family is present. Patient reports having an episode of chest pain yesterday that lasted for about 15 to 20 minutes. She denies any chest pain at the time of examination. She denies any shortness of breath or cough. She remains on IV heparin. She states that she is scheduled for CABG on Saturday. 11/07/2024 Patient examined this morning at the bedside. Patient is sitting up in the chair. Patient denies any chest pain or pressure. She denies shortness of breath. She remains on IV heparin. Blood pressure elevated this morning with a systolic between [id number]. 11/08/2024 Patient examined this morning at the bedside. Patient currently denies chest pain or pressure. She denies shortness of breath. She remains on IV heparin. She reports back pain this morning and states it is worse when she is lying in the hospital bed. Vital signs are stable. 11/10 Patient seen and examined. Patient underwent off-pump CABG x 3 with AGUILAR to LAD, left radial to OM, SVG to RCA with a left atrial appendage closure 11/05/2024. She denies any significant shortness of breath. She is complaining of some chest pain around her incision site however no other chest pain. She was extubated and currently on 2 L nasal cannula. Her cardiac output has been 5.6 with a cardiac index of 3.7. CVP of 9. She has been on amiodarone drip and maintaining normal sinus rhythm. 11/11 Patient seen and examined. Patient denies any chest pain or pressure. No lightheadedness or dizziness. States she is feeling better. Chest tubes were removed. Creatinine 0.5, hemoglobin 7.8. PHYSICAL EXAM: VITAL SIGNS: Reviewed. GENERAL: Well-developed in no acute distress. HEENT: Head is normocephalic. Pupils are equal, round. Sclerae anicteric. Mucous membranes of the mouth are moist. Neck supple. No JVD or thyromegaly LUNGS: Respirations even and unlabored. Lungs essentially clear to auscultation bilaterally. HEART: Regular rate and rhythm. S1 and S2 heard. Systolic murmur noted. ABDOMEN: Soft. Nondistended. Nontender. EXTREMITIES: Normal range of motion. No clubbing or cyanosis. Peripheral pulses intact. No lower extremity edema NEUROLOGIC: Awake and alert. Oriented x 3. ASSESSMENT: Non-STEMI, status post cardiac cath revealing multivessel CAD CAD s/p CABG x 3 11/09/24 Hypertension Frequent alcohol use, patient reports drinking 2-3 beers per day Anxiety History of essential tremors Anemia PLAN: Continue aspirin and Plavix Continue metoprolol Continue amlodipine for radial artery spasm Continue amiodarone twice a day. Appears to be slowly improving. Continue with current regimen. Objective - Vital Signs Vital signs: Vital Signs Temp 98.2 F 11/11/24 08:00 Pulse 86 11/11/24 13:00 Resp 15 11/11/24 13:00 BP 123/63 11/11/24 13:00 Pulse Ox 95 11/11/24 12:00 FiO2 40 11/09/24 17:44 Intake & Output 11/10/24 11/11/24 11/11/24 18:59 06:59 18:59 Intake Total 1519.783 432.648 202.145 Output Total 685 615 185 Balance 834.783 -182.352 17.145 Weight 52.1 kg 57.1 kg Intake: IV 1018 432 193 .9NS Cardiac Output 40 .9NS Pressure Bag 78 72 33 ACETAMINOPHEN IV (For NPO 100 ) 1,000 mg In Empty Bag 1 bag @ 400 mls/hr IVPB Q6HR [facility] Rx#:[id number] Albumin Human 5% 250 ml 250 In Empty Bag 1 bag @ 250 mls/hr IVPB Q1HR [facility] Rx#: [id number] Potassium Chloride 10 meq 100 In Water For Injection 1 100ml.bag @ 100 mls/hr IVPB Q1H [facility] Rx#: [id number] Sodium Chloride 0.9% 1, 400 360 160 000 ml @ 20 mls/hr IV . Q24H [facility] Rx#:[id number] ceFAZolin 2 gm In Sodium 50 Chloride 0.9% 50 ml @ 100 mls/hr IVPB ONCE ONE Rx# :[id number] Intake, IV Titration 41.783 0.648 9.145 Amount Insulin Regular 100 unit 12.583 0.648 9.145 In Sodium Chloride 0.9% 100 ml @ Per Protocol IV .Q0M [facility] Rx#:[id number] Nitroglycerin-D5w Pmx 50 29.2 mg In Dextrose/Water 1 250ml.bag @ 5 MCG/MIN 1.5 mls/hr IV .Q24H [facility] Rx#: [id number] Oral 460 Output: Chest Tube Drainage 230 150 10 Left Pleural Chest Tube 150 90 10 Mediastinal Chest Tube 80 60 0 Urine 455 465 175 Other: Voiding Method Indwelling Catheter Indwelling Catheter Indwelling Catheter ABP, PAP, CO, CI - Last Documented Arterial Blood Pressure 154/44 Pulmonary Artery Pressure 21/6 Cardiac Output 4.9 Cardiac Index 3.2 - Labs CBC & Chem 7: 11/11/24 04:26 11/11/24 04:26 Labs: Abnormal Lab Results - Last 24 Hours (Table) 11/09/24 11/10/24 11/10/24 Range/Units 06:28 17:54 19:11 WBC (3.8-10.6) k/uL RBC (3.80-5.40) m/uL Hgb (11.4-16.0) gm/dL Hct (34.0-46.0) % Neutrophils # (1.3-7.7) k/uL Sodium (137-145) mmol/L Carbon Dioxide (22-30) mmol/L Glucose (74-99) mg/dL POC Glucose (mg/dL) 121 H 139 H (70-110) mg/dL Total Bilirubin (0.2-1.3) mg/dL Total Protein (6.3-8.2) g/dL Albumin (3.5-5.0) g/dL Crossmatch See Detail 11/10/24 11/10/24 11/10/24 Range/Units 20:10 21:28 22:32 WBC (3.8-10.6) k/uL RBC (3.80-5.40) m/uL Hgb (11.4-16.0) gm/dL Hct (34.0-46.0) % Neutrophils # (1.3-7.7) k/uL Sodium (137-145) mmol/L Carbon Dioxide (22-30) mmol/L Glucose (74-99) mg/dL POC Glucose (mg/dL) 147 H 136 H 129 H (70-110) mg/dL Total Bilirubin (0.2-1.3) mg/dL Total Protein (6.3-8.2) g/dL Albumin (3.5-5.0) g/dL Crossmatch 11/10/24 11/11/24 11/11/24 Range/Units 23:34 00:37 02:01 WBC (3.8-10.6) k/uL RBC (3.80-5.40) m/uL Hgb (11.4-16.0) gm/dL Hct (34.0-46.0) % Neutrophils # (1.3-7.7) k/uL Sodium (137-145) mmol/L Carbon Dioxide (22-30) mmol/L Glucose (74-99) mg/dL POC Glucose (mg/dL) 129 H 129 H 129 H (70-110) mg/dL Total Bilirubin (0.2-1.3) mg/dL Total Protein (6.3-8.2) g/dL Albumin (3.5-5.0) g/dL Crossmatch 11/11/24 11/11/24 11/11/24 Range/Units 04:20 04:26 04:26 WBC 11.4 H (3.8-10.6) k/uL RBC 2.50 L (3.80-5.40) m/uL Hgb 7.8 L (11.4-16.0) gm/dL Hct 24.2 L (34.0-46.0) % Neutrophils # 9.3 H (1.3-7.7) k/uL Sodium 129 L (137-145) mmol/L Carbon Dioxide 21 L (22-30) mmol/L Glucose 108 H (74-99) mg/dL POC Glucose (mg/dL) 127 H (70-110) mg/dL Total Bilirubin 1.6 H (0.2-1.3) mg/dL Total Protein 4.7 L (6.3-8.2) g/dL Albumin 3.1 L (3.5-5.0) g/dL Crossmatch 11/11/24 11/11/24 11/11/24 Range/Units 06:31 08:10 08:14 WBC (3.8-10.6) k/uL RBC (3.80-5.40) m/uL Hgb (11.4-16.0) gm/dL Hct (34.0-46.0) % Neutrophils # (1.3-7.7) k/uL Sodium (137-145) mmol/L Carbon Dioxide (22-30) mmol/L Glucose (74-99) mg/dL POC Glucose (mg/dL) 135 H 210 H 217 H (70-110) mg/dL Total Bilirubin (0.2-1.3) mg/dL Total Protein (6.3-8.2) g/dL Albumin (3.5-5.0) g/dL Crossmatch 11/11/24 11/11/24 Range/Units 09:02 10:15 WBC (3.8-10.6) k/uL RBC (3.80-5.40) m/uL Hgb (11.4-16.0) gm/dL Hct (34.0-46.0) % Neutrophils # (1.3-7.7) k/uL Sodium (137-145) mmol/L Carbon Dioxide (22-30) mmol/L Glucose (74-99) mg/dL POC Glucose (mg/dL) 224 H 132 H (70-110) mg/dL Total Bilirubin (0.2-1.3) mg/dL Total Protein (6.3-8.2) g/dL Albumin (3.5-5.0) g/dL Crossmatch
--- NOTE | 2024-11-11 15:43 | P.PN ---
Subjective Progress Note Date: 11/11/24 Principal diagnosis: Multivessel coronary artery disease, status post Off-pump CABG x 3 with AGUILAR to LAD, left radial artery graft to obtuse marginal, saphenous vein graft to right coronary artery, endovascular vein and left radial artery harvest, occlusion of left atrial appendage with 40 mm AtriCure clip, LUIS ANTONIO by anesthesia., Postoperative day #2 Patient is a 74-year-old female with past medical history significant for hypertension, daily alcohol use, resting tremor, anxiety, mild intermittent asthma. Presented to emergency department back on 11/03/2024 with a chief co mplaint of chest pain. Diagnosed with non-ST elevation UT. Taken to the [facility] on 11/04/2024 which showed multivessel coronary artery disease with critical stenosis involving the proximal LAD and RCA and moderate disease of the left circumflex. Patient was referred to cardiothoracic surgery. Patient is currently undergoing extensive preoperative workup. We are asked to see this patient for preoperative pulmonary clearance. Patient is being seen on the cardiac stepdown floor. Currently on IV heparin protocol. Is reporting some substernal chest pain with radiation to her back. States it is reoccurring at nighttime. The nurses are putting Nitropaste on. EKG is going to be repeated. She has history of mild intermittent asthma, does have an as needed albuterol rescue inhaler at home, but does not usually require it unless sick. History of tobacco smoking over 40 years ago. No recent URI, pneumonias, pulmonary complaints. Respiratory therapist did a bedside spirometry, FEV1 was reported at 0.91 L or 46% of predicted. CT of the chest does not show any acute parenchymal abnormalities. No suspicious lung nodules or focal infiltrates. Vascular calcification of thoracic aorta. Patient currently resting comfortably on room air oxygen. Her chest pain is subsided. No nausea or vomiting or diaphoresis. Denies shortness of breath. She has a severe resting tremor. She states she feels anxious about being on the ventilator. No prior major surgeries or issue with general anesthesia. Incentive spirometer is at bedside. Most recent labs from yesterday including a WBC count of 7.3, hemoglobin 10.8, platelets 285. Effort appears therapeutic based on APTT. CMP: Sodium 136, potassium 4, chloride 103, serum bicarb 22, BUN 5, creatinine 0.52, glucose 83. Previously troponins were elevated at 0.06, 0.124, and 0.17. Echocardiogram showing normal biventricular systolic function, no significant valvular abnormalities. Current vital signs: Temperature 98.2 F, heart rate 95 bpm, blood pressure 160/80 mmHg, nontachypneic, SpO2 is 100% on room air. On 11/07/2024, the patient is being seen for a follow-up. She is free of any chest pain. She remains on IV heparin. In regards to her COPD, start the patient on DuoNeb updrafts and cause significant tachycardia and tremors. Based on that, the patient was unable to continue updrafts. She continues to be on IV heparin. She is using incentive spirometer. Hemoglobin is 11.2. PTT is 47. Electrolytes are all noted and the patient has a potassium level of 3.4 that is to be replaced. BUN is 4 with a creatinine of 0.49. Calcium level is at 9.5. No cardiac arrhythmias. On 11/08/2024, the patient remains on IV heparin. She is free of any chest pain. She has COPD and she was started on Symbicort and albuterol HFA 4 times a day. DuoNeb updrafts have been discontinued because of increased tremors and tachyca rdia. She is able to tolerate inhalers reasonably well. The plan is to undergo bypass surgery scheduled to be done in the morning. Hemoglobin stable at 11.2, white cell count is 6.4. BUN is at 4 with a creatinine of 0.5 and a sodium levels at 138. Potassium level is at 4.3. Using incentive spirometer. Pulling approximately 1500. Pulse ox is 94% on room air oxygen. Patient was seen today on 11/09/2024, patient is status post Off-pump CABG x 3 with AGUILAR to LAD, left radial artery graft to obtuse marginal, saphenous vein graft to right coronary artery, endovascular vein and left radial artery harvest, occlusion of left atrial appendage with 40 mm AtriCure clip, LUIS ANTONIO by anesthesia., Patient was admitted to the ICU intubated and mechanically ventilated, she is now on assist-control rate of 16 tidal volume 400 FiO2 40% and PEEP of 5 ABG showed a pO2 of 224 pCO2 37 pH of 7.41 cardiac output is 5.3 cardiac index of 3.5 patient is on multiple drips including propofol at 20 mcg/kg/min, amiodarone at 1 mg/min, nitroglycerin at 5 mcg/min, insulin at 1 unit/h patient is also on Cleviprex at 4 mg/h. Patient is sedated, however she seems to be arousable with deep painful stimuli. Does not seem to be in distress, patient again is intubated and mechanically ventilated and on multiple drips as noted above chest x-ray no evidence of active disease, postoperative changes were noted. All labs from today were reviewed, her ventilator settings were adjusted accordingly. Patient was seen today on 11/10/2024, POD #1 Off-pump CABG x 3 with AGUILAR to LAD, left radial artery graft to obtuse marginal, saphenous vein graft to right coronary artery, endovascular vein and left radial artery harvest, occlusion of left atrial appendage with 40 mm AtriCure clip, LUIS ANTONIO by anesthesia. Patient was extubated last night at 5:53 PM, she was extubated successfully, tolerated the extubation well. Today the patient is on nasal cannula, 2 L/min, achieving 1000 mL on her incentive spirometry patient is in sinus rhythm, receiving amiodarone prophylactically, continues to have right IJ cordis and [place] catheter in place, her cardiac output is 5.6 cardiac index is 3.7 PA pressure 29/10 CVP is 9 patient is on amiodarone at 0.5 mg/min, she is also on nitroglycerin 5 mcg/min. Her mediastinal and left-sided chest tubes remain in place connected to Pleur- evac, no airleak is noted, chest x-ray showed no evidence of pneumothorax, minimal basilar atelectasis noted. WBC count is 9.2 hemoglobin is 8.4, basic metabolic profile is normal renal profile is normal Patient was seen today on 11/11/2024, postoperative day #2 Off-pump CABG x 3 with AGUILAR to LAD, left radial artery graft to obtuse marginal, saphenous vein graft to right coronary artery, endovascular vein and left radial artery harvest, occlusion of left atrial appendage with 40 mm AtriCure clip, LUIS ANTONIO by anesthesia. Patient is doing well today, relatively asymptomatic on room air, she is not requiring any drips except insulin drip at 1.5 units/h. Chest tube has been removed, patient is achieving over 1500 cc on her incentive spirometry, chest x- ray is reassuring labs are reassuring patient is already ambulating in the hallway with assistance. Objective - Vital Signs Vital signs: Vital Signs Temp 98.2 F 11/11/24 08:00 Pulse 86 11/11/24 13:00 Resp 15 11/11/24 13:00 BP 123/63 11/11/24 13:00 Pulse Ox 95 11/11/24 12:00 FiO2 40 11/09/24 17:44 Intake & Output 11/10/24 11/11/24 11/11/24 18:59 06:59 18:59 Intake Total 1519.783 432.648 202.145 Output Total 685 615 185 Balance 834.783 -182.352 17.145 Weight 52.1 kg 57.1 kg Intake: IV 1018 432 193 .9NS Cardiac Output 40 .9NS Pressure Bag 78 72 33 ACETAMINOPHEN IV (For NPO 100 ) 1,000 mg In Empty Bag 1 bag @ 400 mls/hr IVPB Q6HR [facility] Rx#:[id number] Albumin Human 5% 250 ml 250 In Empty Bag 1 bag @ 250 mls/hr IVPB Q1HR PRN Rx#: [id number] Potassium Chloride 10 meq 100 In Water For Injection 1 100ml.bag @ 100 mls/hr IVPB Q1H [facility] Rx#: [id number] Sodium Chloride 0.9% 1, 400 360 160 000 ml @ 20 mls/hr IV . Q24H [facility] Rx#:[id number] ceFAZolin 2 gm In Sodium 50 Chloride 0.9% 50 ml @ 100 mls/hr IVPB ONCE ONE Rx# :[id number] Intake, IV Titration 41.783 0.648 9.145 Amount Insulin Regular 100 unit 12.583 0.648 9.145 In Sodium Chloride 0.9% 100 ml @ Per Protocol IV .Q0M [facility] Rx#:[id number] Nitroglycerin-D5w Pmx 50 29.2 mg In Dextrose/Water 1 250ml.bag @ 5 MCG/MIN 1.5 mls/hr IV .Q24H [facility] Rx#: [id number] Oral 460 Output: Chest Tube Drainage 230 150 10 Left Pleural Chest Tube 150 90 10 Mediastinal Chest Tube 80 60 0 Urine 455 465 175 Other: Voiding Method Indwelling Catheter Indwelling Catheter Indwelling Catheter ABP, PAP, CO, CI - Last Documented Arterial Blood Pressure 154/44 Pulmonary Artery Pressure 21/6 Cardiac Output 4.9 Cardiac Index 3.2 - Exam CONSTITUTIONAL: Revealed 73-year-old, in no distress on room air Head: Atraumatic normocephalic HEENT: PERRLA, EOMI, nonicteric RESPIRATORY: Good breath sound bilaterally no rhonchi no wheezes CARDIOVASCULAR: S1, S2 present. Regular rate and rhythm, sinus rhythm on telemetry. Positive pericardial rub GASTROINTESTINAL: Abdomen soft, nontender, nondistended. Active bowel sounds present 4 quadrants. INTEGUMENTARY: Skin is warm and dry. No clubbing or cyanosis present. NEUROLOGIC: Alert oriented x 3 no gross focal deficit MUSKULOSKELETAL: No evidence of deformities, no limitation of range of motion PSYCHIATRIC: Normal mood affect and normal mental status examination - Labs CBC & Chem 7: 11/11/24 04:26 11/11/24 04:26 Labs: Abnormal Lab Results - Last 24 Hours (Table) 11/09/24 11/10/24 11/10/24 Range/Units 06:28 17:54 19:11 WBC (3.8-10.6) k/uL RBC (3.80-5.40) m/uL Hgb (11.4-16.0) gm/dL Hct (34.0-46.0) % Neutrophils # (1.3-7.7) k/uL Sodium (137-145) mmol/L Carbon Dioxide (22-30) mmol/L Glucose (74-99) mg/dL POC Glucose (mg/dL) 121 H 139 H (70-110) mg/dL Total Bilirubin (0.2-1.3) mg/dL Total Protein (6.3-8.2) g/dL Albumin (3.5-5.0) g/dL Crossmatch See Detail 11/10/24 11/10/24 11/10/24 Range/Units 20:10 21:28 22:32 WBC (3.8-10.6) k/uL RBC (3.80-5.40) m/uL Hgb (11.4-16.0) gm/dL Hct (34.0-46.0) % Neutrophils # (1.3-7.7) k/uL Sodium (137-145) mmol/L Carbon Dioxide (22-30) mmol/L Glucose (74-99) mg/dL POC Glucose (mg/dL) 147 H 136 H 129 H (70-110) mg/dL Total Bilirubin (0.2-1.3) mg/dL Total Protein (6.3-8.2) g/dL Albumin (3.5-5.0) g/dL Crossmatch 11/10/24 11/11/24 11/11/24 Range/Units 23:34 00:37 02:01 WBC (3.8-10.6) k/uL RBC (3.80-5.40) m/uL Hgb (11.4-16.0) gm/dL Hct (34.0-46.0) % Neutrophils # (1.3-7.7) k/uL Sodium (137-145) mmol/L Carbon Dioxide (22-30) mmol/L Glucose (74-99) mg/dL POC Glucose (mg/dL) 129 H 129 H 129 H (70-110) mg/dL Total Bilirubin (0.2-1.3) mg/dL Total Protein (6.3-8.2) g/dL Albumin (3.5-5.0) g/dL Crossmatch 11/11/24 11/11/24 11/11/24 Range/Units 04:20 04:26 04:26 WBC 11.4 H (3.8-10.6) k/uL RBC 2.50 L (3.80-5.40) m/uL Hgb 7.8 L (11.4-16.0) gm/dL Hct 24.2 L (34.0-46.0) % Neutrophils # 9.3 H (1.3-7.7) k/uL Sodium 129 L (137-145) mmol/L Carbon Dioxide 21 L (22-30) mmol/L Glucose 108 H (74-99) mg/dL POC Glucose (mg/dL) 127 H (70-110) mg/dL Total Bilirubin 1.6 H (0.2-1.3) mg/dL Total Protein 4.7 L (6.3-8.2) g/dL Albumin 3.1 L (3.5-5.0) g/dL Crossmatch 11/11/24 11/11/24 11/11/24 Range/Units 06:31 08:10 08:14 WBC (3.8-10.6) k/uL RBC (3.80-5.40) m/uL Hgb (11.4-16.0) gm/dL Hct (34.0-46.0) % Neutrophils # (1.3-7.7) k/uL Sodium (137-145) mmol/L Carbon Dioxide (22-30) mmol/L Glucose (74-99) mg/dL POC Glucose (mg/dL) 135 H 210 H 217 H (70-110) mg/dL Total Bilirubin (0.2-1.3) mg/dL Total Protein (6.3-8.2) g/dL Albumin (3.5-5.0) g/dL Crossmatch 11/11/24 11/11/24 Range/Units 09:02 10:15 WBC (3.8-10.6) k/uL RBC (3.80-5.40) m/uL Hgb (11.4-16.0) gm/dL Hct (34.0-46.0) % Neutrophils # (1.3-7.7) k/uL Sodium (137-145) mmol/L Carbon Dioxide (22-30) mmol/L Glucose (74-99) mg/dL POC Glucose (mg/dL) 224 H 132 H (70-110) mg/dL Total Bilirubin (0.2-1.3) mg/dL Total Protein (6.3-8.2) g/dL Albumin (3.5-5.0) g/dL Crossmatch Assessment and Plan Assessment: Impression:Off-pump CABG x 3 with AGUILAR to LAD, left radial artery graft to obtuse marginal, saphenous vein graft to right coronary artery, endovascular vein and left radial artery harvest, occlusion of left atrial appendage with 40 mm AtriCure clip, LUIS ANTONIO by anesthesia. Postoperative day #2 Multivessel coronary artery disease noted on recent cardiac catheterization Acute Non-ST elevation UT Hypertension COPD with a component of asthma, started on Symbicort and albuterol HFA 4 times a day. Remote history of tobacco use, over 40 years ago Daily alcohol use Peripheral neuropathy Resting tremor Anxiety recommendation: Continue maximal medical therapy, Plavix beta-blockers aspirin and statin Continue bronchodilators patient has a baseline spirometry with FEV1 of 46% Continue ambulation Continue insulin and monitor blood sugars closely. Continue GI and DVT prophylaxis Transfer out of the ICU once a bed is available on the cardiac floor Will continue to follow Time with Patient: Less than 30
[2024-11-11 17:17] LABS: Glucose,Whole Blood 143 mg/dL (70-110)
[2024-11-11 20:12] LABS: Glucose,Whole Blood 183 mg/dL (70-110)
[2024-11-12 05:36] LABS: Glucose,Whole Blood 122 mg/dL (70-110)
--- NOTE | 2024-11-12 06:43 | XR ---
EXAMINATION TYPE: XR chest 2V DATE OF EXAM: 11/12/2024 6:37 AM COMPARISON: Chest x-ray from one day earlier and older studies CLINICAL INDICATION: Female, 74 years old with history of post open heart, TECHNIQUE: Frontal and lateral views of the chest are obtained. FINDINGS: Interval removal of the right internal jugular Cordis sheath. Interval removal of mediasti nal drainage catheter and left-sided chest tube. No visualized left-sided pneumothorax. Overlying Me diastinal clips and left atrial appendage clip are redemonstrated. Persistent left lower lung increased opacity. Stable cardiomegaly. Tiny bilateral pleural effusions o n lateral view. Osseous structures are intact. IMPRESSION: 1. Persistent cardiomegaly with left lower lung acute infiltrate and/or atelectasis and tiny bilatera l pleural effusions. No left-sided pneumothorax after left-sided chest tube removal. [facility], , 11/12/2024 6:41 AM
[2024-11-12 07:24] LABS: Basophils % (A) 0 %; Eosinophils # (A) 0.1 k/uL (0-0.7); Eosinophils % (A) 1 %; HGB 8.4 gm/dL (11.4-16.0); Hypochromasia Slight; Lymphocytes # (A) 1.3 k/uL (1.0-4.8); Lymphocytes % (A) 11 %; MCH 32.2 pg (25.0-35.0); MCHC 32.4 g/dL (31.0-37.0); MCV 99.6 fL (80.0-100.0); Mean Platelet Volume 8.4; Monocytes % (A) 8 %; Neutrophils # (A) 9.5 k/uL (1.3-7.7); Neutrophils % (A) 78 %; Platelet Count 181 k/uL (150-450); RBC 2.61 m/uL (3.80-5.40); RDW 13.2 % (11.5-15.5); WBC 12.1 k/uL (3.8-10.6)
[2024-11-12 07:44] LABS: ALT 18 U/L (4-34); AST 34 U/L (14-36); African American GFR (CKD) >90 (>60 ml/min/1.73 sqM); Albumin 3.3 g/dL (3.5-5.0); Alkaline Phosphatase 47 U/L (38-126); Anion Gap 6 mmol/L; Blood Urea Nitrogen 12 mg/dL (7-17); Carbon Dioxide 24 mmol/L (22-30); Chloride 100 mmol/L (98-107); Glucose 108 mg/dL (74-99); Non-African American GFR(CKD) 89 (>60 ml/min/1.73 sqM); Potassium 4.2 mmol/L (3.5-5.1); Sodium 130 mmol/L (137-145); Total Bilirubin 1.8 mg/dL (0.2-1.3); Total Protein 5.3 g/dL (6.3-8.2)
[2024-11-12] MEDS: MAGNESIUM HYDROXIDE 2,400 MG/30 ML CUP PO PRN (08:03)
--- NOTE | 2024-11-12 10:03 | P.PN ---
Subjective Progress Note Date: 11/12/24 Principal diagnosis: Multivessel coronary artery disease, non-STEMI this admission. History of hypertension, peripheral neuropathy with essential tremors, asthma, daily EtOH use, previous tobacco dependence, and family history of premature coronary artery disease POD #3 Off-pump CABG x 3 with AGUILAR to LAD, left radial artery graft to obtuse marginal, saphenous vein graft to right coronary artery, endovascular vein and left radial artery harvest, occlusion of left atrial appendage with 40 mm AtriCure clip, LUIS ANTONIO by anesthesia. Postoperative acute blood loss anemia, likely secondary to hemodilution and history of preoperative anemia. The patient was seen and examined sitting up in a recliner on the cardiac stepdown unit in no acute distress. States expected postsurgical pain mostly controlled on current medication regimen, denies shortness of breath. Currently in sinus rhythm with heart rate in the 80s, hemodynamically stable. Remains on room air with oxygen saturation in the mid 90s, able to achieve 1500 mL on her incentive spirometry this morning. Patient has been ambulatory in the hallway with assist. Anticipates first postoperative shower today. No other new concerns. Objective - Vital Signs Vital signs: Vital Signs Temp 98.5 F 11/12/24 04:00 Pulse 81 11/12/24 04:00 Resp 17 11/12/24 04:00 BP 113/57 11/12/24 04:00 Pulse Ox 94 L 11/12/24 04:00 FiO2 40 11/09/24 17:44 Intake & Output 11/11/24 11/12/24 11/12/24 18:59 06:59 18:59 Intake Total 202.145 530 Output Total 385 720 Balance -182.855 -190 Weight 58.7 kg Intake: IV 193 10 .9NS Pressure Bag 33 Invasive Line 2 10 Sodium Chloride 0.9% 1, 160 000 ml @ 20 mls/hr IV . Q24H [facility] Rx#:[id number] Intake, IV Titration 9.145 Amount Insulin Regular 100 unit 9.145 In Sodium Chloride 0.9% 100 ml @ Per Protocol IV .Q0M [facility] Rx#:[id number] Oral 520 Output: Chest Tube Drainage 10 Left Pleural Chest Tube 10 Mediastinal Chest Tube 0 Urine 375 720 Other: Voiding Method Indwelling Catheter Toilet # Voids 1 ABP, PAP, CO, CI - Last Documented Arterial Blood Pressure 154/44 Pulmonary Artery Pressure 21/6 Cardiac Output 4.9 Cardiac Index 3.2 - Exam CONSTITUTIONAL: Appears comfortable, cooperative, no acute distress RESPIRATORY: Lungs sounds diminished in the bases bilaterally. Respirations even, nonlabored. Currently on room air with oxygen saturation 95%. Able to achieve 1500 mL on incentive spirometry. Strong cough. CARDIOVASCULAR: S1, S2 present. Regular rate and rhythm, sinus rhythm on telemetry. Sternum stable. Palpable peripheral pulses bilaterally. No edema present. No calf pain or tenderness noted. Heart hugger in place with patient demonstrating appropriate use. Antiembolism stockings, SCDs present. GASTROINTESTINAL: Abdomen soft, nontender, nondistended. Active bowel sounds present 4 quadrants. Tolerating diet. Positive flatus GENITOURINARY: Garcia discontinued yesterday, urine output 1095 mL in the last 24 hours INTEGUMENTARY: Skin is warm and dry with evidence of good perfusion. Anterior chest incision well approximated and covered with dry intact dressing. Left lower extremity EVH site as well as left radial artery harvest site well approximated without redness or drainage. NEUROLOGIC: Cranial nerves II through XII intact MUSKULOSKELETAL: Able to move all extremities, strength equal bilaterally, gait normal PSYCHIATRIC: Alert and oriented to person place and time, appropriate affect, intact judgment and insight - Allied health notes Allied health notes reviewed: nursing - Labs CBC & Chem 7: 11/12/24 06:23 11/12/24 06:23 Labs: Abnormal Lab Results - Last 24 Hours (Table) 11/11/24 11/11/24 11/11/24 Range/Units 10:15 17:15 20:10 WBC (3.8-10.6) k/uL RBC (3.80-5.40) m/uL Hgb (11.4-16.0) gm/dL Hct (34.0-46.0) % Neutrophils # (1.3-7.7) k/uL Sodium (137-145) mmol/L Glucose (74-99) mg/dL POC Glucose (mg/dL) 132 H 143 H 183 H (70-110) mg/dL Total Bilirubin (0.2-1.3) mg/dL Total Protein (6.3-8.2) g/dL Albumin (3.5-5.0) g/dL 02/27/25 02/27/25 02/27/25 Range/Units 05:34 06:23 06:23 WBC 12.1 H (3.8-10.6) k/uL RBC 2.61 L (3.80-5.40) m/uL Hgb 8.4 L (11.4-16.0) gm/dL Hct 26.0 L (34.0-46.0) % Neutrophils # 9.5 H (1.3-7.7) k/uL Sodium 130 L (137-145) mmol/L Glucose 108 H (74-99) mg/dL POC Glucose (mg/dL) 122 H (70-110) mg/dL Total Bilirubin 1.8 H (0.2-1.3) mg/dL Total Protein 5.3 L (6.3-8.2) g/dL Albumin 3.3 L (3.5-5.0) g/dL - Imaging and Cardiology Chest x-ray: report reviewed, image reviewed Assessment and Plan Assessment: Multivessel coronary artery disease, non-STEMI this admission, status post three-vessel off-pump CABG Chest pain, secondary to above Anemia, occult stool negative Postoperative acute blood loss anemia, expected given hemodilution and her preoperative history of anemia History of hypertension Peripheral neuropathy with essential tremors Asthma Daily EtOH use, daughter reports multiple beers per day, patient reports down to the 2-3 beers daily Previous tobacco dependence Family history of premature coronary artery disease Plan: Continue to maximize medical therapy with aspirin, statin, Plavix, and beta- clover. Will increase metoprolol tartrate as tolerated Continue Norvasc with hold parameters for radial artery spasm prophylaxis Amiodarone 400 mg p.o. twice daily initiated for atrial fibrillation prophylaxis, no atrial fibrillation has been reported Encourage incentive spirometry use 10 times every hour while awake. Bronchodilators per pulmonology. Increase activity, ambulate as tolerated. PT/OT/cardiac rehab consulted. Will monitor daily labs and chest x-rays. Electrolyte replacement per protocol. GI/DVT prophylaxis. Continue thiamine, folic acid. Continue to monitor for alcohol withdrawal Pain control per current medication regimen Insulin management per internal medicine. Patient is not diabetic, hemoglobin A1c 5.9% Continue to monitor record strict accurate intake and output. Discharge planning in progress, anticipate discharge to home with home care in the next 24 to 48 hours More recommendations to follow based on patient's progress
[2024-11-12 11:33] LABS: Glucose,Whole Blood 140 mg/dL (70-110)
--- NOTE | 2024-11-12 14:16 | P.PN ---
Subjective Progress Note Date: 11/12/24 HISTORY OF PRESENT ILLNESS: This is a 74-year-old female with a past medical history significant for fr equent alcohol use, hypertension and anxiety. 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 We have been asked to see the patient in consultation for chest pain. Patient examined at the bedside in the emergency room. Patient states over the past 1 to 2 weeks she has been having chest discomfort. She states the pain has been occurring at night when she lays down. She states that she initially thought it was heartburn. She states the pain starts in the middle of her chest and then radiates into her back and then into the back of her arms. She states the pain will last for about 10 to 15 minutes and is resolved when she sits up on the side of the bed. She does report that yesterday the pain was worse with exertion during the day. She is a non-smoker. She does report drinking 2-3 beers a day which she states helps with her essential tremors. DIAGNOSTICS: - EKG reveals sinus mechanism with no signs of acute ischemia. - Chest xray negative for acute process. COPD changes.. - Laboratory data: WBC 6.3. Hemoglobin 11.5. Platelet count 283. Sodium 136. Potassium 3.6. BUN 6. Creatinine 0.49. Troponin 0.060. 0.124. 0.170. - Current home cardiac medication list not updated at the time of examination. -No previous echocardiogram, stress test, or cardiac catheterization available in EMR for review 11/05/2024 Patient underwent cardiac catheterization yesterday revealing heavily calcified coronary arteries, critical stenosis involving proximal LAD and RCA and moderate disease of the left circumflex. Consultation was placed to CT surgery for possible CABG. Patient examined this morning the bedside. Patient denies any chest pain or pressure. She denies any shortness of breath. Vital signs are stable. Blood pressure 163/86. Echocardiogram completed revealing ejection fraction 55 to 60%, no significant valvular abnormalities noted, and no pericardial effusion noted. 11/06/2024 Patient examined this morning at the bedside. Patient is sitting up in the chair. Patient's family is present. Patient reports having an episode of chest pain yesterday that lasted for about 15 to 20 minutes. She denies any chest pain at the time of examination. She denies any shortness of breath or cough. She remains on IV heparin. She states that she is scheduled for CABG on Saturday. 11/07/2024 Patient examined this morning at the bedside. Patient is sitting up in the janis r. Patient denies any chest pain or pressure. She denies shortness of breath. She remains on IV heparin. Blood pressure elevated this morning with a systolic between [id number]. 11/08/2024 Patient examined this morning at the bedside. Patient currently denies chest pain or pressure. She denies shortness of breath. She remains on IV heparin. She reports back pain this morning and states it is worse when she is lying in the hospital bed. Vital signs are stable. 11/10 Patient seen and examined. Patient underwent off-pump CABG x 3 with AGUILAR to LAD, left radial to OM, SVG to RCA with a left atrial appendage closure 11/05/2024. She denies any significant shortness of breath. She is complaining of some chest pain around her incision site however no other chest pain. She was extubated and currently on 2 L nasal cannula. Her cardiac output has been 5.6 with a cardiac index of 3.7. CVP of 9. She has been on amiodarone drip and maintaining normal sinus rhythm. 11/11 Patient seen and examined. Patient denies any chest pain or pressure. No lightheadedness or dizziness. States she is feeling better. Chest tubes were removed. Creatinine 0.5, hemoglobin 7.8. 11/12 Patient is seen and examined on the cardiac stepdown unit. She has been transferred out of the intensive care unit. Blood pressure 120/70, heart rate 73, pulse ox 97% on room air. Telemetry is sinus rhythm in the 80s. Repeat blood work reveals hemoglobin 8.4, WBC 12.1. Sodium 130, potassium 4.2, creatinine 0.64. Chest x-ray reveals persistent cardiomegaly with left lower lobe acute infiltrate and/or atelectasis and tiny bilateral pleural effusions. No left-sided pneumothorax after chest tube removal. PHYSICAL EXAM: VITAL SIGNS: Reviewed. GENERAL: Well-developed in no acute distress. HEENT: Head is normocephalic. Pupils are equal, round. Sclerae anicteric. Mucous membranes of the mouth are moist. Neck supple. No JVD or thyromegaly LUNGS: Respirations even and unlabored. Lungs essentially clear to auscultation bilaterally. HEART: Regular rate and rhythm. S1 and S2 heard. Systolic murmur noted. ABDOMEN: Soft. Nondistended. Nontender. EXTREMITIES: No clubbing or cyanosis. Peripheral pulses intact. No lower extremity edema NEUROLOGIC: Awake and alert. Oriented x 3. ASSESSMENT: Non-STEMI, status post cardiac cath revealing multivessel CAD CAD s/p CABG x 3 11/09/24 Hypertension Frequent alcohol use, patient reports drinking 2-3 beers per day Anxiety History of essential tremors Anemia PLAN: Continue aspirin and Plavix Continue metoprolol Continue amlodipine for radial artery spasm Continue amiodarone twice a day. Continue with current regimen. Appears to be slowly improving Nurse practitioner note has been reviewed, I agree with documented findings and plan of care. Patient was seen and examined. Objective - Vital Signs Vital signs: Vital Signs Temp 98 F 11/12/24 08:00 Pulse 73 11/12/24 12:00 Resp 16 11/12/24 12:00 BP 120/70 11/12/24 12:00 Pulse Ox 97 11/12/24 12:00 FiO2 40 11/09/24 17:44 Intake & Output 11/11/24 11/12/24 11/12/24 18:59 06:59 18:59 Intake Total 202.145 530 780 Output Total 385 720 100 Balance -182.855 -190 680 Weight 58.7 kg Intake: IV 193 10 .9NS Pressure Bag 33 Invasive Line 2 10 Sodium Chloride 0.9% 1, 160 000 ml @ 20 mls/hr IV . Q24H [facility] Rx#:[id number] Intake, IV Titration 9.145 Amount Insulin Regular 100 unit 9.145 In Sodium Chloride 0.9% 100 ml @ Per Protocol IV .Q0M [facility] Rx#:[id number] Oral 520 780 Output: Chest Tube Drainage 10 Left Pleural Chest Tube 10 Mediastinal Chest Tube 0 Urine 375 720 100 Other: Voiding Method Indwelling Catheter Toilet Toilet # Voids 1 1 ABP, PAP, CO, CI - Last Documented Arterial Blood Pressure 154/44 Pulmonary Artery Pressure 21/6 Cardiac Output 4.9 Cardiac Index 3.2 - Labs CBC & Chem 7: 11/12/24 06:23 11/12/24 06:23 Labs: Abnormal Lab Results - Last 24 Hours (Table) 11/11/24 11/11/24 11/12/24 Range/Units 17:15 20:10 05:34 WBC (3.8-10.6) k/uL RBC (3.80-5.40) m/uL Hgb (11.4-16.0) gm/dL Hct (34.0-46.0) % Neutrophils # (1.3-7.7) k/uL Sodium (137-145) mmol/L Glucose (74-99) mg/dL POC Glucose (mg/dL) 143 H 183 H 122 H (70-110) mg/dL Total Bilirubin (0.2-1.3) mg/dL Total Protein (6.3-8.2) g/dL Albumin (3.5-5.0) g/dL 11/12/24 11/12/24 11/12/24 Range/Units 06:23 06:23 11:30 WBC 12.1 H (3.8-10.6) k/uL RBC 2.61 L (3.80-5.40) m/uL Hgb 8.4 L (11.4-16.0) gm/dL Hct 26.0 L (34.0-46.0) % Neutrophils # 9.5 H (1.3-7.7) k/uL Sodium 130 L (137-145) mmol/L Glucose 108 H (74-99) mg/dL POC Glucose (mg/dL) 140 H (70-110) mg/dL Total Bilirubin 1.8 H (0.2-1.3) mg/dL Total Protein 5.3 L (6.3-8.2) g/dL Albumin 3.3 L (3.5-5.0) g/dL
--- NOTE | 2024-11-12 14:46 | P.PN ---
Subjective Progress Note Date: 11/12/24 Principal diagnosis: Multivessel coronary artery disease, status post Off-pump CABG x 3 with AGUILAR to LAD, left radial artery graft to obtuse marginal, saphenous vein graft to right coronary artery, endovascular vein and left radial artery harvest, occlusion of left atrial appendage with 40 mm AtriCure clip, LUIS ANTONIO by anesthesia., Postoperative day #3 Patient is a 74-year-old female with past medical history significant for hypertension, daily alcohol use, resting tremor, anxiety, mild intermittent asthma. Presented to emergency department back on 11/03/2024 with a chief co mplaint of chest pain. Diagnosed with non-ST elevation ID. Taken to the [facility] [employer] on 11/04/2024 which showed multivessel coronary artery disease with critical stenosis involving the proximal LAD and RCA and moderate disease of the left circumflex. Patient was referred to cardiothoracic surgery. Patient is currently undergoing extensive preoperative workup. We are asked to see this patient for preoperative pulmonary clearance. Patient is being seen on the cardiac stepdown floor. Currently on IV heparin protocol. Is reporting some substernal chest pain with radiation to her back. States it is reoccurring at nighttime. The nurses are putting Nitropaste on. EKG is going to be repeated. She has history of mild intermittent asthma, does have an as needed albuterol rescue inhaler at home, but does not usually require it unless sick. History of tobacco smoking over 40 years ago. No recent URI, pneumonias, pulmonary complaints. Respiratory therapist did a bedside spirometry, FEV1 was reported at 0.91 L or 46% of predicted. CT of the chest does not show any acute parenchymal abnormalities. No suspicious lung nodules or focal infiltrates. Vascular calcification of thoracic aorta. Patient currently resting comfortably on room air oxygen. Her chest pain is subsided. No nausea or vomiting or diaphoresis. Denies shortness of breath. She has a severe resting tremor. She states she feels anxious about being on the ventilator. No prior major surgeries or issue with general anesthesia. Incentive spirometer is at bedside. Most recent labs from yesterday including a WBC count of 7.3, hemoglobin 10.8, platelets 285. Effort appears therapeutic based on APTT. CMP: Sodium 136, potassium 4, chloride 103, serum bicarb 22, BUN 5, creatinine 0.52, glucose 83. Previously troponins were elevated at 0.06, 0.124, and 0.17. Echocardiogram showing normal biventricular systolic function, no significant valvular abnormalities. Current vital signs: Temperature 98.2 F, heart rate 95 bpm, blood pressure 160/80 mmHg, nontachypneic, SpO2 is 100% on room air. On 11/07/2024, the patient is being seen for a follow-up. She is free of any chest pain. She remains on IV heparin. In regards to her COPD, start the patient on DuoNeb updrafts and cause significant tachycardia and tremors. Based on that, the patient was unable to continue updrafts. She continues to be on IV heparin. She is using incentive spirometer. Hemoglobin is 11.2. PTT is 47. Electrolytes are all noted and the patient has a potassium level of 3.4 that is to be replaced. BUN is 4 with a creatinine of 0.49. Calcium level is at 9.5. No cardiac arrhythmias. On 11/08/2024, the patient remains on IV heparin. She is free of any chest pain. She has COPD and she was started on Symbicort and albuterol HFA 4 times a day. DuoNeb updrafts have been discontinued because of increased tremors and tachyca rdia. She is able to tolerate inhalers reasonably well. The plan is to undergo bypass surgery scheduled to be done in the morning. Hemoglobin stable at 11.2, white cell count is 6.4. BUN is at 4 with a creatinine of 0.5 and a sodium levels at 138. Potassium level is at 4.3. Using incentive spirometer. Pulling approximately 1500. Pulse ox is 94% on room air oxygen. Patient was seen today on 11/09/2024, patient is status post Off-pump CABG x 3 with AGUILAR to LAD, left radial artery graft to obtuse marginal, saphenous vein graft to right coronary artery, endovascular vein and left radial artery harvest, occlusion of left atrial appendage with 40 mm AtriCure clip, LUIS ANTONIO by anesthesia., Patient was admitted to the ICU intubated and mechanically ventilated, she is now on assist-control rate of 16 tidal volume 400 FiO2 40% and PEEP of 5 ABG showed a pO2 of 224 pCO2 37 pH of 7.41 cardiac output is 5.3 cardiac index of 3.5 patient is on multiple drips including propofol at 20 mcg/kg/min, amiodarone at 1 mg/min, nitroglycerin at 5 mcg/min, insulin at 1 unit/h patient is also on Cleviprex at 4 mg/h. Patient is sedated, however she seems to be arousable with deep painful stimuli. Does not seem to be in distress, patient again is intubated and mechanically ventilated and on multiple drips as noted above chest x-ray no evidence of active disease, postoperative changes were noted. All labs from today were reviewed, her ventilator settings were adjusted accordingly. Patient was seen today on 11/10/2024, POD #1 Off-pump CABG x 3 with AGUILAR to LAD, left radial artery graft to obtuse marginal, saphenous vein graft to right coronary artery, endovascular vein and left radial artery harvest, occlusion of left atrial appendage with 40 mm AtriCure clip, LUIS ANTONIO by anesthesia. Patient was extubated last night at 5:53 PM, she was extubated successfully, tolerated the extubation well. Today the patient is on nasal cannula, 2 L/min, achieving 1000 mL on her incentive spirometry patient is in sinus rhythm, receiving amiodarone prophylactically, continues to have right IJ cordis and [place] catheter in place, her cardiac output is 5.6 cardiac index is 3.7 PA pressure 29/10 CVP is 9 patient is on amiodarone at 0.5 mg/min, she is also on nitroglycerin 5 mcg/min. Her mediastinal and left-sided chest tubes remain in place connected to Pleur- evac, no airleak is noted, chest x-ray showed no evidence of pneumothorax, minimal basilar atelectasis noted. WBC count is 9.2 hemoglobin is 8.4, basic metabolic profile is normal renal profile is normal Patient was seen today on 11/11/2024, postoperative day #2 Off-pump CABG x 3 with AGUILAR to LAD, left radial artery graft to obtuse marginal, saphenous vein graft to right coronary artery, endovascular vein and left radial artery harvest, occlusion of left atrial appendage with 40 mm AtriCure clip, LUIS ANTONIO by anesthesia. Patient is doing well today, relatively asymptomatic on room air, she is not requiring any drips except insulin drip at 1.5 units/h. Chest tube has been removed, patient is achieving over 1500 cc on her incentive spirometry, chest x- ray is reassuring labs are reassuring patient is already ambulating in the hallway with assistance. Seen today on 11/12/2024, patient is now postoperative day #3, doing well, does not seem to be in any distress, on room air, hemodynamically stable, able to achieve 1500 cc on incentive spirometry. Patient is ambulating in the hallway with assistance. Labs noted to be unremarkable. Chest x-ray showed minimal atelectasis, expected. Objective - Vital Signs Vital signs: Vital Signs Temp 98 F 11/12/24 08:00 Pulse 73 11/12/24 12:00 Resp 16 11/12/24 12:00 BP 120/70 11/12/24 12:00 Pulse Ox 97 11/12/24 12:00 FiO2 40 11/09/24 17:44 Intake & Output 11/11/24 11/12/24 11/12/24 18:59 06:59 18:59 Intake Total 202.145 530 780 Output Total 385 720 100 Balance -182.855 -190 680 Weight 58.7 kg Intake: IV 193 10 .9NS Pressure Bag 33 Invasive Line 2 10 Sodium Chloride 0.9% 1, 160 000 ml @ 20 mls/hr IV . Q24H [facility] Rx#:[id number] Intake, IV Titration 9.145 Amount Insulin Regular 100 unit 9.145 In Sodium Chloride 0.9% 100 ml @ Per Protocol IV .Q0M [facility] Rx#:[id number] Oral 520 780 Output: Chest Tube Drainage 10 Left Pleural Chest Tube 10 Mediastinal Chest Tube 0 Urine 375 720 100 Other: Voiding Method Indwelling Catheter Toilet Toilet # Voids 1 1 ABP, PAP, CO, CI - Last Documented Arterial Blood Pressure 154/44 Pulmonary Artery Pressure 21/6 Cardiac Output 4.9 Cardiac Index 3.2 - Exam CONSTITUTIONAL: Revealed 73-year-old, in no distress on room air Head: Atraumatic normocephalic HEENT: PERRLA, EOMI, nonicteric RESPIRATORY: Good breath sound bilaterally no rhonchi no wheezes CARDIOVASCULAR: S1, S2 present. Regular rate and rhythm, sinus rhythm GASTROINTESTINAL: Abdomen soft, nontender, nondistended. Active bowel sounds present 4 quadrants. INTEGUMENTARY: Skin is warm and dry. No clubbing or cyanosis present. NEUROLOGIC: Alert oriented x 3 no gross focal deficit MUSKULOSKELETAL: No evidence of deformities, no limitation of range of motion PSYCHIATRIC: Normal mood affect and normal mental status examination - Labs CBC & Chem 7: 11/12/24 06:23 11/12/24 06:23 Labs: Abnormal Lab Results - Last 24 Hours (Table) 11/11/24 11/11/24 11/12/24 Range/Units 17:15 20:10 05:34 WBC (3.8-10.6) k/uL RBC (3.80-5.40) m/uL Hgb (11.4-16.0) gm/dL Hct (34.0-46.0) % Neutrophils # (1.3-7.7) k/uL Sodium (137-145) mmol/L Glucose (74-99) mg/dL POC Glucose (mg/dL) 143 H 183 H 122 H (70-110) mg/dL Total Bilirubin (0.2-1.3) mg/dL Total Protein (6.3-8.2) g/dL Albumin (3.5-5.0) g/dL 11/12/24 11/12/24 11/12/24 Range/Units 06:23 06:23 11:30 WBC 12.1 H (3.8-10.6) k/uL RBC 2.61 L (3.80-5.40) m/uL Hgb 8.4 L (11.4-16.0) gm/dL Hct 26.0 L (34.0-46.0) % Neutrophils # 9.5 H (1.3-7.7) k/uL Sodium 130 L (137-145) mmol/L Glucose 108 H (74-99) mg/dL POC Glucose (mg/dL) 140 H (70-110) mg/dL Total Bilirubin 1.8 H (0.2-1.3) mg/dL Total Protein 5.3 L (6.3-8.2) g/dL Albumin 3.3 L (3.5-5.0) g/dL Assessment and Plan Assessment: Impression:Off-pump CABG x 3 with AGUILAR to LAD, left radial artery graft to obtuse marginal, saphenous vein graft to right coronary artery, endovascular vein and left radial artery harvest, occlusion of left atrial appendage with 40 mm AtriCure clip, LUIS ANTONIO by anesthesia. Postoperative day #3 Multivessel coronary artery disease noted on recent cardiac catheterization Acute Non-ST elevation ID Hypertension COPD with a component of asthma, started on Symbicort and albuterol HFA 4 times a day. Remote history of tobacco use, over 40 years ago Daily alcohol use Peripheral neuropathy Resting tremor Anxiety recommendation: Continue maximal medical therapy, Plavix beta-blockers aspirin and statin Continue bronchodilators patient has a baseline spirometry with FEV1 of 46% Continue to ambulate Discontinue any unnecessary catheters or lines Continue GI and DVT prophylaxis Will continue to follow Time with Patient: Less than 30
--- NOTE | 2024-11-12 15:19 | P.PN ---
Subjective Progress Note Date: 11/12/24 Hospital Course: Patient is a 74-year-old female with past medical history significant for hype rtension, essential tremor, alcoholism, and asthma presents to the emergency department for chest pain that worsened today. She states that she has had chest pain for the last few weeks and just thought it was heartburn as it occurred mostly at night or while laying down. She does state that it woke her up from sleep couple of times over the last few weeks. However today she had increasing chest pain with exertion, relieved by rest. She notes that it is a pressure-like pain that radiates towards her back, lower jaw, and bilateral posterior arms. She rates this pain a 10/10 but notes that it does go away with rest. She denies any nausea/vomiting, diaphoresis, dyspnea, palpitations. She denies a cardiac history., troponin x 3 0.068, 0.124, 0.17 Initial EKG: Sinus rhythm with ventricular rate 71 bpm, QTc 415 ms, no ST-T segment changes ED documentation reviewed. Given aspirin 324 mg p.o. x 1, heparin bolus x 1, started on heparin GTT 12 units/kg/h. Patient was admitted for further evaluation of chest pain, cardiology consulted, recommended continue losartan metoprolol, added Nitropaste, recommended abstinence from alcohol, TTE ordered. Patient was taken to Director Data on 11/04, showed heavily calcified coronary arteries, critical stenosis LAD and RCA, low LVEDP, patient was started back on heparin, awaiting surgical decision regarding CABG. Patient earlier shared that her mother had CABG at age of 60 and at age of 74. CABG workup: Carotid ultrasound showed atheromatous plaquing within the carotid bifurcation, left side moderate between 50 and 69%, right side less than 50%. CT chest showed vascular calcification within the ascending thoracic aorta, no aneurysm. No suspicious lung nodules, Liver ultrasound showed no abnormalities. CABG was performed on 11/09/2024, patient was transferred to ICU. Patient was started on amiodarone 40 mg twice daily for atrial fibrillation prophylaxis, continued on DAPT, statins, beta-blockers, Norvasc increased to 5 mg daily. Insulin drip discontinued after 48 hours, transition to subcu insulin with SSI, Accu-Cheks. Subjective: Seen and examined at bedside, feeling fairly good, eager to go home, able to ambulate in the hallway, pain is controlled Pertinent positives and negatives as discussed above, a complete review of systems was performed and all other systems are negative. Vitals Signs Reviewed. Gen: In NAD, non-toxic HEENT: normocephalic, atraumatic, hearing acuity is intant, mucous membranes moist CVS: perfusing all extremities well, no pitting edema, Respiratory: symmetric chest expansion, no accessory muscle use, GI: soft, NTTP, ND, : no suprapubic tenderness, no CVA tenderness MSK/Derm: no rashes, cyanosis, postop dressing clean and dry Neuro: CN II-XII intact, no motor weakness, Psych: cooperative,judgment and insight is intact Assessment and Plan: 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 s/p CABG 11/09/2024 Hyperlipidemia Hypertension -Cardiology following, CT surgery consulted for CABG, chest tubes discontinued, Garcia discontinued -TTE with EF of 55 to 60% with no significant valvular abnormalities or pericardial effusion noted -GI prophylaxis with Protonix 40 oral daily -Continue with cardiac medications per CT surgery and cardiology -Patient downgraded to 3 S., waiting for bed -TRT following Prediabetes: A1c 5.9, needs to followup with PCP, prediabetes classes after discharge -insulin gtt discontinued, started on SSI, Accu-Cheks. Acute blood loss anemia, postop -Hemoglobin stabilized, continue to monitor Hyponatremia likely due to postop SIADH: Sodium level stabilized, continue to monitor Alcohol use disorder: Continue multivitamins, CIWA with Ativan, social work [ DVT ppx: Heparin SQ TID Code status: Full code Anticipated discharge place: [facility] Anticipated discharge time: TBD Objective - Vital Signs Vital signs: Vital Signs Temp 98 F 11/12/24 08:00 Pulse 73 11/12/24 12:00 Resp 16 11/12/24 12:00 BP 120/70 11/12/24 12:00 Pulse Ox 97 11/12/24 12:00 FiO2 40 11/09/24 17:44 Intake & Output 11/11/24 11/12/24 11/12/24 18:59 06:59 18:59 Intake Total 202.951 174 0083 Output Total 385 720 300 Balance -182.855 -190 720 Weight 58.7 kg Intake: IV 193 10 .9NS Pressure Bag 33 Invasive Line 2 10 Sodium Chloride 0.9% 1, 160 000 ml @ 20 mls/hr IV . Q24H [facility] Rx#:[id number] Intake, IV Titration 9.145 Amount Insulin Regular 100 unit 9.145 In Sodium Chloride 0.9% 100 ml @ Per Protocol IV .Q0M [facility] Rx#:[id number] Oral 520 1020 Output: Chest Tube Drainage 10 Left Pleural Chest Tube 10 Mediastinal Chest Tube 0 Urine 375 720 300 Other: Voiding Method Indwelling Catheter Toilet Toilet # Voids 1 1 # Bowel Movements 1 ABP, PAP, CO, CI - Last Documented Arterial Blood Pressure 154/44 Pulmonary Artery Pressure 21/6 Cardiac Output 4.9 Cardiac Index 3.2 - Labs CBC & Chem 7: 11/12/24 06:23 11/12/24 06:23 Labs: Abnormal Lab Results - Last 24 Hours (Table) 11/11/24 11/11/24 11/12/24 Range/Units 17:15 20:10 05:34 WBC (3.8-10.6) k/uL RBC (3.80-5.40) m/uL Hgb (11.4-16.0) gm/dL Hct (34.0-46.0) % Neutrophils # (1.3-7.7) k/uL Sodium (137-145) mmol/L Glucose (74-99) mg/dL POC Glucose (mg/dL) 143 H 183 H 122 H (70-110) mg/dL Total Bilirubin (0.2-1.3) mg/dL Total Protein (6.3-8.2) g/dL Albumin (3.5-5.0) g/dL 11/12/24 11/12/24 11/12/24 Range/Units 06:23 06:23 11:30 WBC 12.1 H (3.8-10.6) k/uL RBC 2.61 L (3.80-5.40) m/uL Hgb 8.4 L (11.4-16.0) gm/dL Hct 26.0 L (34.0-46.0) % Neutrophils # 9.5 H (1.3-7.7) k/uL Sodium 130 L (137-145) mmol/L Glucose 108 H (74-99) mg/dL POC Glucose (mg/dL) 140 H (70-110) mg/dL Total Bilirubin 1.8 H (0.2-1.3) mg/dL Total Protein 5.3 L (6.3-8.2) g/dL Albumin 3.3 L (3.5-5.0) g/dL
[2024-11-12 16:42] LABS: Glucose,Whole Blood 126 mg/dL (70-110)
[2024-11-12 19:50] LABS: Glucose,Whole Blood 137 mg/dL (70-110)
[2024-11-13 06:29] LABS: Glucose,Whole Blood 104 mg/dL (70-110)
--- NOTE | 2024-11-13 06:48 | XR ---
EXAMINATION TYPE: XR chest 2V DATE OF EXAM: 11/13/2024 6:38 AM COMPARISON: Chest x-ray from one day earlier and older studies. CLINICAL INDICATION: Female, 74 years old with history of post open heart, TECHNIQUE: Frontal and lateral views of the chest are obtained. FINDINGS: Overlying Mediastinal clips and left atrial appendage clip are redemonstrated. Persistent left lower lung increased opacity. No pneumothorax seen. Stable cardiomegaly. Tiny bilater al pleural effusions on lateral view are redemonstrated. Osseous structures are intact. IMPRESSION: 1. Persistent cardiomegaly with left lower lung acute infiltrate and/or atelectasis and tiny bilatera l pleural effusions. No left-sided pneumothorax . No significant change from one day earlier. [facility], , 11/13/2024 6:46 AM
[2024-11-13 08:36] LABS: HCT 24.5 % (34.0-46.0); HGB 7.6 gm/dL (11.4-16.0); MCH 30.7 pg (25.0-35.0); MCHC 31.1 g/dL (31.0-37.0); MCV 98.8 fL (80.0-100.0); Mean Platelet Volume 9.7; Platelet Count 289 k/uL (150-450); RBC 2.48 m/uL (3.80-5.40); RDW 13.7 % (11.5-15.5); WBC 8.5 k/uL (3.8-10.6)
--- NOTE | 2024-11-13 08:50 | P.PN ---
Subjective Progress Note Date: 11/13/24 Principal diagnosis: Multivessel coronary artery disease, non-STEMI this admission. History of hypertension, peripheral neuropathy with essential tremors, asthma, daily EtOH use, previous tobacco dependence, and family history of premature coronary artery disease POD #4 Off-pump CABG x 3 with AGUILAR to LAD, left radial artery graft to obtuse marginal, saphenous vein graft to right coronary artery, endovascular vein and left radial artery harvest, occlusion of left atrial appendage with 40 mm AtriCure clip, LUIS ANTONIO by anesthesia. Postoperative acute blood loss anemia, likely secondary to hemodilution and history of preoperative anemia. The patient was seen and examined sitting up in a recliner on the cardiac stepdown unit in no acute distress. States expected postsurgical pain mostly controlled on current medication regimen, denies shortness of breath. Currently in sinus rhythm with heart rate in the 80s, hemodynamically stable. Remains on room air with oxygen saturation in the mid 90s, able to achieve 1500 mL on her incentive spirometry this morning. Patient has been ambulatory in the hallway with assist, received first postoperative shower yesterday. States she feels ready to go home today. No other new concerns. Objective - Vital Signs Vital signs: Vital Signs Temp 98.1 F 11/13/24 04:00 Pulse 76 11/13/24 04:00 Resp 19 11/13/24 04:00 BP 104/50 11/13/24 04:00 Pulse Ox 91 L 11/13/24 04:00 FiO2 40 11/09/24 17:44 Intake & Output 11/12/24 11/13/24 11/13/24 18:59 06:59 18:59 Intake Total 1740 500 Output Total 400 1440 Balance 1340 -940 Weight 58.4 kg Intake: IV 20 Invasive Line 6 20 Oral 1740 480 Output: Urine 400 1440 Other: Voiding Method Toilet Toilet # Voids 1 3 # Bowel Movements 1 ABP, PAP, CO, CI - Last Documented Arterial Blood Pressure 154/44 Pulmonary Artery Pressure 21/6 Cardiac Output 4.9 Cardiac Index 3.2 - Exam CONSTITUTIONAL: Appears comfortable, cooperative, no acute distress RESPIRATORY: Lungs sounds diminished in the bases bilaterally. Respirations even, nonlabored. Currently on room air with oxygen saturation 93%. Able to achieve 1500 mL on incentive spirometry. Strong nonproductive cough. CARDIOVASCULAR: S1, S2 present. Regular rate and rhythm, sinus rhythm on telemetry. Sternum stable. Palpable peripheral pulses bilaterally. No edema present. No calf pain or tenderness noted. Heart hugger in place with patient demonstrating appropriate use. Antiembolism stockings, SCDs present. GASTROINTESTINAL: Abdomen soft, nontender, nondistended. Active bowel sounds present 4 quadrants. Tolerating diet. Positive bowel movement 11/12 GENITOURINARY: Continues to void, urine output 1840 mL in the last 24 hours INTEGUMENTARY: Skin is warm and dry with evidence of good perfusion. Anterior chest incision well approximated. Left lower extremity EVH site as well as left radial artery harvest site well approximated without redness or drainage. NEUROLOGIC: Cranial nerves II through XII intact MUSKULOSKELETAL: Able to move all extremities, strength equal bilaterally, gait normal PSYCHIATRIC: Alert and oriented to person place and time, appropriate affect, intact judgment and insight - Allied health notes Allied health notes reviewed: nursing - Labs CBC & Chem 7: 11/12/24 06:23 11/12/24 06:23 Labs: Abnormal Lab Results - Last 24 Hours (Table) 11/12/24 11/12/24 11/12/24 Range/Units 11:30 16:39 19:49 POC Glucose (mg/dL) 140 H 126 H 137 H (70-110) mg/dL - Imaging and Cardiology Chest x-ray: report reviewed, image reviewed Assessment and Plan Assessment: Multivessel coronary artery disease, non-STEMI this admission, status post three-vessel off-pump CABG Chest pain, secondary to above Anemia, occult stool negative Postoperative acute blood loss anemia, expected given hemodilution and her preoperative history of anemia History of hypertension Peripheral neuropathy with essential tremors Asthma Daily EtOH use, daughter reports multiple beers per day, patient reports down to the 2-3 beers daily Previous tobacco dependence Family history of premature coronary artery disease Plan: Continue to maximize medical therapy with aspirin, statin, Plavix, and beta- clover Continue Norvasc with hold parameters for radial artery spasm prophylaxis Continue amiodarone per protocol for atrial fibrillation prophylaxis, no atrial fibrillation has been reported Encourage incentive spirometry use 10 times every hour while awake. Bron chodilators per pulmonology. Increase activity, ambulate as tolerated. PT/OT/cardiac rehab consulted. Will monitor daily labs and chest x-rays. Electrolyte replacement per protocol. GI/DVT prophylaxis. Continue thiamine, folic acid. Continue to monitor for alcohol withdrawal Pain control per current medication regimen Insulin management per internal medicine. Patient is not diabetic, hemoglobin A1c 5.9% Continue to monitor record strict accurate intake and output. Discharge planning in progress, anticipate discharge to home with home care this afternoon More recommendations to follow based on patient's progress
[2024-11-13 09:10] LABS: African American GFR (CKD) >90 (>60 ml/min/1.73 sqM); Anion Gap 7 mmol/L; Blood Urea Nitrogen 9 mg/dL (7-17); Calcium 8.7 mg/dL (8.4-10.2); Carbon Dioxide 25 mmol/L (22-30); Chloride 98 mmol/L (98-107); Glucose 94 mg/dL (74-99); Non-African American GFR(CKD) >90 (>60 ml/min/1.73 sqM); Potassium 4.3 mmol/L (3.5-5.1); Sodium 130 mmol/L (137-145)
[2024-11-13] MEDS: DEXTROSE 5% IN WATER 100 ML with AMIODARONE 150 MG IV PRN (09:56)
[2024-11-13 12:00] LABS: Glucose,Whole Blood 132 mg/dL (70-110)
--- NOTE | 2024-11-13 13:54 | P.PN ---
Subjective Progress Note Date: 11/13/24 Principal diagnosis: Hospital Course: Patient is a 74-year-old female with past medical history significant for hypertension, essential tremor, alcoholism, and asthma presents to the emergency department for chest pain that worsened today. She states that she has had chest pain for the last few weeks and just thought it was heartburn as it occurred mostly at night or while laying down. She does state that it woke her up from sleep couple of times over the last few weeks. However today she had increasing chest pain with exertion, relieved by rest. She notes that it is a pressure-like pain that radiates towards her back, lower jaw, and bilateral posterior arms. She rates this pain a 10/10 but notes that it does go away with rest. She denies any nausea/vomiting, diaphoresis, dyspnea, palpitations. She denies a cardiac history., troponin x 3 0.068, 0.124, 0.17 Initial EKG: Sinus rhythm with ventricular rate 71 bpm, QTc 415 ms, no ST-T segment changes ED documentation reviewed. Given aspirin 324 mg p.o. x 1, heparin bolus x 1, started on heparin GTT 12 units/kg/h. Patient was admitted for further evaluation of chest pain, cardiology consulted, recommended continue losartan metoprolol, added Nitropaste, recommended abstinence from alcohol, TTE ordered. Patient was taken to [facility] on 11/04, showed heavily calcified coronary arteries, critical stenosis LAD and RCA, low LVEDP, patient was started back on heparin, awaiting surgical decision regarding CABG. Patient earlier shared that her mother had CABG at age of 60 and at age of 74. CABG workup: Carotid ultrasound showed atheromatous plaquing within the carotid bifurcation, left side moderate between 50 and 69%, right side less than 50%. CT chest showed vascular calcification within the ascending thoracic aorta, no aneurysm. No suspicious lung nodules, Liver ultrasound showed no abnormalities. CABG was performed on 11/09/2024, patient was transferred to ICU. Patient was started on amiodarone 40 mg twice daily for atrial fibrillation prophylaxis, continued on DAPT, statins, beta-blockers, Norvasc increased to 5 mg daily. Insulin drip discontinued after 48 hours, transition to subcu insulin with SSI, Accu-Cheks. 11/13 patient went to A-fib with heart rate in 110s 120s, bolus of amiodarone given, patient is currently in sinus rhythm Subjective: Seen and examined at bedside, feeling fairly good, eager to go home, able to ambulate in the hallway, pain is controlled Pertinent positives and negatives as discussed above, a complete review of systems was performed and all other systems are negative. Vitals Signs Reviewed. Gen: In NAD, non-toxic HEENT: normocephalic, atraumatic, hearing acuity is intant, mucous membranes moist CVS: perfusing all extremities well, no pitting edema, Respiratory: symmetric chest expansion, no accessory muscle use, GI: soft, NTTP, ND, : no suprapubic tenderness, no CVA tenderness MSK/Derm: no rashes, cyanosis, postop dressing clean and dry Neuro: CN II-XII intact, no motor weakness, Psych: cooperative,judgment and insight is intact Lab work reviewed, no leukocytosis, hemoglobin 7.6, normal platelet count, sodium low 130, normal potassium and creatinine, glucose controlled Assessment and Plan: 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 Acute blood loss anemia, postop -Hemoglobin stabilized, continue to monitor Hyponatremia likely due to postop SIADH: Sodium level stabilized, continue to monitor Alcohol use disorder: Continue multivitamins, CIWA with Ativan, social work [ DVT ppx: Heparin SQ TID Code status: Full code Anticipated discharge place: [facility] Anticipated discharge time: TBD Objective - Vital Signs Vital signs: Vital Signs Temp 98.1 F 11/13/24 04:00 Pulse 63 11/13/24 11:07 Resp 19 11/13/24 11:07 BP 115/56 11/13/24 11:07 Pulse Ox 93 L 11/13/24 11:07 FiO2 40 11/09/24 17:44 Intake & Output 11/12/24 11/13/24 11/13/24 18:59 06:59 18:59 Intake Total 1740 500 250 Output Total 400 1440 Balance 1340 -940 250 Weight 58.4 kg Intake: IV 20 10 Invasive Line 6 20 10 Oral 1740 480 240 Output: Urine 400 1440 Other: Voiding Method Toilet Toilet Toilet # Voids 1 3 # Bowel Movements 1 ABP, PAP, CO, CI - Last Documented Arterial Blood Pressure 154/44 Pulmonary Artery Pressure 21/6 Cardiac Output 4.9 Cardiac Index 3.2 - Labs CBC & Chem 7: 11/13/24 07:08 11/13/24 07:08 Labs: Abnormal Lab Results - Last 24 Hours (Table) 11/12/24 11/12/24 11/13/24 Range/Units 16:39 19:49 07:08 RBC 2.48 L (3.80-5.40) m/uL Hgb 7.6 L (11.4-16.0) gm/dL Hct 24.5 L (34.0-46.0) % Sodium (137-145) mmol/L POC Glucose (mg/dL) 126 H 137 H (70-110) mg/dL 11/13/24 11/13/24 Range/Units 07:08 11:58 RBC (3.80-5.40) m/uL Hgb (11.4-16.0) gm/dL Hct (34.0-46.0) % Sodium 130 L (137-145) mmol/L POC Glucose (mg/dL) 132 H (70-110) mg/dL
--- NOTE | 2024-11-13 14:35 | P.PN ---
Subjective Progress Note Date: 11/13/24 HISTORY OF PRESENT ILLNESS: This is a 74-year-old female with a past medical history significant for fr equent alcohol use, hypertension and anxiety. Patient does not follow with a bargain table clerk. We have been asked to see the patient in consultation for chest pain. Patient examined at the bedside in the emergency room. Patient states over the past 1 to 2 weeks she has been having chest discomfort. She states the pain has been occurring at night when she lays down. She states that she initially thought it was heartburn. She states the pain starts in the middle of her chest and then radiates into her back and then into the back of her arms. She states the pain will last for about 10 to 15 minutes and is resolved when she sits up on the side of the bed. She does report that yesterday the pain was worse with exertion during the day. She is a non-smoker. She does report drinking 2-3 beers a day which she states helps with her essential tremors. DIAGNOSTICS: - EKG reveals sinus mechanism with no signs of acute ischemia. - Chest xray negative for acute process. COPD changes.. - Laboratory data: WBC 6.3. Hemoglobin 11.5. Platelet count 283. Sodium 136. Potassium 3.6. BUN 6. Creatinine 0.49. Troponin 0.060. 0.124. 0.170. - Current home cardiac medication list not updated at the time of examination. -No previous echocardiogram, stress test, or cardiac catheterization available in EMR for review 11/05/2024 Patient underwent cardiac catheterization yesterday revealing heavily calcified coronary arteries, critical stenosis involving proximal LAD and RCA and moderate disease of the left circumflex. Consultation was placed to CT surgery for possible CABG. Patient examined this morning the bedside. Patient denies any chest pain or pressure. She denies any shortness of breath. Vital signs are stable. Blood pressure 163/86. Echocardiogram completed revealing ejection fraction 55 to 60%, no significant valvular abnormalities noted, and no pericardial effusion noted. 11/06/2024 Patient examined this morning at the bedside. Patient is sitting up in the chair. Patient's family is present. Patient reports having an episode of chest pain yesterday that lasted for about 15 to 20 minutes. She denies any chest pain at the time of examination. She denies any shortness of breath or cough. She remains on IV heparin. She states that she is scheduled for CABG on Saturday. 11/07/2024 Patient examined this morning at the bedside. Patient is sitting up in the janis r. Patient denies any chest pain or pressure. She denies shortness of breath. She remains on IV heparin. Blood pressure elevated this morning with a systolic between [id number]. 11/08/2024 Patient examined this morning at the bedside. Patient currently denies chest pain or pressure. She denies shortness of breath. She remains on IV heparin. She reports back pain this morning and states it is worse when she is lying in the hospital bed. Vital signs are stable. 11/10 Patient seen and examined. Patient underwent off-pump CABG x 3 with AGUILAR to LAD, left radial to OM, SVG to RCA with a left atrial appendage closure 11/05/2024. She denies any significant shortness of breath. She is complaining of some chest pain around her incision site however no other chest pain. She was extubated and currently on 2 L nasal cannula. Her cardiac output has been 5.6 with a cardiac index of 3.7. CVP of 9. She has been on amiodarone drip and maintaining normal sinus rhythm. 11/11 Patient seen and examined. Patient denies any chest pain or pressure. No lightheadedness or dizziness. States she is feeling better. Chest tubes were removed. Creatinine 0.5, hemoglobin 7.8. 11/12 Patient is seen and examined on the cardiac stepdown unit. She has been transferred out of the intensive care unit. Blood pressure 120/70, heart rate 73, pulse ox 97% on room air. Telemetry is sinus rhythm in the 80s. Repeat blood work reveals hemoglobin 8.4, WBC 12.1. Sodium 130, potassium 4.2, creatinine 0.64. Chest x-ray reveals persistent cardiomegaly with left lower lobe acute infiltrate and/or atelectasis and tiny bilateral pleural effusions. No left-sided pneumothorax after chest tube removal. 11/13 Patient seen and examined. Patient states that she went into afib today after she came back from a walk she noticed increased shortness. She states she was also coughing a lot at the time. She feels fine now and really wants to go home today. Blood pressure 115/56, heart rate 63, pulse ox 93% on room air. Repeat blood work reveals hemoglobin 7.6, sodium 130, potassium 4.3, BUN 90 creatinine 0.55. PHYSICAL EXAM: VITAL SIGNS: Reviewed. GENERAL: Well-developed in no acute distress. HEENT: Head is normocephalic. Pupils are equal, round. Sclerae anicteric. Mucous membranes of the mouth are moist. Neck supple. No JVD or thyromegaly LUNGS: Respirations even and unlabored. Lungs essentially clear to auscultation bilaterally. HEART: Regular rate and rhythm. S1 and S2 heard. Systolic murmur noted. ABDOMEN: Soft. Nondistended. Nontender. EXTREMITIES: No clubbing or cyanosis. Peripheral pulses intact. No lower extremity edema NEUROLOGIC: Awake and alert. Oriented x 3. ASSESSMENT: Non-STEMI, status post cardiac cath revealing multivessel CAD CAD s/p CABG x 3 11/09/24 Hypertension Frequent alcohol use, patient reports drinking 2-3 beers per day Anxiety History of essential tremors Anemia PLAN: Continue aspirin and Plavix Continue metoprolol Continue amlodipine for radial artery spasm Continue amiodarone twice a day. Continue with current regimen. Nurse practitioner note has been reviewed, I agree with documented findings and plan of care. Patient was seen and examined. Objective - Vital Signs Vital signs: Vital Signs Temp 98.1 F 11/13/24 04:00 Pulse 63 11/13/24 11:07 Resp 19 11/13/24 11:07 BP 115/56 11/13/24 11:07 Pulse Ox 93 L 11/13/24 11:07 FiO2 40 11/09/24 17:44 Intake & Output 11/12/24 11/13/24 11/13/24 18:59 06:59 18:59 Intake Total 1740 500 250 Output Total 400 1440 Balance 1340 -940 250 Weight 58.4 kg Intake: IV 20 10 Invasive Line 6 20 10 Oral 1740 480 240 Output: Urine 400 1440 Other: Voiding Method Toilet Toilet Toilet # Voids 1 3 # Bowel Movements 1 ABP, PAP, CO, CI - Last Documented Arterial Blood Pressure 154/44 Pulmonary Artery Pressure 21/6 Cardiac Output 4.9 Cardiac Index 3.2 - Labs CBC & Chem 7: 11/13/24 07:08 11/13/24 07:08 Labs: Abnormal Lab Results - Last 24 Hours (Table) 11/12/24 11/12/24 11/13/24 Range/Units 16:39 19:49 07:08 RBC 2.48 L (3.80-5.40) m/uL Hgb 7.6 L (11.4-16.0) gm/dL Hct 24.5 L (34.0-46.0) % Sodium (137-145) mmol/L POC Glucose (mg/dL) 126 H 137 H (70-110) mg/dL 11/13/24 11/13/24 Range/Units 07:08 11:58 RBC (3.80-5.40) m/uL Hgb (11.4-16.0) gm/dL Hct (34.0-46.0) % Sodium 130 L (137-145) mmol/L POC Glucose (mg/dL) 132 H (70-110) mg/dL
[2024-11-13] MEDS: ALBUMIN HUMAN 5% 500 ML in EMPTY BAG 1 BAG IVPB ONE ×5 (15:10→15:12)
[2024-11-13] MEDS: ALBUMIN HUMAN 25% 50 ML in EMPTY BAG 1 BAG IVPB ONE (15:11)
[2024-11-13] MEDS: CALCIUM CHLORIDE 100 MG/ML 10 ML SYRINGE IVP ONE (15:11)
[2024-11-13] MEDS: ceFAZolin 1,000 MG in SODIUM CHLORIDE 0.9% IRRIGATIO 1,000 ML IRRIGATION ONE (15:12)
[2024-11-13] MEDS: NITROGLYCERIN-D5W PMX 25 MG/250 ML BTL IV ONE (15:13)
[2024-11-13] MEDS: MANNITOL 25% 12.5 GM/50 ML VIAL IV ONE ×2 (15:13→15:14)
[2024-11-13] MEDS: HEPARIN SODIUM 1,000 UN/ML (10ML VL) IV ONE (15:13)
[2024-11-13] MEDS: HEPARIN SODIUM,PORCINE (1 ML) 5,000 UNIT in SODIUM CHLORIDE 0.9% 500 ML 500 ML IV ONE (15:13)
[2024-11-13] MEDS: CLEVIDIPINE BUTYRATE 25 MG in EMPTY BAG 1 BAG IV SCH (15:13)
[2024-11-13] MEDS: CHLORHEXIDINE GLUCONATE 15 ML CUP MUCOUS MEM ONE (15:13)
[2024-11-13] MEDS: NITROGLYCERIN-D5W PMX 50 MG in DEXTROSE/WATER 1 250ML.BAG IV SCH (15:14)
[2024-11-13] MEDS: PAPAVERINE 360 MG in SODIUM CHLORIDE 0.9% 90 ML IV ONE (15:14)
[2024-11-13] MEDS: MAGNESIUM SULFATE 16.24 MEQ in EMPTY SYRINGE 1 SYR IV ONE (15:14)
[2024-11-13] MEDS: PHENYLEPHRINE 40 MG in SODIUM CHLORIDE 0.9% 250 ML IV ONE (15:15)
[2024-11-13] MEDS: PROTAMINE SULFATE 10 MG/ML 25 ML VIAL IV ONE (15:15)
[2024-11-13] MEDS: SODIUM BICARB 8.4% 50 ML SYR (1 MEQ/ML) IV ONE (15:15)
[2024-11-13] MEDS: PHENYLEPHRINE 10 MG/ML VIAL IV ONE (15:15)
[2024-11-13] MEDS: TRANEXAMIC ACID 2,000 MG in SODIUM CHLORIDE 0.9% 80 ML IV ONE (15:15)
[2024-11-13] MEDS: PROTAMINE SULFATE 250 MG in EMPTY BAG 1 BAG IV ONE (15:15)
[2024-11-13] MEDS: MD COMMUNICATION TO PHARMACY 1 EACH MISC PO ONE ×4 (15:17)
--- NOTE | 2024-11-13 16:21 | P.PN ---
Subjective Progress Note Date: 11/13/24 Patient is a 74-year-old female with past medical history significant for hypertension, daily alcohol use, resting tremor, anxiety, mild intermittent asthma. Presented to emergency department back on 11/03/2024 with a chief complaint of chest pain. Diagnosed with non-ST elevation SD. Taken to the [facility] Dermatology on 11/04/2024 which showed multivessel coronary artery disease with critical stenosis involving the proximal LAD and RCA and moderate disease of the left circumflex. Patient was referred to cardiothoracic surgery. Patient is currently undergoing extensive preoperative workup. We are asked to see this patient for preoperative pulmonary clearance. Patient is being seen on the cardiac stepdown floor. Currently on IV heparin protocol. Is reporting some substernal chest pain with radiation to her back. States it is reoccurring at nighttime. The nurses are putting Nitropaste on. EKG is going to be repeated. She has history of mild intermittent asthma, does have an as needed albuterol r escue inhaler at home, but does not usually require it unless sick. History of tobacco smoking over 40 years ago. No recent URI, pneumonias, pulmonary complaints. Respiratory therapist did a bedside spirometry, FEV1 was reported at 0.91 L or 46% of predicted. CT of the chest does not show any acute parenchymal abnormalities. No suspicious lung nodules or focal infiltrates. Vascular calcification of thoracic aorta. Patient currently resting comfortably on room air oxygen. Her chest pain is subsided. No nausea or vomiting or diaphoresis. Denies shortness of breath. She has a severe resting tremor. She states she feels anxious about being on the ventilator. No prior major surgeries or issue with general anesthesia. Incentive spirometer is at bedside. Most recent labs from yesterday including a WBC count of 7.3, hemoglobin 10.8, platelets 285. Effort appears therapeutic based on APTT. CMP: Sodium 136, potassium 4, chloride 103, serum bicarb 22, BUN 5, creatinine 0.52, glucose 83. Previously troponins were elevated at 0.06, 0.124, and 0.17. Echocardiogram showing normal biventricular systolic function, no significant valvular abnormalities. Current vital signs: Temperature 98.2 F, heart rate 95 bpm, blood pressure 160/80 mmHg, nontachypneic, SpO2 is 100% on room air. On 11/07/2024, the patient is being seen for a follow-up. She is free of any chest pain. She remains on IV heparin. In regards to her COPD, start the patient on DuoNeb updrafts and cause significant tachycardia and tremors. Based on that, the patient was unable to continue updrafts. She continues to be on IV heparin. She is using incentive spirometer. Hemoglobin is 11.2. PTT is 47. Electrolytes are all noted and the patient has a potassium level of 3.4 that is to be replaced. BUN is 4 with a creatinine of 0.49. Calcium level is at 9.5. No cardiac arrhythmias. On 11/08/2024, the patient remains on IV heparin. She is free of any chest pain. She has COPD and she was started on Symbicort and albuterol HFA 4 times a day. DuoNeb updrafts have been discontinued because of increased tremors and tachycardia. She is able to tolerate inhalers reasonably well. The plan is to undergo bypass surgery scheduled to be done in the morning. Hemoglobin stable at 11.2, white cell count is 6.4. BUN is at 4 with a creatinine of 0.5 and a sodium levels at 138. Potassium level is at 4.3. Using incentive spirometer. Pulling approximately 1500. Pulse ox is 94% on room air oxygen. Patient was seen today on 11/09/2024, patient is status post Off-pump CABG x 3 with AGUILAR to LAD, left radial artery graft to obtuse marginal, saphenous vein graft to right coronary artery, endovascular vein and left radial artery harvest, occlusion of left atrial appendage with 40 mm AtriCure clip, LUIS ANTONIO by anesthesia., Patient was admitted to the ICU intubated and mechanically ventilated, she is now on assist-control rate of 16 tidal volume 400 FiO2 40% and PEEP of 5 ABG showed a pO2 of 224 pCO2 37 pH of 7.41 cardiac output is 5.3 cardiac index of 3.5 patient is on multiple drips including propofol at 20 mcg/kg/min, amiodarone at 1 mg/min, nitroglycerin at 5 mcg/min, insulin at 1 unit/h patient is also on Cleviprex at 4 mg/h. Patient is sedated, however she seems to be arousable with deep painful stimuli. Does not seem to be in distress, patient again is intubated and mechanically ventilated and on multiple drips as noted above chest x-ray no evidence of active disease, postoperative ch anges were noted. All labs from today were reviewed, her ventilator settings were adjusted accordingly. Patient was seen today on 11/10/2024, POD #1 Off-pump CABG x 3 with AGUILAR to LAD, left radial artery graft to obtuse marginal, saphenous vein graft to right coronary artery, endovascular vein and left radial artery harvest, occlusion of left atrial appendage with 40 mm AtriCure clip, LUIS ANTONIO by anesthesia. Patient was extubated last night at 5:53 PM, she was extubated successfully, tolerated the extubation well. Today the patient is on nasal cannula, 2 L/min, achieving 1000 mL on her incentive spirometry patient is in sinus rhythm, receiving amiodarone prophylactically, continues to have right IJ cordis and [place] catheter in place, her cardiac output is 5.6 cardiac index is 3.7 PA pressure 29/10 CVP is 9 patient is on amiodarone at 0.5 mg/min, she is also on nitroglycerin 5 mcg/min. Her mediastinal and left-sided chest tubes remain in place connected to Pleur- evac, no airleak is noted, chest x-ray showed no evidence of pneumothorax, minimal basilar atelectasis noted. WBC count is 9.2 hemoglobin is 8.4, basic metabolic profile is normal renal profile is normal Patient was seen today on 11/11/2024, postoperative day #2 Off-pump CABG x 3 with AGUILAR to LAD, left radial artery graft to obtuse marginal, saphenous vein graft to right coronary artery, endovascular vein and left radial artery harvest, occlusion of left atrial appendage with 40 mm AtriCure clip, LUIS ANTONIO by anesthesia. Patient is doing well today, relatively asymptomatic on room air, she is not requiring any drips except insulin drip at 1.5 units/h. Chest tube has been removed, patient is achieving over 1500 cc on her incentive spirometry, chest x- ray is reassuring labs are reassuring patient is already ambulating in the hallway with assistance. Seen today on 11/12/2024, patient is now postoperative day #3, doing well, does not seem to be in any distress, on room air, hemodynamically stable, able to achieve 1500 cc on incentive spirometry. Patient is ambulating in the hallway with assistance. Labs noted to be unremarkable. Chest x-ray showed minimal atelectasis, expected. The patient is seen today November 13, 2024 in follow-up on the selective care unit. Postoperative day #4. She is doing very well. She is sitting up in a chair at the bedside. She is maintaining good O2 saturations in the 90s on room air. She did have an episode of atrial fibrillation this a.m. She received amiodarone. Currently in sinus rhythm. Denies any worsening shortness of breath cough or congestion. Chest x-ray reveals persistent cardiomegaly with left lower lobe infiltrate/atelectasis and tiny pleural effusions. No pneumothorax. She is working well with the incentive spirometer. White count 8.5. Hemoglobin 7.6. Platelets 289. Sodium 130. Potassium 4.3. Bicarb 25. BUN 9. Creatinine 0.55. Glucose 94. She is continued on bronchodilators. Heparin for DVT prophylaxis. Objective - Vital Signs Vital signs: Vital Signs Temp 98.1 F 11/13/24 04:00 Pulse 63 11/13/24 15:02 Resp 19 11/13/24 15:02 BP 115/56 11/13/24 11:07 Pulse Ox 93 L 11/13/24 11:07 FiO2 40 11/09/24 17:44 Intake & Output 11/12/24 11/13/24 11/13/24 18:59 06:59 18:59 Intake Total 1740 500 490 Output Total 400 1440 Balance 1340 -940 490 Weight 58.4 kg Intake: IV 20 10 Invasive Line 6 20 10 Oral 1740 480 480 Output: Urine 400 1440 Other: Voiding Method Toilet Toilet Toilet # Voids 1 3 # Bowel Movements 1 ABP, PAP, CO, CI - Last Documented Arterial Blood Pressure 154/44 Pulmonary Artery Pressure 21/6 Cardiac Output 4.9 Cardiac Index 3.2 - Exam GENERAL EXAM: Alert, does not 74-year-old female, up in a chair, on room air, fairly comfortable in no apparent distress. HEAD: Normocephalic. EYES: Normal reaction of pupils, equal size. NOSE: Clear with pink turbinates. THROAT: No erythema or exudates. NECK: No masses, no JVD. CHEST: Sternal dressing dry and intact. Heart hugger in place. LUNGS: Equal air entry with crackles in the left lung base. CVS: S1 and S2 normal with no audible murmur, regular rhythm. ABDOMEN: No hepatosplenomegaly, normal bowel sounds, no guarding or rigidity. SPINE: No scoliosis or deformity SKIN: No rashes CENTRAL NERVOUS SYSTEM: No focal deficits, tone is normal in all 4 extremities. EXTREMITIES: There is no peripheral edema. No clubbing, no cyanosis. Peripheral pulses are intact. - Labs CBC & Chem 7: 11/13/24 07:08 11/13/24 07:08 Labs: Abnormal Lab Results - Last 24 Hours (Table) 11/12/24 11/12/24 11/13/24 Range/Units 16:39 19:49 07:08 RBC 2.48 L (3.80-5.40) m/uL Hgb 7.6 L (11.4-16.0) gm/dL Hct 24.5 L (34.0-46.0) % Sodium (137-145) mmol/L POC Glucose (mg/dL) 126 H 137 H (70-110) mg/dL 11/13/24 11/13/24 Range/Units 07:08 11:58 RBC (3.80-5.40) m/uL Hgb (11.4-16.0) gm/dL Hct (34.0-46.0) % Sodium 130 L (137-145) mmol/L POC Glucose (mg/dL) 132 H (70-110) mg/dL Assessment and Plan Assessment: Off-pump CABG x 3 with AGUILAR to LAD, left radial artery graft to obtuse marginal, saphenous vein graft to right coronary artery, endovascular vein and left radial artery harvest, occlusion of left atrial appendage with 40 mm AtriCure clip, LUIS ANTONIO by anesthesia. Postoperative day #4 Multivessel coronary artery disease noted on recent cardiac catheterization Acute Non-ST elevation SD Hypertension COPD with a component of asthma, started on Symbicort and albuterol HFA 4 times a day. Remote history of tobacco use, over 40 years ago Daily alcohol use Peripheral neuropathy Resting tremor Anxiety Hand: The patient was seen and evaluated Chest x-ray, labs and medications reviewed Episode of atrial fibrillation this a.m. Currently stable and on room air Continue bronchodilators Continue the incentive spirometer Heparin for DVT prophylaxis Home once cleared by CT service I have personally seen and examined the patient, performed the documentation and the assessment and plan as written. Number of minutes spent on the visit: 10 Dictation was produced using Mod[employer] dictation software. Please excuse any grammatical, word or spelling errors.
[2024-11-13 16:24] VITALS: BMI 23.5
[2024-11-13 16:27] LABS: Glucose,Whole Blood 113 mg/dL (70-110)
[2024-11-13] MEDS: KETOROLAC 15 MG/ML 1 ML VIAL IVP SCH (16:52)
[2024-11-13 20:22] LABS: Glucose,Whole Blood 139 mg/dL (70-110)
[2024-11-14 04:50] VITALS: RESP 17
[2024-11-14 06:10] LABS: Glucose,Whole Blood 115 mg/dL (70-110)
[2024-11-14 08:01] VITALS: BP 110/75; PULSE 89; TEMP 97.3
--- NOTE | 2024-11-14 08:56 | P.DS ---
Providers Date of admission: 11/04/24 12:04 Expected date of discharge: 11/14/24 Attending physician: Hortencia Alarcon MD Consults: 11/03/24 23:07 Consult Physician Urgent Consulting Provider: Stella Lenz Consult Reason/Comments: cp Do you want consulting provider notified?: Yes 11/04/24 14:03 Consult Physician Routine Consulting Provider: Jonathan Villarreal Consult Reason/Comments: cabg Do you want consulting provider notified?: Yes 11/05/24 13:49 Consult Physician Routine Consulting Provider: Artem Martinez Consult Reason/Comments: preop cabg clearance Do you want consulting provider notified?: Already Contacted 11/07/24 10:12 Consult to Anesthesia Routine Consulting Provider: Anesthesia,Services Consult Reason/Comments: Cardiac Surgery Pre-Op 11/09/24 12:47 Consult Physician Routine Consulting Provider: Ramandeep Jerome Consult Reason/Comments: Blood sugar management Do you want consulting provider notified?: Already Contacted Primary care physician: Jermaine Justin Hospital Course: FINAL DIAGNOSIS: Multivessel coronary artery disease, non-STEMI this admission, status post three-vessel off-pump CABG Chest pain, secondary to above Anemia, occult stool negative Postoperative acute blood loss anemia, expected given hemodilution and her preoperative history of anemia Brief paroxysmal atrial fibrillation, known common occurrence after open heart surgery, currently sinus rhythm History of hypertension Peripheral neuropathy with essential tremors Asthma Daily EtOH use, daughter reports multiple beers per day, patient reports down to the 2-3 beers daily Previous tobacco dependence Family history of premature coronary artery disease PRINCIPAL PROCEDURE: Off-pump CABG x 3 with AGUILAR to LAD, left radial artery graft to obtuse marginal, saphenous vein graft to right coronary artery Endovascular vein and left radial artery harvest Occlusion of left atrial appendage with 40 mm AtriCure clip LUIS ANTONIO by anesthesia. HISTORY OF PRESENT ILLNESS: This is a 74-year-old female patient who follows outpatient with Dr. Jermaine Justin for primary care and pain management. She presented to the emergency department here at [facility] via EMS on November 03, 2024 with complaints of chest pain, radiating to her back and down her bilateral upper extremities. She denies any complaints of shortness of breath, palpitations, fever, chills, nausea, vomiting, constipation, diarrhea, presyncope or syncope. The patient states she mostly had the chest pain at night when laying down and resolved when she got up. She associated the pain to heartburn and was taking Mylanta and omeprazole without relief. Due to having no relief from the heartburn to treatment she decided to call EMS. In the emergency department a chest x-ray was completed which showed no acute cardiopulmonary disease process and COPD changes. A twelve-lead EKG was completed which showed normal sinus rhythm with no signs of acute ischemia, with a heart rate of 71 bpm. Initial laboratory results showed a WBC count 7.3, hemoglobin 11.4, hematocrit 34.3, platelets 294, PT 11.0, INR 1.0, PTT 23.7, sodium 134, potassium 3.8, chloride 100, BUN 8, creatinine 0.56, glucose 117, calcium 9.5, magnesium 2.2, AST 26, ALT 15, and serial troponins were elevated 0.060, 0.124, and 0.170. She was ruled in for non-STEMI and admitted with consultation placed to cardiology. Transthoracic 2D echocardiogram demonstrated normal left ventricular systolic function with EF 55 to 60%, no obvious regional wall motion abnormalities, trace mitral valve regurgitation, mild tricuspid valve regurgitation, and no pericardial effusion. The patient was recommended to undergo cardiac catheterization which showed a 99% stenosis to her proximal left anterior descending coronary artery, and 80% stenosis to her proximal diagonal coronary artery, a 60% stenosis to her obtuse marginal coronary artery, 99% stenosis to her proximal right coronary artery and a 50 to 60% stenosis to her mid right coronary artery. Due to the findings on the cardiac catheterization consultation was placed to cardiothoracic surgery. She was recommended to undergo surgical myocardial revascularization. The usual perioperative course was discussed in detail with the patient and her family, all risks and benefits were explained, all questions were answered, and consent was obtained to proceed with surgery. The patient was kept inpatient due to the nature of her disease process. HOSPITAL COURSE: The patient was brought to the preoperative area 11/09/24, prepared in the usual fashion, and subsequently taken to the operating room where Dr. Duenas performed three-vessel off-pump CABG. Upon completion of surgery the patient was transferred to the cardiovascular intensive care unit where she was recovered and monitored hemodynamically. She was extubated, all lines, tubes, and drips were discontinued when appropriate, and she was transferred to [facility] cardiac stepdown unit for further monitoring and rehabilitation. She had a very brief episode of atrial fibrillation on postop day 4 which resolved with amiodarone. Her oxygen was titrated down, she continued to work with physical and occupational therapy, she was tolerating oral diet, her pain was controlled, and she was ready to be discharged to home with [facility] care on postoperative day #5. She received written and verbal instruction regarding her medications, activity restrictions, signs and symptoms requiring physician notification, and follow-up appointments. Patient Condition at Discharge: Stable Plan - Discharge Summary Discharge Rx Participant: No New Discharge Prescriptions: New Aspirin 325 mg PO DAILY #30 tab Folic Acid 1 mg PO DAILY #30 tab Ferrous Sulfate [Iron (65 MG Elemental)] 325 mg PO W/LUNCH #14 tab Metoprolol Tartrate [Lopressor] 25 mg PO BID #60 tab amLODIPine [Norvasc] 5 mg PO DAILY@1200 #30 tab Thiamine [Vitamin B-1] 100 mg PO DAILY #30 tab Ascorbic Acid [Vitamin C] 500 mg PO DAILY #14 tab Amiodarone [Cordarone] 400 mg PO BID #48 tablet Atorvastatin [Lipitor] 40 mg PO DAILY #30 tab Clopidogrel [Plavix] 75 mg PO DAILY #30 tab Pantoprazole [Protonix] 40 mg PO AC-BRKFST #30 tab Sennosides-Docusate Sodium [Senokot-S] 2 each PO HS #28 tab Acetaminophen Tab [Tylenol] 1,000 mg PO Q6HR PRN tab PRN Reason: Fever And/ Or Mild Pain (1-3) Continue HYDROcodone/APAP 7.5-325MG [Delta 7.5-325] 1 tab PO QID #0 Albuterol Sulfate [Albuterol Sulfate Hfa] 2 puff INHALATION RT-Q6H PRN PRN Reason: Shortness Of Breath Discontinued Losartan [Cozaar] 50 mg PO BID Discharge Medication List Albuterol Sulfate [Albuterol Sulfate Hfa] 2 puff INHALATION RT-Q6H PRN 11/04/24 [History] Acetaminophen Tab [Tylenol] 1,000 mg PO Q6HR PRN tab 11/13/24 [Rx] Amiodarone [Cordarone] 400 mg PO BID #48 tablet 11/13/24 [Rx] Ascorbic Acid [Vitamin C] 500 mg PO DAILY #14 tab 11/13/24 [Rx] Aspirin 325 mg PO DAILY #30 tab 02/28/25 [Rx] Atorvastatin [Lipitor] 40 mg PO DAILY #30 tab 11/13/24 [Rx] Clopidogrel [Plavix] 75 mg PO DAILY #30 tab 11/13/24 [Rx] Ferrous Sulfate [Iron (65 MG Elemental)] 325 mg PO W/LUNCH #14 tab 11/13/24 [Rx] Folic Acid 1 mg PO DAILY #30 tab 11/13/24 [Rx] HYDROcodone/APAP 7.5-325MG [Delta 7.5-325] 1 tab PO QID #0 11/13/24 [Rx] Metoprolol Tartrate [Lopressor] 25 mg PO BID #60 tab 11/13/24 [Rx] Pantoprazole [Protonix] 40 mg PO AC-BRKFST #30 tab 11/13/24 [Rx] Sennosides-Docusate Sodium [Senokot-S] 2 each PO HS #28 tab 11/13/24 [Rx] Thiamine [Vitamin B-1] 100 mg PO DAILY #30 tab 11/13/24 [Rx] amLODIPine [Norvasc] 5 mg PO DAILY@1200 #30 tab 11/13/24 [Rx] Follow up Appointment(s)/Referral(s): Stella Lenz MD [STAFF PHYSICIAN] - 11/25/24 3:15 pm Rehab Scott GUPTA,Cardiac [NON-STAFF] - 4 Weeks (You will receive a phone call in approximately 4-6 weeks for evaluation for cardiac rehab) Gabriela Acuna,Home Care [NON-STAFF] - 1-2 Days (You should be seen by RN the day after discharge, then 2-3 times per week until you start cardiac rehab. PT/OT may visit once, may continue to visit if necessary) Jermaine Justin, DO [Primary Care Provider] - 11/19/24 3:00 pm Philippe Duenas MD [STAFF PHYSICIAN] - 12/10/24 2:15 pm Nghia Johnson NPC [Nurse Practitioner] - 11/25/24 2:45 pm (You will be seen in the surgeon's office behind the hospital in [facility], [place], [address] Office phone number is ) Artem Martinez MD [STAFF PHYSICIAN] - 12/10/24 10:00 am Ambulatory/Diagnostic Orders: Complete Blood Count w/diff [LAB.AMB] Time Frame: 3 Days, Location: None Selected Comprehensive Metabolic Panel [LAB.AMB] Time Frame: 3 Days, Location: None Selected Activity/Diet/Wound Care/Special Instructions: DISCHARGE INSTRUCTIONS: 1. No driving for 4 weeks, or until physician gives their ok. 2. The patient should sleep in their own bed, no medical bed needed. 3. Stairs are not an issue. If the bedroom is upstairs, it is advised that the patient go up at night and down in the morning for the first week. Go slowly, using handrail and take 1 step at a time. 4. ALEJA hose are to be worn for 30 days post surgery or until physician discontinues. 5. Heart hugger is to be worn 100% of the time until physician discontinues.(except when showering) 6. No lifting, pushing, or pulling more than 10 pounds for 12 weeks. The physician will advise of any restriction changes. 7. The patient is expected to continue the prescribed walking program. 8. Continue pain control per as needed orders. 9. Continue with incentive spirometry and splinting/heart hugger until otherwise directed by the physician. 10. Must shower daily using liquid antibacterial soap 11. Routine sternal incision care. No powders, lotions, ointments on incisions. No dressings are necessary on incisions unless they are draining. Dermabond tape is to remain on sternal incision until surgeon follow-up. 12. Please call surgeon/COGNOS ARCHITECT for temp greater than 101 F or purulent drainage from incisions. 13. You should weigh yourself daily, record and bring log with you to follow up appointments. 14. All prescriptions given by surgeon for 30 days. Refills need to be filled through sourcing associate/primary care physician. 15. A Red armband has been placed on the patient. It should be worn for 30 days post discharge from surgery and will be removed by the cardiac surgeons. If an ER visit is necessary, please make sure the number on the Red armband is called before going to ER. 16. You have been referred to and are expected to begin Cardiac Rehab in approximately 4-6 weeks. 17. Quitting smoking is the most important step you can take to improve your health. For additional information and assistance to quit smoking, please call the [place] tobacco quit line (0-710-ZWYC-NOW/ ) or online: [email or web address] SERVICES TO PROVIDE: RN SKILLED HOME CARE SERVICES FOR POST-OP SURGICAL PATIENTS WITH THE FOLLOWING: Coronary Artery Bypass Surgery (CABG), Mitral Valve Replacement/Repair ( MVR), Aortic Valve Replacement/Repair (AVR) RN TO CONTINUE EDUCATION FROM ``ROAD TO A HEALTH HEART PATIENT EDUCATION MANUAL (GIVEN TO PATIENT IN THE HOSPITAL) MEDICATION RECONCILIATION WITH EDUCATION NEEDED ON FIRST HOME VISIT EMPHASIZE IMPORTANCE OF WEARING BREAST SUPPORT/HEART HUGGER ENCOURAGE USE OF INCENTIVE SPIROMETER 10 X EVERY HOUR WHILE AWAKE ENCOURAGE UTILIZATION OF LOWER EXTREMITY COMPRESSION STOCKINGS/ALEJA HOSE and ELEVATE LEGS ABOVE LEVEL OF HEART WHILE AT REST. ENCOURAGE AMBULATION 3-5x/day INCREASING TOLERATES, WHILE AVOIDING EXTREMES IN TEMPERATURE FREQUENCY: RN TO OPEN THE PATIENT WITHIN 24 HOURS OF DISCHARGE FROM THE HOSPITAL WITH TELEHEALTH INSTALLED AT [facility], RN TO VISIT 2-3 X A WEEK FOR 4 WEEKS ESTABLISHED BY PATIENT NEEDS. LABORATORY: CBC, CMP TO BE DRAWN ON THE THIRD DAY HOME, (RAN STAT) FAX RESULTS TO [phone]. TELEHEALTH PARAMETERS: WEIGHT: NOTIFY MD OF WEIGHT GAIN OF 2 LBS IN 24 HOURS OR 5 LBS IN ONE WEEK HR: NOTIFY MD OF HR <55 BPM OR HR>100 BPM BP: NOTIFY MD IF BP <90/55 OR BP>140/100 O2 SAT: NOTIFY MD IF PO2<93% ON ROOM AIR SEND TELEHEALTH REPORT TO EQUIPMENT SCHEDULER AND CARDIOVASCULAR SURGEON THE FIRST WEEK OF CARE AND THEN BI-WEEKLY. PLEASE ADDITIONALLY COMMUNICATE ANY ABNORMALS AND NEW FINDINGS TO THE SURGEONS OFFICE. Discharge Disposition: HOME WITH HOME HEALTH SERVICES
--- NOTE | 2024-11-14 12:18 | P.PN ---
Subjective Progress Note Date: 11/14/24 Hospital Course: Patient is a 74-year-old female with past medical history significant for hype rtension, essential tremor, alcoholism, and asthma presents to the emergency department for chest pain that worsened today. She states that she has had chest pain for the last few weeks and just thought it was heartburn as it occurred mostly at night or while laying down. She does state that it woke her up from sleep couple of times over the last few weeks. However today she had increasing chest pain with exertion, relieved by rest. She notes that it is a pressure-like pain that radiates towards her back, lower jaw, and bilateral posterior arms. She rates this pain a 10/10 but notes that it does go away with rest. She denies any nausea/vomiting, diaphoresis, dyspnea, palpitations. She denies a cardiac history., troponin x 3 0.068, 0.124, 0.17 Initial EKG: Sinus rhythm with ventricular rate 71 bpm, QTc 415 ms, no ST-T segment changes ED documentation reviewed. Given aspirin 324 mg p.o. x 1, heparin bolus x 1, started on heparin GTT 12 units/kg/h. Patient was admitted for further evaluation of chest pain, cardiology consulted, recommended continue losartan metoprolol, added Nitropaste, recommended abstinence from alcohol, TTE ordered. Patient was taken to [facility] on 11/04, showed heavily calcified coronary arteries, critical stenosis LAD and RCA, low LVEDP, patient was started back on heparin, awaiting surgical decision regarding CABG. Patient earlier shared that her mother had CABG at age of 60 and at age of 74. CABG workup: Carotid ultrasound showed atheromatous plaquing within the carotid bifurcation, left side moderate between 50 and 69%, right side less than 50%. CT chest showed vascular calcification within the ascending thoracic aorta, no aneurysm. No suspicious lung nodules, Liver ultrasound showed no abnormalities. CABG was performed on 11/09/2024, patient was transferred to ICU. Patient was started on amiodarone 40 mg twice daily for atrial fibrillation prophylaxis, continued on DAPT, statins, beta-blockers, Norvasc increased to 5 mg daily. Insulin drip discontinued after 48 hours, transition to subcu insulin with SSI, Accu-Cheks. 11/13 patient went to brief episode A-fib with heart rate in 110s 120s, bolus of amiodarone given, patient is currently in sinus rhythm 11/14: Cleared for discharge by CT surgery, patient is feeling well, ready to go home Subjective: Seen and examined at bedside, feeling better today, eager to go home, Pertinent positives and negatives as discussed above, a complete review of systems was performed and all other systems are negative. Vitals Signs Reviewed. Gen: In NAD, non-toxic HEENT: normocephalic, atraumatic, hearing acuity is intant, mucous membranes moist CVS: perfusing all extremities well, no pitting edema, Respiratory: symmetric chest expansion, no accessory muscle use, GI: soft, NTTP, ND, : no suprapubic tenderness, no CVA tenderness MSK/Derm: no rashes, cyanosis, postop dressing clean and dry Neuro: CN II-XII intact, no motor weakness, Psych: cooperative,judgment and insight is intact Lab work reviewed, no leukocytosis, hemoglobin 7.6, normal platelet count, sodium low 130, normal potassium and creatinine, glucose controlled Assessment and Plan: 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 Acute blood loss anemia, postop -Hemoglobin stabilized, continue to monitor Hyponatremia likely due to postop SIADH: Sodium level stabilized, Alcohol use disorder: Continue multivitamins, CIWA with Ativan, social work [ DVT ppx: Heparin SQ TID Code status: Full code Anticipated discharge place: [facility] Anticipated discharge time: 11/14 Objective - Vital Signs Vital signs: Vital Signs Temp 97.3 F L 11/14/24 07:58 Pulse 89 11/14/24 09:30 Resp 17 11/14/24 09:30 BP 110/75 11/14/24 07:58 Pulse Ox 97 11/14/24 07:58 FiO2 40 11/09/24 17:44 Intake & Output 11/13/24 11/14/24 11/14/24 18:59 06:59 18:59 Intake Total 850 Output Total 500 Balance 850 -500 Weight 58.4 kg 58.2 kg Intake: IV 10 Invasive Line 6 10 Oral 840 Output: Urine 500 Other: Voiding Method Toilet Toilet ABP, PAP, CO, CI - Last Documented Arterial Blood Pressure 154/44 Pulmonary Artery Pressure 21/6 Cardiac Output 4.9 Cardiac Index 3.2 - Labs CBC & Chem 7: 11/13/24 07:08 11/13/24 07:08 Labs: Abnormal Lab Results - Last 24 Hours (Table) 11/13/24 11/13/24 11/14/24 Range/Units 16:25 20:19 06:09 POC Glucose (mg/dL) 113 H 139 H 115 H (70-110) mg/dL
== END 2024-11-14 11:37 | disposition home health service (06) | DRG 234 ==
LOC: EC 20:46 → 3SCARD 23:07 → OBSVTOIN 11-04 12:04 → 3SCARD 11-04 12:55 → 2SICU 11-09 07:05 → 3SCARD 11-11 23:34
PROVIDERS: ADMIT Thoracic Surgery (Cardiothoracic Vascular Surgery); ATTEND Internal Medicine
DX: I21.4 Non-ST elevation (NSTEMI) myocardial infarction (principal); E22.2 Syndrome of inappropriate secretion of antidiuretic hormone; D62 Acute posthemorrhagic anemia; G25.0 Essential tremor; I48.0 Paroxysmal atrial fibrillation; J44.89 Other specified chronic obstructive pulmonary disease; F10.20 Alcohol dependence, uncomplicated; I10 Essential (primary) hypertension; J98.11 Atelectasis; R73.9 Hyperglycemia, unspecified; E78.5 Hyperlipidemia, unspecified; F41.9 Anxiety disorder, unspecified; G62.9 Polyneuropathy, unspecified; I25.10 Atherosclerotic heart disease of native coronary artery without angina pectoris; J45.20 Mild intermittent asthma, uncomplicated; M19.90 Unspecified osteoarthritis, unspecified site; Z79.899 Other long term (current) drug therapy; Z87.891 Personal history of nicotine dependence
CPT/HCPCS: 36410; 36415; 71045; 71046; 71250; 76705; 76937; 80048; 80053; 80061; 80074; 81001; 82272; 82330; 82805; 83036; 83735; 84443; 84484; 85025; 85027; 85049; 85610; 85730; 86850; 86891; 86900; 86901; 86920; 87070; 93005; 93306; 93458; 93880; 93922; 93970; 94002; 94150; 94640; 94760; 96365; 96366; 96375; 99291

== ENCOUNTER → 2024-12-10 | Outpatient (CLI) | payer MEDICARE ==
[2024-12-10 19:08] LABS: Basophils % (A) 1.2 %; Eosinophils # (A) 0.24 X 10*3/uL (0.04-0.35); Eosinophils % (A) 2.8 %; HCT 33.5 % (37.2-46.3); HGB 10.7 g/dL (12.0-15.0); Lymphocytes # (A) 1.53 X 10*3/uL (0.90-5.00); Lymphocytes % (A) 17.6 %; MCHC 31.9 g/dL (32.0-37.0); MCV 97.1 FL (80.0-97.0); Mean Platelet Volume 9.7 FL (9.5-12.2); Monocytes # (A) 0.69 X 10*3/uL (0.20-1.00); Monocytes % (A) 7.9 %; NRBC Per 100 WBC 0 X 10*3/uL (0.00-0.01); Neutrophils # (A) 6.09 X 10*3/uL (1.80-7.70); Neutrophils % (A) 70.2 %; Platelet Count 444 X 10*3/uL (140-440); RBC 3.45 X 10*6/uL (4.10-5.20); RDW 13.8 % (11.5-14.5); WBC 8.68 X 10*3/uL (4.50-10.00)
== END | disposition home or self-care (01) ==
LOC: LABWHC1 14:09
PROVIDERS: ATTEND Thoracic Surgery (Cardiothoracic Vascular Surgery)
DX: D64.9 Anemia, unspecified (principal)
CPT/HCPCS: 36415; 85025

== ENCOUNTER → 2025-03-26 | Outpatient (CLI) | payer MEDICARE ==
[2025-03-26 12:28] LABS: African American GFR (CKD) >90 (>60 ml/min/1.73 sqM); Blood Urea Nitrogen 10 mg/dL (7-17); Non-African American GFR(CKD) >90 (>60 ml/min/1.73 sqM)
--- NOTE | 2025-03-26 16:48 | CT ---
EXAMINATION TYPE: CT pelvis wo/w con DATE OF EXAM: 03/26/2025 1:42 PM COMPARISON: None. CLINICAL INDICATION: Female, 74 years old with history of K40.90 L inguinal hernia, L inguinal hernia TECHNIQUE: Axial images were obtained from above the diaphragm to the pubic rami in the axial plane a t 5 mm thick sections. Reconstructed images are reviewed on the computer in the coronal plane. CONTRAST: 100 ml mL of Isovue 300. Study performed with Oral Contrast DLP: 474.60 mGycm, Automated exposure control for dose reduction was used. FINDINGS: Limited CT sections obtained through the lower abdomen appear unremarkable. CT PELVIS: No inguinal hernias identified. No loops of bowel involving inguinal canal No anterior abd ominal wall hernias evident. Loops of bowel within the abdomen and pelvis are normal. Oral contrast extends to the transverse col on. Fecal debris is within the colon. There are loops of bowel which are incompletely distended or lack oral contrast limiting their evaluation. Appendix: Normal as visualized. Urinary bladder: Normal. Genitourinary structures: Uterus appears normal. Adnexa are unremarkable. Osseous structures: No suspicious lytic or sclerotic lesions. Vascular calcification is noted within the femoral arteries. IMPRESSION: 1. No suspicious left inguinal hernia [facility], , 03/26/2025 4:45 PM
== END | disposition home or self-care (01) ==
LOC: RADCTMAIN 11:17
PROVIDERS: ATTEND Internal Medicine
DX: K40.90 Unilateral inguinal hernia, without obstruction or gangrene, not specified as recurrent (principal)
CPT/HCPCS: 82565; 84520; 72194; 36415; Q9967